=== PATIENT | male | born 1970 | race Hispanic/Latino ===

== ENCOUNTER 2020-09-20 11:37 | Emergency (ER) | payer OTHER, SELFPAY ==
[2020-09-20] MEDS ORDERED: TETANUS & DIPHTHERIA TOX,ADULT 0.5 ML VIAL ONE (12:35)
[2020-09-20] MEDS ORDERED: LIDOCAINE 1% MPF 5 ML VIAL ONE (12:35)
--- NOTE | 2020-09-20 12:51 | EDPHYS ---
Physician Documentation [facility] Name: Mireya Knight Jr Age: 50 yrs Sex: Male : 1970 Arrival Date: 09/20/2020 Time: 11:39 Bed 18 Private MD: ED Physician Jonatan Davenport HPI: 09/20 13:35 This 50 yrs old Male presents to ER via Ambulatory with complaints of kb Laceration - finger. 13:35 The patient has a laceration related to: opening beer bottle and it slipped, cutting kb finger occurred at home, and there are no complicating factors. The injury was accidental. The laceration(s) is(are) located on the palmar aspect of middle phalanx of left index finger. Onset: The symptoms/episode began/occurred this morning, at 02:00. Associated signs and symptoms: The patient has no apparent associated signs or symptoms. The patient has not experienced similar symptoms in the past. The patient has not recently seen a physician. Historical: - Allergies: 11:46 No Known Allergies; ll1 - PMHx: 11:46 Hypertension; Hypothyroidism; ll1 - PSHx: 11:46 ear sx; ll1 - Immunization history:: Last tetanus immunization: unknown, Flu vaccine is not up to date. - Social history:: Smoking status: Patient denies any tobacco usage or history of. ROS: 13:29 Constitutional: Negative for fever, chills, and weight loss, MS/Extremity: Negative for kb injury and deformity, Neuro: Negative for headache, weakness, numbness, tingling, and seizure. 13:29 Skin: Positive for laceration(s), of the palmar aspect of middle phalanx of left index finger. Exam: 13:34 Constitutional: This is a well developed, well nourished patient who is awake, alert, kb and in no acute distress. Head/Face: Normocephalic, atraumatic. ENT: Moist Mucous membranes Respiratory: Respirations even and unlabored. No increased work of breathing, no retractions or nasal flaring. MS/ Extremity: Pulses equal, no cyanosis. Neurovascular intact. Full, normal range of motion. Neuro: Awake and alert, GCS 15, oriented to person, place, time, and situation. Moves all extremities. Normal gait. Psych: Awake, alert, with orientation to person, place and time. Behavior, mood, and affect are within normal limits. 13:34 Skin: injury, laceration(s), the wound is approximately 2 cm(s), of the palmar aspect of middle phalanx of left index finger, that can be described as clean, no foreign body, linear, without bleeding. Vital Signs: 11:46 BP 175 / 114; Pulse 64; Resp 17; Temp 97.9; Pulse Ox 95% ; Weight 95.25 kg; Height 5 ll1 ft. 10 in. (177.80 cm); Pain 4/10; 13:05 BP 155 / 90; Pulse 65; Resp 18; Temp 97.8; Pulse Ox 96% on R/A; ph 11:46 Body Mass Index 30.13 (95.25 kg, 177.80 cm) ll1 Laceration: 12:48 Wound Repair of 2cm ( 0.8in ) subcutaneous laceration to palmar aspect of middle kb phalanx of left index finger. Linear shaped.. Distal neuro/vascular/tendon intact. Anesthesia: Wound infiltrated with 1.5 mls of 1% lidocaine. Wound prep: Moderate cleansing with betadine by me, Wound irrigation with saline by me. Skin closed with 4 5-0 Prolene using simple sutures and sterile technique. Patient tolerated well. MDM: 11:48 Patient medically screened. kb 12:49 Data reviewed: vital signs, nurses notes. Data interpreted: Pulse oximetry: on room air kb is 95 %. Interpretation: normal. Counseling: I had a detailed discussion with the patient and/or guardian regarding: the historical points, exam findings, and any diagnostic results supporting the discharge/admit diagnosis, the need for outpatient follow up, a family practitioner, to return to the emergency department if symptoms worsen or persist or if there are any questions or concerns that arise at home. 13:36 ED course: Pt requested refill on lisinopril 40mg daily. states he ran out a few days kb ago and hasn't been able to schedule appt with PCP because he has been on nights. 09/20 12:01 Order name: Prolene, Sutures; Complete Time: 12:48 kb 09/20 12:01 Order name: Dressing - Wound; Complete Time: 12:49 kb 09/20 12:01 Order name: Gloves, Sterile; Complete Time: 12:49 kb 09/20 12:01 Order name: Setup Suture Tray; Complete Time: 12:49 kb Administered Medications: 12:43 Drug: Lidocaine (2 %) 1 vials Volume: 5 ml; Route: Infiltration; ph 13:00 Follow up: Response: No adverse reaction ph 12:44 Drug: Tetanus-Diphtheria Toxoid Adult 0.5 ml {[employer]: [employer]. Exp: ph 06/12/2022. Lot #: [id number]. } Route: IM; Site: right deltoid; 13:00 Follow up: Response: No adverse reaction ph Disposition: 13:24 Co-signature as Attending Physician, Jonatan Davenport MD. rn Disposition: 09/20/20 12:50 Discharged to Home. Impression: Laceration without foreign body of left index finger without damage to nail. - Condition is Stable. - Discharge Instructions: Laceration Care, Adult, [id number]. - Prescriptions for lisinopril 40 mg Oral tablet - take 1 tablet by ORAL route once daily; 20 tablet. - Medication Reconciliation Form, Thank You Letter, Antibiotic Education, Prescription Opioid Use form. - Follow up: Emergency Department; When: As needed; Reason: Worsening of condition. Follow up: Private Physician; When: 2 - 3 days; Reason: Recheck today's complaints, Continuance of care, Re-evaluation by your physician. Signatures: Denisse Forde, MEDICAL OFFICE WORKER-C MEDICAL OFFICE WORKER-Ckb Jonatan Davenport MD MD rn Hall, Patricia, RN RN ph Lewis, Lynsay, RN RN ll1 Corrections: (The following items were deleted from the chart) 13:13 12:50 09/20/2020 12:50 Discharged to Home. Impression: Laceration without foreign body ph of left index finger without damage to nail. Condition is Stable. Forms are Medication Reconciliation Form, Thank You Letter, Antibiotic Education, Prescription Opioid Use. Follow up: Emergency Department; When: As needed; Reason: Worsening of condition. Follow up: Private Physician; When: 2 - 3 days; Reason: Recheck today's complaints, Continuance of care, Re-evaluation by your physician. kb
--- NOTE | 2020-09-20 12:51 | ER ---
Nurse's Notes [facility] Name: Mireya Knight Jr Age: 50 yrs Sex: Male : 1970 Arrival Date: 09/20/2020 Time: 11:39 Bed 18 Private MD: Diagnosis: Laceration without foreign body of left index finger without damage to nail Presentation: 09/20 11:46 Chief complaint: Patient states: L hand 2nd digit accidentally cut with broken bottle ll1 last night at 0200. Coronavirus screen: Client denies travel out of the [place] in the last 14 days. At this time, the client does not indicate any symptoms associated with coronavirus-19. Ebola Screen: Patient denies travel to an Ebola-affected area in the 21 days before illness onset. Complicating Factors: There are no complicating factors for this patient. Initial Sepsis Screen: Does the patient meet any 2 criteria? No. Patient's initial sepsis screen is negative. Does the patient have a suspected source of infection? Yes: Skin breakdown/wound. Risk Assessment: Do you want to hurt yourself or someone else? Patient reports no desire to harm self or others. Onset of symptoms was September 20, 2020. 11:46 Method Of Arrival: Ambulatory ll1 11:46 Acuity: OTIS 4 ll1 Historical: - Allergies: 11:46 No Known Allergies; ll1 - PMHx: 11:46 Hypertension; Hypothyroidism; ll1 - PSHx: 11:46 ear sx; ll1 - Immunization history:: Last tetanus immunization: unknown, Flu vaccine is not up to date. - Social history:: Smoking status: Patient denies any tobacco usage or history of. Screenin:06 Abuse screen: Denies threats or abuse. Denies injuries from another. Nutritional ph screening: No deficits noted. Tuberculosis screening: No symptoms or risk factors identified. Fall Risk None identified. Assessment: 12:45 General: Appears in no apparent distress. comfortable, Behavior is calm, cooperative, ph appropriate for age. 17:20 Pain: Complains of pain in palmar aspect of middle phalanx of left index finger. Neuro: ph Level of Consciousness is awake, alert, obeys commands, Oriented to person, place, time, situation. Cardiovascular: Capillary refill < 3 seconds in bilateral fingers Patient's skin is warm and dry. Respiratory: No deficits noted. Musculoskeletal: Circulation, motion, and sensation intact. Range of motion: intact in all extremities. Injury Description: Laceration sustained to palmar aspect of middle phalanx of left index finger is jagged, 2.6 to 7.5 cm long, not bleeding. Vital Signs: 11:46 BP 175 / 114; Pulse 64; Resp 17; Temp 97.9; Pulse Ox 95% ; Weight 95.25 kg; Height 5 ll1 ft. 10 in. (177.80 cm); Pain 4/10; 13:05 BP 155 / 90; Pulse 65; Resp 18; Temp 97.8; Pulse Ox 96% on R/A; ph 11:46 Body Mass Index 30.13 (95.25 kg, 177.80 cm) ll1 ED Course: 11:39 Patient arrived in ED. as 11:45 Arm band placed on Patient placed in an exam room, on a stretcher. ll1 11:46 Denisse Forde FNP-C [facility]. kb 11:46 Jonatan Davenport MD is Attending Physician. kb 11:47 Triage completed. ll1 12:13 Genesis Walters, KWASI is Primary Nurse. ph 12:40 Assist provider with laceration repair. ph 13:06 Patient has correct armband on for positive identification. Bed in low position. Call ph light in reach. Side rails up X 1. Pulse ox on. NIBP on. 13:06 Patient did not have IV access during this emergency room visit. ph Administered Medications: 12:43 Drug: Lidocaine (2 %) 1 vials Volume: 5 ml; Route: Infiltration; ph 13:00 Follow up: Response: No adverse reaction ph 12:44 Drug: Tetanus-Diphtheria Toxoid Adult 0.5 ml {[employer] [place]: [employer]. Exp: ph 06/12/2022. Lot #: [id number]. } Route: IM; Site: right deltoid; 13:00 Follow up: Response: No adverse reaction ph Outcome: 12:50 Discharge ordered by . kb 13:13 Patient left the ED. ph 13:13 Discharged to home ambulatory, with significant other. ph 13:13 Condition: good 13:13 Discharge instructions given to patient, Instructed on discharge instructions, follow up and referral plans. medication usage, Demonstrated understanding of instructions, follow-up care, medications, Prescriptions given X 1. Signatures: Denisse Forde, POOLROOM/POOLHALL MANAGER-C POOLROOM/POOLHALL MANAGER-Daphney Melo as Genesis Walters, RN RN ph Madi Chavez RN RN ll1 Corrections: (The following items were deleted from the chart) 17:21 12:45 General: Appears in no apparent distress. comfortable, Behavior is calm, ph cooperative, appropriate for age, ph
[2020-09-20 13:24] VITALS: BP 155/90; TEMP 97.8; O2SAT 96
== END 2020-09-20 13:13 | disposition home or self-care (01) ==
LOC: ER 11:37
PROC: 0JQK0ZZ Repair Left Hand Subcutaneous Tissue and Fascia, Open Approach (ICD-10-PCS; principal; 2020-09-20)
DX: S61.211A Laceration without foreign body of left index finger without damage to nail, initial encounter (principal); W25.XXXA Contact with sharp glass, initial encounter; Y92.009 Unspecified place in unspecified non-institutional (private) residence as the place of occurrence of the external cause; Z23 Encounter for immunization; I10 Essential (primary) hypertension
CPT/HCPCS: 90471; 90714; 99284

== ENCOUNTER 2020-11-12 11:57 | Emergency (ER) | payer OTHER ==
--- NOTE | 2020-11-12 13:19 | RAD REPORT ---
EXAM DESCRIPTION: RAD - Chest Pa And Lat (2 Views) - 11/12/2020 12:47 pm CLINICAL HISTORY: COUGH Chest pain. COMPARISON: CHEST SINGLE VIEW dated 08/21/2011; CHEST SINGLE VIEW dated 12/02/2005 FINDINGS: Mild bilateral interstitial lung opacities are seen in most compatible with mild to modera te COVID infection. The heart is normal in size. No displaced fractures.
[2020-11-12] MEDS ORDERED: ONDANSETRON 4 MG (ODT) TAB ONE (16:28)
[2020-11-12] MEDS ORDERED: BENZONATATE 100 MG CAP PO ONE (16:28)
--- NOTE | 2020-11-12 16:35 | ER ---
Nurse[facility] Name: Mireya Knight Jr Age: 50 yrs Sex: Male : 1970 Arrival Date: 11/12/2020 Time: 12:12 Bed 30 Private MD: Diagnosis: Other viral pneumonia;SARS-associated coronavirus as the cause of diseases classified elsewhere Presentation: 11/12 12:15 Chief complaint: Patient states: Covid+ 11/09/2020. Cough x 1 month, N/V x 4 days, ca1 feeling weak and fatigued. Coronavirus screen: Client denies travel out of the [place] in the last 14 days. Client reports previous positive COVID test result. Date of collection: November 09, 2020 Staff notified of need for isolation. Ebola Screen: Patient negative for fever greater than or equal to 101.5 degrees Fahrenheit, and additional compatible Ebola Virus Disease symptoms Patient denies exposure to infectious person. Patient denies travel to an Ebola-affected area in the 21 days before illness onset. No symptoms or risks identified at this time. Initial Sepsis Screen: Does the patient meet any 2 criteria? No. Patient's initial sepsis screen is negative. Does the patient have a suspected source of infection? No. Patient's initial sepsis screen is negative. Risk Assessment: Do you want to hurt yourself or someone else? Patient reports no desire to harm self or others. Onset of symptoms was November 12, 2020. 12:15 Method Of Arrival: Ambulatory ca1 12:15 Acuity: OTIS 3 ca1 Historical: - Allergies: 12:16 No Known Allergies; ca1 - PMHx: 12:16 Hypertension; Hypothyroidism; ca1 - Immunization history:: Client reports having NOT received the Covid vaccine. - Social history:: Smoking status: Patient denies any tobacco usage or history of. Screenin:48 Abuse screen: Denies threats or abuse. Denies injuries from another. Nutritional tr6 screening: No deficits noted. Tuberculosis screening: No symptoms or risk factors identified. Fall Risk None identified. Assessment: 16:20 General: Appears in no apparent distress. uncomfortable, Behavior is calm, cooperative, tr6 appropriate for age. Pain: Complains of pain in chest and right posterior lower lobe and right posterior middle lobe and left posterior lower lobe. Neuro: No deficits noted. Level of Consciousness is awake, alert, obeys commands. Cardiovascular: Reports chest pain, CP r/t cough. Respiratory: Reports shortness of breath cough that is pain with cough. GI: Abdomen is flat, non-distended, Reports nausea. : No deficits noted. EENT: No deficits noted. Derm: No deficits noted. Musculoskeletal: No deficits noted. Vital Signs: 12:15 BP 139 / 91; Pulse 86; Resp 18 S; Temp 97.1(TE); Pulse Ox 98% on R/A; Weight 95.25 kg ca1 (R); Height 5 ft. 10 in. (177.80 cm) (R); Pain 0/10; 12:15 Body Mass Index 30.13 (95.25 kg, 177.80 cm) ca1 ED Course: 12:12 Patient arrived in ED. ca1 12:16 Triage completed. ca1 12:16 Arm band placed on right wrist. ca1 12:28 Radiology exam delayed due to pt's name was called in ed lobby for cxr, no response at ml 12:28. 12:45 Chest Pa And Lat (2 Views) XRAY In Process Unspecified. EDMS 15:23 Marjorie Vyas, KWASI is Primary Nurse. tr6 15:25 Chadd Payne PA is PHCP. cp 15:25 Tavo Bartholomew MD is Attending Physician. cp 16:19 EKG done, by ED staff, reviewed by Chadd ROY. 5 17:48 Patient has correct armband on for positive identification. Call light in reach. tr6 nurse monitoring on. Pulse ox on. NIBP on. 17:48 No provider procedures requiring assistance completed. Patient did not have IV access tr6 during this emergency room visit. Administered Medications: 16:21 Drug: Tessalon Perle (benzonatate) 200 mg Route: PO; tr6 16:21 Drug: Zofran (Ondansetron) 4 mg Route: PO; tr6 16:22 Drug: predniSONE 60 mg Route: PO; tr6 Outcome: 16:34 Discharge ordered by . cp 17:48 Patient left the ED. ca1 17:48 Discharged to home ambulatory, pt refused wheelchair at this time tr6 17:48 Condition: stable 17:48 Discharge instructions given to patient, Instructed on discharge instructions, follow up and referral plans. no drinking with medication, medication usage, safety practices, Demonstrated understanding of instructions, follow-up care, medications, Prescriptions given X 4. Signatures: Dispatcher [employer] Elsa Colon Corey, PA PA cp Martinez, Maria [facility] Alessia Nichole RN RN ca1 Marjorie Vyas RN RN tr6 Corrections: (The following items were deleted from the chart) 12:19 12:15 Coronavirus screen: Client denies travel out of the [place] in the last 14 days. At ca1 this time, the client does not indicate any symptoms associated with coronavirus-19. ca1
--- NOTE | 2020-11-12 16:35 | EDPHYS ---
Physician Documentation [facility] Name: Mireya Knight Jr Age: 50 yrs Sex: Male : 1970 Arrival Date: 11/12/2020 Time: 12:12 Bed 30 Private MD: ED Physician Tavo Bartholomew HPI: 11/12 15:35 This 50 yrs old Male presents to ER via Ambulatory with complaints of covid+, cp Nausea/Vomiting, Cough. 15:35 The patient or guardian reports cough, that is constant, with no sputum. Onset: The cp symptoms/episode began/occurred 1 week(s) ago, and became worse 3 day(s) ago. Associated signs and symptoms: Pertinent positives: chest pain, with cough, nausea, vomiting, Pertinent negatives: diarrhea, fever. Severity of symptoms: in the emergency department the symptoms are unchanged despite home interventions. Historical: - Allergies: 12:16 No Known Allergies; ca1 - PMHx: 12:16 Hypertension; Hypothyroidism; ca1 - Immunization history:: Client reports having NOT received the Covid vaccine. - Social history:: Smoking status: Patient denies any tobacco usage or history of. ROS: 15:36 Eyes: Negative for injury, pain, redness, and discharge. cp 15:36 Constitutional: Negative for fever, poor PO intake. 15:36 ENT: Negative for ear pain, sore throat, difficulty swallowing, difficulty handling secretions. 15:36 Cardiovascular: Positive for chest pain, with cough, Negative for edema, palpitations. 15:36 Respiratory: Positive for cough, with no reported sputum, shortness of breath, on exertion. Negative for wheezing. 15:36 Abdomen/GI: Positive for nausea and vomiting, Negative for abdominal pain, diarrhea, constipation. 15:36 Back: Positive for radiated pain. 15:36 Skin: Negative for rash. 15:36 Neuro: Negative for altered mental status, headache, loss of consciousness, syncope, weakness. 15:36 All other systems are negative. Exam: 15:37 Head/Face: Normocephalic, atraumatic. cp 15:37 Constitutional: The patient appears in no acute distress, alert, awake, non-diaphoretic, non-toxic, well developed, well nourished. 15:37 Eyes: Periorbital structures: appear normal, Conjunctiva: normal, no exudate, no injection, Sclera: no appreciated abnormality, Lids and lashes: appear normal, bilaterally. 15:37 ENT: External ear(s): are unremarkable, Nose: is normal, Mouth: Lips: moist, Oral mucosa: moist, Posterior pharynx: Airway: no evidence of obstruction, patent. 15:37 Neck: ROM/movement: is normal, is supple, no meningismus, no nuchal rigidity. 15:37 Chest/axilla: Inspection: normal, Palpation: is normal, no crepitus, no tenderness. 15:37 Cardiovascular: Rate: normal, Rhythm: regular, Edema: is not appreciated, JVD: is not appreciated. 15:37 Respiratory: the patient does not display signs of respiratory distress, Respirations: normal, no use of accessory muscles, no retractions, labored breathing, is not present, Breath sounds: bronchial sounds, that are mild, are heard in the left posterior lower lobe, right posterior middle lobe and right posterior lower lobe, decreased breath sounds, are not appreciated, stridor, is not appreciated, wheezing: is not appreciated. 15:37 Abdomen/GI: Inspection: abdomen appears normal, Palpation: abdomen is soft and non-tender, in all quadrants. 15:37 Back: pain, that is mild, of the lower mid back, ROM is normal. 16:33 ECG was reviewed by the Attending Physician. Vital Signs: 12:15 BP 139 / 91; Pulse 86; Resp 18 S; Temp 97.1(TE); Pulse Ox 98% on R/A; Weight 95.25 kg ca1 (R); Height 5 ft. 10 in. (177.80 cm) (R); Pain 0/10; 12:15 Body Mass Index 30.13 (95.25 kg, 177.80 cm) ca1 MDM: 15:34 Patient medically screened. cp 16:00 Differential diagnosis: bronchitis, flu, URI, pneumonia, respiratory failure. 16:33 Data reviewed: vital signs, nurses notes, EKG, radiologic studies, plain films. 16:33 Test interpretation: by ED physician or midlevel provider: ECG, plain radiologic cp studies. Counseling: I had a detailed discussion with the patient and/or guardian regarding: the historical points, exam findings, and any diagnostic results supporting the discharge/admit diagnosis, radiology results, the need for outpatient follow up, a family practitioner, to return to the emergency department if symptoms worsen or persist or if there are any questions or concerns that arise at home. ED course: VSS. Patient appears non-toxic and no signs of respiratory distress. Will discharge to home for continued monitoring. 11/12 12:17 Order name: Chest Pa And Lat (2 Views) XRAY; Complete Time: 15:11 ca1 11/12 15:40 Order name: EKG; Complete Time: 15:40 cp 11/12 15:40 Order name: EKG - Nurse/Tech; Complete Time: 16:19 cp EC:33 Rate is 73 beats/min. Rhythm is regular. MT interval is normal. QRS interval is normal. cp QT interval is normal. T waves are Inverted in lead aVR. Interpreted by me. Reviewed by me. Administered Medications: 16:21 Drug: Tessalon Perle (benzonatate) 200 mg Route: PO; tr6 16:21 Drug: Zofran (Ondansetron) 4 mg Route: PO; tr6 16:22 Drug: predniSONE 60 mg Route: PO; tr6 Disposition: 19:01 Co-signature as Attending Physician, Tavo Bartholomew MD I agree with the assessment and kdr plan of care. Disposition Summary: 11/12/20 16:34 Discharge Ordered Location: Home cp Problem: new cp Symptoms: have improved cp Condition: Stable cp Diagnosis - Other viral pneumonia cp - SARS-associated coronavirus as the cause of diseases classified elsewhere cp Followup: cp - With: Private Physician - When: 2 - 3 days - Reason: Worsening of condition Discharge Instructions: - Discharge Summary Sheet cp - COVID-19 cp - Things to Know about the COVID-19 Pandemic - [facility] cp - 10 Things You Can Do to Manage Your COVID-19 Symptoms at Home - [facility] cp - COVID-19: Quarantine vs. Isolation - [facility] cp - Prevent the Spread of COVID-19 if You Are Sick - [facility] cp Forms: - Medication Reconciliation Form cp - Thank You Letter cp - Antibiotic Education cp - Prescription Opioid Use cp Prescriptions: - albuterol sulfate 90 mcg/actuation Inhalation HFA aerosol inhaler - inhale 2 puff by INHALATION route every 4-6 hours; 1 Inhaler; Refills: 0, cp Product Selection Permitted - Zofran 4 mg Oral Tablet - take 1 tablet by ORAL route every 12 hours As needed; 20 tablet; Refills: 0, cp Product Selection Permitted - Tessalon Perles 100 mg Oral Capsule - take 2 capsule by ORAL route every 8 hours As needed; 30 capsule; Refills: 0, cp Product Selection Permitted - Zithromax Z-Mendez 250 mg Oral Tablet - take 1 tablet by ORAL route as directed for 5 days Day 1 - take two (2) tablets cp one time. Day 2, 3, 4 , 5 take one (1) tablet once daily.; 6 tablet; Refills: 0, Product Selection Permitted - Prednisone 20 mg Oral Tablet - take 2 tablets by ORAL route once daily for 5 days then take 1 tablet daily for cp 5 days; 15 tablet; Refills: 0, Product Selection Permitted Signatures: Dispatcher [employer] Tavo Snow MD MD kdr Page, Corey, PA PA cp Acob, Cheryl RN RN ca1 Marjorie Vyas RN RN tr6
[2020-11-12] MEDS ORDERED: predniSONE 20 MG TAB ONE (16:39)
[2020-11-12 17:55] VITALS: BP 139/91; TEMP 97.1; O2SAT 98
--- NOTE | 2020-11-13 10:51 | EKG ---
Test Date: 2020-11-12 Test Time: 16:27:25 Oncology Pharmacist: SAMANTA MEASUREMENT RESULTS: Intervals: Rate: 73 RI: 134 QRSD: 72 QT: 384 QTc: 423 Rebecca: P: 55 RI: 134 QRS: 13 T: 51 INTERPRETIVE STATEMENTS: Normal sinus rhythm Normal ECG Compared to ECG 08/21/2011 06:18:25 Myocardial infarct finding no longer present Electronically Signed On 11-13-20 10:48:23 CDT by oJseph Gilbert
== END 2020-11-12 17:48 | disposition home or self-care (01) ==
LOC: ER 11:57
DX: U07.1 COVID-19 (principal); J12.89 Other viral pneumonia; I10 Essential (primary) hypertension
CPT/HCPCS: 93005; 71046; 99284; J7512

== ENCOUNTER 2020-11-17 15:29 | Inpatient (IN) | payer OTHER ==
[2020-11-17] MEDS ORDERED: METHYLPREDNISOLONE 125 MG INJ ONE (16:09)
--- NOTE | 2020-11-17 16:12 | ER ---
Nurse's Notes [facility] Name: Mireya Knight Jr Age: 50 yrs Sex: Male : 1970 Arrival Date: 11/17/2020 Time: 15:37 Bed 8 Private MD: Diagnosis: Pneumonia due to SARS-associated coronavirus;Hypoxemia Presentation: 11/17 15:39 Chief complaint: Patient states: tested + for COVID on 11-08-20, is having increased diff iw breathing , pt 88% on RA , reports chest pain with cough. Coronavirus screen: Client presents with at least one sign or symptom that may indicate coronavirus-19. Client reports previous positive COVID test result. Ebola Screen: Patient negative for fever greater than or equal to 101.5 degrees Fahrenheit, and additional compatible Ebola Virus Disease symptoms Patient denies exposure to infectious person. Patient denies travel to an Ebola-affected area in the 21 days before illness onset. No symptoms or risks identified at this time. Onset of symptoms was November 08, 2020. 15:39 Method Of Arrival: EMS: [facility] iw 15:39 Acuity: OTIS 3 iw 15:41 Initial Sepsis Screen: Does the patient meet any 2 criteria? No. Patient's initial iw sepsis screen is negative. Does the patient have a suspected source of infection? No. Patient's initial sepsis screen is negative. Risk Assessment: Do you want to hurt yourself or someone else? Patient reports no desire to harm self or others. Historical: - Allergies: 15:49 No Known Allergies; iw - Home Meds: 15:49 lisinopril 40 mg Oral tab 1 tab once daily [Active]; levothyroxine oral 10 mcg once iw daily [Active]; - PMHx: 15:49 Hypertension; Hypothyroidism; iw - PSHx: 15:49 None; iw - Immunization history:: Client reports having NOT received the Covid vaccine. - Social history:: Smoking status: Patient denies any tobacco usage or history of. - Family history:: not pertinent. - Hospitalizations: : No recent hospitalization is reported. Screenin:53 Abuse screen: Denies threats or abuse. Denies injuries from another. Nutritional hb screening: No deficits noted. Tuberculosis screening: No symptoms or risk factors identified. Fall Risk None identified. Assessment: 15:51 General: Appears in no apparent distress. Behavior is calm, cooperative. Pain: Pain hb currently is 4 out of 10 on a pain scale. Neuro: Level of Consciousness is awake, alert, obeys commands, Oriented to person, place, time, situation. Cardiovascular: Patient's skin is warm and dry. Rhythm is regular. Respiratory: Respiratory effort is even, mildly labored Respiratory pattern is tachypnea. GI: Reports diarrhea, nausea. : No signs and/or symptoms were reported regarding the genitourinary system. EENT: No signs and/or symptoms were reported regarding the EENT system. Derm: Skin is pink, warm \T\ dry. Musculoskeletal: Reports body aches. 16:23 Reassessment: Patient appears in no apparent distress at this time. Patient and/or jd3 family updated on plan of care and expected duration. Pain level reassessed. Patient is alert, oriented x 3, equal unlabored respirations, skin warm/dry/pink. 17:20 Reassessment: No changes from previously documented assessment. Patient and/or family hb updated on plan of care and expected duration. Pain level reassessed. Admission ordered, awaiting hospitalist at this time. Vital Signs: 15:41 BP 118 / 85; Pulse 76; Resp 24 S; Pulse Ox 88% on R/A; Weight 95.25 kg; Height 5 ft. 10 iw in. (177.80 cm); 16:24 BP 132 / 87; Pulse 73; Resp 21 S; Temp 99.2(O); Pulse Ox 95% on 2 lpm NC; jd3 15:41 Body Mass Index 30.13 (95.25 kg, 177.80 cm) iw ED Course: 15:37 Patient arrived in ED. iw 15:38 Jonatan Davenport MD is Attending Physician. rn 15:41 Triage completed. iw 15:41 Arm band placed on. iw 15:44 Hugo Menezes RN is Primary Nurse. jd3 15:53 Patient has correct armband on for positive identification. Placed in gown. Bed in low hb position. Call light in reach. Side rails up X 1. youth nutritional monitor on. Pulse ox on. NIBP on. 16:10 Abby Bond MD is Hospitalizing Provider. rn 16:23 Inserted saline lock: 20 gauge in right forearm, using aseptic technique. Blood jd3 collected. 16:30 XRAY Chest (1 view) In Process Unspecified. EDMS 17:53 No provider procedures requiring assistance completed. Patient admitted, IV remains in hb place. Administered Medications: 16:22 Drug: SOLU-Medrol (methylPrednisoLONE) 125 mg Route: IVP; Site: right forearm; jd3 17:20 Follow up: Response: No adverse reaction jd3 Outcome: 16:11 Decision to Hospitalize by Provider. rn 17:53 Admitted to ER Hold. Please see [facility] for further documentation. hb 17:53 Condition: stable 17:53 Instructed on the need for admit, Demonstrated understanding of instructions. 11/18 13:03 Patient left the ED. ld1 Signatures: Dispatcher [employer] EDKallie Brumfield RN RN Jonatan Davenport MD MD rn Baxter, Heather, RN RN hb Davies, Jonathon, RN RN jd3 Dibbern, Lauren, RN RN ld1 Corrections: (The following items were deleted from the chart) 11/17 15:50 15:49 Allergies: No Known Allergies; iw iw 15:50 15:49 Allergies: Levothyroxine Sodium; iw iw 17:21 17:20 Reassessment: No changes from previously documented assessment. Patient and/or hb family updated on plan of care and expected duration. Pain level reassessed. hb
--- NOTE | 2020-11-17 16:12 | EDPHYS ---
Physician Documentation [facility] Name: Mireya Knight Jr Age: 50 yrs Sex: Male : 1970 Arrival Date: 11/17/2020 Time: 15:37 Bed 8 Private MD: ED Physician Jonatan Davenport HPI: 11/17 16:04 This 50 yrs old Male presents to ER via EMS with complaints of Breathing rn Difficulty - COVID+. 16:04 The patient has shortness of breath at rest, with light activity. Onset: The rn symptoms/episode began/occurred 1 week(s) ago. Duration: The symptoms are continuous. The patient's shortness of breath is aggravated by coughing, exertion, light activity, is alleviated by nothing. Associated signs and symptoms: Pertinent positives: productive cough, fever, Pertinent negatives: hemoptysis. Severity of symptoms: At their worst the symptoms were moderate in the emergency department the symptoms are unchanged. The patient has not experienced similar symptoms in the past. The patient has not recently seen a physician. Patient reports 1 week of cough and shortness of breath, tested positive for Covid recently. Multiple family members admitted to the hospital with Covid pneumonia. No chronic lung problems. EMS states oxygen 87% on room air.. Historical: - Allergies: 15:49 No Known Allergies; iw - Home Meds: 15:49 lisinopril 40 mg Oral tab 1 tab once daily [Active]; levothyroxine oral 10 mcg once iw daily [Active]; - PMHx: 15:49 Hypertension; Hypothyroidism; iw - PSHx: 15:49 None; iw - Immunization history:: Client reports having NOT received the Covid vaccine. - Social history:: Smoking status: Patient denies any tobacco usage or history of. - Family history:: not pertinent. - Hospitalizations: : No recent hospitalization is reported. ROS: 16:05 Constitutional: Negative for fever, chills, and weight loss, Eyes: Negative for injury, rn pain, redness, and discharge, ENT: Negative for injury, pain, and discharge, Neck: Negative for injury, pain, and swelling, Cardiovascular: Negative for chest pain, palpitations, and edema, Respiratory: Negative for wheezing Abdomen/GI: Negative for abdominal pain, nausea, vomiting, and constipation, Back: Negative for injury and pain, : Negative for injury, bleeding, discharge, and swelling, MS/Extremity: Negative for injury and deformity, Skin: Negative for injury, rash, and discoloration, Neuro: Negative for headache, numbness, tingling, and seizure. 16:05 All other systems are negative. rn Exam: 16:05 Constitutional: This is a well developed, well nourished patient who is awake, alert, rn appears ill and mild tachypnea Head/Face: Normocephalic, atraumatic. Eyes: Periorbital areas with no swelling, redness, or edema. ENT: No stridor, dry mucous membranes Cardiovascular: Regular rate and rhythm. No pulse deficits. Respiratory: Moderate tachypnea on exam Abdomen/GI: Soft, non-tender Skin: Warm, dry MS/ Extremity: Pulses equal, no cyanosis. Neurovascular intact. Full, normal range of motion. Equal circumference. Neuro: Awake and alert, GCS 15 18:58 ECG was reviewed by the Attending Physician. rn Vital Signs: 15:41 BP 118 / 85; Pulse 76; Resp 24 S; Pulse Ox 88% on R/A; Weight 95.25 kg; Height 5 ft. 10 iw in. (177.80 cm); 16:24 BP 132 / 87; Pulse 73; Resp 21 S; Temp 99.2(O); Pulse Ox 95% on 2 lpm NC; jd3 15:41 Body Mass Index 30.13 (95.25 kg, 177.80 cm) iw MDM: 15:38 Patient medically screened. rn 16:09 Differential diagnosis: Bronchitis pneumonia, pulmonary edema, Sepsis Covid. Data rn reviewed: vital signs, nurses notes, lab test result(s), EKG, radiologic studies, plain films, and as a result, I will admit patient. Data interpreted: library monitor: rate is 76 beats/min, rhythm is normal sinus rhythm, regular, with no ectopy, Interpretation: normal rate, normal rhythm, Pulse oximetry: on room air is 88 %. Interpretation: hypoxia. Plan: O2 by NC applied. Test interpretation: by ED physician or midlevel provider: ECG, plain radiologic studies, Chest x-ray shows bilateral pneumonia. Counseling: I had a detailed discussion with the patient and/or guardian regarding: the historical points, exam findings, and any diagnostic results supporting the discharge/admit diagnosis, lab results, radiology results, the need for further work-up and treatment in the hospital. Response to treatment: the patient's symptoms have mildly improved after treatment, and as a result, I will admit patient. Admission orders: after a detailed discussion of the patient's condition and case, the admit orders are written by me. ED course: Patient with Covid pneumonia, hypoxia, tachypnea, will admit to Dr. Bradford for further care.. 16:11 Antibiotic administration: Not indicated. Immunization status:. 11/17 15:39 Order name: BMP rn 11/17 15:39 Order name: Blood Culture Adult (2) rn 11/17 15:39 Order name: C-Reactive Protein; Complete Time: 17:57 11/17 15:39 Order name: CBC with Diff; Complete Time: 17:57 11/17 15:39 Order name: D-Dimer; Complete Time: 16:52 11/17 15:39 Order name: Ferritin; Complete Time: 17:57 11/17 15:39 Order name: LFT's; Complete Time: 17:57 11/17 15:39 Order name: Lactate; Complete Time: 17:57 11/17 15:39 Order name: PT-INR; Complete Time: 16:52 11/17 15:39 Order name: Procalcitonin; Complete Time: 17:57 11/17 15:39 Order name: Ptt, Activated; Complete Time: 16:52 11/17 15:39 Order name: Troponin (emerg Dept Use Only); Complete Time: 17:57 11/17 15:40 Order name: Basic Metabolic Panel; Complete Time: 17:57 [facility] 11/17 17:28 Order name: CBC Smear Scan; Complete Time: 17:57 [facility] 11/17 15:39 Order name: XRAY Chest (1 view); Complete Time: 16:52 11/17 15:39 Order name: EKG; Complete Time: 15:40 11/17 15:39 Order name: Cardiac monitoring; Complete Time: 16:23 11/17 15:39 Order name: Droplet/Contact Precautions; Complete Time: 15:45 11/17 15:39 Order name: EKG - Nurse/Tech; Complete Time: 16:23 11/17 17:43 Order name: Lipid Profile [facility] 11/17 17:43 Order name: Hemoglobin A1c [facility] 11/17 17:44 Order name: CBC with Automated Diff [facility] 11/17 17:44 Order name: CBC with Automated Diff [facility] 11/17 17:44 Order name: Comprehensive Metabolic Panel [facility] 11/17 17:44 Order name: Comprehensive Metabolic Panel [facility] 11/17 17:53 Order name: Protime (+INR) [facility] 11/17 17:53 Order name: Regular [facility] 11/17 17:53 Order name: Urinalysis [facility] 11/17 20:53 Order name: Lactate Sepsis 2 HR Follow-up [facility] 11/17 15:39 Order name: IV Start; Complete Time: 16:23 rn 11/17 15:39 Order name: Labs collected and sent; Complete Time: 16:23 rn 11/17 15:39 Order name: O2 Per Protocol; Complete Time: 15:45 rn 11/17 15:39 Order name: O2 Sat Monitoring; Complete Time: 15:45 rn EC:58 Rate is 69 beats/min. Rhythm is regular. QRS [place] is Normal. [place] interval is normal. QRS rn interval is normal. QT interval is normal. No Q waves. T waves are Normal. No ST changes noted. Clinical impression: Normal ECG. Interpreted by me. Reviewed by me. Administered Medications: 16:22 Drug: SOLU-Medrol (methylPrednisoLONE) 125 mg Route: IVP; Site: right forearm; jd3 17:20 Follow up: Response: No adverse reaction jd3 Disposition Summary: 11/17/20 16:11 Hospitalization Ordered Hospitalization Status: Inpatient Admission rn Provider: Abby Bond rn Condition: Stable rn Problem: new rn Symptoms: are unchanged rn Bed/Room Type: Standard rn Location: Intensive Care Unit(11/18/20 12:10) bd Room Assignment: 8-(11/18/20 12:10) bd Diagnosis - Pneumonia due to SARS-associated coronavirus rn - Hypoxemia rn Forms: - Medication Reconciliation Form rn - SBAR form rn Signatures: Dispatcher [employer] Linda Ryder Irene, RN RN iw Nieto, Roman, MD MD rn Baxter, Heather, RN RN hb Davies, Jonathon RN RN jd3 Corrections: (The following items were deleted from the chart) 15:50 15:49 Allergies: No Known Allergies; iw 15:50 15:49 Allergies: Levothyroxine Sodium; iw 16: 15:46 Labs - recollect needed ordered. bd jd3 1753 16:11 Telemetry/MedSurg (Inpatient) [facility] 53 16:11 rn 11/18 12:10 11/17 17:53 [facility] ER HOLD bd 11/18 12:10 11/17 17:53 ERHOLD- [facility]
[2020-11-17 16:32] LABS: Absolute Lymphocytes (CBC) 0.7 K/uL (0.7-4.9); Basophils % 0.3 % (0-1.3); Hematocrit 45.1 % (39.6-49.0); Lymphocytes % 5.5 % (15.3-44.8); MPV 7.7 fL (7.6-11.3); RBC Red Blood Cell Count 5.25 M/uL (4.33-5.43)
[2020-11-17 16:42] LABS: Protime INR 0.97
--- NOTE | 2020-11-17 16:46 | RAD REPORT ---
EXAM DESCRIPTION: RAD - Chest Single View - 11/17/2020 4:30 pm CLINICAL HISTORY: COVID;Cough Chest pain. COMPARISON: Chest Pa And Lat (2 Views) dated 11/12/2020; CHEST SINGLE VIEW dated 08/21/2011; CHEST SING LE VIEW dated 12/02/2005 FINDINGS: Portable technique limits examination quality. Moderately severe bilateral pulmonary opacities are noted most compatible with Covid-19 infection. Th e heart is normal in size. No displaced fractures.
[2020-11-17 16:53] LABS: Albumin 3.1 g/dL (3.4-5.0); Alkaline Phosphatase 80 U/L (45-117); BUN Blood Urea Nitrogen 23 mg/dL (7-18); Bicarbonate 26 mmol/L (21-32); Bilirubin Direct 0.4 mg/dL (0-0.2); Bilirubin Total 0.8 mg/dL (0.2-1.0); Glucose Level 182 mg/dL (74-106); Sodium Level 135 mmol/L (136-145); Troponin (Emerg Dept Use Only) < 0.02 ng/mL (0.0-0.045)
[2020-11-17 16:54] LABS: ALT/SGPT 324 U/L (12-78); AST/SGOT 344 U/L (15-37)
[2020-11-17 17:19] LABS: Ferritin 3504.8 ng/mL (26-388)
[2020-11-17 17:28] LABS: Blood Morphology Comment NOT SEEN (NOT SEEN); Platelet Estimate ADEQ; White Blood Cell Scan OK (OK)
[2020-11-17] MEDS ORDERED: LABETALOL 20 MG/4ML SYRINGE IV PRN (17:41)
[2020-11-17] MEDS ORDERED: HYDROCODONE/APAP 5/325 MG TAB PO PRN (17:54)
--- NOTE | 2020-11-17 17:57 | P.HP ---
Certification for Inpatient Patient admitted to: Inpatient With expected LOS: >2 Midnights Patient will require the following post-hospital care: None Practitioner: I am a practitioner with admitting privileges, knowledge of patient current condition, hospital course, and medical plan of care. Services: Services provided to patient in accordance with Admission requirements found in Title 42 Section 412.3 of the Code of Federal Regulations <Blake López - Last Filed: 11/17/20 23:30> Patient History Date of Service: 11/17/20 Reason for admission: SOB History of Present Illness: Patient is a 50-year-old male with a past medical history significant for hypertension and hypothyroidism who presents with complaint of shortness of breath that has been ongoing for the past 1 week. Patient reported that he tested positive for COVID-19 infection on November 08, 2020. Patient reports associated signs and symptoms of dizziness, weakness, cough, fatigue, loss of taste\appetite\smell, nausea, vomiting and generalized body pains. Denies any other signs or symptoms. Symptoms are aggravated by exertion and relived by nothing. Patient's O2 sat was 87% on room air when patient was picked up by EMS. Home medications list reviewed: No - Past Medical/Surgical History -: HTN -: Hypothyriodism Past Surgical History: Reviewed- Non-Contributory - Family History Mother -: Hypertension, Diabetes, Other (see notes) (Hypothyriodism ) Father -: Hypertension, Diabetes, Other (see notes) (Hypothyriodism ) - Social History Smoking Status: Never smoker Alcohol use: No CD- Drugs: No Caffeine use: No Place of Residence: Home <Aidanvictor hugoDerrick keitaroderick Keita - Last Filed: 11/17/20 23:30> Date of Service: 11/17/20 <Abby Bond - Last Filed: 11/19/20 01:54> Allergies No Known Allergies Allergy (Unverified 08/21/11 05:40) Home Medications: Levothyroxine [Synthroid*] 10 mcg PO DAILY 11/17/20 Lisinopril [Zestril] 40 mg PO DAILY 11/17/20 Review of Systems General: Fever, Chills, Weakness, Malaise, Other (loss of taste\appetite\smell ), Unremarkable Eyes: Unremarkable ENT: Unremarkable Respiratory: Cough, Shortness of Breath, SOB with Excertion Cardiovascular: Unremarkable Gastrointestinal: Nausea, Vomiting, Diarrhea Genitourinary: Unremarkable Musculoskeletal: Unremarkable Integumentary: Unremarkable Neurological: Weakness, Unremarkable <MaribelDerrickroderick Keita - Last Filed: 11/17/20 23:30> Physical Examination - Physical Exam General: Alert, In no apparent distress, Oriented x3, Mild distress HEENT: Atraumatic, PERRLA, Mucous membr. moist/pink, EOMI, Sclerae nonicteric Neck: Supple, 2+ carotid pulse no bruit, No LAD, Without JVD or thyroid abnormality Respiratory: Diminished Cardiovascular: No edema, Regular rate/rhythm, Normal S1 S2 Capillary refill: <2 Seconds Gastrointestinal: Normal bowel sounds, No tenderness Musculoskeletal: No clubbing, No tenderness Integumentary: No rashes Neurological: Normal gait, Normal speech, Normal tone, Normal affect Lymphatics: No axilla or inguinal lymphadenopathy External genitalia: Deferred Rectal: Deferred - Studies Laboratory Data (last 24 hrs) 11/17/20 16:15: Sodium 135 L, Potassium 4.0, BUN 23 H, Creatinine 1.02, Glucose 182 H, Total Bilirubin 0.8, AST 344 H*, ALT 324 H*, Alkaline Phosphatase 80 11/17/20 16:14: PT 11.1, INR 0.97, APTT 23.3 L 11/17/20 16:14: WBC 12.60 H, Hgb 15.6, Hct 45.1, Plt Count 304 <MaribelDerrickroderick Keita - Last Filed: 11/17/20 23:30> Assessment and Plan - Plan --COVID-19 pneumonia. Pulmonology consulted. Patient started on antibiotics, andsteroids.Continue supportive care with pepcid\vitamin C\thiamine\zinc\vitamin D3. Will await further recommendation from personnel monitor. --COVID-19 infection. Continue current treatment regimen. Inflammatory markers pending. Further management per personnel monitor. --Acute respiratory failure with hypoxia. Continue current treatment regimen. Further management per personnel monitor. --Hypertension. Continue home medication. --Hypothyroidism. Continue Synthroid. --DM 2. BS monitoring with s\s insulin --Headache. Tylenol as needed. --Leukocytosis. Blood cultures pending. Continue antibiotics --DVT prophylaxis with Lovenox subQ I have had discussion about advanced directives with the patient during this hospital admission. Addressed code status and /or goals of care. Spent more than 15 minutes. Case discussed withpatient and nurse. Discharge Plan: Home Plan to discharge in: 48 Hours - Advance Directives Does patient have a Living Will: No Does patient have a Durable POA for Healthcare: No - Code Status/Comfort Care Code Status Assessed: Yes Code Status: Full Code Physician Review: Patient Assessed, Agree with Above Assessment and Plan Critical Care: No <LeiaDerrick keitarubinlayne Neela - Last Filed: 11/17/20 23:30> - Problems (Diagnosis) (1) Pneumonia due to COVID-19 virus Current Visit: Yes Status: Acute (2) Hypoxemia Current Visit: Yes Status: Acute (3) Elevated liver function tests Current Visit: Yes Status: Acute <Abby Bond - Last Filed: 11/19/20 01:54> Date of Service: 11/17/20 Subjective Chart reviewed. Agree with findings as mentioned above Review of Systems 10-point ROS is otherwise unremarkable Physical Examination - Vital Signs Reviewed - Physical Exam General: Alert, In no apparent distress, Oriented x3 Respiratory: Diminished breath sound bilaterally with some rhonchi Cardiovascular: Regular rate/rhythm, Normal S1 S2, No murmurs Gastrointestinal: Normal bowel sounds, Soft and benign, Non-distended, No tenderness Musculoskeletal: No clubbing, No swelling, No tenderness Neurological: Sensation intact, Cranial nerves 3-12 intact Assessment & Plan - Problems (Diagnosis) (1) Pneumonia due to COVID-19 virus Current Visit: Yes Status: Acute (2) Hypoxemia Current Visit: Yes Status: Acute (3) Elevated liver function tests Current Visit: Yes Status: Acute - Plan 1. Continue with IV steroids 2. Monitor inflammatory markers 3. Repeat chest x-ray as needed 4. O2 per protocol 5. Pulmonary consultation if symptoms worsen 6. Continue with albuterol inhaler therapy; also supportive care 7. Monitor LFTs 8. GI and DVT prophylaxis <Abby Bond - Last Filed: 11/19/20 01:54>
[2020-11-17] MEDS ORDERED: AZITHROMYCIN IV 500 MG in NA CHLORIDE 0.9% 250 ML IVPB SCH (18:00)
[2020-11-17] MEDS ORDERED: CEFTRIAXONE/SWI 1gm 1 GM/10 ML SYR IV SCH (18:00)
[2020-11-17] MEDS: METHYLPREDNISOLONE 40 MG INJ IV SCH (18:00)
[2020-11-17 18:03] VITALS: BMI 30.1
[2020-11-17] MEDS ORDERED: CEFTRIAXONE/SWI 1gm 1 GM/10 ML SYR ONE (18:47)
[2020-11-17] MEDS ORDERED: METHYLPREDNISOLONE 40 MG INJ ONE ×2 (18:47→20:35)
[2020-11-17] MEDS: ASPIRIN EC 81 MG TAB PO SCH (20:34)
[2020-11-17] MEDS ORDERED: ZINC SULFATE 220 MG CAP ONE ×2 (20:35→22:31)
[2020-11-17] MEDS ORDERED: FAMOTIDINE 20 MG/2 ML VIAL IV ONE (20:35)
[2020-11-17] MEDS ORDERED: VITAMIN D 1000 UNIT TAB ONE ×2 (20:35→22:31)
[2020-11-17] MEDS ORDERED: ASCORBIC ACID 500 MG TABLET ONE ×2 (20:35→22:31)
[2020-11-17 20:50] LABS: Protime INR 1.04
[2020-11-17] MEDS: ASCORBIC ACID 500 MG TABLET PO SCH (21:00)
[2020-11-17] MEDS: FAMOTIDINE 20 MG TAB PO SCH (21:00)
[2020-11-17] MEDS: ZINC SULFATE 220 MG CAP PO SCH (21:00)
[2020-11-17] MEDS ORDERED: ALBUTEROL INHALER 60 PUFF/8 GM IH SCH (21:00)
[2020-11-17] MEDS: VITAMIN D 1000 UNIT TAB PO SCH (21:00)
[2020-11-17] MEDS ORDERED: ASPIRIN EC 81 MG TAB PO ONE (22:31)
[2020-11-17] MEDS ORDERED: FAMOTIDINE 20 MG TAB ONE (22:32)
[2020-11-17] MEDS ORDERED: KETOROLAC 30 MG/ML INJ IV ONE (22:41)
[2020-11-17] MEDS ORDERED: KETOROLAC 30 MG/ML INJ ONE (22:55)
[2020-11-18 04:31] LABS: Absolute Lymphocytes (CBC) 0.8 K/uL (0.7-4.9)
[2020-11-18 04:45] LABS: Albumin 2.8 g/dL (3.4-5.0); Bilirubin Total 0.5 mg/dL (0.2-1.0); Potassium 4.4 mmol/L (3.5-5.1); Protein, Total 7.3 g/dL (6.4-8.2)
[2020-11-18 04:47] LABS: Basophils % 0.1 % (0-1.3); Lymphocytes % 11.7 % (15.3-44.8); RBC Red Blood Cell Count 4.77 M/uL (4.33-5.43)
[2020-11-18] MEDS: METHYLPREDNISOLONE 40 MG INJ IV SCH ×4 (05:43→16:37)
[2020-11-18] MEDS ORDERED: METHYLPREDNISOLONE 40 MG INJ ONE ×2 (05:52→09:28)
--- NOTE | 2020-11-18 07:32 | EKG ---
Test Date: 2020-11-17 Test Time: 16:08:33 Process Analyst: HB MEASUREMENT RESULTS: Intervals: Rate: 69 VT: 116 QRSD: 74 QT: 400 QTc: 428 Leon: P: 12 VT: 116 QRS: -5 T: 36 INTERPRETIVE STATEMENTS: Normal sinus rhythm Minimal voltage criteria for LVH, may be normal variant Borderline ECG Compared to ECG 11/12/2020 16:27:25 Left ventricular hypertrophy now present Electronically Signed On 11-18-20 07:31:07 CDT by Joseph Gilbert
[2020-11-18] MEDS: ZINC SULFATE 220 MG CAP PO SCH (09:00)
[2020-11-18] MEDS: ASPIRIN EC 81 MG TAB PO SCH (09:00)
[2020-11-18] MEDS: VITAMIN D 1000 UNIT TAB PO SCH ×2 (09:00→20:16)
[2020-11-18] MEDS: ASCORBIC ACID 500 MG TABLET PO SCH ×2 (09:00→20:16)
[2020-11-18] MEDS: THIAMINE HCL 100 MG TABLET PO SCH (09:00)
[2020-11-18] MEDS: ENOXAPARIN 40 MG/0.4 ML SQ SCH (09:00)
[2020-11-18] MEDS: FAMOTIDINE 20 MG TAB PO SCH ×2 (09:00→20:16)
[2020-11-18] MEDS ORDERED: ASCORBIC ACID 500 MG TABLET ONE (09:27)
[2020-11-18] MEDS ORDERED: ASPIRIN EC 81 MG TAB PO ONE (09:27)
[2020-11-18] MEDS ORDERED: ZINC SULFATE 220 MG CAP ONE (09:27)
[2020-11-18] MEDS ORDERED: THIAMINE HCL 100 MG TABLET ONE (09:27)
[2020-11-18] MEDS ORDERED: VITAMIN D 1000 UNIT TAB ONE (09:28)
[2020-11-18] MEDS ORDERED: FAMOTIDINE 20 MG TAB ONE (09:28)
[2020-11-18] MEDS ORDERED: ENOXAPARIN 40 MG/0.4 ML SQ ONE (09:29)
[2020-11-18] MEDS ORDERED: ONDANSETRON 4 MG/2 ML VIAL ONE (09:35)
[2020-11-18] MEDS: IVERMECTIN 3 MG TABLET PO SCH (09:36)
[2020-11-18] MEDS: ONDANSETRON 4 MG/2 ML VIAL IV PRN (09:37)
--- NOTE | 2020-11-19 01:53 | P.PN ---
Subjective Date of Service: 11/18/20 Patient is doing well with no new complaints. He does have persistent coughing but otherwise oxygenating well. Some pain on deep inspiration as well. Review of Systems 10-point ROS is otherwise unremarkable Physical Examination - Vital Signs Temperature: 98.5 F Blood Pressure: 122/79 Pulse: 47 Respirations: 20 Pulse Ox (%): 96 - Physical Exam General: Alert, In no apparent distress, Oriented x3 Respiratory: Clear to auscultation bilaterally, Normal air movement Cardiovascular: Regular rate/rhythm, Normal S1 S2, No murmurs Gastrointestinal: Normal bowel sounds, Soft and benign, Non-distended, No tenderness Musculoskeletal: No clubbing, No swelling, No tenderness Neurological: Sensation intact, Cranial nerves 3-12 intact - Studies Medications List Reviewed: Yes Assessment & Plan - Problems (Diagnosis) (1) Pneumonia due to COVID-19 virus Current Visit: Yes Status: Acute (2) Hypoxemia Current Visit: Yes Status: Acute (3) Elevated liver function tests Current Visit: Yes Status: Acute - Plan 1. Continue with IV steroids 2. Monitor inflammatory markers 3. Repeat chest x-ray as needed 4. O2 per protocol 5. Pulmonary consultation if symptoms worsen 6. Continue with albuterol inhaler therapy; also supportive care 7. Monitor LFTs 8. GI and DVT prophylaxis Discharge Plan: Home Plan to discharge in: Greater than 2 days - Advance Directives Does patient have a Living Will: No Does patient have a Durable POA for Healthcare: No - Code Status/Comfort Care Code Status: Full Code Physician Review: Patient Assessed, Agree with Above Assessment and Plan Critical Care: No Time Spent Managing PTS Care (In Minutes): 40
[2020-11-19 04:31] LABS: Absolute Lymphocytes (CBC) 0.9 K/uL (0.7-4.9); Basophils % 0.5 % (0-1.3); Hematocrit 40.2 % (39.6-49.0); MPV 8.1 fL (7.6-11.3); RBC Red Blood Cell Count 4.69 M/uL (4.33-5.43)
[2020-11-19 04:37] LABS: Albumin 2.7 g/dL (3.4-5.0); Bilirubin Total 0.5 mg/dL (0.2-1.0); Magnesium 2.4 mg/dL (1.8-2.4); Potassium 4.9 mmol/L (3.5-5.1); Protein, Total 6.9 g/dL (6.4-8.2)
[2020-11-19] MEDS: METHYLPREDNISOLONE 40 MG INJ IV SCH ×5 (05:28→23:37)
[2020-11-19] MEDS: ENOXAPARIN 40 MG/0.4 ML SQ SCH (07:30)
[2020-11-19] MEDS: THIAMINE HCL 100 MG TABLET PO SCH (07:30)
[2020-11-19] MEDS: ASPIRIN EC 81 MG TAB PO SCH (07:31)
[2020-11-19] MEDS: ASCORBIC ACID 500 MG TABLET PO SCH ×2 (07:31→20:11)
[2020-11-19] MEDS: ZINC SULFATE 220 MG CAP PO SCH (07:31)
[2020-11-19] MEDS: VITAMIN D 1000 UNIT TAB PO SCH ×2 (07:31→20:11)
[2020-11-19] MEDS: FAMOTIDINE 20 MG TAB PO SCH ×2 (07:31→20:12)
[2020-11-19] MEDS: GUAIFENESIN/CODEINE 5ML UCUP PO PRN (11:33)
[2020-11-19] MEDS: ACETAMINOPHEN 500 MG TAB PO PRN ×2 (13:01→20:29)
[2020-11-19] MEDS: DULERA 200/5 (MOMETASONE/FORMOTEROL) INHALER IH SCH (20:10)
[2020-11-20 05:00] LABS: Absolute Lymphocytes (CBC) 1.2 K/uL (0.7-4.9); Basophils % 0.6 % (0-1.3); Hematocrit 42.4 % (39.6-49.0); Lymphocytes % 7.1 % (15.3-44.8); MPV 8.1 fL (7.6-11.3); RBC Red Blood Cell Count 4.98 M/uL (4.33-5.43)
[2020-11-20 05:21] LABS: Albumin 2.9 g/dL (3.4-5.0); Bilirubin Direct 0.2 mg/dL (0-0.2); Bilirubin Total 0.6 mg/dL (0.2-1.0); Ferritin 1066.2 ng/mL (26-388)
[2020-11-20] MEDS: METHYLPREDNISOLONE 40 MG INJ IV SCH ×4 (06:07→20:04)
--- NOTE | 2020-11-20 07:51 | P.PN ---
Date of Service: 11/19/20 Subjective Patient is improving. Still weak and he gets hypoxic whenever he moves around but he is recovering well. Still coughing and has some pleuritic chest pain. Overall, anticipate discharge planning and anticipate discharge home soon Review of Systems 10-point ROS is otherwise unremarkable Physical Examination - Vital Signs Reviewed - Physical Exam General: Alert, In no apparent distress, Oriented x3 Respiratory: Clear to auscultation bilaterally, Normal air movement Cardiovascular: Regular rate/rhythm, Normal S1 S2, No murmurs Gastrointestinal: Normal bowel sounds, Soft and benign, Non-distended, No tenderness Musculoskeletal: No clubbing, No swelling, No tenderness Neurological: Sensation intact, Cranial nerves 3-12 intact Assessment & Plan - Problems (Diagnosis) (1) Pneumonia due to COVID-19 virus Current Visit: Yes Status: Acute (2) Hypoxemia Current Visit: Yes Status: Acute (3) Elevated liver function tests Current Visit: Yes Status: Acute - Plan Continue plan of care as mentioned below: 1. Continue with IV steroids 2. Monitor inflammatory markers 3. Repeat chest x-ray as needed 4. O2 per protocol 5. Pulmonary consultation if symptoms worsen 6. Continue with albuterol inhaler therapy; also supportive care 7. Monitor LFTs 8. GI and DVT prophylaxis Discharge Plan: Home Plan to discharge in: Greater than 2 days - Advance Directives Does patient have a Living Will: No Does patient have a Durable POA for Healthcare: No - Code Status/Comfort Care Code Status: Full Code Physician Review: Patient Assessed, Agree with Above Assessment and Plan Critical Care: No Time Spent Managing PTS Care (In Minutes): 40
[2020-11-20] MEDS: ZINC SULFATE 220 MG CAP PO SCH (08:24)
[2020-11-20] MEDS: THIAMINE HCL 100 MG TABLET PO SCH (08:24)
[2020-11-20] MEDS: ONDANSETRON 4 MG/2 ML VIAL IV PRN (08:24)
[2020-11-20] MEDS: ASPIRIN EC 81 MG TAB PO SCH (08:24)
[2020-11-20] MEDS: ENOXAPARIN 40 MG/0.4 ML SQ SCH (08:24)
[2020-11-20] MEDS: VITAMIN D 1000 UNIT TAB PO SCH ×2 (08:24→20:04)
[2020-11-20] MEDS: ASCORBIC ACID 500 MG TABLET PO SCH ×2 (08:24→20:04)
[2020-11-20] MEDS: FAMOTIDINE 20 MG TAB PO SCH ×2 (08:24→20:04)
[2020-11-20] MEDS: DULERA 200/5 (MOMETASONE/FORMOTEROL) INHALER IH SCH ×2 (08:24→20:04)
[2020-11-20] MEDS: IVERMECTIN 3 MG TABLET PO SCH (08:25)
[2020-11-20] MEDS: GUAIFENESIN/CODEINE 5ML UCUP PO PRN ×2 (08:35→18:32)
--- NOTE | 2020-11-20 09:20 | RAD REPORT ---
EXAM DESCRIPTION: RAD - Chest Single View - 11/20/2020 5:41 am CLINICAL HISTORY: pna Chest pain. COMPARISON: Chest Single View dated 11/17/2020; Chest Pa And Lat (2 Views) dated 11/12/2020; CHEST SING LE VIEW dated 08/21/2011; CHEST SINGLE VIEW dated 12/02/2005 FINDINGS: Portable technique limits examination quality. Extensive bilateral pulmonary opacities showing no real change since the prior study. The heart is no rmal in size. No displaced fractures. IMPRESSION: Stable chest since 11/17/2020.
[2020-11-20] MEDS: BENZONATATE 100 MG CAP PO PRN (13:09)
[2020-11-20] MEDS: ALBUTEROL 2.5 MG/3 ML NEB SOL NEB SCH ×2 (14:30→20:00)
[2020-11-20] MEDS: ACETAMINOPHEN 500 MG TAB PO PRN (18:32)
--- NOTE | 2020-11-20 18:47 | P.PN ---
Subjective Date of Service: 11/20/20 Chief Complaint: COVID penumonia WEak SOB and coughing Review of Systems General: Weakness Respiratory: Cough, Shortness of Breath Physical Examination - Vital Signs Temperature: 98.2 F Blood Pressure: 104/54 Pulse: 77 Respirations: 19 Pulse Ox (%): 90 - Physical Exam General: Alert, Cooperative, Mild distress - Studies Medications List Reviewed: Yes Assessment & Plan - Problems (Diagnosis) (1) Pneumonia due to COVID-19 virus Current Visit: Yes Status: Acute Plan: COVID penumonia/ Weak/ Cough/ Decrease solumedrol/ on NC O2/ Did not qualify for Barcitinib/ poss DC am/ Change ot Xarelto Physician Review: Patient Assessed, Agree with Above Assessment and Plan
[2020-11-21] MEDS: ALBUTEROL 2.5 MG/3 ML NEB SOL NEB SCH ×4 (02:00→20:15)
--- NOTE | 2020-11-21 06:12 | P.PN ---
Date of Service: 11/20/20 Subjective Patient is to is really hypoxic on ambulation. Is really weak and does not really feel like he has any strength. Have encouraged him to get out of bed and ambulate more. Have told the nurses he needs to get out of bed and we are arranging for discharge once home oxygen is arranged. Continue with current plan of care at this time. Review of Systems 10-point ROS is otherwise unremarkable Physical Examination - Vital Signs Reviewed - Physical Exam General: Alert, In no apparent distress, Oriented x3 Respiratory: Clear to auscultation bilaterally, Normal air movement Cardiovascular: Regular rate/rhythm, Normal S1 S2, No murmurs Gastrointestinal: Normal bowel sounds, Soft and benign, Non-distended, No tenderness Musculoskeletal: No clubbing, No swelling, No tenderness Neurological: Sensation intact, Cranial nerves 3-12 intact Assessment & Plan - Problems (Diagnosis) (1) Pneumonia due to COVID-19 virus Current Visit: Yes Status: Acute (2) Hypoxemia Current Visit: Yes Status: Acute (3) Elevated liver function tests Current Visit: Yes Status: Acute - Plan At this time, there are no changes in the plan of care except for increased exercise. Continue as below. We just need to get him up and start moving more so he can get ready to go home with home oxygen. He has to build his strength up and he has to increase his oxygen level while he is ambulating. 1. Continue with IV steroids 2. Monitor inflammatory markers 3. Repeat chest x-ray as needed 4. O2 per protocol 5. Pulmonary consultation if symptoms worsen 6. Continue with albuterol inhaler therapy; also supportive care 7. Monitor LFTs 8. GI and DVT prophylaxis Discharge Plan: Home Plan to discharge in: Greater than 2 days - Advance Directives Does patient have a Living Will: No Does patient have a Durable POA for Healthcare: No - Code Status/Comfort Care Code Status: Full Code Physician Review: Patient Assessed, Agree with Above Assessment and Plan Critical Care: No Time Spent Managing PTS Care (In Minutes): 40
[2020-11-21 07:21] LABS: Hematocrit 39.9 % (39.6-49.0); MPV 7.8 fL (7.6-11.3); RBC Red Blood Cell Count 4.68 M/uL (4.33-5.43)
[2020-11-21 07:35] LABS: BUN Blood Urea Nitrogen 20 mg/dL (7-18); Bicarbonate 29 mmol/L (21-32); Glucose Level 266 mg/dL (74-106); Potassium 4.2 mmol/L (3.5-5.1); Sodium Level 134 mmol/L (136-145)
[2020-11-21] MEDS: VITAMIN D 1000 UNIT TAB PO SCH ×2 (08:45→19:35)
[2020-11-21] MEDS: THIAMINE HCL 100 MG TABLET PO SCH (08:46)
[2020-11-21] MEDS: ASPIRIN EC 81 MG TAB PO SCH (08:46)
[2020-11-21] MEDS: FAMOTIDINE 20 MG TAB PO SCH ×2 (08:46→19:35)
[2020-11-21] MEDS: ASCORBIC ACID 500 MG TABLET PO SCH ×2 (08:46→19:35)
[2020-11-21] MEDS: METHYLPREDNISOLONE 40 MG INJ IV SCH ×2 (08:47→20:52)
[2020-11-21] MEDS: ZINC SULFATE 220 MG CAP PO SCH (08:47)
[2020-11-21] MEDS: GUAIFENESIN/CODEINE 5ML UCUP PO PRN ×3 (08:58→21:52)
[2020-11-21] MEDS: DULERA 200/5 (MOMETASONE/FORMOTEROL) INHALER IH SCH ×2 (09:02→20:52)
--- NOTE | 2020-11-21 09:17 | P.PN ---
Subjective Date of Service: 11/21/20 Chief Complaint: COVID penumonia Subjective: No new changes (feels better, states cough improving , SOB much improved) Review of Systems 10-point ROS is otherwise unremarkable Physical Examination - Vital Signs Temperature: 98.7 F Blood Pressure: 115/79 Pulse: 82 Respirations: 18 Pulse Ox (%): 88 - Physical Exam General: Alert, In no apparent distress, Oriented x3 HEENT: Atraumatic, Normocephalic, PERRLA Neck: Supple, 2+ carotid pulse no bruit, JVD not distended Respiratory: Clear to auscultation bilaterally, Normal air movement Cardiovascular: No edema, Normal pulses, Regular rate/rhythm, Normal S1 S2 Gastrointestinal: Normal bowel sounds Musculoskeletal: No clubbing, No swelling, No contractures, No erythema Integumentary: No rashes, No breakdown, No significant lesion Neurological: Normal gait, Normal speech, Normal strength at 5/5 x4 extr, Normal tone - Studies Laboratory Last Values WBC 12.60 K/uL (4.3-10.9) H 11/17/20 16:14 RBC 5.25 M/uL (4.33-5.43) 11/17/20 16:14 Hgb 15.6 g/dL (13.6-17.9) 11/17/20 16:14 Hct 45.1 % (39.6-49.0) 11/17/20 16:14 MCV 85.9 fL (80-100) 11/17/20 16:14 MCH 29.6 pg (27.0-35.0) 11/17/20 16:14 MCHC 34.5 g/dL (32.0-36.0) 11/17/20 16:14 RDW 13.1 % (12.1-15.2) 11/17/20 16:14 Plt Count 304 K/uL (152-406) 11/17/20 16:14 MPV 7.7 fL (7.6-11.3) 11/17/20 16:14 Neutrophils % 90.6 % (41.7-73.7) H 11/17/20 16:14 Lymphocytes % 5.5 % (15.3-44.8) L 11/17/20 16:14 Monocytes % 3.6 % (3.3-12.3) 11/17/20 16:14 Eosinophils % 0.0 % (0-4.4) 11/17/20 16:14 Basophils % 0.3 % (0-1.3) 11/17/20 16:14 Absolute Neutrophils 11.5 K/uL (1.8-8.0) H 11/17/20 16:14 Absolute Lymphocytes 0.7 K/uL (0.7-4.9) 11/17/20 16:14 Absolute Monocytes 0.5 K/uL (0.1-1.3) 11/17/20 16:14 Absolute Eosinophils 0.0 K/uL (0-0.5) 11/17/20 16:14 Absolute Basophils 0.0 K/uL (0-0.5) 11/17/20 16:14 Platelet Estimate Adeq 11/17/20 16:14 Morphology Comment Not seen (NOT SEEN) 11/17/20 16:14 PT 11.1 SECONDS (9.5-12.5) 11/17/20 16:14 INR 0.97 11/17/20 16:14 APTT 23.3 SECONDS (24.3-36.9) L 11/17/20 16:14 D-Dimer 2333 FEUng/mL (<500) H* 11/17/20 16:14 Sodium 135 mmol/L (136-145) L 11/17/20 16:15 Potassium 4.0 mmol/L (3.5-5.1) 11/17/20 16:15 Chloride 103 mmol/L (98-107) 11/17/20 16:15 Carbon Dioxide 26 mmol/L (21-32) 11/17/20 16:15 BUN 23 mg/dL (7-18) H 11/17/20 16:15 Creatinine 1.02 mg/dL (0.55-1.3) 11/17/20 16:15 Estimated GFR 78 mL/min (=/>90) L 11/17/20 16:15 Glucose 182 mg/dL (74-106) H 11/17/20 16:15 Hemoglobin A1c 7.2 % (4.2-6.3) H 11/17/20 16:19 Lactic Acid 2.3 mmol/L (0.4-2.0) H 11/17/20 16:14 Calcium 8.3 mg/dL (8.5-10.1) L 11/17/20 16:15 Ferritin 3504.8 ng/mL (26-388) H 11/17/20 16:15 Total Bilirubin 0.8 mg/dL (0.2-1.0) 11/17/20 16:15 Direct Bilirubin 0.4 mg/dL (0-0.2) H 11/17/20 16:15 AST 344 U/L (15-37) H* 11/17/20 16:15 ALT 324 U/L (12-78) H* 11/17/20 16:15 Alkaline Phosphatase 80 U/L (45-117) 11/17/20 16:15 Rapid Troponin I < 0.02 ng/mL (0.0-0.045) 11/17/20 16:15 C-Reactive Protein 37.20 mg/L (<3.00) H 11/17/20 16:15 Serum Total Protein 8.0 g/dL (6.4-8.2) 11/17/20 16:15 Albumin 3.1 g/dL (3.4-5.0) L 11/17/20 16:15 Globulin 4.9 g/dL (2.3-3.5) H 11/17/20 16:15 Albumin/Globulin Ratio 0.6 (1.1-1.8) L 11/17/20 16:15 Triglycerides 222 mg/dL (<150) H 11/17/20 16:19 Cholesterol 163 mg/dL (<200) 11/17/20 16:19 LDL Cholesterol, Calc 91 (<130) 11/17/20 16:19 HDL Cholesterol 28 mg/dL (40-60) L 11/17/20 16:19 Cholesterol/HDL Ratio 5.82 11/17/20 16:19 Procalcitonin 0.14 ng/mL (<0.050) H 11/17/20 16:14 Smear Scan Ok (OK) 11/17/20 16:14 Medications List Reviewed: Yes Assessment And Plan - Current Problems (Diagnosis) (1) Elevated liver function tests Current Visit: Yes Status: Acute (2) Hypoxemia Current Visit: Yes Status: Acute (3) Pneumonia due to COVID-19 virus Current Visit: Yes Status: Acute Physician Review: Patient Assessed, Agree with Above Assessment and Plan Physician Review Additional Text: Problems (Diagnosis) (1) Pneumonia due to COVID-19 virus Current Visit: Yes Status: Acute (2) Hypoxemia Current Visit: Yes Status: Acute (3) Elevated liver function tests Current Visit: Yes Status: Acute - Plan weaning down to 3L -will plan for transfer to regular floor today -c/w increased ambulation advised -c/w with IV steroids - Monitor inflammatory markers - Continue with albuterol inhaler therapy; also supportive care - Monitor LFTs - GI and DVT prophylaxis
[2020-11-21] MEDS: BENZONATATE 100 MG CAP PO PRN ×2 (14:12→19:35)
[2020-11-21] MEDS: RIVAROXABAN 20 MG TABLET PO SCH (16:48)
[2020-11-21 19:29] LABS: Urine Appearance CLEAR (Clear); Urine Bilirubin NEGATIVE (Negative); Urine Blood NEGATIVE (Negative); Urine Color YELLOW (Yellow); Urine Glucose 3+ (Negative); Urine Protein NEGATIVE (Negative)
[2020-11-21 19:35] LABS: Urine Microscopic Reflex NO UMIC
[2020-11-21] MEDS: ACETAMINOPHEN 500 MG TAB PO PRN (19:41)
[2020-11-22] MEDS: ALBUTEROL 2.5 MG/3 ML NEB SOL NEB SCH ×4 (02:10→20:00)
[2020-11-22 05:12] LABS: Absolute Lymphocytes (CBC) 0.6 K/uL (0.7-4.9); Basophils % 0.5 % (0-1.3); Hematocrit 41.5 % (39.6-49.0); Lymphocytes % 4.2 % (15.3-44.8); MPV 8.2 fL (7.6-11.3); RBC Red Blood Cell Count 4.83 M/uL (4.33-5.43)
[2020-11-22 05:39] LABS: Albumin 2.9 g/dL (3.4-5.0); Bilirubin Total 0.6 mg/dL (0.2-1.0); Potassium 4.5 mmol/L (3.5-5.1)
[2020-11-22 05:43] LABS: Blood Morphology Comment NOT SEEN (NOT SEEN); Platelet Estimate ADEQ
--- NOTE | 2020-11-22 05:55 | P.PN ---
Subjective Date of Service: 11/22/20 Primary Care Provider: [facility] Chief Complaint: COVID penumonia Subjective: Improving, Other (Patient doing better. Currently on 3 L per nasal cannula.) Physical Examination - Vital Signs Temperature: 98.5 F Blood Pressure: 131/73 Pulse: 89 Respirations: 22 Pulse Ox (%): 89 - Studies Medications List Reviewed: Yes Assessment & Plan Discharge Plan: Home Physician Review Additional Text: COVID: Positive, unvaccinated Initial chest x-ray: COMPARISON: Chest Pa And Lat (2 Views) dated 11/12/2020; CHEST SINGLE VIEW dated 08/21/2011; CHEST SINGLE VIEW dated 12/02/2005 FINDINGS: Portable technique limits examination quality. Moderately severe bilateral pulmonary opacities are noted most compatible with Covid-19 infection. The heart is normal in size. No displaced fractures. Follow up CXR: COMPARISON: Chest Single View dated 11/17/2020; Chest Pa And Lat (2 Views) dated 11/12/2020; CHEST SINGLE VIEW dated 08/21/2011; CHEST SINGLE VIEW dated 12/02/2005 FINDINGS: Portable technique limits examination quality. Extensive bilateral pulmonary opacities showing no real change since the prior study. The heart is normal in size. No displaced fractures. IMPRESSION: Stable chest since 11/17/2020. Physical exam: General: Alert, In no apparent distress, Oriented x3 HEENT: Atraumatic, Normocephalic, PERRLA Neck: Supple, 2+ carotid pulse no bruit, JVD not distended Respiratory: Clear to auscultation bilaterally, Normal air movement, currently on 3 L per nasal cannula Cardiovascular: No edema, Normal pulses, Regular rate/rhythm, Normal S1 S2 Gastrointestinal: Normal bowel sounds Musculoskeletal: No clubbing, No swelling, No contractures, No erythema Integumentary: No rashes, No breakdown, No significant lesion Neurological: Normal gait, Normal speech, Normal strength at 5/5 x4 extr, Normal tone Impression: Dyspnea secondary to bilateral Covid pneumonia with hypoxia, unvaccinated Hypertension Diabetes mellitus type 2 new diagnosis Hypothyroidism Elevated liver function tests Plan: Dyspnea secondary to bilateral Covid pneumonia with hypoxia, unvaccinated: Patient much improved. Continue IV steroids and supplements. Now down to 3 L per nasal cannula. Will ambulate with nurse today. If stable without significant desats will plan for discharge today with home oxygen. Hypertension: Blood pressure stable off medication. Patient takes lisinopril 40 mg. May need to hold this medication at discharge. Diabetes mellitus type 2 new diagnosis: This is a new diagnosis. Hemoglobin A1c 7.2. Will start Metformin. Hypothyroidism: Continue home medication. Elevated liver function tests: Liver function tests improved. Patient likely with underlying fatty liver. This can be further evaluated as an outpatient. CODE STATUS: Full code DVT prophylaxis: Jayreltena Advanced care [id number] minutes: Home at discharge with oxygen Time Spent Managing Pts Care (In Minutes): 55
[2020-11-22] MEDS: ASPIRIN EC 81 MG TAB PO SCH (07:52)
[2020-11-22] MEDS: VITAMIN D 1000 UNIT TAB PO SCH ×2 (07:52→20:22)
[2020-11-22] MEDS: ASCORBIC ACID 500 MG TABLET PO SCH ×2 (07:52→20:22)
[2020-11-22] MEDS: THIAMINE HCL 100 MG TABLET PO SCH (07:52)
[2020-11-22] MEDS: ZINC SULFATE 220 MG CAP PO SCH (07:53)
[2020-11-22] MEDS: DULERA 200/5 (MOMETASONE/FORMOTEROL) INHALER IH SCH ×2 (07:53→20:22)
[2020-11-22] MEDS: METHYLPREDNISOLONE 40 MG INJ IV SCH ×2 (07:53→20:22)
[2020-11-22] MEDS: FAMOTIDINE 20 MG TAB PO SCH ×2 (07:53→20:22)
--- NOTE | 2020-11-22 09:52 | P.DS ---
Admission Date: 11/17/20 Discharge Date: 11/23/20 Primary Care Provider: Anne Marie Medina Disposition: ROUTINE DISCHARGE Discharge Condition: GOOD Reason for Admission: COVID penumonia Consultations: Pulmonary-Dr. Hawley Procedures: COVID: Positive, unvaccinated Initial chest x-ray: COMPARISON: Chest Pa And Lat (2 Views) dated 11/12/2020; CHEST SINGLE VIEW dated 08/21/2011; CHEST SINGLE VIEW dated 12/02/2005 FINDINGS: Portable technique limits examination quality. Moderately severe bilateral pulmonary opacities are noted most compatible with Covid-19 infection. The heart is normal in size. No displaced fractures. Follow up CXR: COMPARISON: Chest Single View dated 11/17/2020; Chest Pa And Lat (2 Views) dated 11/12/2020; CHEST SINGLE VIEW dated 08/21/2011; CHEST SINGLE VIEW dated 12/02/2005 FINDINGS: Portable technique limits examination quality. Extensive bilateral pulmonary opacities showing no real change since the prior study. The heart is normal in size. No displaced fractures. IMPRESSION: Stable chest since 11/17/2020. Medical problem list: Dyspnea secondary to bilateral Covid pneumonia with hypoxia, unvaccinated Hypertension Diabetes mellitus type 2 new diagnosis Hypothyroidism Elevated liver function tests Brief History of Present Illness: 50-year-old male with history of hypertension, hypothyroidism presented to the emergency room with shortness of breath. Patient tested positive for COV ID-19 on November 08. Patient was admitted for treatment due to hypoxia. Hospital Course: Patient presented with dyspnea secondary to bilateral Covid pneumonia with hypoxia. Patient unvaccinated. Patient was diagnosed with COVID-19 on November 08. Patient required hospitalization. During the course of his stay patient received IV steroids and supplements. His condition improved. At discharge patient able to ambulate without significant desaturation. Shortness of breath improved. At discharge patient will require home oxygen. Home oxygen to be arranged. Patient currently on 3-4 L per nasal cannula. Recommend to monitor oxygen. Maintain oxygen above 93%. At discharge the patient will continue with prednisone 20 mg 1 pill twice daily for 7 days then 1 pill once daily for 7 days. The patient will also continue with aspirin 81 mg daily. The patient will be provided Robitussin with codeine 5 mL 3 times a day as needed for cough. A limited supply will be provided. At discharge the patient will continue with vitamin supplementation including zinc 220 mg 1 pill daily, thiamine 100 mg 1 pill twice daily, vitamin C 500 mg 1 pill 3 times a day, and vitamin D 2000 units daily. The patient will continue with COVID-19 recommendations on isolation for 10 days. The patient is encouraged to increase proning, incentive spirometer use and ambulation. The patient will need to continue with handwashing, facemask use and social distancing. Recommend follow-up with pulmonology in 1 week to follow-up his hospitalization and continue his care. Pulmonology will help wean off oxygen. Patient also recommended to establish care with a PCP in the area to follow-up this hospitalization as well. Patient may need to limit his activities. No work until patient off oxygen. Patient with hypertension. Patient takes lisinopril 40 mg daily. Blood pressures have been normal off medication at this time. Recommend to hold blood pressure medication at discharge. Recommend to monitor blood pressure daily. Recommend to maintain blood pressure less than 130/80. If blood pressures remain above 140/90 and the patient can restart his lisinopril but recommend half the dose then adjust accordingly. This can be done with the help of his PCP. Patient with diabetes mellitus type 2. This is a new diagnosis. Hemoglobin A1c 7.2. Patient will be started on Metformin. At discharge patient will continue with Metformin 500 mg 1 pill twice daily. Recommend to monitor blood sugar at least twice daily. Recommend to maintain blood sugar less than 140 fasting and less than 200 after meals. Education on ADA diet provided. Education on Metformin provided. Recommend to recheck hemoglobin A1c every 3 months to monitor his progress. Recommend follow-up with PCP within 1 week to follow-up hospitalization and continue his care. Patient with hypothyroidism. At discharge patient will continue with his current medication. Further monitoring can be done by his PCP. Patient with elevated liver function. Patient likely with fatty liver. Liver function tests have improved. This can be monitored as an outpatient. Recommend to recheck labCMP in 1 to 2 weeks to monitor his progress. If this remains elevated this can be further evaluated as an outpatient with GI. Vital Signs/Physical Exam: Temp Pulse Resp BP Pulse Ox 98.5 F 89 22 H 131/73 89 L 11/22/20 09:52 11/22/20 09:52 11/22/20 09:52 11/22/20 09:52 11/22/20 09:52 General: Alert, In no apparent distress, Oriented x3, Cooperative HEENT: Atraumatic Neck: Supple Respiratory: Clear to auscultation bilaterally, Normal air movement, Other (Cur rently on 3 L per nasal cannula) Cardiovascular: Normal pulses Gastrointestinal: Normal bowel sounds, No tenderness, No masses, No rebound, No guarding Musculoskeletal: No erythema, No tenderness, No warmth Integumentary: No tenderness/swelling Neurological: Normal speech, Normal strength at 5/5 x4 extr, Normal tone, Normal affect Laboratory Data at Discharge: WBC 13.80 K/uL (4.3-10.9) H 11/22/20 04:37 Hgb 14.5 g/dL (13.6-17.9) 11/22/20 04:37 Hct 41.5 % (39.6-49.0) 11/22/20 04:37 Plt Count 387 K/uL (152-406) 11/22/20 04:37 PT 12.0 SECONDS (9.5-12.5) 11/17/20 20:21 INR 1.04 11/17/20 20:21 APTT 23.3 SECONDS (24.3-36.9) L 11/17/20 16:14 Sodium 133 mmol/L (136-145) L 11/22/20 04:37 Potassium 4.5 mmol/L (3.5-5.1) 11/22/20 04:37 BUN 18 mg/dL (7-18) 11/22/20 04:37 Creatinine 1.06 mg/dL (0.55-1.3) 11/22/20 04:37 Glucose 350 mg/dL (74-106) H 11/22/20 04:37 Phosphorus 3.3 mg/dL (2.5-4.9) 11/19/20 04:07 Magnesium 2.4 mg/dL (1.8-2.4) 11/19/20 04:07 Magnesium Cancelled 11/19/20 04:07 Total Bilirubin 0.6 mg/dL (0.2-1.0) 11/22/20 04:37 AST 17 U/L (15-37) 11/22/20 04:37 ALT 160 U/L (12-78) H 11/22/20 04:37 Alkaline Phosphatase 76 U/L (45-117) 11/22/20 04:37 Triglycerides 222 mg/dL (<150) H 11/17/20 16:19 Cholesterol 163 mg/dL (<200) 11/17/20 16:19 HDL Cholesterol 28 mg/dL (40-60) L 11/17/20 16:19 Cholesterol/HDL Ratio 5.82 11/17/20 16:19 Home Medications: Ascorbate Calcium [Vitamin C] 500 mg PO TID #90 tablet 11/22/20 Aspirin [Aspirin EC 81 MG] 81 mg PO DAILY #30 tablet. 11/22/20 Cholecalciferol (Vitamin D3) [Vitamin D 1000 Iu Tab] 200 unit PO DAILY #60 tab 11/22/20 Guaifen W/Codeine Syrup [ROBITUSSIN A-C Syrup] 5 ml PO TID #1 bottle 11/22/20 Metformin HCl 500 mg PO BID #60 tablet 11/22/20 Thiamine HCl 100 mg PO BID #60 tablet 11/22/20 Zinc Sulfate [Zinc Sulfate*] 220 mg PO DAILY #30 cap 11/22/20 New Medications: Aspirin [Aspirin EC 81 MG] 81 mg PO DAILY #30 tablet. Metformin HCl 500 mg PO BID #60 tablet Guaifen W/Codeine Syrup [ROBITUSSIN A-C Syrup] 5 ml PO TID #1 bottle Thiamine HCl 100 mg PO BID #60 tablet Ascorbate Calcium [Vitamin C] 500 mg PO TID #90 tablet Cholecalciferol (Vitamin D3) [Vitamin D 1000 Iu Tab] 200 unit PO DAILY #60 tab Zinc Sulfate [Zinc Sulfate*] 220 mg PO DAILY #30 cap Physician Discharge Instructions: Patient presented with dyspnea secondary to bilateral Covid pneumonia with hypoxia. Patient unvaccinated. Patient was diagnosed with COVID-19 on November 08. Patient required hospitalization. During the course of his stay patient received IV steroids and supplements. His condition improved. At discharge patient able to ambulate without significant desaturation. Shortness of breath improved. At discharge patient will require home oxygen. Home oxygen to be arranged. Patient currently on 3-4 L per nasal cannula. Recommend to monitor oxygen. Maintain oxygen above 93%. At discharge the patient will continue with prednisone 20 mg 1 pill twice daily for 7 days then 1 pill once daily for 7 days. The patient will also continue with aspirin 81 mg daily. The patient will be provided Robitussin with codeine 5 mL 3 times a day as needed for cough. A limited supply will be provided. At discharge the patient will continue with vitamin supplementation including zinc 220 mg 1 pill daily, thiamine 100 mg 1 pill twice daily, vitamin C 500 mg 1 pill 3 times a day, and vitamin D 2000 units daily. The patient will continue with COVID-19 recommendations on isolation for 10 days. The patient is encouraged to increase proning, incentive spirometer use and ambulation. The patient will need to continue with handwashing, facemask use and social distancing. Recommend follow-up with pulmonology in 1 week to follow-up his hospitalization and continue his care. Pulmonology will help wean off oxygen. Patient also recommended to establish care with a PCP in the area to follow-up this hospitalization as well. Patient may need to limit his activities. No work until patient off oxygen. Patient with hypertension. Patient takes lisinopril 40 mg daily. Blood pressures have been normal off medication at this time. Recommend to hold blood pressure medication at discharge. Recommend to monitor blood pressure daily. Recommend to maintain blood pressure less than 130/80. If blood pressures remain above 140/90 and the patient can restart his lisinopril but recommend half the dose then adjust accordingly. This can be done with the help of his PCP. Patient with diabetes mellitus type 2. This is a new diagnosis. Hemoglobin A1c 7.2. Patient will be started on Metformin. At discharge patient will continue with Metformin 500 mg 1 pill twice daily. Recommend to monitor blood sugar at least twice daily. Recommend to maintain blood sugar less than 140 fasting and less than 200 after meals. Education on ADA diet provided. Education on Metformin provided. Recommend to recheck hemoglobin A1c every 3 months to monitor his progress. Recommend follow-up with PCP within 1 week to follow-up hospitalization and continue his care. Patient with hypothyroidism. At discharge patient will continue with his current medication. Further monitoring can be done by his PCP. Patient with elevated liver function. Patient likely with fatty liver. Liver function tests have improved. This can be monitored as an outpatient. Recommend to recheck labCMP in 1 to 2 weeks to monitor his progress. If this remains elevated this can be further evaluated as an outpatient with GI. Diet: Regular Activity: Fall precautions Followup: Unknown,U [Primary Care Provider] - Time spent managing pt's care (in minutes): 55
[2020-11-22] MEDS: BENZONATATE 100 MG CAP PO PRN ×2 (12:13→20:24)
[2020-11-22] MEDS: METFORMIN HCL 500 MG TAB PO SCH (17:01)
[2020-11-22] MEDS: RIVAROXABAN 20 MG TABLET PO SCH (17:01)
[2020-11-22] MEDS: GUAIFENESIN/CODEINE 5ML UCUP PO PRN (21:01)
[2020-11-23] MEDS: ALBUTEROL 2.5 MG/3 ML NEB SOL NEB SCH ×2 (02:00→08:05)
[2020-11-23 05:18] LABS: Absolute Lymphocytes (CBC) 0.6 K/uL (0.7-4.9); Basophils % 0.1 % (0-1.3); Hematocrit 38.3 % (39.6-49.0); Lymphocytes % 5.2 % (15.3-44.8); MPV 7.9 fL (7.6-11.3); RBC Red Blood Cell Count 4.44 M/uL (4.33-5.43)
[2020-11-23 05:41] LABS: ALT/SGPT 108 U/L (12-78); AST/SGOT 12 U/L (15-37); Albumin 2.7 g/dL (3.4-5.0); Alkaline Phosphatase 71 U/L (45-117); BUN Blood Urea Nitrogen 18 mg/dL (7-18); Bicarbonate 30 mmol/L (21-32); Bilirubin Total 0.5 mg/dL (0.2-1.0); Glucose Level 344 mg/dL (74-106); Potassium 5.1 mmol/L (3.5-5.1); Protein, Total 6.7 g/dL (6.4-8.2); Sodium Level 132 mmol/L (136-145)
--- NOTE | 2020-11-23 06:01 | P.PN ---
Subjective Date of Service: 11/23/20 Primary Care Provider: [facility] Chief Complaint: COVID penumonia Subjective: Improving (Patient doing well. Currently on 4 L per nasal cannula.) Physical Examination - Vital Signs Temperature: 97.1 F Blood Pressure: 119/74 Pulse: 70 Respirations: 26 Pulse Ox (%): 96 - Studies Microbiology Data (last 24 hrs): 11/17/20 16:30 Blood - Blood Aerobic Blood Culture - Final No growth in 5 days. 11/17/20 16:30 Blood - Blood Anaerobic Blood Culture - Final No growth in 5 days. 11/17/20 16:14 Blood - Blood Aerobic Blood Culture - Final No growth in 5 days. 11/17/20 16:14 Blood - Blood Anaerobic Blood Culture - Final No growth in 5 days. Medications List Reviewed: Yes Assessment & Plan Discharge Plan: Home Physician Review Additional Text: COVID: Positive, unvaccinated Initial chest x-ray: COMPARISON: Chest Pa And Lat (2 Views) dated 11/12/2020; CHEST SINGLE VIEW dated 08/21/2011; CHEST SINGLE VIEW dated 12/02/2005 FINDINGS: Portable technique limits examination quality. Moderately severe bilateral pulmonary opacities are noted most compatible with Covid-19 infection. The heart is normal in size. No displaced fractures. Follow up CXR: COMPARISON: Chest Single View dated 11/17/2020; Chest Pa And Lat (2 Views) dated 11/12/2020; CHEST SINGLE VIEW dated 08/21/2011; CHEST SINGLE VIEW dated 12/02/2005 FINDINGS: Portable technique limits examination quality. Extensive bilateral pulmonary opacities showing no real change since the prior study. The heart is normal in size. No displaced fractures. IMPRESSION: Stable chest since 11/17/2020. Physical exam: General: Alert, In no apparent distress, Oriented x3 HEENT: Atraumatic, Normocephalic, PERRLA Neck: Supple, 2+ carotid pulse no bruit, JVD not distended Respiratory: Clear to auscultation bilaterally, Normal air movement, patient remained stable on 34 L Cardiovascular: No edema, Normal pulses, Regular rate/rhythm, Normal S1 S2 Gastrointestinal: Normal bowel sounds Musculoskeletal: No clubbing, No swelling, No contractures, No erythema Integumentary: No rashes, No breakdown, No significant lesion Neurological: Normal gait, Normal speech, Normal strength at 5/5 x4 extr, Normal tone Impression: Dyspnea secondary to bilateral Covid pneumonia with hypoxia, unvaccinated Hypertension Diabetes mellitus type 2 new diagnosis Hypothyroidism Elevated liver function tests Plan: Dyspnea secondary to bilateral Covid pneumonia with hypoxia, unvaccinated: Patient has done well. Patient remained stable on 3 to 4 L. Will discharge today. Hypertension: Blood pressure stable off medication. Patient takes lisinopril 40 mg. May need to hold this medication at discharge. Diabetes mellitus type 2 new diagnosis: This is a new diagnosis. Hemoglobin A1c 7.2. Continue Metformin. Hypothyroidism: Continue home medication. Elevated liver function tests: Liver function tests improved. Patient likely with underlying fatty liver. This can be further evaluated as an outpatient. CODE STATUS: Full code DVT prophylaxis: Xarelto Advanced care [id number] minutes: Home at discharge with oxygen Time Spent Managing Pts Care (In Minutes): 55
[2020-11-23] MEDS: ASPIRIN EC 81 MG TAB PO SCH (08:27)
[2020-11-23] MEDS: VITAMIN D 1000 UNIT TAB PO SCH (08:27)
[2020-11-23] MEDS: ZINC SULFATE 220 MG CAP PO SCH (08:27)
[2020-11-23] MEDS: METHYLPREDNISOLONE 40 MG INJ IV SCH (08:27)
[2020-11-23] MEDS: FAMOTIDINE 20 MG TAB PO SCH (08:28)
[2020-11-23] MEDS: BENZONATATE 100 MG CAP PO PRN ×2 (08:28→12:35)
[2020-11-23] MEDS: THIAMINE HCL 100 MG TABLET PO SCH (08:28)
[2020-11-23] MEDS: ASCORBIC ACID 500 MG TABLET PO SCH (08:28)
[2020-11-23] MEDS: METFORMIN HCL 500 MG TAB PO SCH (08:28)
[2020-11-23] MEDS: DULERA 200/5 (MOMETASONE/FORMOTEROL) INHALER IH SCH (08:29)
[2020-11-23] MEDS: GUAIFENESIN/CODEINE 5ML UCUP PO PRN ×2 (09:16→12:35)
[2020-11-23 13:16] VITALS: BP 121/74; TEMP 97.9; O2SAT 93
== END 2020-11-23 13:05 | disposition home or self-care (01) | DRG 177 ==
LOC: ER 15:29 → ERHOLD 17:53 → 3RD-ICU 11-18 12:56
PROVIDERS: ADMIT Hospitalist; ATTEND Hospitalist
DX: U07.1 COVID-19 (principal); J12.82 Pneumonia due to coronavirus disease 2019; R09.02 Hypoxemia; R79.89 Other specified abnormal findings of blood chemistry; E03.9 Hypothyroidism, unspecified; E11.9 Type 2 diabetes mellitus without complications; I10 Essential (primary) hypertension
CPT/HCPCS: 36415; 71045; 80048; 80053; 80061; 80076; 81003; 82728; 83036; 83605; 83735; 84100; 84145; 84484; 85025; 85027; 85379; 85610; 85730; 86140; 87040; 93005; 94640; 96374; 99285; J0456; J0696; J1650; J2405; J2920; J2930; J7050; J7606

== ENCOUNTER 2021-04-10 21:07 | Observation (INO) | payer OTHER, SELFPAY ==
[2021-04-10 21:30] LABS: Absolute Lymphocytes (CBC) 2.8 K/uL (0.7-4.9); Hematocrit 46.9 % (39.6-49.0); Lymphocytes % 22.8 % (15.3-44.8); MPV 7.9 fL (7.6-11.3); RBC Red Blood Cell Count 5.61 M/uL (4.33-5.43)
[2021-04-10] MEDS ORDERED: NA CHLORIDE 0.9% 1,000 ML ONE ×2 (21:30→23:23)
[2021-04-10 21:34] LABS: Protime INR 1.07
--- NOTE | 2021-04-10 21:36 | RAD REPORT ---
EXAM DESCRIPTION: RAD - Chest Single View - 04/10/2021 9:31 pm CLINICAL HISTORY: syncope COMPARISON: November 2020 TECHNIQUE: AP portable chest image was obtained 04/10/2021 9:31 pm . FINDINGS: Lung volumes are low. No dense mass or consolidation. Baseline interstitial pattern is acc entuated by the low lung volumes. Minimal infiltrates could be masked. Heart and vasculature are normal. No measurable pleural effusion and no pneumothorax. No acute bony abnormality seen. No acute aortic findings suspected. IMPRESSION: Limited portable study without a focal mass or consolidation. Low lung volumes accentuate lung markings which potentially masks very early edema or infiltrate.
--- NOTE | 2021-04-10 22:01 | RAD REPORT ---
EXAM DESCRIPTION: CT - [id number] - 04/10/2021 9:52 pm CLINICAL HISTORY: syncope, fall COMPARISON: [id number] dated 04/18/2007 TECHNIQUE: Axial 5 mm thick images of the head were obtained. Axial 2 mm thick images of the cervic al spine were obtained with sagittal and coronal reconstruction images generated and reviewed. All CT scans are performed using dose optimization technique as appropriate and may include automated exposure control or mA/KV adjustment according to patient size. FINDINGS: No intracranial hemorrhage, mass, edema or acute intracranial finding. No suspicion for ac melania infarction. No extra-axial fluid collections. Mastoid air cells and paranasal sinuses are clear o f acute finding. No globe or orbit abnormality seen. Cervical body height and alignment are normal. No disk space narrowing. No fracture or acute bony abn ormality. Central canal detail is inherently limited. No paraspinal mass or hematoma. IMPRESSION: Negative CT head examination for acute or significant finding. Negative CT cervical spine examination for acute or significant finding.
--- NOTE | 2021-04-10 22:02 | RAD REPORT ---
EXAM DESCRIPTION: RAD - Shoulder Left 2 View - 04/10/2021 9:56 pm CLINICAL HISTORY: Trauma, fall with shoulder pain COMPARISON: No comparisons TECHNIQUE: Internal and external rotation views of the left shoulder were obtained. FINDINGS: There is no fracture or dislocation. AC joint is normal in appearance. No acute or suspici ous findings. IMPRESSION: Negative two-view left shoulder examination for acute findings.
[2021-04-10 22:15] LABS: ALT/SGPT 67 U/L (12-78); AST/SGOT 38 U/L (15-37); Alkaline Phosphatase 69 U/L (45-117); BUN Blood Urea Nitrogen 13 mg/dL (7-18); Bicarbonate 22 mmol/L (21-32); Bilirubin Direct 0.1 mg/dL (0-0.2); Bilirubin Total 0.8 mg/dL (0.2-1.0); Creatine Phosphokinase 74 U/L (39-308); Glucose Level 162 mg/dL (74-106); Magnesium 2.2 mg/dL (1.8-2.4); NT PRO-BNP 22 pg/mL (<125); Phosphorus 2.8 mg/dL (2.5-4.9); Potassium 4.7 mmol/L (3.5-5.1); Protein, Total 7.9 g/dL (6.4-8.2); Sodium Level 137 mmol/L (136-145); Troponin (Emerg Dept Use Only) < 0.02 ng/mL (0.0-0.045)
[2021-04-10 23:00] LABS: SARS-COV-2 RT PCR NEGATIVE (NEGATIVE)
[2021-04-10 23:22] LABS: Urine Blood Trace-intact (Negative); Urine Glucose Negative (Negative); Urine Protein 1+ (Negative); Urine Specific Gravity 1.025 (1.005-1.030); Urine pH 6.5 (5.0-7.0)
[2021-04-11 00:50] LABS: Barbiturates NEGATIVE (NEGATIVE); Benzodiazepines NEGATIVE (NEGATIVE); Cocaine NEGATIVE (NEGATIVE); METHAMPHETAM NEGATIVE (NEGATIVE); Methadone NEGATIVE (NEGATIVE); Opiates NEGATIVE (NEGATIVE); Phencyclidine NEGATIVE (NEGATIVE); THC Cannibis NEGATIVE (NEGATIVE)
--- NOTE | 2021-04-11 02:25 | EDPHYS ---
Physician Documentation [facility] Name: Mireya Knight Jr Age: 51 yrs Sex: Male : 1970 Arrival Date: 04/10/2021 Time: 21:08 Bed 7 Private MD: VANIA Physician Bc Almonte HPI: 04/10 21:38 This 51 yrs old Male presents to ER via Unassigned with complaints of Syncope. mh7 21:38 The patient has experienced syncope, collapsed, lost consciousness. Onset: The mh7 symptoms/episode began/occurred today. Duration: The patient has had multiple episodes, that last an unknown period of time. Context: the episode(s) was witnessed, by co-worker(s), occurred at work, occurred while the patient was working, Just prior to the episode the patient experienced no apparent symptoms. Associated injury: Head/face: Posterior scalp, contusion. Associated signs and symptoms: Pertinent negatives: abdominal pain, agitation, ataxia, blurred vision, chest pain, combativeness, confusion, diaphoresis, diarrhea, dizziness, headache, lightheadedness, nausea, numbness, palpitations, seizure, shortness of breath, tingling, vertigo, vomiting, weakness. 21:38 Current symptoms: Anxious. mh7 Historical: - Allergies: 21:41 No Known Allergies; lp1 - Home Meds: 21:41 levothyroxine oral 10 mcg once daily [Active]; lisinopril 40 mg Oral tab 1 tab once lp1 daily [Active]; - PMHx: 21:41 Hypertension; Hypothyroidism; lp1 - Immunization history:: Adult Immunizations up to date. - Social history:: Smoking status: Patient denies any tobacco usage or history of. ROS: 21:38 Constitutional: Negative for fever, chills, and weight loss, Eyes: Negative for injury, mh7 pain, redness, and discharge, ENT: Negative for injury, pain, and discharge, Neck: Negative for injury, pain, and swelling, Cardiovascular: Negative for chest pain, palpitations, and edema, Respiratory: Negative for shortness of breath, cough, wheezing, and pleuritic chest pain, Abdomen/GI: Negative for abdominal pain, nausea, vomiting, diarrhea, and constipation, Back: Negative for injury and pain, : Negative for injury, bleeding, discharge, and swelling, MS/Extremity: Negative for injury and deformity, Skin: Negative for injury, rash, and discoloration, Neuro: Negative for headache, weakness, numbness, tingling, and seizure. 21:38 Psych: Negative for depression, anxiety, suicide ideation, homicidal ideation, and hallucinations, Allergy/Immunology: Negative for hives, rash, and allergies, Endocrine: Negative for neck swelling, polydipsia, polyuria, polyphagia, and marked weight changes, Hematologic/Lymphatic: Negative for swollen nodes, abnormal bleeding, and unusual bruising. Exam: 21:38 Eyes: Pupils equal round and reactive to light, extra-ocular motions intact. Lids and mh7 lashes normal. Conjunctiva and sclera are non-icteric and not injected. Cornea within normal limits. Periorbital areas with no swelling, redness, or edema. ENT: Nares patent. No nasal discharge, no septal abnormalities noted. Tympanic membranes are normal and external auditory canals are clear. Oropharynx with no redness, swelling, or masses, exudates, or evidence of obstruction, uvula midline. Mucous membranes moist. Neck: Trachea midline, no thyromegaly or masses palpated, and no cervical lymphadenopathy. Supple, full range of motion without nuchal rigidity, or vertebral point tenderness. No Meningismus. Chest/axilla: Normal chest wall appearance and motion. Nontender with no deformity. No lesions are appreciated. Cardiovascular: Regular rate and rhythm with a normal S1 and S2. No gallops, murmurs, or rubs. Normal PMI, no JVD. No pulse deficits. Respiratory: Lungs have equal breath sounds bilaterally, clear to auscultation and percussion. No rales, rhonchi or wheezes noted. No increased work of breathing, no retractions or nasal flaring. Abdomen/GI: Soft, non-tender, with normal bowel sounds. No distension or tympany. No guarding or rebound. No evidence of tenderness throughout. Back: No spinal tenderness. No costovertebral tenderness. Full range of motion. Skin: Warm, dry with normal turgor. Normal color with no rashes, no lesions, and no evidence of cellulitis. MS/ Extremity: Pulses equal, no cyanosis. Neurovascular intact. Full, normal range of motion. Neuro: Awake and alert, GCS 15, oriented to person, place, time, and situation. Cranial nerves II-XII grossly intact. Motor strength 5/5 in all extremities. Sensory grossly intact. Cerebellar exam normal. Normal gait. 21:38 Constitutional: The patient appears in no acute distress, alert, awake, anxious. 21:38 Head/face: Noted is contusion, that is superficial, of the Posterior scalp, tenderness, that is mild, of the Posterior scalp. 21:38 Psych: Behavior/mood is cooperative, anxious, Oriented to person, place, time, Patient has no thoughts/intents to harm self or others. Judgement / Insight is normal. Memory is normal. Delusions/hallucinations are not present. Vital Signs: 21:38 BP 124 / 81; Pulse 85; Resp 22; Pulse Ox 100% on R/A; Weight 91.17 kg (R); Height 5 ft. lp1 10 in. (177.80 cm); 22:30 BP 128 / 88; Pulse 76; Resp 20; Temp 99.2(O); Pulse Ox 98% on R/A; lp1 04/11 01:54 BP 123 / 84; Pulse 63; Resp 20; Pulse Ox 98% on R/A; lp1 02:39 BP 132 / 84; Pulse 78; Resp 20; Pulse Ox 98% on R/A; lp1 03:13 BP 123 / 73; Pulse 64; Resp 18; Pulse Ox 98% on R/A; lp1 04/10 21:38 Body Mass Index 28.84 (91.17 kg, 177.80 cm) lp1 MDM: 02:22 Differential Diagnosis: aortic aneurysm, cardiac arrhythmia, cerebrovascular accident, mh7 drug effect, emotional response, idiopathic syncope, pseudo seizure, seizure, transient ischemic attack, vasovagal episode. Data reviewed: vital signs, nurses notes, EMS record, lab test result(s), cardiac enzymes, CBC, drug level(s), acetaminophen, alcohol, salicylate, electrolytes, urinalysis, urine drug screen, EKG, radiologic studies, CT scan. Data interpreted: Pulse oximetry: on room air is 98 %. Interpretation: normal. Counseling: I had a detailed discussion with the patient and/or guardian regarding: the historical points, exam findings, and any diagnostic results supporting the discharge/admit diagnosis, lab results, radiology results, the need for further work-up and treatment in the hospital. Response to treatment: the patient's symptoms have markedly improved after treatment. 02:24 Patient medically screened. [facility] 04/10 21:14 Order name: Basic Metabolic Panel [facility] 04/10 21:14 Order name: CBC with Diff [facility] 04/10 21:14 Order name: LFT's; Complete Time: 22:59 [facility] 04/10 21:14 Order name: Magnesium; Complete Time: 22:59 [facility] 04/10 21:14 Order name: NT PRO-BNP; Complete Time: 22:59 [facility] 04/10 21:14 Order name: PT-INR; Complete Time: 23:26 [facility] 04/10 21:14 Order name: Troponin (emerg Dept Use Only); Complete Time: 22:59 [facility] 04/10 21:14 Order name: UDS; Complete Time: 01:13 [facility] 04/10 21:14 Order name: Acetaminophen; Complete Time: 22:59 [facility] 04/10 21:14 Order name: Salicylate; Complete Time: 22:16 [facility] 04/10 21:14 Order name: ETOH Level; Complete Time: 22:16 [facility] 04/10 21:15 Order name: Basic Metabolic Panel; Complete Time: 22:59 [facility] 04/10 21:15 Order name: CBC with Automated Diff; Complete Time: 21:40 [facility] 04/10 21:15 Order name: COVID-19/FLU A+B (Document "Date of Onset" if Symptomatic); Complete Time: [facility] 23:00 04/10 21:17 Order name: TSH [facility] 04/10 21:17 Order name: Phosphorus [facility] 04/10 21:17 Order name: Lactate; Complete Time: 22:16 [facility] 04/10 21:33 Order name: Glucose, Ancillary Testing; Complete Time: 21:40 [facility] 04/10 21:49 Order name: Phosphorus; Complete Time: 22:59 [facility] 04/10 21:49 Order name: Creatine Phosphokinase; Complete Time: 22:59 [facility] 04/10 21:49 Order name: Thyroid Stimulating Hormone; Complete Time: 22:59 [facility] 04/10 22:16 Order name: T4 Free; Complete Time: 22:59 [facility] 04/10 23:13 Order name: D-Dimer; Complete Time: 23:26 [facility] 04/10 23:21 Order name: Urine Dipstick-Ancillary; Complete Time: 23:24 [facility] 04/11 00:41 Order name: Troponin (emerg Dept Use Only); Complete Time: 02:07 [facility] 04/11 03:47 Order name: Lactate Sepsis 2 HR Follow-up [facility] 04/10 21:14 Order name: XRAY Chest (1 view); Complete Time: 21:40 7 04/10 21:14 Order name: EKG; Complete Time: 21:15 [facility] 04/10 21:14 Order name: Cardiac monitoring; Complete Time: 21:31 [facility] 04/10 21:14 Order name: EKG - Nurse/Tech; Complete Time: 21:31 [facility] 04/10 21:14 Order name: IV Saline Lock; Complete Time: 21:31 [facility] 04/10 21:14 Order name: Labs collected and sent; Complete Time: 21:42 [facility] 04/10 21:14 Order name: O2 Per Protocol; Complete Time: 21:32 [facility] 04/10 21:14 Order name: O2 Sat Monitoring; Complete Time: 21:32 [facility] 04/10 21:14 Order name: Urine Dipstick-Ancillary (obtain specimen); Complete Time: 23:24 [facility] 04/10 21:15 Order name: Accucheck Blood Glucose; Complete Time: 21:27 [facility] 04/10 21:18 Order name: CT Head C Spine; Complete Time: 22:16 [facility] 04/10 21:40 Order name: Shoulder Left (2 View) XRAY; Complete Time: 22:16 [facility] 04/10 23:26 Order name: CT Chest For PE Angio [facility] 04/10 23:26 Order name: CT Abd/Pelvis - IV Contrast Only [facility] 04/11 06:16 Order name: CBC with Automated Diff [facility] 04/11 06:54 Order name: Comprehensive Metabolic Panel [facility] 04/11 06:54 Order name: Troponin I [facility] 04/11 06:54 Order name: NT PRO-BNP [facility] 04/11 06:54 Order name: Lipid Profile [facility] 04/11 06:54 Order name: Magnesium [facility] 04/11 08:09 Order name: Glucose, Ancillary Testing EDMS Administered Medications: 04/10 22:15 Drug: NS 0.9% 1000 ml Route: IV; Rate: 1000 ml; Site: left antecubital; lp1 23:23 Follow up: IV Status: Completed infusion; IV Intake: 1000ml lp1 23:23 Drug: NS 0.9% 1000 ml Route: IV; Rate: 1000 ml; Site: left antecubital; lp1 04/11 00:30 Follow up: IV Status: Completed infusion; IV Intake: 1000ml lp1 Disposition Summary: 04/11/21 02:24 Hospitalization Ordered Hospitalization Status: Observation [facility] Provider: Raul Hines Condition: Stable [facility] Problem: new [facility] Symptoms: have improved [facility] Bed/Room Type: Standard [facility] Location: Telemetry/MedSurg (observation)(04/11/21 08:07) dw Room Assignment: 209(04/11/21 08:07) Diagnosis - Syncope [facility] Forms: - Medication Reconciliation Form [facility] - SBAR form [facility] Signatures: Dispatcher [employer] EDMS Eiv Flynn RN RN Sara Cortés RN RN dw Andree Dean RN RN lp1 Bc Almonte MD MD [facility] Corrections: (The following items were deleted from the chart) 04/10 21:49 21:17 Thyroid Stimulating Hormone ordered. EDMS EDMS 21:49 21:17 Phosphorus ordered. EDMS EDMS 21:49 21:18 CREATINE PHOSPHOKINASE+C.LAB.BRZ ordered. EDMS EDMS 23:12 23:08 D-DIMER+COAG.LAB.BRZ ordered. [facility] EDMS 04/11 03:29 02:24 Telemetry/MedSurg (observation) [facility] mw 03:29 02:24 [facility] mw 08:07 03:29 BR ER HOLD mw dw 08:07 03:29 ERHOLD- mw dw
--- NOTE | 2021-04-11 02:25 | ER ---
Nurse's Notes [facility] Name: Mireya Knight Jr Age: 51 yrs Sex: Male : 1970 Arrival Date: 04/10/2021 Time: 21:08 Bed 7 Private MD: Diagnosis: Syncope Presentation: 04/10 21:38 Chief complaint: EMS states: Called for patient with syncopal episode while at work, lp1 fall from standing position; Pain to left shoulder. Coronavirus screen: At this time, the client does not indicate any symptoms associated with coronavirus-19. Ebola Screen: No symptoms or risks identified at this time. Initial Sepsis Screen: Does the patient meet any 2 criteria? No. Patient's initial sepsis screen is negative. Does the patient have a suspected source of infection? No. Patient's initial sepsis screen is negative. Risk Assessment: Do you want to hurt yourself or someone else? Patient reports no desire to harm self or others. Onset of symptoms was April 10, 2021. 21:38 Method Of Arrival: EMS: BASF lp1 21:38 Acuity: OTIS 2 lp1 21:40 Care prior to arrival: IV initiated. 20 GA, in the left antecubital area. lp1 Historical: - Allergies: 21:41 No Known Allergies; lp1 - Home Meds: 21:41 levothyroxine oral 10 mcg once daily [Active]; lisinopril 40 mg Oral tab 1 tab once lp1 daily [Active]; - PMHx: 21:41 Hypertension; Hypothyroidism; lp1 - Immunization history:: Adult Immunizations up to date. - Social history:: Smoking status: Patient denies any tobacco usage or history of. Screenin:41 Abuse screen: Denies threats or abuse. Denies injuries from another. Nutritional lp1 screening: No deficits noted. Tuberculosis screening: No symptoms or risk factors identified. Fall Risk Total Lebron Fall Scale indicates High Risk Score (45 or more points). Fall prevention measures have been instituted. Side Rails Up X 2. Assessment: 21:41 General: Appears in no apparent distress. Behavior is anxious. Pain: Denies pain. lp1 Neuro: Level of Consciousness is awake, obeys commands, lethargic, Oriented to person, place, situation. Cardiovascular: Patient's skin is warm and dry. Respiratory: Respiratory effort is even, unlabored, Breath sounds are clear bilaterally. GI: Abdomen is non-distended. : No signs and/or symptoms were reported regarding the genitourinary system. EENT: No signs and/or symptoms were reported regarding the EENT system. Derm: Skin is intact, Skin is diaphoretic, Skin is normal. Musculoskeletal: No deficits noted. 22:30 Reassessment: at bedside Patient states feeling better. lp1 04/11 01:55 Reassessment: Patient appears in no apparent distress at this time. Patient is alert, lp1 oriented x 3, equal unlabored respirations, skin warm/dry/pink. Patient reports feeling strength to move arms and legs, no longer feeling heaviness sensation Patient states feeling better. Patient states symptoms have improved. 02:39 Reassessment: Patient is alert, oriented x 3, equal unlabored respirations, skin lp1 warm/dry/pink. Cardiovascular: Rhythm is regular. 02:39 Reassessment: Given sandwich and water. lp1 Vital Signs: 04/10 21:38 BP 124 / 81; Pulse 85; Resp 22; Pulse Ox 100% on R/A; Weight 91.17 kg (R); Height 5 ft. lp1 10 in. (177.80 cm); 22:30 BP 128 / 88; Pulse 76; Resp 20; Temp 99.2(O); Pulse Ox 98% on R/A; lp1 04/11 01:54 BP 123 / 84; Pulse 63; Resp 20; Pulse Ox 98% on R/A; lp1 02:39 BP 132 / 84; Pulse 78; Resp 20; Pulse Ox 98% on R/A; lp1 03:13 BP 123 / 73; Pulse 64; Resp 18; Pulse Ox 98% on R/A; lp1 04/10 21:38 Body Mass Index 28.84 (91.17 kg, 177.80 cm) lp1 ED Course: 04/10 21:08 Patient arrived in ED. wm 21:14 Bc Almonte MD is Attending Physician. mh7 21:30 XRAY Chest (1 view) In Process Unspecified. EDMS 21:36 Andree Dean, RN is Primary Nurse. lp1 21:40 Triage completed. lp1 21:40 Arm band placed on right wrist. lp1 21:42 Patient has correct armband on for positive identification. Placed in gown. Cardiac lp1 monitor on. Pulse ox on. NIBP on. 21:53 CT Head C Spine In Process Unspecified. EDMS 21:56 Shoulder Left (2 View) XRAY In Process Unspecified. EDMS 22:00 Maintain EMS IV. Dressing intact. Good blood return noted. Site clean \T\ dry. Gauge \T\ lp 1 site: 20g to L AC. 23:55 CT Chest For PE Angio In Process Unspecified. EDMS 23:55 CT Abd/Pelvis - IV Contrast Only In Process Unspecified. EDMS 04/11 01:54 No provider procedures requiring assistance completed. lp1 02:24 Raul Hines is Hospitalizing Provider. [facility] 02:39 Patient admitted, IV remains in place. lp1 Administered Medications: 04/10 22:15 Drug: NS 0.9% 1000 ml Route: IV; Rate: 1000 ml; Site: left antecubital; lp1 23:23 Follow up: IV Status: Completed infusion; IV Intake: 1000ml lp1 23:23 Drug: NS 0.9% 1000 ml Route: IV; Rate: 1000 ml; Site: left antecubital; lp1 04/11 00:30 Follow up: IV Status: Completed infusion; IV Intake: 1000ml lp1 Intake: 04/10 23:23 IV: 1000ml; Total: 1000ml. lp1 04/11 00:30 IV: 1000ml; Total: 2000ml. lp1 Outcome: 02:24 Decision to Hospitalize by Provider. mh7 02:39 Condition: stable lp1 02:39 Instructed on the need for admit. 03:30 Admitted to ER Hold. Please see [facility] for further documentation. lp1 08:58 Patient left the ED. eb Signatures: Dispatcher [employer] EDMS Andree Dean RN RN lp1 Maira Culp Maurice, MD MD 7 Jocelyn Chiu Corrections: (The following items were deleted from the chart) 04/10 21:42 21:38 Chief complaint: EMS states: Called for patient with syncopal episode while at lp1 work, fall from standing position; Pain to right shoulder lp1
[2021-04-11] MEDS: NA CHLORIDE 0.9% 1,000 ML IV SCH ×3 (03:50→20:43)
[2021-04-11] MEDS ORDERED: ONDANSETRON 4 MG/2 ML VIAL IV PRN (03:50)
[2021-04-11] MEDS ORDERED: ACETAMINOPHEN 500 MG TAB ONE (03:53)
[2021-04-11] MEDS ORDERED: NA CHLORIDE 0.9% 1,000 ML ONE (03:54)
--- NOTE | 2021-04-11 04:02 | P.HP ---
Certification for Inpatient Patient admitted to: Observation With expected LOS: <2 Midnights Patient will require the following post-hospital care: None Practitioner: I am a practitioner with admitting privileges, knowledge of patient current condition, hospital course, and medical plan of care. Services: Services provided to patient in accordance with Admission requirements found in Title 42 Section 412.3 of the Code of Federal Regulations <Emile Sparrow S - Last Filed: 04/11/21 03:57> Patient History Date of Service: 04/11/21 Primary Care Provider: [facility] Reason for admission: syncope History of Present Illness: Mr. Knight is a 51 yo M with HTN, DM, hypothyroidism who presents after a sy ncopal episode. 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 He says his eyes rolled backward, then he fell and hit his head. He has a contusion at the back of his head from the fall. After EMS arrived, he continued to lose consciousness for a few seconds at a time until arrival. He says he did not eat before work today. He says his last syncopal episode was 8 years ago after his daughter's quinceanera, but at that time he had drank alcohol and had not eaten all day. At that time, he was bradycardic and hypotensive, and he was told it was due to dehydration. He says he has not taken his thyroid medication for 3 weeks. He also reports stress due to his 's health issues. WBC 12.2 DD 1853 GFR 63 Glu 164 AST 38 - Past Medical/Surgical History -: HTN -: Hypothyriodism -: DM -: ear surgery Psychosocial/ Personal History: for 32 years, 5 children, 9 grandchildren - Family History Mother -: Hypertension, Diabetes, Other (see notes) (Hypothyriodism ) Notes: ESRD on HD, DM Father -: Hypertension, Diabetes, Other (see notes) (Hypothyriodism ) Notes: [place] at 45 yo Sister -: Diabetes, Stroke Notes: ESRD on HD, in [facility] - Social History Smoking Status: Never smoker Alcohol use: Yes CD- Drugs: No Caffeine use: No Place of Residence: Home <Emile Sparrow - Last Filed: 04/11/21 03:57> Date of Service: 04/11/21 <Abby Bond - Last Filed: 04/11/21 23:08> Allergies No Known Allergies Allergy (Verified 04/11/21 05:05) Home Medications: Lisinopril [Zestril] 40 mg PO DAILY 04/11/21 Review of Systems 10-point ROS is otherwise unremarkable General: Sweats, As per HPI Eyes: Unremarkable ENT: Unremarkable Respiratory: Unremarkable Cardiovascular: Unremarkable Gastrointestinal: Unremarkable Genitourinary: Unremarkable Musculoskeletal: Unremarkable Integumentary: Bruising, As per HPI Neurological: Weakness, As per HPI Lymphatics: Unremarkable <Emile Sparrow - Last Filed: 04/11/21 03:57> Physical Examination - Physical Exam General: Alert, In no apparent distress HEENT: Atraumatic, PERRLA, Mucous membr. moist/pink, EOMI, Sclerae nonicteric Neck: Supple, 2+ carotid pulse no bruit, No LAD, Without JVD or thyroid abnormality Respiratory: Clear to auscultation bilaterally, Normal air movement Cardiovascular: Regular rate/rhythm, Normal S1 S2 Gastrointestinal: Normal bowel sounds, No tenderness Musculoskeletal: No tenderness Integumentary: No rashes Neurological: Normal gait, Normal speech, Normal strength at 5/5 x4 extr, Normal tone, Normal affect Lymphatics: No axilla or inguinal lymphadenopathy - Studies Laboratory Data (last 24 hrs) 04/10/21 21:20: PT 12.3, INR 1.07 04/10/21 21:20: WBC 12.20 H, Hgb 16.0, Hct 46.9, Plt Count 274 04/10/21 21:20: Sodium 137, Potassium 4.7, BUN 13, Creatinine 1.21, Glucose 162 H, Phosphorus 2.8, Magnesium 2.2, Total Bilirubin 0.8, AST 38 H, ALT 67, Alkaline Phosphatase 69 04/10/21 21:17: Phosphorus Cancelled <Emile Sparrow - Last Filed: 04/11/21 03:57> - Studies Laboratory Data (last 24 hrs) 04/10/21 21:20: PT 12.3, INR 1.07 <Abby Bond - Last Filed: 04/11/21 23:08> Assessment and Plan - Problems (Diagnosis) (1) Syncope Current Visit: Yes Status: Acute Qualifiers: Syncope type: unspecified Qualified Code(s): R55 - Syncope and collapse (2) HTN (hypertension) Current Visit: Yes Status: Chronic Qualifiers: Hypertension type: primary hypertension Qualified Code(s): I10 - Essential (primary) hypertension (3) T2DM (type 2 diabetes mellitus) Current Visit: Yes Status: Chronic Qualifiers: Diabetes mellitus director long term care insulin use: without director long term care use Diabetes mellitus complication status: without complication Qualified Code(s): E11.9 - Type 2 diabetes mellitus without complications (4) Hypothyroid Current Visit: Yes Status: Chronic Qualifiers: Hypothyroidism type: unspecified Qualified Code(s): E03.9 - Hypothyroidism, unspecified - Plan on tele, cardiology consulted repeat orthostatic VS, continue IV fluid hydration repeat troponin, lipid panel pending A1c pending, sliding scale insulin and accuchecks reconcile and continue home medications DVT ppx Discharge Plan: Home Plan to discharge in: 24 Hours - Advance Directives Does patient have a Living Will: No Does patient have a Durable POA for Healthcare: No - Code Status/Comfort Care Code Status Assessed: Yes (full code ) Critical Care: No Time Spent Managing Pts Care (In Minutes): 70 <Emile Sparrow - Last Filed: 04/11/21 03:57> Date of Service: 04/11/21 Subjective: Agree with H&P as mentioned above Physical Examination: Vitals: Afebrile vital signs are stable Physical exam: Cardiovascular: Within normal limits. Lungs: Within normal limits Abdomen: Within normal limits Neuro: Awake, alert, oriented to person place and time Assessment: 1. Syncope status post fall 2. Diaphoresis 3. Post concussive syndrome Plan: 1. Continue with current plan of care 2. MRI is pending 3. Carotid Doppler and echocardiogram pending 4. Stress test in a.m. <Abby Bond - Last Filed: 04/11/21 23:08>
[2021-04-11] MEDS: ACETAMINOPHEN 500 MG TAB PO PRN ×3 (04:04→20:40)
[2021-04-11 05:09] VITALS: BMI 28.8
[2021-04-11 06:13] LABS: Absolute Lymphocytes (CBC) 2.2 K/uL (0.7-4.9); Hematocrit 41.4 % (39.6-49.0); Lymphocytes % 26.6 % (15.3-44.8); MPV 8.3 fL (7.6-11.3); RBC Red Blood Cell Count 4.93 M/uL (4.33-5.43)
[2021-04-11 06:50] LABS: ALT/SGPT 53 U/L (12-78); AST/SGOT 22 U/L (15-37); Albumin 3.1 g/dL (3.4-5.0); Alkaline Phosphatase 56 U/L (45-117); BUN Blood Urea Nitrogen 12 mg/dL (7-18); Bicarbonate 24 mmol/L (21-32); Bilirubin Total 0.6 mg/dL (0.2-1.0); Glucose Level 209 mg/dL (74-106); HDL Cholesterol 48 mg/dL (40-60); LDL Cholesterol, Calculated 90 (<130); Magnesium 2.2 mg/dL (1.8-2.4); NT PRO-BNP 23 pg/mL (<125); Potassium 3.3 mmol/L (3.5-5.1); Protein, Total 6.5 g/dL (6.4-8.2); Sodium Level 138 mmol/L (136-145); Troponin I < 0.02 ng/mL (0.0-0.045)
[2021-04-11] MEDS: INSULIN -REGULAR HUMAN 50 UNIT/0.5 ML ML SQ SCH ×4 (07:30→21:00)
[2021-04-11] MEDS ORDERED: POTASSIUM CL SA 10 MEQ TAB PO ONE (07:31)
[2021-04-11] MEDS ORDERED: INFLUENZA VACCINE (for 6+ mo) 0.5 ML DOSE IMVAC ONE (08:00)
[2021-04-11 09:11] VITALS: O2SAT 98
[2021-04-11] MEDS: ENOXAPARIN 40 MG/0.4 ML SQ SCH (09:19)
[2021-04-11] MEDS: LEVOTHYROXINE SOD 0.075 MG TAB PO SCH (09:20)
--- NOTE | 2021-04-11 18:18 | CON ---
Date of Consultation: 04/11/2021 Reason For Consultation: Syncope. History Of Present Illness: A 51-year-old male with history of diabetes, hypertension, hypothyroidis m, presented after sudden syncopal episode. He was standing in line at work and suddenly felt flushe d with diaphoresis and dizzy and collapsed on the floor. Apparently when team arrived, patient was b radycardic and hypotensive. He was sent to the hospital for observation. Since then he has been in the hospital, has no further symptoms. Past Medical History: As outlined above in the HPI. Medications: Refer consultation sheet for detailed list. He is not on any diuretics. Allergies: NO KNOWN DRUG ALLERGIES. Family History: No mature coronary disease or cancer. Social History: Does not smoke or drink. Does not use any drugs. Review of Systems: All systems reviewed and they were negative except mentioned in HPI. Physical Examination: Vital Signs: Temperature is 96.9, pulse 51, breathing at 16, blood pressure 110/65. General: Pleasant middle-aged male, no distress. Head and Neck: Pupils are equal, reactive to light. Intact eye movements. No JVD. No cervical lym phadenopathy. Neck is supple. Thyroid is not enlarged. Lungs: Clear to auscultation bilaterally. No rhonchi, rales, or crackles. No accessory muscle use. Heart: Regular rate and rhythm. No extra sounds. Abdomen: Soft, nontender. Bowel sounds positive. No organomegaly. No masses or hernia. No rigidi ty or rebound. Extremities: No edema, clubbing, or cyanosis. Intact pulses. Skin: No rash noted. Neurologic: Alert, awake, oriented x3. No acute focal associated. Investigations: White blood loss count is 8.3, hemoglobin 14.1. Sodium 138, potassium 3.3, BUN 12, creatinine 0.9. Troponin is negative. Assessment And Recommendation: Syncope, likely due to hypotension and possible dehydration. Recomme nd IV fluids and monitor on telemetry and obtain echocardiogram tomorrow morning and further Recommen dations to follow according to the above workup. SR/MODL Voice ID: [id number] Report ID: [id number]
--- NOTE | 2021-04-11 20:01 | RAD REPORT ---
EXAM DESCRIPTION: CT - Abdomen Pelvis W Contrast - 04/11/2021 7:00 am CLINICAL HISTORY: Syncope;Trauma. COMPARISON: None. TECHNIQUE: CTA of the chest and CT of the abdomen and pelvis was performed following intravenous adm inistration of iodinated contrast. Axial soft tissue and lung window, and coronal and sagittal soft t issue window reconstructions were created and sent to PACS. 3D postprocessing was performed on an independent workstation, with images sent to PACS for subsequen t review. This exam was performed according to our departmental dose-optimization program, which includes autom ated exposure control, adjustment of the mA and/or kV according to patient size and/or use of iterati ve reconstruction technique. FINDINGS: Vascular: The pulmonary arteries are well-opacified to the segmental level. No CT evidence of acute pulmonary thromboembolism. No evidence of aortic aneurysm or dissection. Lungs and pleura: No pulmonary consolidation. No pleural effusion. No pneumothorax. Mild central bron chial wall thickening. Mild multifocal regions of predominantly peripheral interstitial thickening th roughout the lungs. Mediastinum and neck: No mediastinal lymphadenopathy by CT size criteria. Unremarkable appearance of the thyroid gland. Cardiac: No cardiomegaly or pericardial effusion. Hepatobiliary: Diffuse hepatic steatosis. Mild hepatomegaly, measuring 17 cm in length. No concerning hepatic lesion identified. The portal veins are patent. The gallbladder is unremarkable. No biliary ductal dilatation. Pancreas: Unremarkable. Spleen: Mild splenomegaly, measuring 13.4 cm in length.. Gastrointestinal: No evidence of bowel obstruction or perienteric inflammation. The appendix is angela l. Adrenals: No abnormality identified in either adrenal gland. Renal: Trace bilateral perinephric fat stranding. Two tiny rounded left renal hypodensities, likely c ysts. No concerning parenchymal abnormality in either kidney. No hydronephrosis or urolithiasis. Bladder/Reproductive: Mild diffuse wall thickening of the urinary bladder in the setting of underdist ention. Mild prostatomegaly. Vascular/Lymphatics: No lymphadenopathy identified by CT size criteria. Abdominal aorta is normal in caliber. Incidentally noted duplicated bilateral renal arteries. Musculoskeletal: No acute osseous abnormality identified. Fluid / peritoneum: No significant free fluid. No free intraperitoneal air identified. IMPRESSION: 1. No CTA evidence of acute pulmonary thromboembolism. 2. No acute abnormality identified in the abdomen or pelvis by CT. 3. Mild central bronchial wall thickening and multifocal mild pulmonary interstitial thickening. Co rrelate for chronic changes versus infectious/inflammatory etiology. 4. Mild diffuse wall thickening of the urinary bladder in the setting of underdistention and mild p rostatomegaly. Consider correlation for cystitis versus bladder outlet obstruction. 5. Diffuse hepatic steatosis and mild hepatomegaly. 6. Mild splenomegaly. Electronically signed by: Simran Treadwell MD 04/11/2021 12:26 AM DIRECT MARKETING REPRESENTATIVE Due to temporary technical issues with the PACS/Fluency reporting system, reports are being signed by the in house radiologists without review as a courtesy to insure prompt reporting. The interpreting radiologist is fully responsible for the content of the report.
[2021-04-12] MEDS: NA CHLORIDE 0.9% 1,000 ML IV SCH (06:32)
[2021-04-12] MEDS: LEVOTHYROXINE SOD 0.075 MG TAB PO SCH (06:32)
[2021-04-12] MEDS: ACETAMINOPHEN 500 MG TAB PO PRN (06:34)
[2021-04-12] MEDS: INSULIN -REGULAR HUMAN 50 UNIT/0.5 ML ML SQ SCH ×2 (07:30→11:30)
--- NOTE | 2021-04-12 08:11 | RAD REPORT ---
EXAM DESCRIPTION: US - CP - 04/12/2021 7:59 am CLINICAL HISTORY: syncope COMPARISON: Head C Spine Mpr Wo Con dated 04/10/2021 TECHNIQUE: Real-time sonographic evaluation of both carotid systems was performed. Doppler interroga tion was performed with waveform tracing bilaterally. FINDINGS: Normal high resistance waveforms are noted in both external carotid arteries. The common c arotid arteries and internal carotid arteries show normal low resistance waveforms. Mild hard and soft plaque in the right carotid bulb. Peak systolic and end diastolic velocity values and the ICA/CCA ratios are in the non-hemodynamically significant range. Antegrade flow seen in both vertebral arteries. IMPRESSION: Mild atherosclerosis changes but no flow limiting stenosis.
--- NOTE | 2021-04-12 08:34 | RAD REPORT ---
EXAM DESCRIPTION: MRI - Brain Wo Cont - 04/12/2021 8:22 am CLINICAL HISTORY: weakness/paresthesias/syncope COMPARISON: Head C Spine Mpr Wo Con dated 04/10/2021 TECHNIQUE: Sagittal T1-weighted images were obtained along with PD/heavily T2-weighted and T2-FLAIR images. Axial DWI and ADC mapping sequences were also obtained along with coronal heavily T2-weighted images were obtained. FINDINGS: No intracranial hemorrhage, mass or acute infarction. There is no edema or shift of midlin e structures. No extra-axial fluid collections. Signal voids are seen as a normal finding in the vandana r intracranial vessels. There are a few scattered T2/FLAIR hyperintense signal foci within the centru m semiovale and uribe radiata Left mastoid effusion. IMPRESSION: No acute intracranial abnormality. No evidence of acute infarct. Mild chronic small vess el ischemic changes.
[2021-04-12] MEDS ORDERED: REGADENOSON 0.4 MG/5 ML SYR IV ONE (09:00)
--- NOTE | 2021-04-12 09:17 | P.DS ---
Admission Date: 04/11/21 Discharge Date: 04/12/21 Primary Care Provider: [facility] Disposition: ROUTINE DISCHARGE Discharge Condition: GOOD Reason for Admission: syncope Consultations: Cardiology-Dr. Briones Procedures: COVID: Negative Influenza: Negative CT head: COMPARISON: [id number] dated 04/18/2007 TECHNIQUE: Axial 5 mm thick images of the head were obtained. Axial 2 mm thick images of the cervical spine were obtained with sagittal and coronal reconstruction images generated and reviewed. All CT scans are performed using dose optimization technique as appropriate and may include automated exposure control or mA/KV adjustment according to patient size. FINDINGS: No intracranial hemorrhage, mass, edema or acute intracranial finding. No suspicion for acute infarction. No extra-axial fluid collections. Mastoid air cells and paranasal sinuses are clear of acute finding. No globe or orbit abnormality seen. Cervical body height and alignment are normal. No disk space narrowing. No fracture or acute bony abnormality. Central canal detail is inherently limited. No paraspinal mass or hematoma. IMPRESSION: Negative CT head examination for acute or significant finding. Negative CT cervical spine examination for acute or significant finding. CT Chest/Abdomen: FINDINGS: Vascular: The pulmonary arteries are well-opacified to the segmental level. No CT evidence of acute pulmonary thromboembolism. No evidence of aortic aneurysm or dissection. Lungs and pleura: No pulmonary consolidation. No pleural effusion. No pneumothorax. Mild central bronchial wall thickening. Mild multifocal regions of predominantly peripheral interstitial thickening throughout the lungs. Mediastinum and neck: No mediastinal lymphadenopathy by CT size criteria. Unremarkable appearance of the thyroid gland. Cardiac: No cardiomegaly or pericardial effusion. Hepatobiliary: Diffuse hepatic steatosis. Mild hepatomegaly, measuring 17 cm in length. No concerning hepatic lesion identified. The portal veins are patent. The gallbladder is unremarkable. No biliary ductal dilatation. Pancreas: Unremarkable. Spleen: Mild splenomegaly, measuring 13.4 cm in length.. Gastrointestinal: No evidence of bowel obstruction or perienteric inflammation. The appendix is normal. Adrenals: No abnormality identified in either adrenal gland. Renal: Trace bilateral perinephric fat stranding. Two tiny rounded left renal hypodensities, likely cysts. No concerning parenchymal abnormality in either kidney. No hydronephrosis or urolithiasis. Bladder/Reproductive: Mild diffuse wall thickening of the urinary bladder in the setting of underdistention. Mild prostatomegaly. Vascular/Lymphatics: No lymphadenopathy identified by CT size criteria. Abdominal aorta is normal in caliber. Incidentally noted duplicated bilateral renal arteries. Musculoskeletal: No acute osseous abnormality identified. Fluid / peritoneum: No significant free fluid. No free intraperitoneal air identified. IMPRESSION: 1. No CTA evidence of acute pulmonary thromboembolism. 2. No acute abnormality identified in the abdomen or pelvis by CT. 3. Mild central bronchial wall thickening and multifocal mild pulmonary interstitial thickening. Correlate for chronic changes versus infectious /inflammatory etiology. 4. Mild diffuse wall thickening of the urinary bladder in the setting of underdistention and mild prostatomegaly. Consider correlation for cystitis versus bladder outlet obstruction. 5. Diffuse hepatic steatosis and mild hepatomegaly. 6. Mild splenomegaly. MRI Brain: COMPARISON: Head C Spine Mpr Wo Con dated 04/10/2021 TECHNIQUE: Sagittal T1-weighted images were obtained along with PD/heavily T2- weighted and T2-FLAIR images. Axial DWI and ADC mapping sequences were also obtained along with coronal heavily T2-weighted images were obtained. FINDINGS: No intracranial hemorrhage, mass or acute infarction. There is no edema or shift of midline structures. No extra-axial fluid collections. Signal voids are seen as a normal finding in the major intracranial vessels. There are a few scattered T2/FLAIR hyperintense signal foci within the centrum semiovale and uribe radiata Left mastoid effusion. IMPRESSION: No acute intracranial abnormality. No evidence of acute infarct. Mild chronic small vessel ischemic changes. Carotid doppler: COMPARISON: Head C Spine Mpr Wo Con dated 04/10/2021 TECHNIQUE: Real-time sonographic evaluation of both carotid systems was performed. Doppler interrogation was performed with waveform tracing bilaterally. FINDINGS: Normal high resistance waveforms are noted in both external carotid arteries. The common carotid arteries and internal carotid arteries show normal low resistance waveforms. Mild hard and soft plaque in the right carotid bulb. Peak systolic and end diastolic velocity values and the ICA/CCA ratios are in the non-hemodynamically significant range. Antegrade flow seen in both vertebral arteries. IMPRESSION: Mild atherosclerosis changes but no flow limiting stenosis. Cardiac Stress Test: COMPARISON: No comparisons TECHNIQUE: The patient was administered approximately 10mCi of Tc 99m Sestamibi prior to resting SPECT imaging of the heart. The patient was then administered approximately 30 mCi of Tc 99m Sestamibi following exercise or pharmacologic stress. Multiplanar SPECT images were reviewed. FINDINGS: No stress induced ischemic defect is seen to suggest stress induced ischemia. No fixed defect is seen to suggest hibernating myocardium or scarred myocardium. The end diastolic volume is 103 ml, the end systolic volume is 41 ml, and the ejection fraction is 60 %. IMPRESSION: No stress induced ischemia. Medical Problem List: Syncope likely from dehydration Acute renal insufficiency DM Type 2, diet controlled History of hypertension Hypothyroidism Fatty liver Brief History of Present Illness: 51-year-old male with history of hypertension, diabetes, hypothyroidism. Patient presented with a syncopal episode. He was working at the time when he felt diaphoretic. He also reported some cramping to his hands. His eyes rolled back. He hit his head. Patient was evaluated in the emergency room. Patient appeared to be dehydrated. Patient also reports not taking his thyroid medication over 3 weeks. He reports some stress at home. Patient was admitted for treatment. Hospital Course: Patient presented with syncope. This was likely related to dehydration and medicationlisinopril. Initial CT head and neck unremarkable. CT chest showed no evidence of pulmonary embolism. Cardiac enzymes unremarkable. Patient takes lisinopril 40 mg at home. This was discontinued due to his syncopal episode and dehydration. Blood pressure stable at this time without medication. Patient has improved. Patient seen and evaluated by cardiology. Cardiac stress test s howed no stress-induced ischemia. No further intervention required at this time. At discharge recommend to discontinue lisinopril. Continue to encourage oral intake. Recommend to monitor blood pressures daily. Recommend to recheck labBMP in 1 week to monitor his progress. Recommend follow-up with PCP to further monitor and follow-up this hospitalization. Patient with history of hypertension. Lisinopril 40 mg discontinued due to syncope and dehydration. At discharge recommend to discontinue lisinopril and blood pressure medication as blood pressures have remained stable off medication . Recommend to monitor blood pressure daily. Recommend to maintain blood pressure less than 130/80. If blood pressures remain above 140/90 then lisinopril at a lower dose can be restarted. This could be done with the help of his PCP. Patient with diabetes mellitus type 2. Hemoglobin A1c 7.4. Overall stable at this time. Recommend to maintain blood sugar less than 140 fasting and less than 200 after meals. Patient does not take any medication at this time. If blood sugar remains above 200 medication may need to be started. This could be done with the help of his PCP. Recommend follow-up with PCP in 1 week to further monitor and address. Recommend to recheck hemoglobin A1c every 3 months. Patient with hypothyroidism. Patient had been without medication for 3 months. TSH abnormal. Recommend to restart his levothyroxine 75 mcg daily. Recommend to recheck TSH and free T4 in 6 to 8 weeks to monitor his progress. Further adjustment can be done by his PCP. Patient with fatty liver. This was noted on CT scan. Education on fatty liver provided. Recommend follow-up with GI as an outpatient to further evaluate and address. Vital Signs/Physical Exam: Temp Pulse Resp BP Pulse Ox 97.5 F 48 L 17 119/69 97 04/12/21 04:00 04/12/21 04:00 04/12/21 04:00 04/12/21 04:00 04/12/21 04:00 General: Alert, In no apparent distress, Oriented x3, Cooperative HEENT: Atraumatic, Normocephalic, Mucous membr. moist/pink Neck: Supple Respiratory: Clear to auscultation bilaterally, Normal air movement Cardiovascular: Normal pulses, Regular rate/rhythm Gastrointestinal: Normal bowel sounds, No tenderness, No masses, No rebound, No guarding Musculoskeletal: No erythema, No tenderness, No warmth Integumentary: No tenderness/swelling Neurological: Normal speech, Normal strength at 5/5 x4 extr, Normal tone, Normal affect Laboratory Data at Discharge: WBC 8.30 K/uL (4.3-10.9) D 04/11/21 05:30 Hgb 14.1 g/dL (13.6-17.9) 04/11/21 05:30 Hct 41.4 % (39.6-49.0) 04/11/21 05:30 Plt Count 224 K/uL (152-406) 04/11/21 05:30 PT 12.3 SECONDS (9.5-12.5) 04/10/21 21:20 INR 1.07 04/10/21 21:20 Sodium 138 mmol/L (136-145) 04/11/21 05:30 Potassium 4.1 mmol/L (3.5-5.1) 04/11/21 13:39 BUN 12 mg/dL (7-18) 04/11/21 05:30 Creatinine 0.91 mg/dL (0.55-1.3) 04/11/21 05:30 Glucose 209 mg/dL (74-106) H 04/11/21 05:30 Phosphorus 2.8 mg/dL (2.5-4.9) 04/10/21 21:20 Magnesium 2.2 mg/dL (1.8-2.4) 04/11/21 05:30 Total Bilirubin 0.6 mg/dL (0.2-1.0) 04/11/21 05:30 AST 22 U/L (15-37) 04/11/21 05:30 ALT 53 U/L (12-78) 04/11/21 05:30 Alkaline Phosphatase 56 U/L (45-117) 04/11/21 05:30 Troponin I < 0.02 ng/mL (0.0-0.045) 04/11/21 05:30 Triglycerides 93 mg/dL (<150) 04/11/21 05:30 Cholesterol 157 mg/dL (<200) 04/11/21 05:30 HDL Cholesterol 48 mg/dL (40-60) 04/11/21 05:30 Cholesterol/HDL Ratio 3.27 04/11/21 05:30 Home Medications: Levothyroxine [Synthroid*] 0.075 mg PO DAILYAC #30 tab 04/11/21 New Medications: Levothyroxine [Synthroid*] 0.075 mg PO DAILYAC #30 tab Physician Discharge Instructions: Patient presented with syncope. This was likely related to dehydration and medicationlisinopril. Initial CT head and neck unremarkable. CT chest showed no evidence of pulmonary embolism. Cardiac enzymes unremarkable. Patient takes lisinopril 40 mg at home. This was discontinued due to his syncopal episode and dehydration. Blood pressure stable at this time without medication. Patient has improved. Patient seen and evaluated by cardiology. Neck stress test showed no stress-induced ischemia.. No further intervention required at this time. At discharge recommend to discontinue lisinopril. Continue to encourage oral intake. Recommend to monitor blood pressures daily. Recommend to recheck labBMP in 1 week to monitor his progress. Recommend follow-up with PCP to further monitor and follow-up this hospitalization. Patient with history of hypertension. Lisinopril 40 mg discontinued due to syncope and dehydration. At discharge recommend to discontinue lisinopril and blood pressure medication as blood pressures have remained stable off medication. Recommend to monitor blood pressure daily. Recommend to maintain blood pressure less than 130/80. If blood pressures remain above 140/90 then lisinopril at a lower dose can be restarted. This could be done with the help of his PCP. Patient with diabetes mellitus type 2. Hemoglobin A1c 7.4. Overall stable at this time. Recommend to maintain blood sugar less than 140 fasting and less than 200 after meals. Patient does not take any medication at this time. If blood sugar remains above 200 medication may need to be started. This could be done with the help of his PCP. Recommend follow-up with PCP in 1 week to further monitor and address. Recommend to recheck hemoglobin A1c every 3 months. Patient with hypothyroidism. Patient had been without medication for 3 months. TSH abnormal. Recommend to restart his levothyroxine 75 mcg daily. Recommend to recheck TSH and free T4 in 6 to 8 weeks to monitor his progress. Further adjustment can be done by his PCP. Patient with fatty liver. This was noted on CT scan. Education on fatty liver provided. Recommend follow-up with GI as an outpatient to further evaluate and address. OK TO DC IV AND DC HOME FOLLOW-UP WITH PRIMARY CARE PROVIDER IN 1-2 WEEKS FOLLOW-UP WITH CARDIOLOGY IN 1-2 WEEKS RETURN TO THE ER IF symptoms worsen CALL or TEXT DR. ELLER AT [phone] IF ANY QUESTIONS REGARDING HOSPITAL STAY. PLEASE CALL THE FLOOR AT [phone] IF ANY MEDICATION OR NURSING QUESTIONS. Diet: AHA Activity: Fall precautions Followup: NONE,NONE [Primary Care Provider] - Time spent managing pt's care (in minutes): 55
[2021-04-12] MEDS: ENOXAPARIN 40 MG/0.4 ML SQ SCH (09:41)
[2021-04-12 12:39] VITALS: BP 127/70; TEMP 97.3
--- NOTE | 2021-04-12 12:47 | RAD REPORT ---
EXAM DESCRIPTION: NM - Rest Stress Cardiac Imaging - 04/12/2021 12:38 pm CLINICAL HISTORY: CP Chest pain. COMPARISON: No comparisons TECHNIQUE: The patient was administered approximately 10mCi of Tc 99m Sestamibi prior to resting SPE CT imaging of the heart. The patient was then administered approximately 30 mCi of Tc 99m Sestamibi f ollowing exercise or pharmacologic stress. Multiplanar SPECT images were reviewed. FINDINGS: No stress induced ischemic defect is seen to suggest stress induced ischemia. No fixed def ect is seen to suggest hibernating myocardium or scarred myocardium. The end diastolic volume is 103 ml, the end systolic volume is 41 ml, and the ejection fraction is 60 %. IMPRESSION: No stress induced ischemia.
--- NOTE | 2021-04-12 14:00 | TREADPHA ---
DX: CHEST PAIN Date of Study: 04/12/2021 Ht: 5' 10 " Wt: 201 lb 0 oz Consulting Physician: MEIR MEDICATIONS: TYLENOL, LOVENOX, NOVOLIN, SYNTHROID, ZOFRAN HISTORY: 51 YEAR OLD MALE, CHEST PAIN SYNCOPE. HISTORY OF THYROID, DIABETIC, HYPERTENSION, COVID HISTORY PHYSICIAL EXAMINATION: RESTING B.P.: 128/88 RESTING H.R.: 67 RESTING EKG: WITHIN NORMAL LIMITS PROTOCOL: LEXISCAN EXERCISE TIME: 3:30 B.P. AT PEAK STRESS: 149/92 IMPRESSION: LEXISCAN INJECTED. CARDIOLITE INJECTED - SEE NUCLEAR MEDICINE REPORT. NO CHEST PAIN, NO VENTRICULAR TACHYCARDIA, NO PREMATURE ATRIAL COMPLEXES, NO PREMATURE VENTRICULAR COMPLEXES, OR SUPRA VENTRICULAR TAHCYARDIA. T WAVE DEPRESSED IN INFERIOR LEAD WITH LEXISCAN. SUGGESTIVE OF ISCHEMIA.
--- NOTE | 2021-04-12 14:01 | ECHO ---
HEIGHT: 5 ft 10 in WEIGHT: 201 lb 0 oz DATE OF STUDY: 04/12/[address]: Abby Bond MD 2-DIMENSIONAL: YES M.MODE: YES DOPPLER: YES COLOR FLOW: YES TDS: PORTABLE: DEFINITY: BUBBLE STUDY: DIAGNOSIS: SYNCOPE CARDIAC HISTORY: CATHERIZATION: NO SURGERY: NO PROSTHETIC VALVE: NO PACEMAKER: NO MEASUREMENTS (cm) DIASTOLIC (NORMALS) SYSTOLIC (NORMALS) IVSd 1.3 (0.6-1.2) LA Diam 2.7 (1.9-4.0) LVEF 56% LVIDd 3.9 (3.5-5.7) LVIDs 2.8 (2.0-3.5) %FS 29% LVPWd 1.2 (0.6-1.2) Ao Diam 2.4 (2.0-3.7) 2 DIMENSIONAL ASSESSMENT: RIGHT ATRIUM: NORMAL LEFT ATRIUM: NORMAL RIGHT VENTRICLE: NORMAL LEFT VENTRICLE: NORMAL TRICUSPID VALVE: MILD TRICUSPID REGURGITATION MITRAL VALVE: NORMAL PULMONIC VALVE: NORMAL AORTIC VALVE: NORMAL PERICARDIAL EFFUSION: NONE AORTIC ROOT: NORMAL LEFT VENTRICULAR WALL MOTION: NORMAL DOPPLER/COLOR FLOW: SEE BELOW COMMENTS: NORMAL LEFT VENTRICULAR EJECTION FRACTION 55-60 %. MILD TRICUSPID REGURGITATION. NORMAL WALL MOTION. TECHNOLOGIST: MCKAYLA TIWARI
== END 2021-04-12 13:43 | disposition home or self-care (01) ==
LOC: ER 21:07 → ERHOLD 04-11 02:41 → 2ND 04-11 08:35
PROVIDERS: ADMIT Hospitalist; ATTEND Family Medicine
DX: R55 Syncope and collapse (principal); E86.0 Dehydration; I95.9 Hypotension, unspecified; S00.93XA Contusion of unspecified part of head, initial encounter; W19.XXXA Unspecified fall, initial encounter; Y93.9 Activity, unspecified; Y92.59 Other trade areas as the place of occurrence of the external cause; Y99.0 Civilian activity done for income or pay; F07.81 Postconcussional syndrome; N28.9 Disorder of kidney and ureter, unspecified; I10 Essential (primary) hypertension; E11.9 Type 2 diabetes mellitus without complications; E03.9 Hypothyroidism, unspecified; K76.0 Fatty (change of) liver, not elsewhere classified; Z20.822 Contact with and (suspected) exposure to COVID-19; Z86.73 Personal history of transient ischemic attack (TIA), and cerebral infarction without residual deficits; Z82.49 Family history of ischemic heart disease and other diseases of the circulatory system; Z83.3 Family history of diabetes mellitus
CPT/HCPCS: 96361; 93005; 93017; 93306; 85025 ×2; 80048; 36415; 80320; 83735 ×2; 82550; 80329 ×2; 84100; 84132; 85610; 80061; 82947 ×7; 85379; 80076; 83605 ×2; 84443; 81003; 83036; 84484 ×3; 84439; 80053; 83880 ×2; 0240U; 80307; 70450; 72125; 71275; 74177; 71045; 73030; 93880; 70551; 78452; 96360; 99285; Q9967; J1650 ×2; J2785; J7030 ×6; A9500; G0378 ×3

== ENCOUNTER 2022-08-15 13:08 | Emergency (ER) | payer OTHER ==
--- OUTSIDE RECORDS SUMMARY | 2022-08-15 13:12 | XMS REPORT | Continuity of Care Document ---
:1970 Author Organization [facility] t Address [address] [place] [address] Care Team Providers Name Role Phone Unavailable Unavailable Unavailable Problems This patient has no known problems. Allergies, Adverse Reactions, Alerts This patient has no known allergies or adverse reactions. Medications This patient has no known medications. Procedures This patient has no known procedures. Encounters Start End Encounter Admission Attending Care Care Encounter Source Date/Time Date/Time Type Type Clinicians Facility Department ID 2022-04-07 2022-04-07 Outpatient [facility] [id number] Brandon 15:20:52 15:20:52 1229 F Neal Results Test Description Test Time Test Comments Results Result Comments Source VITAMIN D, 25 OH 2021-08-18 06:37:05 Test Item Value Reference Range Interpretation Comme nts VITAMIN D, 25 OH (test code 20 NG/ML SEE BELOW L NOTE: 25-HYDROXYVITAMIN D ASSAY = 4958) INCLUDES 25-HYD ROXYVITAMIN D2 AND D3. METHODOLOGY IS CHEMILUMINESCENT IMMUNOASSAY. INTERPRETIVE RANGES PED IATRIC (<17 YEARS) . . . . . . . . . . . NG/ML 20-100ADULT: INSUFFICIENT . . . . . . . . . . . . . . NG/ML <20 S UBOPTIMAL . . . . . . . . . . . . . . . NG/ML 20-29 OPTIMAL . . . . . . . . . . . . . . . . . NG/ML 30-100 UN LESS OTHERWISE INDICATED, ALL TESTING PERFORMED ATCLINICAL PATH [employer] [address] [place] [address] LABORATORY DIRE CTOR: RENETTA VILLALTA M.D. CLIA NUMBER [id number] [place]. [id number] TSH, THIRD [id number] 06:20:20 Test Item Value Reference Range Interpretation Comments TSH, THIRD GENERATION (test code 7.910 UIU/ML 0.400-4.100 H = 2820) COMPREHENSIVE METABOLIC [id number] 05:16:23 Test Item Value Reference Range Interpretation Comments GLUCOSE (test code = 153 MG/DL 70-99 H 2216) BUN (test code = 14 MG/DL 6-20 2207) CREATININE (test 0.95 MG/DL 0.80-1.40 code = 2214) eGFR (2020 CKD-EPI) 98 ML/MIN/1.73 >60 (test code = 27022) CALC BUN/CREAT (test 15 RATIO 6-28 code = 2235) SODIUM (test code = 141 MEQ/L 002-039 6333) POTASSIUM (test code 3.8 MEQ/L 3.5-5.4 = 2227) CHLORIDE (test code 102 MEQ/L 95-107 = 2214) CARBON DIOXIDE (test 27 MEQ/L 19-31 code = 220) CALCIUM (test code = 9.1 MG/DL 8.5-10.5 2208) PROTEIN, TOTAL (test 7.2 G/DL 6.1-8.3 code = 222) ALBUMIN (test code = 4.5 G/DL 3.5-5.2 2200) CALC GLOBULIN (test 2.7 G/DL 1.9-3.7 code = 2240) CALC A/G RATIO (test 1.7 RATIO 1.0-2.6 code = 2234) BILIRUBIN, TOTAL 0.3 MG/DL See_Comment [Automated message] (test code = 2207) The syste m which generated this result transmit guy reference range : <=1.2. The refe rence range was not u sed to interpret th is result as normal/abnormal . ALKALINE PHOSPHATASE 89 U/L 40-118 (test code = 2204) AST (test code = 28 U/L 9-50 2217) ALT (test code = 45 U/L 5-50 2218) LIPID [id number] 05:16:23 Test Item Value Reference Range Interpretation Comments CHOLESTEROL (test 177 MG/DL <200 code = 2210) TRIGLYCERIDES (test 162 MG/DL <150 H code = 2232) HDL CHOLESTEROL (test 44 MG/DL >39 code = 2220) CALC LDL CHOL (test 105 MG/DL <100 H NOTE: C ALCULATED LDL code = 2237) IS BASED ON TOD-BULL METHOD WHICHINCLUDES ADJUSTABLE TRIGLYCERIDE:VL DL CHOLESTEROL RAT IO.THIS FACTOR VARIES B Y MEASURED TRIGLY CERIDE AND NON-HDLCHOL ESTEROL CONCENTRATIONS WITH INCREASED CALCU LATED LDL SEENIN HIGH ER TRIGLYCERIDE OR LOWER NON-HDL SPECIME NS. FOR MOREINFORMATION , SEE CLIENT ANNOUNCE MENT AT [email or web address] RATIO LDL/HDL 2.39 RATIO <3.55 (test code = 2238) ALBUMIN/CREATININE RATIO, URINE, [id number] 04:08:03 Test Item Value Reference Range Interpretation Comments CREATININE, URINE, 172.9 MG/DL NOT ESTAB RANDOM (test code = 2072) ALBUMIN, URINE, 1.0 MG/DL NOT ESTAB RANDOM (test code = 62182) CALC ALBUMIN/CREAT, 6 MG/G <30 Note: RND (test code = Albumin/Cre atinine 99148) ratio reference interval reflec ts ADA and NKF guideli nasrin. HEMOGLOBIN [id number] 03:38:25 Test Item Value Reference Range Interpretation Comments HEMOGLOBIN A1c (test 6.8 % 4.2-5.6 H [employer]IC AN DIABETES code = 03229) ASSOCIATION IDELINES FOR HGB A1C: PREDIABETES/INC REASED RISK . . . . . . . 5.7 -6.4% DIAGNOSIS OF DI ABETES . . . . . . . . . >=6 .5% WITH CONFIRMATION OR APPROPRIATE SYMPTOMS NOTE: ASSAY MAY BE AFFECTED BY HEMOGLOBINOPATH IES (SICKLE CELL ANEMIA, S- C DISEASE, OTHERS) OR MOHINDER FICIALLY LOWERED BY DECR EASED RED CELL SURVIVAL ( HEMOLYTIC ANEMIAS, BLOOD LOSS, ETC.). CONSIDER ALTERN ATE TESTING OR LABORATORY C ONSULTATION.
--- NOTE | 2022-08-15 15:25 | ER ---
Nurse's Notes [facility] Name: Mireya Knight Jr Age: 52 yrs Sex: Male : 1970 Arrival Date: 08/15/2022 Time: 13:08 Bed 23 Private MD: Diagnosis: Strain of muscle and tendon of back wall of thorax;Strain of muscle, fascia and tendon of lower back Presentation: 08/15 14:12 Chief complaint: Patient states: he was weed eating the other day, in a twisting motion ap3 when he developed a back spasm and back pain. patient attempted to go to work today, when they informed him he needed a work note to return. Coronavirus screen: At this time, the client does not indicate any symptoms associated with coronavirus-19. Ebola Screen: No symptoms or risks identified at this time. Initial Sepsis Screen: Does the patient meet any 2 criteria? No. Patient's initial sepsis screen is negative. Does the patient have a suspected source of infection? No. Patient's initial sepsis screen is negative. Risk Assessment: Do you want to hurt yourself or someone else? Patient reports no desire to harm self or others. Onset of symptoms was August 13, 2022. 14:12 Method Of Arrival: Ambulatory ap3 14:15 Acuity: OTIS 4 ap3 Triage Assessment: 14:16 General: Appears in no apparent distress. Behavior is calm, cooperative, appropriate ap3 for age. Pain: Complains of pain in low back area Pain currently is 7 out of 10 on a pain scale. Neuro: Level of Consciousness is awake, alert, obeys commands, Oriented to person, place, time, situation. Cardiovascular: Patient's skin is warm and dry. Respiratory: Airway is patent Respiratory effort is even, unlabored, Respiratory pattern is regular, symmetrical. Musculoskeletal: Range of motion: intact in all extremities. Historical: - Allergies: 14:14 No Known Allergies; ap3 - Home Meds: 14:14 levothyroxine oral 10 mcg once daily [Active]; ap3 - PMHx: 14:14 Hypertension; Hypothyroidism; ap3 - Immunization history:: Client reports receiving the 2nd dose of the Covid vaccine. - Social history:: Smoking status: Patient denies any tobacco usage or history of. Screenin:16 [facility] ED Fall Risk Assessment (Adult) History of falling in the last 3 months, ap3 including since admission No falls in past 3 months (0 pts). Abuse screen: Denies threats or abuse. Nutritional screening: No deficits noted. Tuberculosis screening: No symptoms or risk factors identified. Assessment: 16:02 Reassessment: Patient is alert, oriented x 3, equal unlabored respirations, skin aa5 warm/dry/pink. 16:20 Reassessment: Patient is alert, oriented x 3, equal unlabored respirations, skin aa5 warm/dry/pink. Vital Signs: 14:15 BP 169 / 104; Pulse 72; Resp 19; Temp 98.1; Pulse Ox 98% ; Weight 93.89 kg; Pain 7/10; ap3 14:15 Pain Scale: Adult ap3 ED Course: 13:44 Patient arrived in ED. mr 13:50 Kennedy Virk PA is PHCP. [facility] 13:50 Tavo Bartholomew MD is Attending Physician. [facility] 14:15 Triage completed. ap3 14:16 Arm band placed on right wrist. ap3 16:21 No provider procedures requiring assistance completed. Patient did not have IV access aa5 during this emergency room visit. Administered Medications: 16:02 Drug: Dexamethasone IM 10 mg Route: IM; Site: right gluteus; aa5 16:20 Follow up: Response: No adverse reaction aa5 16:02 Drug: Ketorolac IM 30 mg Route: IM; Site: left gluteus; aa5 16:20 Follow up: Response: No adverse reaction aa5 Medication: 16:21 VIS not applicable for this client. aa5 Outcome: 15:25 Discharge ordered by . [facility] 16:21 Discharged to home ambulatory. aa5 16:21 Condition: stable 16:21 Discharge instructions given to patient, Instructed on discharge instructions, follow up and referral plans. medication usage, Demonstrated understanding of instructions, follow-up care, medications, Prescriptions given X 2. 16:21 Patient left the ED. aa5 Signatures: Kennedy Virk PA PA jmm RiveraMisa mr Houston, Jennifer, RN RN aa5 Loren Adams RN RN ap3
--- NOTE | 2022-08-15 15:25 | EDPHYS ---
Physician Documentation [facility] Name: Mireya Knight Jr Age: 52 yrs Sex: Male : 1970 Arrival Date: 08/15/2022 Time: 13:08 Bed 23 Private MD: ED Physician Tavo Bartholomew HPI: 08/15 14:19 This 52 yrs old Male presents to ER via Ambulatory with complaints of Back jmm Pain. 14:19 The patient presents with pain that is acute. The symptoms are located in the left jmm subscapular area. Onset: The symptoms/episode began/occurred acutely. This is a 52 year old male with a history of htn, hypothyroidism that presents to the ED with complaints of left sided back pain beginning after twisting while using a weed eater. States his daughter was able to massage a knot out but still has pain, the area feels tense. Denies any chest pain, radiation of pain, leg weakness, urinary or bowel issues. . Historical: - Allergies: 14:14 No Known Allergies; ap3 - Home Meds: 14:14 levothyroxine oral 10 mcg once daily [Active]; ap3 - PMHx: 14:14 Hypertension; Hypothyroidism; ap3 - Immunization history:: Client reports receiving the 2nd dose of the Covid vaccine. - Social history:: Smoking status: Patient denies any tobacco usage or history of. ROS: 14:19 Constitutional: Negative for fever, chills, and weight loss, Cardiovascular: Negative jmm for chest pain, palpitations, and edema, Respiratory: Negative for shortness of breath, cough, wheezing, and pleuritic chest pain. 14:19 Back: Positive for pain with movement. 14:19 All other systems are negative. Exam: 14:19 Constitutional: This is a well developed, well nourished patient who is awake, alert, jmm and in no acute distress. Head/Face: atraumatic. Eyes: EOMI, no conjunctival erythema appreciated ENT: Moist Mucus Membranes Neck: Trachea midline, Supple Chest/axilla: Normal chest wall appearance and motion. Cardiovascular: Regular rate and rhythm. No edema appreciated Respiratory: Normal respirations, no respiratory distress appreciated Abdomen/GI: Non distended 14:19 Skin: General appearance color normal MS/ Extremity: Moves all extremities, no obvious deformities appreciated, no edema noted to the lower extremities Neuro: Awake and alert Psych: Behavior is normal, Mood is normal, Patient is cooperative and pleasant 14:19 Back: pain, that is mild, of the left subscapular area. Vital Signs: 14:15 BP 169 / 104; Pulse 72; Resp 19; Temp 98.1; Pulse Ox 98% ; Weight 93.89 kg; Pain 7/10; ap3 14:15 Pain Scale: Adult ap3 MDM: 14:19 Patient medically screened. [facility] 15:23 Differential diagnosis: back strain, dissection, cord compression, abscess, jmm ureterolithiasis. Data reviewed: vital signs, nurses notes. I considered the following discharge prescriptions or medication management in the emergency department Medications were administered in the Emergency Department. See MAR. Test considered but Not performed: X-ray: no midline tenderness. MRI: no neurologic symptoms. Counseling: I had a detailed discussion with the patient and/or guardian regarding: the historical points, exam findings, and any diagnostic results supporting the discharge/admit diagnosis, the need for outpatient follow up, to return to the emergency department if symptoms worsen or persist or if there are any questions or concerns that arise at home. Administered Medications: 16:02 Drug: Dexamethasone IM 10 mg Route: IM; Site: right gluteus; aa5 16:20 Follow up: Response: No adverse reaction aa5 16:02 Drug: Ketorolac IM 30 mg Route: IM; Site: left gluteus; aa5 16:20 Follow up: Response: No adverse reaction aa5 Disposition Summary: 08/15/22 15:25 Discharge Ordered Location: Home [facility] Condition: Stable [facility] Diagnosis - Strain of muscle and tendon of back wall of thorax jmm - Strain of muscle, fascia and tendon of lower back jm Followup: jmm - With: Private Physician - When: 2 - 3 days - Reason: Recheck today's complaints, Continuance of care, Re-evaluation by your physician Discharge Instructions: - Discharge Summary Sheet jm - Thoracic Strain jmm - Low Back Sprain or Strain Rehab jm Forms: - Work release form jmm - Medication Reconciliation Form jmm - Thank You Letter jmm - Antibiotic Education jmm - Prescription Opioid Use [facility] Prescriptions: - Zanaflex 4 mg Oral Tablet - take 1 tablet by ORAL route every 8 hours As needed; 20 tablet; Refills: 0, jmm Product Selection Permitted - Diclofenac Sodium 75 mg Oral Tablet Sustained Release - take 1 tablet by ORAL route 2 times per day; 30 tablet; Refills: 0, Product [facility] Selection Permitted Signatures: Kennedy Virk PA PA jmm Calderon, Audri, RN RN aa5 Loren Adams RN RN ap3
[2022-08-15] MEDS ORDERED: dexAMETHasone 10 MG/ML VIAL ONE (16:06)
[2022-08-15] MEDS ORDERED: KETOROLAC 30 MG/ML INJ ONE (16:06)
[2022-08-15 16:26] VITALS: BP 169/104; TEMP 98.1; O2SAT 98
== END 2022-08-15 16:21 | disposition home or self-care (01) ==
LOC: ER 13:08
DX: S39.012A Strain of muscle, fascia and tendon of lower back, initial encounter (principal); S29.012A Strain of muscle and tendon of back wall of thorax, initial encounter; E03.9 Hypothyroidism, unspecified
CPT/HCPCS: 96372; 99284; J1100

== ENCOUNTER → 2023-03-28 | Emergency (ER) | payer OTHER, SELFPAY ==
--- OUTSIDE RECORDS SUMMARY | 2023-03-28 09:37 | XMS REPORT | Continuity of Care Document ---
Author Name Unknown Address [address] [place] [address] [facility] thconnect Address [address] [place] [address] Care Team Providers Care Workday Consultant Name Role Phone Unavailable Unavailable Unavailable Encounters Start Date/Time End Date/Time Encounter Type Admission Type Attending Clinicians Care Facility Care Department Encounter ID Source 2022-10-24 15:07:16 2022-10-24 15:07:16 Outpatient [facility] [id number] Brandon Aguero 2022-04-07 15:20:52 2022-04-07 15:20:52 Outpatient [facility] [id number] Brandon Aguero Results Test Description Test Time Test Comments Results Result Co mments Source LIPID [id number] 06:06:17* Test Item Value Reference Range Interpretation Comme nts CHOLESTEROL (test code = 2210) 179 MG/DL <200 TRIGLYCERIDES (test code = 2232) 165 MG/DL <150 H HDL CHOLESTEROL (test code = 2220) 43 MG/DL >39 CALC LDL CHOL (test code = 2237) 108 MG/DL <100 H NOTE: CALCULATED LDL IS BASED ON TOD-BULL METHOD WHICHINCLUDES ADJUSTABLE TRIGLYCERIDE:VLDL CHOLESTEROL RATIO.THIS FACTOR VARIES BY MEASURED TRIGLYCERIDE AND NON-HDLCHOLESTEROL CONCENTRATIONS WITH INCREASED CALCULATED LDL SEENIN HIGHER TRIGLYCERIDE OR LOWER NON-HDL SPECIMENS. FOR MOREINFORMATION, SEE CLIENT ANNOUNCEMENT AT [email or web address] RISK RATIO LDL/HDL (test code = 2238) 2.51 RATIO <3.55 ALBUMIN/CREATININE RATIO, URINE, [id number] 04:48:02* Test Item Value Reference Range Interpretation Comme nts CREATININE, URINE, CONC. (test code = 2072) 129.4 MG/DL NOT ESTAB ALBUMIN, URINE, RANDOM (test code = 01516) 0.5 MG/DL NOT ESTAB CALC ALBUMIN/CREAT, RND (test code = 72035) 4 MG/G <30 Note: Albumin/Cr eatinine ratio reference interval reflects ADA and NKF guidelines. UNLESS OTHERWISE INDICATED, ALL TESTING PERFORMED AT [facility] [address] [place] [address] MULTI NEEDLE MACHINE OPERATOR: BEAR CORRIGAN M.D. [place] NUMBER [id number] [facility] [place]. [id number] HEMOGLOBIN [id number] 04:24:16* Test Item Value Reference Range Interpretation [facility] HEMOGLOBIN A1c (test code = 56752) 7.6 % 4.2-5.6 H [employer] GUIDELINES FOR HGB A1C: PREDIABETES/INCREASED RISK . . . . . . . 5.7-6.4% DIAGNOSIS OF DIABETES . . . . . . . . . >=6.5% WITH CONFIRMATION OR APPROPRIATE SYMPTOMS NOTE: ASSAY MAY BE AFFECTED BY HEMOGLOBINOPATHIES (SICKLE CELL ANEMIA, S-C DISEASE, OTHERS) OR ARTIFICIALLY LOWERED BY DECREASED RED CELL SURVIVAL (HEMOLYTIC ANEMIAS, BLOOD LOSS, ETC.). CONSIDER ALTERNATE TESTING OR LABORATORY CONSULTATION. RPR REFLEX TO T. PALLIDUM - [id number] 03:31:10* Test Item Value Reference Range Interpretation Comme [facility] RPR (test code = 20960) NON-REACTIVE NON-REACTIVE RPR TITER (test code = 3500) NOT INDIC. TITER NOT INDIC. FOLIC [id number] 03:27:47* Test Item Value Reference Range Interpretation Comme [facility] FOLIC ACID (test code = 2695) 7.6 UG/L SEE BELOW INTERPRETI VE RANGES DEFICIENCY . . . . . . . . . . . . . . . UG/L <4.0 POSSIBLE DEFICIENCY. . . . . . . . . . . UG/L 4.0-5.9 SUFFICIENT . . . . . . . . . . . . . . . UG/L >=6.0 VITAMIN [id number] 03:27:47* Test Item Value Reference Range Interpretation Comme [facility] VITAMIN B-12 (test code = 2840) 289 PG/ML 200-950 CBC W/AUTO DIFF WITH [id number] 02:32:06* Test Item Value Reference Range Interpretation Comme nts WBC (test code = 1001) 9.0 K/UL 3.5-11.0 RBC (test code = 1002) 5.00 M/UL 4.50-6.10 HEMOGLOBIN (test code = 1003) 15.1 G/DL 13.5-17.0 HEMATOCRIT (test code = 1004) 42.3 % 40.0-51.0 MCV (test code = 1005) 84.6 fL 80.0-99.0 MCH (test code = 1006) 30.2 PG 25.0-33.0 MCHC (test code = 1007) 35.7 G/DL 31.0-36.0 RDW (test code = 1038) 13.0 % 11.5-15.0 NEUTROPHILS (test code = 1008) 58.2 % LYMPHOCYTES (test code = 1010) 31.5 % MONOCYTES (test code = 1011) 6.7 % EOSINOPHILS (test code = 1012) 2.4 % BASOPHILS (test code = 1013) 0.8 % IMMATURE GRANULOCYTES (test code = 1036) 0.4 % NUCLEATED RBCS (test code = 1065) 0.0 /100 WBC'S See_Comment [Automated messa ge] The system which generated this result transmitted reference range: 0.0. The reference range was not used to interpret this result as normal/abnormal. PLATELET COUNT (test code = 1015) 245 K/UL 130-400 ABSOLUTE NEUTROPHILS (test code = 1066) 5.25 K/UL 1.50-7.50 ABSOLUTE LYMPHOCYTES (test code = 1067) 2.85 K/UL 1.00-4.00 ABSOLUTE MONOCYTES (test code = 1068) 0.61 K/UL 0.20-1.00 ABSOLUTE EOSINOPHILS (test code = 1040) 0.22 K/UL 0.00-0.50 ABSOLUTE BASOPHILS (test code = 1069) 0.07 K/UL 0.00-0.20 ABS IMMATURE GRANULOCYTES (test code = 1020) 0.04 K/UL 0.00-0.10 ABS NUCLEATED RBCS (test code = 44157) 0.00 K/UL 0.00-0.11 VITAMIN D, 25 [id number] 06:37:05* Test Item Value Reference Range Interpretation Comme [facility] VITAMIN D, 25 OH (test code = 4958) 20 NG/ML SEE BELOW L NOTE: 25-HYDR OXYVITAMIN D ASSAY INCLUDES 25-HYDROXYVITAMIN D2 AND D3. METHODOLOGY IS CHEMILUMINESCENT IMMUNOASSAY. INTERPRETIVE RANGES PEDIATRIC (<17 YEARS) . . . . . . . . . . . NG/ML 20-100ADULT: INSUFFICIENT . . . . . . . . . . . . . . NG/ML <20 SUBOPTIMAL . . . . . . . . . . . . . . . NG/ML 20-29 OPTIMAL . . . . . . . . . . . . . . . . . NG/ML 30-100 UNLESS OTHERWISE INDICATED, ALL [facility] [address] [place] [address] MULTI NEEDLE MACHINE OPERATOR: RENETTA VILLALTA M.D. CLIA NUMBER [id number] [facility] [place]. [id number] TSH, THIRD [id number] 06:20:20* Test Item Value Reference Range Interpretation Comme [facility] TSH, THIRD GENERATION (test code = 2821) 7.910 UIU/ML 0.400-4.100 H COMPREHENSIVE METABOLIC [id number] 05:16:23* Test Item Value Reference Range Interpretation Com[facility] GLUCOSE (test code = 2217) 153 MG/DL 70-99 H BUN (test code = 2208) 14 MG/DL 6-20 CREATININE (test code = 2214) 0.95 MG/DL 0.80-1.40 eGFR (2020 CKD-EPI) (test code = 57766) 98 ML/MIN/1.73 >60 CALC BUN/CREAT (test code = 2235) 15 RATIO 6-28 SODIUM (test code = 2231) 141 MEQ/L 133-146 POTASSIUM (test code = 2228) 3.8 MEQ/L 3.5-5.4 CHLORIDE (test code = 2215) 102 MEQ/L 95-107 CARBON DIOXIDE (test code = 2206) 27 MEQ/L 19-31 CALCIUM (test code = 2209) 9.1 MG/DL 8.5-10.5 PROTEIN, TOTAL (test code = 222) 7.2 G/DL 6.1-8.3 ALBUMIN (test code = 2201) 4.5 G/DL 3.5-5.2 CALC GLOBULIN (test code = 0) 2.7 G/DL 1.9-3.7 CALC A/G RATIO (test code = 2233) 1.7 RATIO 1.0-2.6 BILIRUBIN, TOTAL (test code = 7) 0.3 MG/DL See_Comment [Automated me ssage] The system which generated this result transmitted reference range: <=1.2. The reference range was not used to interpret this result as normal/abnormal. ALKALINE PHOSPHATASE (test code = 2203) 89 U/L 40-118 AST (test code = 8) 28 U/L 9-50 ALT (test code = 2218) 45 U/L 5-50 LIPID [id number] 05:16:23* Test Item Value Reference Range Interpretation Comme nts CHOLESTEROL (test code = 0) 177 MG/DL <200 TRIGLYCERIDES (test code = 2231) 162 MG/DL <150 H HDL CHOLESTEROL (test code = 2219) 44 MG/DL >39 CALC LDL CHOL (test code = 2236) 105 MG/DL <100 H NOTE: CALCULATED LDL IS BASED ON TOD-BULL METHOD WHICHINCLUDES ADJUSTABLE TRIGLYCERIDE:VLDL CHOLESTEROL RATIO.THIS FACTOR VARIES BY MEASURED TRIGLYCERIDE AND NON-HDLCHOLESTEROL CONCENTRATIONS WITH INCREASED CALCULATED LDL SEENIN HIGHER TRIGLYCERIDE OR LOWER NON-HDL SPECIMENS. FOR MOREINFORMATION, SEE CLIENT ANNOUNCEMENT AT [email or web address] RISK RATIO LDL/HDL (test code = 2237) 2.39 RATIO <3.55 ALBUMIN/CREATININE RATIO, URINE, [id number] 04:08:03* Test Item Value Reference Range Interpretation Comme nts CREATININE, URINE, RANDOM (test code = 2072) 172.9 MG/DL NOT ESTAB ALBUMIN, URINE, RANDOM (test code = 64906) 1.0 MG/DL NOT ESTAB CALC ALBUMIN/CREAT, RND (test code = 18158) 6 MG/G <30 Note: Albumin/Creatinine ratio reference interval reflects ADA and NKF guidelines. HEMOGLOBIN [id number] 03:38:25* Test Item Value Reference Range Interpretation Comme nts HEMOGLOBIN A1c (test code = 14059) 6.8 % 4.2-5.6 H [employer]ATION GUIDELINES FOR HGB A1C: PREDIABETES/INCREASED RISK . . . . . . . 5.7-6.4% DIAGNOSIS OF DIABETES . . . . . . . . . >=6.5% WITH CONFIRMATION OR APPROPRIATE SYMPTOMS NOTE: ASSAY MAY BE AFFECTED BY HEMOGLOBINOPATHIES (SICKLE CELL ANEMIA, S-C DISEASE, OTHERS) OR ARTIFICIALLY LOWERED BY DECREASED RED CELL SURVIVAL (HEMOLYTIC ANEMIAS, BLOOD LOSS, ETC.). CONSIDER ALTERNATE TESTING OR LABORATORY CONSULTATION.
[2023-03-28 10:29] LABS: SARS-CoV-2 Antigen Rapid Res Negative (Negative)
--- NOTE | 2023-03-28 10:46 | ER ---
Nurse's Notes [facility] Name: Mireya Knight Jr Age: 53 yrs Sex: Male : 1970 Arrival Date: 03/28/2023 Time: 09:34 Bed 19 Private MD: Diagnosis: Acute upper respiratory infection, unspecified;Acute suppurative otitis media Presentation: 03/28 09:59 Chief complaint: Patient states: he has been feeling ill for approx 3 weeks. patient ap3 also complains of bilateral ear pain that he rates as a 5/10 on the pain scale at this time. Coronavirus screen: Client presents with at least one sign or symptom that may indicate coronavirus-19. Ebola Screen: No symptoms or risks identified at this time. Initial Sepsis Screen: Does the patient meet any 2 criteria? No. Patient's initial sepsis screen is negative. Does the patient have a suspected source of infection? No. Patient's initial sepsis screen is negative. Risk Assessment: Do you want to hurt yourself or someone else? Patient reports no desire to harm self or others. Onset of symptoms is unknown. 09:59 Method Of Arrival: Ambulatory ap3 09:59 Acuity: OTIS 4 ap3 Triage Assessment: 10:01 General: Appears in no apparent distress. Behavior is calm, cooperative, appropriate ap3 for age. Pain: Complains of pain in right ear and left ear Pain currently is 5 out of 10 on a pain scale. Neuro: Level of Consciousness is awake, alert, obeys commands, Oriented to person, place, time, situation, Appropriate for age. Cardiovascular: Patient's skin is warm and dry. Respiratory: Airway is patent Respiratory effort is even, unlabored, Respiratory pattern is regular, symmetrical. Historical: - Allergies: 10:01 No Known Allergies; ap3 - PMHx: 10:01 Hypertension; Hypothyroidism; ap3 - Immunization history:: Client reports receiving the 2nd dose of the Covid vaccine. - Social history:: Smoking status: Patient denies any tobacco usage or history of. Screenin:03 [facility] ED Fall Risk Assessment (Adult) History of falling in the last 3 months, ap3 including since admission No falls in past 3 months (0 pts). Abuse screen: Denies threats or abuse. Nutritional screening: No deficits noted. Tuberculosis screening: No symptoms or risk factors identified. Assessment: 10:45 Reassessment: see triage assessment. ld1 Vital Signs: 09:59 BP 149 / 107; Resp 17; Temp 98.3; Weight 95.25 kg; Height 5 ft. 3 in. ; Pain 5/10; ap3 09:59 Body Mass Index 37.20 (95.25 kg, 160.02 cm) ap3 09:59 Pain Scale: Adult ap3 ED Course: 09:39 Patient arrived in ED. rs5 09:41 Kilo Suggs MD is Attending Physician. rt 10:01 Triage completed. ap3 10:02 Arm band placed on right wrist. ap3 10:03 Patient has correct armband on for positive identification. ap3 10:13 COVID swab sent to lab. Flu and/or RSV swab sent to lab. 10:42 Malika العلي RN is Primary Nurse. ld1 10:45 Pulse ox on. NIBP on. Door closed. Noise minimized. Warm blanket given. ld1 10:45 No provider procedures requiring assistance completed. ld1 10:57 Patient did not have IV access during this emergency room visit. ld1 Administered Medications: No medications were administered Medication: 10:57 VIS not applicable for this client. ld1 Outcome: 10:46 Discharge ordered by MD. rt 10:57 Discharged to home ambulatory, ld1 10:57 Condition: stable 10:57 Discharge instructions given to patient, Instructed on discharge instructions, follow up and referral plans. medication usage, Demonstrated understanding of instructions, follow-up care, medications, Prescriptions given X 1, 10:58 Patient left the ED. ld1 Signatures: Loren Adams RN RN ap3 Malika العلي RN RN ld1 Felecia Alford Ryan, MD MD rt Luigi Chowdhury RN RN rs5
--- NOTE | 2023-03-28 10:46 | EDPHYS ---
Physician Documentation [facility] Name: Mireya Knight Jr Age: 53 yrs Sex: Male : 1970 Arrival Date: 03/28/2023 Time: 09:34 Bed 19 Private MD: ED Physician Kilo Suggs HPI: 03/28 10:34 This 53 yrs old Male presents to ER via Ambulatory with complaints of cough, rt congestion. 10:34 Patient presents to the ED with cough, congestion, mild wheeze for the past 3 days. rt Denies difficulty breathing, chest pain. Denies other acute complaints, symptoms are mild in severity, no other aggravating elevating factors. Does report a bilateral ear pain, worse on the right compared to the left. Historical: - Allergies: 10:01 No Known Allergies; ap3 - PMHx: 10:01 Hypertension; Hypothyroidism; ap3 - Immunization history:: Client reports receiving the 2nd dose of the Covid vaccine. - Social history:: Smoking status: Patient denies any tobacco usage or history of. ROS: 10:34 Constitutional: Negative for fever, chills, and weight loss, Cardiovascular: Negative rt for chest pain, palpitations, and edema, Abdomen/GI: Negative for abdominal pain, nausea, vomiting, diarrhea, and constipation, MS/Extremity: Negative for injury and deformity, Skin: Negative for injury, rash, and discoloration, Neuro: Negative for headache, weakness, numbness, tingling, and seizure, 10:34 ENT: Positive for ear pain, sinus congestion, 10:34 Respiratory: Positive for cough, Negative for shortness of breath, Exam: 10:34 Constitutional: This is a well developed, well nourished patient who is awake, alert, rt and in no acute distress. Head/Face: Normocephalic, atraumatic. Chest/axilla: Normal chest wall appearance and motion. Nontender with no deformity. No lesions are appreciated. Cardiovascular: Regular rate and rhythm with a normal S1 and S2. No gallops, murmurs, or rubs. Normal PMI, no JVD. No pulse deficits. Respiratory: Lungs have equal breath sounds bilaterally, clear to auscultation and percussion. No rales, rhonchi or wheezes noted. No increased work of breathing, no retractions or nasal flaring. Abdomen/GI: Soft, non-tender, with normal bowel sounds. No distension or tympany. No guarding or rebound. No evidence of tenderness throughout. Skin: Warm, dry with normal turgor. Normal color with no rashes, no lesions, and no evidence of cellulitis. MS/ Extremity: Pulses equal, no cyanosis. Neurovascular intact. Full, normal range of motion. Neuro: Awake and alert, GCS 15, oriented to person, place, time, and situation. Cranial nerves II-XII grossly intact. Motor strength 5/5 in all extremities. Sensory grossly intact. Cerebellar exam normal. Normal gait. 10:34 ENT: Bilateral TM effusions, erythema noted.. Vital Signs: 09:59 BP 149 / 107; Resp 17; Temp 98.3; Weight 95.25 kg; Height 5 ft. 3 in. ; Pain 5/10; ap3 09:59 Body Mass Index 37.20 (95.25 kg, 160.02 cm) ap3 09:59 Pain Scale: Adult ap3 MDM: 09:50 Patient medically screened. rt 10:46 Differential Diagnosis Flu, COVID, upper respiratory and strep for infection, otitis rt media. Data reviewed: vital signs, nurses notes. Test considered but Not performed: X-ray: Clear breath sounds, stable vital signs, x-ray not indicated. Care significantly affected by the following chronic conditions: Hypertension. Counseling: I had a detailed discussion with the patient and/or guardian regarding the historical points, exam findings, and any diagnostic results supporting the discharge/admit diagnosis, lab results, the need for outpatient follow up, to return to the emergency department if symptoms worsen or persist or if there are any questions or concerns that arise at home. 03/28 10:00 Order name: Influenza Screen (a \T\ B); Complete Time: 10:41 rt 12 10:00 Order name: SARS RAPID; Complete Time: 10:41 rt Administered Medications: No medications were administered Disposition Summary: 03/28/23 10:46 Discharge Ordered Notes: Location: Home rt Problem: new rt Symptoms: have improved rt Condition: Stable rt Diagnosis - Acute upper respiratory infection, unspecified rt - Acute suppurative otitis media rt Followup: rt - With: Private Physician - When: 2 - 3 days - Reason: Discharge Instructions: - Discharge Summary Sheet rt - Otitis Media, Adult rt - Upper Respiratory Infection, Adult rt Forms: - Work release form ld1 - Medication Reconciliation Form rt - Thank You Letter rt - Antibiotic Education rt - Prescription Opioid Use rt - Patient Portal Instructions rt - Leadership Thank You Letter rt Prescriptions: - Amoxicillin 875 mg Oral Tablet - take 1 tablet ORAL route every 12 hours for 10 days; 20 tablet; Refills: 0, rt Product Selection Permitted Signatures: Dispatcher [employer] Loren Alicia RN RN ap3 Kilo Suggs MD MD rt
[2023-03-28 14:22] VITALS: BP 149/107; TEMP 98.3
== END ==
LOC: ER 09:34
DX: J06.9 Acute upper respiratory infection, unspecified (principal); H66.009 Acute suppurative otitis media without spontaneous rupture of ear drum, unspecified ear
CPT/HCPCS: 36415; 87804; 87811; 99283

== ENCOUNTER 2023-11-26 00:14 | Emergency (ER) | payer OTHER, SELFPAY ==
[2023-11-26] MEDS ORDERED: ACETAMINOPHEN 500 MG TAB ONE (01:35)
[2023-11-26] MEDS ORDERED: methocarbamoL 500 MG TAB ONE (01:36)
[2023-11-26 01:50] LABS: Absolute Basophils 0.1 K/uL (0-0.5); Absolute Eosinophils 0.1 K/uL (0-0.5); Absolute Lymphocytes (CBC) 2.7 K/uL (0.7-4.9); Absolute Monocytes 0.7 K/uL (0.1-1.3); Absolute Neutrophil 5.9 K/uL (1.8-8.0); Eosinophils % 1.5 % (0-4.4); Hematocrit 40.8 % (39.6-49.0); Hemoglobin 13.8 g/dL (13.6-17.9); Lymphocytes % 28.2 % (15.3-44.8); MCH 29.3 pg (27.0-35.0); MCHC 33.8 g/dL (32.0-36.0); MCV 86.6 fL (80-100); MPV 8.3 fL (7.6-11.3); Monocytes % 7.4 % (3.3-12.3); Neutrophils % 61.9 % (41.7-73.7); Platelets 212 thou/uL (152-406); RBC Red Blood Cell Count 4.71 M/uL (4.33-5.43); Red Cell Distribution Width 13.2 % (12.1-15.2)
[2023-11-26 02:07] LABS: Anion Gap 11.2 mEq/L (5.0-15.0); Potassium 3.2 mEq/L (3.5-5.1); Troponin High Sensitivity 5.7 pg/mL (<58.9)
[2023-11-26] MEDS ORDERED: POTASSIUM CL SA 10 MEQ TAB PO ONE (02:17)
--- NOTE | 2023-11-26 03:00 | EDPHYS ---
Physician Documentation [facility] Name: Mireya Knight Jr Age: 53 yrs Sex: Male : 1970 Arrival Date: 11/26/2023 Time: 00:14 Bed 19 Private MD: ED Physician Jose M Moura HPI: 11/25 00:39 This 53 yrs old Male presents to ER via Wheelchair with complaints of Doesn't ec2 Feel Right, Previous TIA on 06/18/23, upper torso tightness, pain, numbness. 00:39 Patient arrives today for evaluation of abdominal tightness as well as right sided ec2 tightness in the right face and arm, states that history of TIA and was concerned this was a symptom of that. Patient reports he has had paresthesias for quite a bit of time. Denies any falls injuries or trauma. Is on Plavix.. Historical: - Allergies: 00:30 No Known Allergies; vc1 - Home Meds: 00:30 levothyroxine oral 75 mcg [Active]; vc1 - PMHx: 00:30 Hypertension; Hypothyroidism; Ischemic Stroke (June 18, 2023); vc1 - PSHx: 00:30 None; vc1 - Immunization history:: Client reports receiving the 2nd dose of the Covid vaccine. - Infectious Disease History:: Denies. - Social history:: Smoking status: Patient denies any tobacco usage or history of. ROS: 00:39 Constitutional: as per hpi ec2 Exam: 00:39 Constitutional: GEN: NAD Head: atraumatic Eyes: EOMI Ears: External ears are ec2 normal. CV: regular rate LUNGS: no respiratory distress ABD: non-distended SKIN: no evidence of rashes MSK: no evidence of trauma. Neuro: Intact neurologic examination, cranial nerves II through XII intact, strength intact upper extremities. Vital Signs: 00:28 Pain 9/10; vc1 00:38 BP 139 / 88; Pulse 66; Resp 18; Temp 97; Pulse Ox 98% ; vc1 02:18 Pain 9/10; tm6 02:19 Pain 9/10; tm6 03:33 Pain 6/10; tm6 03:34 BP 147 / 94; Pulse 63; Resp 14; Temp 97.3; Pulse Ox 97% on R/A; Pain 6/10; tm6 00:28 Pain Scale: Adult vc1 02:18 Pain Scale: Adult tm6 02:19 Pain Scale: Adult tm6 03:33 Pain Scale: Adult tm6 03:34 Pain Scale: Adult tm6 MDM: 00:40 Data reviewed: vital signs. ED course: Patient arrives today for evaluation of ec2 paresthesias. Examination remarkable for well-appearing nontoxic dividual's otherwise in no acute distress with a reassuring examination. Will obtain lab work, CT scan of the head. Differential includes electrolyte disturbance, anemia, arrhythmia, will evaluate for other process such as intracranial mass, intracranial brain bleed. Possible recrudescence.. 00:40 Patient medically screened. ec2 01:34 ED course: EKG independently reviewed and interpreted by me, shows normal sinus rhythm, ec2 rate of 57, no acute ST segment elevations, intervals are nonconcerning. . 02:12 ED course: Metabolic profile shows hypokalemia with a potassium of 3.2. Troponin within ec2 normal ranges. . 02:59 ED course: CT scan of the head shows no acute intracranial process. Will discharge home ec2 have the patient follow-up outpatient expectantly. Ultimately low suspicion for new ischemic stroke, possible recrudescence, ultimately patient more with pain related symptoms in the right upper extremity, right chest wall, right abdomen. Doubt other processes such as dissection.. 0818 00:38 Order name: Basic Metabolic Panel; Complete Time: 02:11 ec2 18 00:38 Order name: CBC with Diff; Complete Time: 02:11 ec2 18 00:38 Order name: Troponin HS; Complete Time: 02:11 ec2 18 00:38 Order name: XRAY Chest (1 view) ec2 18 00:38 Order name: CT Head Brain wo Cont ec2 18 00:38 Order name: Cardiac monitoring; Complete Time: 01:40 ec2 18 00:38 Order name: EKG - Nurse/Tech; Complete Time: :40 ec2 18 00:38 Order name: IV Saline Lock; Complete Time: 01:40 ec2 18 00:38 Order name: Labs collected and sent; Complete Time: :40 ec2 18 00:38 Order name: O2 Per Protocol; Complete Time: 01:40 ec2 08/18 00:38 Order name: O2 Sat Monitoring; Complete Time: 01:40 ec2 Administered Medications: 01:47 Drug: Methocarbamol PO 500 mg PO once Route: PO; tm6 02:19 Follow up: Pain 9/10 Adult; Response: No adverse reaction; Pain is unchanged, physician tm6 notified 01:47 Drug: Acetaminophen PO 1000 mg PO once Route: PO; tm6 02:18 Follow up: Pain 9/10 Adult; Response: No adverse reaction; Pain is unchanged, physician tm6 notified 02:18 Drug: Potassium Chloride PO 40 mEq PO once Route: PO; tm6 03:33 Follow up: Response: No adverse reaction tm6 03:07 Drug: morphine IVP or IV 4 mg IVP once over 4 mins Route: IVP; Infused Over: 4 mins; tm6 Site: right forearm; 03:33 Follow up: Pain 6/10 Adult; Response: No adverse reaction; Pain is decreased tm6 03:13 Drug: Ondansetron IVP 4 mg IVP once; over 2 minutes Route: IVP; Site: right forearm; tm6 03:33 Follow up: Response: No adverse reaction; Marked relief of symptoms tm6 Disposition Summary: 11/26/23 02:59 Discharge Ordered Notes: Location: Home ec2 Condition: Stable ec2 Diagnosis - Numbness ec2 Followup: ec2 - With: Private Physician - When: - Reason: Re-evaluation by your physician Discharge Instructions: - Discharge Summary Sheet ec2 - Transient Ischemic Attack, [id number] ec2 Forms: - Medication Reconciliation Form ec2 - Antibiotic Education ec2 - Prescription Opioid Use ec2 - Patient Portal Instructions ec2 - Leadership Thank You Letter ec2 Signatures: Dispatcher [facility] EDMS Annette Vazquez RN RN vc1 Jose M Moura MD MD ec2 Mohan Latham RN RN tm6 Corrections: (The following items were deleted from the chart) 00:39 00:39 BASIC METABOLIC PANEL+C.LAB.BRZ ordered. EDMS EDMS 00:39 00:39 CBC+H.LAB.BRZ ordered. EDMS EDMS 00:39 00:39 Troponin High Sensitivity+C.LAB.BRZ ordered. EDMS EDMS 00:39 00:39 Chest Single View+RAD.RAD.BRZ ordered. EDMS EDMS 00:39 00:39 Head Brain Wo Cont+CT.RAD.BRZ ordered. EDMS EDMS
--- NOTE | 2023-11-26 03:00 | ER ---
Nurse's Notes [facility] Name: Mireya Knight Jr Age: 53 yrs Sex: Male : 1970 Arrival Date: 11/26/2023 Time: 00:14 Bed 19 Private MD: Diagnosis: Numbness Presentation: 11/25 00:28 Chief complaint: Patient states: tightness in lower right abdomen, shoulder tightness. vc1 Coronavirus screen: Client denies travel out of the [place] in the last 14 days. At this time, the client does not indicate any symptoms associated with coronavirus-19. Ebola Screen: Patient negative for fever greater than or equal to 101.5 degrees Fahrenheit, and additional compatible Ebola Virus Disease symptoms Patient denies exposure to infectious person. Patient denies travel to an Ebola-affected area in the 21 days before illness onset. No symptoms or risks identified at this time. Initial Sepsis Screen: Does the patient meet any 2 criteria? No. Patient's initial sepsis screen is negative. Does the patient have a suspected source of infection? No. Patient's initial sepsis screen is negative. Risk Assessment: Do you want to hurt yourself or someone else? Patient reports no desire to harm self or others. Onset of symptoms was November 25, 2023 at 12:00. 00:28 Method Of Arrival: Wheelchair vc1 00:28 Acuity: OTIS 3 vc1 Historical: - Allergies: 00:30 No Known Allergies; vc1 - Home Meds: 00:30 levothyroxine oral 75 mcg [Active]; vc1 - PMHx: 00:30 Hypertension; Hypothyroidism; Ischemic Stroke (June 18, 2023); vc1 - PSHx: 00:30 None; vc1 - Immunization history:: Client reports receiving the 2nd dose of the Covid vaccine. - Infectious Disease History:: Denies. - Social history:: Smoking status: Patient denies any tobacco usage or history of. Screenin:37 [facility] ED Fall Risk Assessment (Adult) History of falling in the last 3 months, vc1 including since admission No falls in past 3 months (0 pts) Confusion or Disorientation No (0 pts) Intoxicated or Sedated No (0 pts) Impaired Gait Yes (1 pt) Mobility Assist Device Used Yes (1 pt) Altered Elimination Yes (1 pt) Score/Fall Risk Level 3 or more points = High Risk Oriented to surroundings, Maintained a safe environment, Educated pt \T\ family on fall prevention, incl call for assistance when getting out of bed. Abuse screen: Denies threats or abuse. Nutritional screening: No deficits noted. Tuberculosis screening: No symptoms or risk factors identified. Assessment: 01:38 General: Appears in no apparent distress. Behavior is calm, cooperative. Pain: tm6 Complains of pain in right lower quadrant Pain does not radiate. Pain currently is 9 out of 10 on a pain scale. Quality of pain is described as crampy, tight. Neuro: Level of Consciousness is awake, alert, obeys commands, Oriented to person, place, time, situation. Cardiovascular: Patient's skin is warm and dry. Rhythm is regular. Respiratory: Airway is patent Respiratory effort is even, unlabored, Respiratory pattern is regular, symmetrical. GI: Abdomen is round non-distended, Reports lower abdominal pain. : No signs and/or symptoms were reported regarding the genitourinary system. EENT: No signs and/or symptoms were reported regarding the EENT system. Derm: No signs and/or symptoms reported regarding the dermatologic system. Musculoskeletal: No signs and/or symptoms reported regarding the musculoskeletal system. 03:19 Reassessment:. tm6 03:33 Reassessment: Patient appears in no apparent distress at this time. Patient and/or tm6 family updated on plan of care and expected duration. Pain level reassessed. Patient is alert, oriented x 3, equal unlabored respirations, skin warm/dry/pink. Vital Signs: 00:28 Pain 9/10; vc1 00:38 BP 139 / 88; Pulse 66; Resp 18; Temp 97; Pulse Ox 98% ; vc1 02:18 Pain 9/10; tm6 02:19 Pain 9/10; tm6 03:33 Pain 6/10; tm6 03:34 BP 147 / 94; Pulse 63; Resp 14; Temp 97.3; Pulse Ox 97% on R/A; Pain 6/10; tm6 00:28 Pain Scale: Adult vc1 02:18 Pain Scale: Adult tm6 02:19 Pain Scale: Adult tm6 03:33 Pain Scale: Adult tm6 03:34 Pain Scale: Adult tm6 ED Course: 00:16 Patient arrived in ED. ec2 00:19 Moura, Jose M, MD is Attending Physician. ec2 00:29 Triage completed. vc1 00:37 Arm band placed on right wrist. vc1 01:00 Mohan Latham, KWASI is Primary Nurse. tm6 01:25 XRAY Chest (1 view) In Process Unspecified. EDMS 01:37 EKG done, by ED staff, reviewed by Jose M Moura MD. Inserted saline lock: 20 gauge in tm6 right wrist, using aseptic technique. Blood collected. Flushed with 10 mL NS. 01:38 Patient has correct armband on for positive identification. Bed in low position. Call tm6 light in reach. Side rails up X 1. Provided Education on: use of call nava. Client placed on continuous cardiac and pulse oximetry monitoring. NIBP monitoring applied. knock out hand on. Pulse ox on. NIBP on. Door closed. Noise minimized. Pillow given. 01:40 Basic Metabolic Panel Sent. tm6 01:40 CBC with Diff Sent. tm6 01:40 Troponin HS Sent. tm6 01:41 CT Head Brain wo Cont In Process Unspecified. EDMS 03:34 No provider procedures requiring assistance completed. IV discontinued, intact, tm6 bleeding controlled, No redness/swelling at site. Pressure dressing applied. Administered Medications: 01:47 Drug: Methocarbamol PO 500 mg PO once Route: PO; tm6 02:19 Follow up: Pain 9/10 Adult; Response: No adverse reaction; Pain is unchanged, physician tm6 notified 01:47 Drug: Acetaminophen PO 1000 mg PO once Route: PO; tm6 02:18 Follow up: Pain 9/10 Adult; Response: No adverse reaction; Pain is unchanged, physician tm6 notified 02:18 Drug: Potassium Chloride PO 40 mEq PO once Route: PO; tm6 03:33 Follow up: Response: No adverse reaction tm6 03:07 Drug: morphine IVP or IV 4 mg IVP once over 4 mins Route: IVP; Infused Over: 4 mins; tm6 Site: right forearm; 03:33 Follow up: Pain 6/10 Adult; Response: No adverse reaction; Pain is decreased tm6 03:13 Drug: Ondansetron IVP 4 mg IVP once; over 2 minutes Route: IVP; Site: right forearm; tm6 03:33 Follow up: Response: No adverse reaction; Marked relief of symptoms tm6 Medication: 01:38 VIS not applicable for this client. tm6 Outcome: 02:59 Discharge ordered by . ec2 03:34 Discharged to home via wheelchair, with family, tm6 03:34 Condition: stable 03:34 Discharge instructions given to patient, family, Instructed on discharge instructions, follow up and referral plans. Demonstrated understanding of instructions, follow-up care, 03:35 Patient left the ED. tm6 Signatures: Dispatcher [employer] Annette Bah RN RN vc1 Jose M Moura MD MD ec2 Mohan Latham RN RN tm6
[2023-11-26] MEDS ORDERED: MORPHINE 4 MG/ML SYR ONE (03:04)
[2023-11-26] MEDS ORDERED: ONDANSETRON 4 MG/2 ML VIAL ONE (03:06)
[2023-11-26 04:44] VITALS: BP 147/94; TEMP 97.3; O2SAT 97
--- NOTE | 2023-11-28 11:43 | RAD REPORT ---
EXAM DESCRIPTION: RAD - Chest Single View - 11/26/2023 1:23 am CLINICAL HISTORY: COUGH COMPARISON: None TECHNIQUE: Single AP view of the chest. FINDINGS: Lung volumes adequate. Cardiac silhouette is normal in size. No pneumothorax. No large pleural effusion. No focal consolidation. No acute bony finding. IMPRESSION: No evidence of acute cardiopulmonary disease. Electronically signed by: Adolfo Thornton MD 11/26/2023 02:31 AM CDT RP Z9 Due to temporary technical issues with the PACS/Fluency reporting system, reports are being signed by the in house radiologist without review as a courtesy to ensure prompt reporting. The interpreting r adiologist is fully responsible for the content of the report.
--- OUTSIDE RECORDS SUMMARY | 2023-11-28 11:56 | XMS REPORT | Continuity of Care Document ---
Author Name Unknown Address [address] [facility] [address] [place] [address] [facility] thconnect Address [address] [facility] 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 ON 9 [id number] 2023 00:00:00 Allergies, Adverse Reactions, Alerts Allergy Name Allergy Type Status Severity Reaction(s) Onset Date Inactive Date Treating Clinician Comments Source No Known Allergie s DA Active U 06-17 00:00: 00 [facility] Social History Social Habit Start Date Stop Date Quantity Comments Source Sexual orientation Anne peralta Philleroy - External Sex assigned at 1970 00:00:00 1970 00:00:00 Deysi Woodall - External Smoking Status Start Date Stop Date Source Tobacco smoking consumption unknown Deysi Woodall - External Medications Ordered Medication Name Filled Medication Name Start Date Stop Date Current Medication? Ordering Clinician Indication Dosage Frequency Signature (SIG) Comments Components Source Tizanidine HCl 4 MG oral Capsule 10-04 14:48: 04 10-04 00:00 :00 No 4mg Q.[id number] 3D Take 1 capsule (4 mg total) by mouth 3 times daily. Deysi dougherty Atorvastati n Calcium 80 MG oral Tablet 10-04 14:48: 04 10-04 00:00 :00 No 80mg QD Take 1 tablet (80 mg total) by mouth daily. Deysi dougherty Dapaglifloz in Propanediol (Farxiga) 5 MG oral Tablet 10-04 14:48: 04 10-04 00:00 :00 No 5mg QD Take 5 mg by mouth daily. Deysi dougherty ASPIRIN 81 OR 10-04 13:50: 49 Yes Take by mouth. Deysi dougherty Levothyroxi ne Sodium 75 MCG oral Tablet 10-04 00:00: 00 Yes [id number] 75ug QD Take 1 tablet (75 mcg total) by mouth daily. Deysi dougherty Atorvastati n Calcium 80 MG oral Tablet 10-04 00:00: 00 Yes [id number] 80mg QD Take 1 tablet (80 mg total) by mouth daily. Deysi dougherty Tizanidine HCl 4 MG oral Capsule 10-04 00:00: 00 Yes [id number] 4mg Q.[id number] 3D Take 1 capsule (4 mg total) by mouth 3 times daily as needed for muscle spasms. Deysi dougherty Dapaglifloz in Propanediol (Farxiga) 5 MG oral Tablet 10-04 00:00: 00 Yes [id number] 5mg QD Take 5 mg by mouth daily. Deysi dougherty Clopidogrel Bisulfate (PLAVIX) 75 MG oral Tablet 10-04 00:00: 00 Yes [id number] 75mg QD Take 1 tablet (75 mg total) by mouth daily. Deysi dougherty Losartan Potassium (COZAAR) 100 MG oral Tablet 10-04 00:00: 00 Yes [id number] 100mg QD Take 1 tablet (100 mg total) by mouth daily. Deysi dougherty Escitalopra m Oxalate 10 MG oral Tablet 10-04 00:00: 00 Yes [id number] 10mg QD Take 1 tablet (10 mg total) by mouth daily. Deysi dougherty Clopidogrel Bisulfate (PLAVIX) 75 MG oral Tablet 09-19 00:00: 00 10-04 00:00 :00 No 75mg QD Take 1 tablet (75 mg total) by mouth daily. Deysi dougherty Losartan Potassium 25 MG oral Tablet 09-10 00:00: 00 10-04 00:00 :00 No 25mg QD Take 1 tablet (25 mg total) by mouth daily Patient states that he is taking 2. Deysi dougherty Gabapentin 300 MG oral Capsule 07-31 00:00: 00 Yes 300mg Q.[id number] 3D Take 1 capsule (300 mg total) by mouth 3 times daily. Deysi dougherty Levothyroxi ne Sodium 75 MCG oral Tablet 07-21 00:00: 00 10-04 00:00 :00 No 75ug QD Take 1 tablet (75 mcg total) by mouth daily. Deysi dougherty Vital Signs Vital Name Observation Time Observation Value Comments S ource Systolic blood pressure 2023-10-05 18:42:00 158 mm[Hg] Deysi acevedo - External Diastolic blood pressure 2023-10-05 18:42:00 84 mm[Hg] Deysi acevedo - External Heart rate 2023-10-05 18:42:00 80 /min Suha Woodall - External Body temperature 2023-10-05 18:42:00 36.56 Reyna Deysi Woodall - External Respiratory rate 2023-10-05 18:42:00 16 /min Deysi Woodall - External Body height 2023-10-05 18:42:00 177.8 cm Mariluz Woodall - External Body weight 2023-10-05 18:42:00 93.895 kg Mariluz johnson Seybold - External BMI 2023-10-05 18:42:00 29.70 kg/m2 Mariluz johnson Seybold - External Encounters Start Date/Time End Date/Time Encounter Type Admission Type Attending [facility] Care Department Encounter ID Source 2023-11-30 14:30:00 2023-11-30 14:30:00 Outpatient ZORAIDA MCCAULEY DEYSI [id number] Deysi Woodall 2023-10-19 16:30:00 2023-10-19 16:30:00 Outpatient ZORAIDA MCCAULEY DEYSI GORDON [id number] Deysi Woodall 2023-10-16 00:00:00 2023-10-16 00:00:00 Outpatient DEYSI GORDON [id number] Deysi Woodall 2023-10-10 00:00:00 2023-10-10 00:00:00 Outpatient ZORAIDA MCCAULEY [facility]SI [facility]ORD[facility] [id number] [facility] 2023-10-09 00:00:00 2023-10-09 00:00:00 Outpatient ERINMAYELINAN DEYSI GORDON [id number] Deysi Molinaleroy 2023-10-09 00:00:00 2023-10-09 00:00:00 Outpatient ZORAIDA MCCAULEY DEYSI GORDON [id number] [facility] 2023-10-05 15:15:00 2023-10-05 15:15:00 Outpatient LABReyna DEYSI GORDON [id number] [facility] 2023-10-05 14:30:00 2023-10-05 14:30:00 Outpatient ERIN, ROBERT DEYSI GORDON [id number] [facility] 2023-10-05 00:00:00 2023-10-05 00:00:00 Outpatient DEYSI GORDON [id number] Deysi [facility] 2023-08-28 09:44:03 2023-08-28 09:44:03 Outpatient SFA SFA 20 Brandon Aguero 2023-08-21 15:16:10 2023-08-21 15:16:10 Outpatient SFA SFA [id number] Brandon Aguero 2023-07-11 13:48:31 2023-07-11 13:48:31 Outpatient SFA SFA [id number] Brandon Aguero 2023-06-29 15:34:47 2023-06-29 15:34:47 Outpatient SFA SFA [id number] Brandon Aguero 2023-06-18 07:47:00 2023-06-22 16:15:[address] Lai [facility] [id number] [facility] 2022-10-24 15:07:16 2022-10-24 15:07:16 Outpatient SFA SFA [id number] Brandon Aguero 2022-04-07 15:20:52 2022-04-07 15:20:52 Outpatient SFA SFA [id number] Brandon Aguero Results Test Description Test Time Test Comments Results Result Co mments Source LIPID PROFILE (CORONARY RISK)2023-06-21 13:17:00* Test Item Value Reference Range Interpretation Comme nts TRIGLYCERIDES (test code = TRIG) 131 mg/dL 20-150 N CHOLESTEROL (test code = CHOL) 113 mg/dL 0-200 N CHOLESTEROL/HDL RATIO (test code = CHOLHDL) 3.0 RATIO 0-4.9 N RISK ASSOC IATED WITH CHOL/HDL RATIOS: Risk Male Female1/2 AVERAGE 3.43 3.27AVERAGE 4.97 4.442X AVERAGE 9.55 7.053X AVERAGE 23.39 11.04 REFERENCE VALUE IS RELATED TO RISK LEVELS ASRECOMMENDED BY THE KEISHA. HEART, LUNG, AND BLOOD INST. HDL CHOLESTEROL (test code = HDL) 34 mg/dL 40-60 L LIPOPROTEIN LDL (test code = LDL) 63 mg/dL 0-99 N ====== Referen ce Interval: mg/dL mmol/L O ptimal <100 <2.6Near/above optimal 100-129 2.6-3.3Borderline High 130-159 3.4-4.1High 160-189 4.1-4.9Very High >=190 >=4.9========= This LDL result is a direct measurement.========= BASIC METABOLIC [id number] 06:33:00* Test Item Value Reference Range Interpretation Comme nts SODIUM (test code = NA) 139 mmol/L 136-145 N POTASSIUM (test code = K) 3.9 mmol/L 3.5-5.1 N CHLORIDE (test code = CL) 104.0 mmol/L 98-107 N CARBON DIOXIDE (test code = CO2) 30.0 mmol/L 21-32 N ANION GAP (test code = GAP) 8.9 10-20 L GLUCOSE (test code = GLU) 183 mg/dL 74-106 H BLOOD UREA NITROGEN (test code = BUN) 11 mg/dL 7-18 N GLOMERULAR FILTRATION RATE (test code = GFR) > 60 mL/min >=60 The Glomerular Filtration Rate is a calculated parameterbased on serum Creatinine, patient age and sex. GFR valuesless than 60 mL/min/1.73 square meters are indicative ofChronic Kidney Disease. Values less than 15 mL/min/1.73square meters indicate Kidney failure. The calculation forGFR is based on the CKD-EPI (2020) calculation. This formulais race indifferent and is the recommended formula for GFRby the National Kidney Foundation for Adults.The GFR will not calculate if the sex is unknown or if thepatient's age is <18 years. CREATININE (test code = CREAT) 1.00 mg/dL 0.7-1.3 N BUN/CREATININE RATIO (test code = BUN/CREA) 10.6 10-20 N CALCIUM (test code = CA) 8.5 mg/dL 8.5-10.1 N CBC W/AUTO [id number] 05:57:00* Test Item Value Reference Range Interpretation Comme nts WHITE BLOOD CELL (test code = WBC) 8.3 K/mm3 4.5-12.5 N RED BLOOD CELL (test code = RBC) 5.26 mill/mm3 4.0-5.8 N HEMOGLOBIN (test code = HGB) 15.4 gram/dL 13.0-17.5 N HEMATOCRIT (test code = HCT) 45.6 % 42.0-52.0 N MEAN CELL VOLUME (test code = MCV) 86.7 fL 80-98 N MEAN CELL HGB (test code = MCH) 29.3 picogram 27.0-33.0 N MEAN CELL HGB CONCETRATION (test code = MCHC) 33.8 gram/dL 33.0-36.0 N RED CELL DISTRIBUTION WIDTH (test code = RDW) 12.3 % 11.6-16.2 N RED CELL DISTRIBUTION WIDTH SD (test code = RDW-SD) 38.7 fL 37.0-51.0 N PLATELET COUNT (test code = PLT) 209 K/mm3 150-450 N MEAN PLATELET VOLUME (test c ode = MPV) 10.0 fL 6.7-11.0 N NEUTROPHIL % (test code = NT%) 50.4 % 39.0-69.0 N IMMATURE GRANULOCYTE % (test code = IG%) 0.6 % 0.0-5.0 N LYMPHOCYTE % (test code = LY%) 34.1 % 25.0-55.0 N MONOCYTE % (test code = MO%) 8.9 % 0.0-10.0 N EOSINOPHIL % (test code = EO%) 5.3 % 0.0-5.0 H BASOPHIL % (test code = BA%) 0.7 % 0.0-1.0 N NUCLEATED RBC % (test code = NRBC%) 0.0 % 0-0 N NEUTROPHIL # (test code = NT#) 4.21 K/mm3 1.8-7.7 N IMMATURE GRANULOCYTE # (test code = IG#) 0.05 x10 3/uL 0-0.03 H LYMPHOCYTE # (test code = LY#) 2.84 K/mm3 1.0-5.0 N MONOCYTE # (test code = MO#) 0.74 K/mm3 0-0.8 N EOSINOPHIL # (test code = EO#) 0.44 K/mm3 0.0-0.5 N BASOPHIL # (test code = BA#) 0.06 K/mm3 0.0-0.2 N NUCLEATED RBC # (test code = NRBC#) 0.00 K/mm3 0.0-0.1 N AB THYROID [id number] 04:08:00* Test Item Value Reference Range Interpretation Comme nts AB THYROID PEROXIDASE (test code = THYPAB) 196 IU/mL 0-34 A Performed A t: HD [facility] [address] [place], [place] [id number] Blake Dougherty MD Ph:[phone] T4 [id number] 16:05:00* Test Item Value Reference Range Interpretation Comme nts T4 FREE (test code = T4F) 0.80 ng/dL 0.76-1.46 N THYROID STIMULATING [id number] 16:05:00* Test Item Value Reference Range Interpretation Comme nts THYROID STIMULATING HORMONE (test code = TSH) 8.023 uIU/mL 0.550-4.780 H - MRI BRAIN W/O [id number] 11:27:00 [facility] 1970 Sex: M FAX: Tarsha Jackson MD [phone] [place]: [address]: ADM Name: MINA HUGHES [facility] : 1970 Age/S:53/M [address] Unit #: [id number] Loc: [address] [place] [address] Phys: Tarsha Jackson MD Acct: [id number] Dis Date: Status: ADM IN PHONE #: [phone] Exam Date: 06/19/20231108 FAX #: [phone] Reason: RULE OUT CVA EXAMS: CPT CODE: [id number] MRI BRAIN W/O CONTRAST 04017 REASON FOR EXAM: RULE OUT CVA Exam Order Date: 06/19/2023 9:55 AM Ordering: Tarsha Jackson MD Attending:Tarsha Jackson MD Location:[facility] Procedure: - MRI BRAIN W/O CONTRAST Comparison: None FINDINGS: Axial, sagittal, andcoronal images of the head were obtained using T1, T2 weighted, inversion recovery, and gradient echo sequences. No IV gadolinium was given. The sagittal images show normal pituitary, cerebellum, andbrain stem. No evidence of suprasellar mass. The axial T2, inversion recovery, and gradient echo images show no evidence of intra or extra axial mass. The ventricles, cisterns, and sulci are unremarkable. No evidence of hemorrhage. The cerebellar pontine angle area is within normal limits. There isno evidence of mass noted. The axial T1 images show no evidence of mass. No evidence of old infarct. Acute infarct of the left thalamus. The coronal images show normal optic chiasm. IMPRESSION: Acuteinfarct of the left thalamus. at 1127 Reported and signed by: Herman Mccarthy M.D. CC: Tarsha Jackson MD Technologist: Navi Stafford RT(R)(MR) Trnscrd Date/Time/By: 06/19/2023 (1127) : By: [email or web address] Orig Print D/T: S: 06/19/2023 (1131) PAGE 1 Signed ReportBASIC METABOLIC [id number] 10:18:00* Test Item Value Reference Range Interpretation Comme nts SODIUM (test code = NA) 139 mmol/L 136-145 N POTASSIUM (test code = K) 4.3 mmol/L 3.5-5.1 N CHLORIDE (test code = CL) 104.0 mmol/L 98-107 N CARBON DIOXIDE (test code = CO2) 29.0 mmol/L 21-32 N ANION GAP (test code = GAP) 10.3 10-20 N GLUCOSE (test code = GLU) 216 mg/dL 74-106 H BLOOD UREA NITROGEN (test code = BUN) 12 mg/dL 7-18 N GLOMERULAR FILTRATION RATE (test code = GFR) > 60 mL/min >=60 The Glomerular Filtration Rate is a calculated parameterbased on serum Creatinine, patient age and sex. GFR valuesless than 60 mL/min/1.73 square meters are indicative ofChronic Kidney Disease. Values less than 15 mL/min/1.73square meters indicate Kidney failure. The calculation forGFR is based on the CKD-EPI (2020) calculation. This formulais race indifferent and is the recommended formula for GFRby the National Kidney Foundation for Adults.The GFR will not calculate if the sex is unknown or if thepatient's age is <18 years. CREATININE (test code = CREAT) 0.90 mg/dL 0.7-1.3 N BUN/CREATININE RATIO (test code = BUN/CREA) 12.8 10-20 N CALCIUM (test code = CA) 8.6 mg/dL 8.5-10.1 N THYROID PROFILE [id number] 07:48:00* Test Item Value Reference Range Interpretation Comme nts T3 UPTAKE (test code = T3UP) 35.0 % 30.0-40.0 N T4 (THYROXINE) (test code = T4) 4.4 ug/dL 4.5-13.9 L T7 (FREE THYROXINE INDEX) (t est code = T7) 1.54 FTI 1.3-5.1 N THYROID STIMULATING HORMONE (test code = TSH) 18.593 uIU/mL 0.550-4.780 H - CTA HEAD STROKE VIZ [id number] 07:06:00 [facility])Name: MINA HUGHES : 1970 Sex: M Name: MINA HUGHES [facility] : 1970 Age/S: 53 / M [address] [facility] Unit #: [id number] Loc: [place] [address] Phys: Margaret Rahman MD Acct: [id number] Dis Date: Status: REG ER PHONE #: [phone] Exam Date: 06/18/2023 0640 FAX #: [phone] Reason: paresthesia EXAMS: CPT CODE: [id number] CT[place] [address] LOCATION: H48 HISTORY: Male, 53 years of age with paresthesia EXAM: CT ANGIOGRAPHY OF THE NECK AND FOND DU LAC OF CHERY COMPARISON: CT brain without contrast performed immediately prior TECHNIQUE: Helical axial images were obtained from aortic arch totop of calvarium with nonionic IV contrast using the CT angiography protocol. Image post processing with MIP and/or 3-D volume rendering and multiplanar reconstruction were done at the advanced workstation. One or more of the following dose reduction techniques were used: Automated exposure control; adjustment of the mA and/or kV according to the patient size; and/or use of iterative reconstruction technique. STATEMENT: Exam quality is acceptable. FINDINGS: [place] of the aortic arch is unremarkable. No significant plaque or stenosis in right brachiocephalic artery, right subclavian artery or left subclavian artery. Vertebral arteries: Vertebral arteries are codominant. No dissection, plaquing, or stenosis in right or left vertebral artery. Extracranial Right carotid system: Mild noncalcified plaque seen in the right carotid bulb. No significant plaque in CCA, ECA, or ICA. No hemodynamically significant stenosis, thrombosis or dissection in the CCA, bulb, ICA, or ECA. Extracranial Left carotid system: No significant plaquing, stenosis, thrombosis or dissection in the CCA, bulb, ICA, orECA. Intracranial arterial circulation: No large vessel occlusion, critical stenosis or aneurysm. No AVM is seen. Dural veins enhance appropriately. Other: Images through the lung apices show mild diffuse interstitial opacities. Thyroid is unremarkable. IMPRESSION: 1. Unremarkable CTA of neck and [place] of Cher[place]. Extracranially there is no significant carotid or vertebral artery stenosis. Intracranially no critical stenosis, large vessel occlusion, or aneurysm. 2. Interstitial opacities in the lung apices. Edema versus pneumonia. PAGE 1 Signed Report (CONTINUED) Name: MINA HUGHES [facility] : 1970 Age/S: 53 / M [address] [facility] Unit #: [id number] Loc: [place] [address] Phys: Margaret Rahman MD Acct: [id number] Dis Date: Status: REG ER PHONE #: [phone] Exam Date: 06/18/2023 0640 FAX #: [phone] Reason: paresthesia EXAMS: CPT CODE: [id number] CT[place] [address] (Continued) NOTE: Stenosis if present was derived by comparing the narrowest segment with the distal luminal diameter as related to the reported measure of arterial narrowing (criteria similar to NASCET). at 0706 Reported and signed by: Rosy Ragland MD CC: Margaret Rahman MD Technologist:Christopher Leonard CTDI: DLP: Trnscb Date/Time: 06/18/2023 (705) Estrellita Orig Print D/T: S: 06/18/2023 (09) PAGE 2 Signed Report- CTA NECK STROKE VIZ [id number] 07:06:00 [facility] ([facility])Name: MINA HUGHES : 1970 Sex: M Name: MINA HUGHES [facility] : 1970 Age/S: 53 / M [address] Unit #: [id number] Loc: [place] [address] Phys: Margaret Rahman MD Acct: [id number] Dis Date: Status:REG ER PHONE #: [phone] Exam Date: 06/18/2023 0640 FAX #: [phone] Reason: paresthesia EXAMS: CPT CODE: [id number] CTA NECK STROKE VIZ AI 68325 LOCATION: H48 HISTORY: Male, 53 years of age with paresthesia EXAM: CT ANGIOGRAPHY OF THE NECK AND FOND DU LAC OF CHERY COMPARISON: CT brain without contrast performed immediately prior TECHNIQUE: Helical axial images were obtained from aortic arch to top of calvarium with nonionic IV contrast using the CT angiography protocol. Image post processing with MIP and/or 3-D volume rendering and multiplanar reconstruction were done at the advanced workstation. One or more of the following dose reduction techniques were used: Automated exposure control; adjustment of the mA and/or kV according to the patient size; and/or use of iterative reconstruction technique. STATEMENT: Exam quality is acceptable. FINDINGS: [place] of the aortic arch is unremarkable. No significant plaque or stenosis in right brachiocephalic artery, right subclavian artery orleft subclavian artery. Vertebral arteries: Vertebral arteries are codominant. No dissection, plaquing, or stenosis in right or left vertebral artery. Extracranial Right carotid system: Mild noncalcified plaque seen in the right carotid bulb. No significant plaque in CCA, ECA, or ICA. No hemodynamically significant stenosis, thrombosis or dissection in the CCA, bulb, ICA, or ECA. Extracranial Left carotid system: No significant plaquing, stenosis, thrombosis or dissection in the CCA, bulb, ICA, or ECA. Intracranial arterial circulation: No large vessel occlusion, critical stenosis or aneurysm. No AVM is seen. Dural veins enhance appropriately. Other: Images through the lung apices show mild diffuse interstitial opacities. Thyroid is unremarkable. IMPRESSION: 1. Unremarkable CTA of neck and [place] of [place]. Extracranially there is no significant carotid or vertebral artery stenosis. Intracranially no critical stenosis, large vessel occlusion, or aneurysm. 2. Interstitial opacities inthe lung apices. Edema versus pneumonia. PAGE 1 Signed Report (CONTINUED) Name: MINA HUGHES [facility] : 1970 Age/S: 53 / M [address] Unit #: [id number] Loc: [place] [address] Phys: Margaret Rahman MD Acct: [id number] Dis Date: Status: REG ER PHONE #: [phone] Exam Da te: 06/18/2023 0640 FAX #: [phone] Reason: paresthesia EXAMS: CPT CODE: [id number] CTA NECK STROKE VIZ AI [address] (Continued) NOTE: Stenosis if present was derived by comparing the narrowest segment with the distal luminal diameter as related to the reported measure of arterial narrowing (criteria similar to NASCET). at 0706 Reported and signed by: Rosy Ragland MD CC: Margaret Rahman MD Technologist:Christopher Leonard CTDI: DLP: Trnscb Date/Time: 06/18/2023 (705) [email or web address] Orig Print D/T: S: 06/18/2023 (09) PAGE 2 Signed Report- XR CHEST 1 [id number] 06:59:00 [facility] ([facility])Name: MINA HUGHES : 1970 Sex: M FAX: Margaret Rahman MD [phone] [place]: [address] St: REG Name: MINA HUGHES [facility] : 1970 Age/S: 53/M [address] [facility] Unit #: [id number] Loc: [place] [address] Phys: Margaret Rahman MD Acct: [id number] Dis Date: Status: REG ER PHONE #: [phone] Exam Date: 06/18/2023 06 FAX #: [phone] Reason: CODE STROKE EXAMS: CPT CODE: [id number] XR CHEST 1 V 84470 LOCATION: H48 HISTORY: Male, 53 years of age with CODE STROKE, right tightness and tingling EXAM: CHEST X-RAY, ONE VIEW COMPARISON: None at this time. COMMENT: Frontal view of the chest is provided. There is mild perihilar interstitial prominence bilaterally. No focal consolidation, mass lesion, or effusion. Cardiac silhouette is within normal limits. No acute bony abnormalities. IMPRESSION: Mild perihilar interstitial opacities. Edema versus pneumonia. at 0659 Reported and signed by: Rosy Ragland MD CC: Margaret Rahman MD Technologist: Kulwinder Mccormack RT(R); MARCELLE BRYSON RT(R) Trnarrd Date/Time/By: 06/18/2023 (0659) : By: [email or web address] Orig Print D/T: S: 06/18/2023 (0702) PAGE 1 Signed ReportBASIC METABOLIC [id number] 06:52:00* Test Item Value Reference Range Interpretation Comme nts SODIUM (test code = NA) 139 mmol/L 136-145 N POTASSIUM (test code = K) 3.0 mmol/L 3.5-5.1 L CHLORIDE (test code = CL) 102.0 mmol/L 98-107 N CARBON DIOXIDE (test code = CO2) 29.0 mmol/L 21-32 N ANION GAP (test code = GAP) 11.0 10-20 N GLUCOSE (test code = GLU) 142 mg/dL 74-106 H BLOOD UREA NITROGEN (test code = BUN) 9 mg/dL 7-18 N GLOMERULAR FILTRATION RATE (test code = GFR) > 60 mL/min >=60 The Glomerular Filtration Rate is a calculated parameterbased on serum Creatinine, patient age and sex. GFR valuesless than 60 mL/min/1.73 square meters are indicative ofChronic Kidney Disease. Values less than 15 mL/min/1.73square meters indicate Kidney failure. The calculation forGFR is based on the CKD-EPI (2020) calculation. This formulais race indifferent and is the recommended formula for GFRby the National Kidney Foundation for Adults.The GFR will not calculate if the sex is unknown or if thepatient's age is <18 years. CREATININE (test code = CREAT) 1.00 mg/dL 0.7-1.3 N BUN/CREATININE RATIO (test code = BUN/CREA) 9.0 10-20 L CALCIUM (test code = CA) 8.7 mg/dL 8.5-10.1 N [id number] 06:52:00* Test Item Value Reference Range Interpretation Comme nts TROPONIN-HS (test code = TROPI) 7.400 pg/mL 0-54 N 99th Percentile Upper Reference Limit (URL):Females: 34 pg/mLMales: 54 pg/mL In order to distinguish acute elevations of high sensitivitytroponin from other clinical conditions, the FourthUniversal Definition of Myocardial Infarction stressesclinical assessment and the demonstration of a rise and/orfall in serial troponin results above the URL. These results were obtained using Histros IM TnIHreagent. Results from different methodologies should not becompared to one another as quantitative results and URLs mayvary by method. NOTE: A Positive Bias may occur for patients taking Biotin Supplements.NOTE: Current test methodology (pg/mL) units differ from prior test methodology (ng/mL) by a factor of 1000. - CT HEAD/BRAIN W/O [id number] 06:47:00 [facility] ([facility])Name: MINA HUGHES : 1970 Sex: M Name: MINA HUGHES [facility] : 1970 Age/S: 53 / M [address] [facility] Unit #: [id number] Loc: [place] [address] Phys: Margaret Rahman MD Acct: [id number] Dis Date: Status: REG ER PHONE #: [phone] Exam Date: 06/18/2023 0640 FAX #: [phone] Reason: paresthesia EXAMS: CPT CODE: [id number] CT HEAD/BRAIN W/O CONT 18857 EXAM: - CT HEAD/BRAIN W/O CONT LOCATION: H57 HISTORY: 53 years-year old Male with paresthesia TECHNIQUE: Computerized tomography images from the skull base to the vertex were obtained. Coronal and sagittal reformatted images are provided. This exam was performed according to our departmental dose-optimization program, which includes automated exposure control, adjustment of the mA and/or kV according to patient size and/or use of iterative reconstruction technique COMPARISON: None FINDINGS: Brain: The brain parenchyma is unremarkable. There is no evidence of an acute territorial infarct. There is no mass effect, midline shift, or parenchymal edema. Ventricles/Extra-axial spaces: There is no acute intracranial hemorrhage or extra-axial fluid collection. The ventricles are unremarkable. No basal cistern effacement. Bones: There is no evidence of acute displaced calvarial fracture. Sinuses: The visualized paranasal sinuses and mastoid air cells are clear. Soft Tissues: Unremarkable. Other: None. IMPRESSION: 1. No CT evidence of acute intracranial abnormality. Findings were communicated to Margaret Rahman MD by telephone on 06/18/2023 6:46 AM. PAGE 1 Signed Report (CONTINUED) Name: MINA HUGHES [facility] : 1970 Age/S: 53 / M [address] [facility] Unit #: [id number] Loc: [place] [address] Phys: Margaret Rahman MD Acct: [id number] Dis Date: Status: REG ER PHONE #: [phone] Exam Date: 06/18/2023 0640 FAX #: [phone] Reason: paresthesia EXAMS: CPT CODE: [id number] CT HEAD/BRAIN W/O CONT 64221 (Continued) at 0647 Reported andsigned by: Vince Glez M.D. CC: Margaret Rahman MD Technologist:Christopher Leonard CTDI: DLP: Trnscb Date/Time: 06/18/2023 (0647) [email or web address] Orig Print D/T: S: 06/18/2023 (0651) PAGE 2 Signed ReportPROTHROMBIN [id number] 06:29:00* Test Item Value Reference Range Interpretation Comme nts PROTHROMBIN TIME PATIENT (test code = PTP) 12.6 seconds 10.0-14.0 N INTERNATIONAL NORMAL RATIO (test code = INR) 1.1 0.8-1.2 N The therapeutic range for oral anticoagulant therapy formost indications is an international normalized ratio (INR)of between 2.0 and 3.0. The recommended therapeutic INRrange for various clinical situations is listed below: Clinical Situation INR range Pulmonary embolism treatment (2.0-3.0)Venous thrombosis treatmentVenous thrombosis prophylaxis (high risk surgery)Prevention of systemic embolism from: Acute myocardial infarction Valvular heart disease Atrial fibrillation Mechanical prosthetic heart valves (2.5-3.5) IS PATIENT ON ANTICOAGULANTS? NTHROMBOPLASTIN TIME [id number] 06:29:00* Test Item Value Reference Range Interpretation Comme nts THROMBOPLASTIN TIME PARTIAL (test code = PTT) 35.0 seconds 26.6-37.3 N IS PATIENT ON ANTICOAGULANTS? NCBC W/O [id number] 06:22:00* Test Item Value Reference Range Interpretation Comme nts WHITE BLOOD CELL (test code = WBC) 10.1 K/mm3 4.5-12.5 N RED BLOOD CELL (test code = RBC) 5.19 mill/mm3 4.0-5.8 N HEMOGLOBIN (test code = HGB) 15.4 gram/dL 13.0-17.5 N HEMATOCRIT (test code = HCT) 43.6 % 42.0-52.0 N MEAN CELL VOLUME (test code = MCV) 84.0 fL 80-98 N MEAN CELL HGB (test code = MCH) 29.7 picogram 27.0-33.0 N MEAN CELL HGB CONCETRATION (test code = MCHC) 35.3 gram/dL 33.0-36.0 N RED CELL DISTRIBUTION WIDTH (test code = RDW) 12.2 % 11.6-16.2 N PLATELET COUNT (test code = PLT) 229 K/mm3 150-450 N MEAN PLATELET VOLUME (test c ode = MPV) 9.5 fL 6.7-11.0 N COMPREHENSIVE METABOLIC [id number] 06:06:17* Test Item Value Reference Range Interpretation Comme nts GLUCOSE (test code = 2217) 178 MG/DL 70-99 H BUN (test code = 2208) 11 MG/DL 6-20 CREATININE (test code = 2214) 0.97 MG/DL 0.80-1.40 eGFR (2020 CKD-EPI) (test code = 07772) 95 ML/MIN/1.73 >60 CALC BUN/CREAT (test code = 2235) 11 RATIO 6-28 SODIUM (test code = 2231) 138 MEQ/L 133-146 POTASSIUM (test code = 2228) 4.1 MEQ/L 3.5-5.4 CHLORIDE (test code = 2215) 101 MEQ/L 95-107 CARBON DIOXIDE (test code = 2205) 27 MEQ/L 19-31 CALCIUM (test code = 2208) 9.2 MG/DL 8.5-10.5 PROTEIN, TOTAL (test code = 2228) 7.1 G/DL 6.1-8.3 ALBUMIN (test code = 1) 4.4 G/DL 3.5-5.2 CALC GLOBULIN (test code = 0) 2.7 G/DL 1.9-3.7 CALC A/G RATIO (test code = 2233) 1.6 RATIO 1.0-2.6 BILIRUBIN, TOTAL (test code = 2206) 0.2 MG/DL See_Comment [Automated me ssage] The system which generated this result transmitted reference range: <=1.2. The reference range was not used to interpret this result as normal/abnormal. ALKALINE PHOSPHATASE (test code = 2203) 99 U/L 40-121 AST (test code = 2217) 20 U/L 9-50 ALT (test code = 2218) 54 U/L 5-50 H LIPID [id number] 06:06:17* Test Item Value Reference Range Interpretation Comme nts CHOLESTEROL (test code = 0) 179 MG/DL <200 TRIGLYCERIDES (test code = 2232) 165 MG/DL <150 H HDL CHOLESTEROL (test code = 0) 43 MG/DL >39 CALC LDL CHOL (test code = 2236) 108 MG/DL <100 H NOTE: CALCULATED LDL IS BASED ON TOD-BULL METHOD WHICHINCLUDES ADJUSTABLE TRIGLYCERIDE:VLDL CHOLESTEROL RATIO.THIS FACTOR VARIES BY MEASURED TRIGLYCERIDE AND NON-HDLCHOLESTEROL CONCENTRATIONS WITH INCREASED CALCULATED LDL SEENIN HIGHER TRIGLYCERIDE OR LOWER NON-HDL SPECIMENS. FOR MOREINFORMATION, SEE CLIENT ANNOUNCEMENT AT [email or web address] RISK RATIO LDL/HDL (test code = 8) 2.51 RATIO <3.55 ALBUMIN/CREATININE RATIO, URINE, [id number] 04:48:02* Test Item Value Reference Range Interpretation Comme nts CREATININE, URINE, CONC. (test code = 2072) 129.4 MG/DL NOT ESTAB ALBUMIN, URINE, RANDOM (test code = 04795) 0.5 MG/DL NOT ESTAB CALC ALBUMIN/CREAT, RND (test code = 75545) 4 MG/G <30 Note: Albumin/Cr eatinine ratio reference interval reflects ADA and NKF guidelines. UNLESS OTHERWISE INDICATED, ALL TESTING PERFORMED AT [facility] [address] [place] [address] PLATFORM SUPERVISOR: BEAR CORRIGAN M.D. [place] NUMBER [id number] [facility] [place]. [id number] HEMOGLOBIN [id number] 04:24:16* Test Item Value Reference Range Interpretation Comme [facility] HEMOGLOBIN A1c (test code = 88117) 7.6 % 4.2-5.6 H [employer] GUIDELINES FOR HGB A1C: [...] CONSULTATION. RPR REFLEX TO T. PALLIDUM - [id number] 03:31:10* Test Item Value Reference Range Interpretation Comme [facility] RPR (test code = 21030) NON-REACTIVE NON-REACTIVE RPR TITER (test code = 3500) NOT INDIC. TITER NOT INDIC. VITAMIN [id number] 03:27:47* Test Item Value Reference Range Interpretation Comme [facility] VITAMIN B-12 (test code = 2840) 289 PG/ML 200-950 FOLIC [id number] 03:27:47* Test Item Value Reference Range Interpretation Comme [facility] FOLIC ACID (test code = 2695) [...] . . . . . UG/L >=6.0 CBC W/AUTO DIFF WITH [id number] 02:32:06* Test Item Value Reference Range Interpretation Comme [facility] WBC (test code = 1001) 9.0 K/UL [...] 0.00-0.10 ABS NUCLEATED RBCS (test code = 18420) 0.00 K/UL 0.00-0.11 VITAMIN D, 25 [id number] 06:37:05* Test Item Value Reference Range Interpretation Comme nts VITAMIN D, 25 OH (test code = [...] 30-100 UNLESS OTHERWISE INDICATED, ALL [facility]ING [facility]MED [facility] [address] [place] [address] PLATFORM SUPERVISOR: RENETTA VILLALTA M.D. CLIA NUMBER [id number] [facility] [place]. [id number] TSH, THIRD [id number] 06:20:20* Test Item Value Reference Range Interpretation Comme nts TSH, THIRD GENERATION (test code = 2821) 7.910 UIU/ML 0.400-4.100 H COMPREHENSIVE METABOLIC [id number] 05:16:23* Test Item Value Reference Range Interpretation Comme nts GLUCOSE (test code = 2217) 153 MG/DL 70-99 H BUN (test code = 2207) 14 MG/DL 6-20 CREATININE (test code = 2214) 0.95 MG/DL 0.80-1.40 eGFR (2020 CKD-EPI) (test code = 00896) 98 ML/MIN/1.73 >60 CALC BUN/CREAT (test code [...] G/DL 3.5-5.2 CALC GLOBULIN (test code = 2240) 2.7 G/DL 1.9-3.7 CALC A/G RATIO (test code = 2234) 1.7 RATIO 1.0-2.6 BILIRUBIN, TOTAL (test code = 2207) 0.3 MG/DL See_Comment [Automated me ssage] The system which generated this result transmitted reference range: <=1.2. The reference range was not used to interpret this result as normal/abnormal. ALKALINE PHOSPHATASE (test code = 220) 89 U/L 40-118 AST (test code = 2218) 28 U/L 9-50 ALT (test code = 2219) 45 U/L 5-50 LIPID [id number] 05:16:23* Test Item Value Reference Range Interpretation [...] SPECIMENS. FOR MOREINFORMATION, SEE CLIENT ANNOUNCEMENT AT [email or web address] RISK RATIO LDL/HDL (test code = 2238) 2.39 RATIO <3.55 ALBUMIN/CREATININE RATIO, URINE, [id number] 04:08:03* Test Item Value Reference Range Interpretation Comme nts CREATININE, URINE, RANDOM (test code = 2072) 172.9 MG/DL NOT ESTAB ALBUMIN, URINE, RANDOM (test code = 23401) 1.0 MG/DL NOT ESTAB CALC ALBUMIN/CREAT, RND (test code = 13178) 6 MG/G <30 Note: Albumin/Creatinine ratio reference interval reflects ADA and NKF guidelines. HEMOGLOBIN [id number] 03:38:25* Test Item Value Reference Range Interpretation Comme nts HEMOGLOBIN A1c (test code = 64743) 6.8 % 4.2-5.6 H [employer] GUIDELINES FOR HGB A1C: [...] ETC.). CONSIDER ALTERNATE TESTING OR LABORATORY CONSULTATION. Notes Date/Time Note Provider Source 2023-10-05 13:51:22 Chief Complaint Patient presents with Establish Care Changing PCP's due to insurance. Angelina Mendiola MA II [facility] 2023-06-22 13:55:00 [facility] ([facility]) Brief Discharge Note w/Med Rec REPORT#:[id number] REPORT STATUS: Signed REPORT INITIALIZATION DATE:06/22/23 TIME: 1355 PATIENT: MINA HUGHES UNIT #: [id number] ROOM/BED: [facility] : 71 AGE: 53 SEX: M ATTEND: Mona Yip MD ADM AUTHOR: Mona Yip MD REPT SERVICE DT/TIME: 06/22/23 1355 * ALL edits or amendments must be made on the electronic/computer document * Med Rec PCP PCP: PCP: No Primary or Family Physician Med Rec Discharge meds: Start taking the following new medications: CLOPIDOGREL (PLAVIX) 75 MG TAB 75 MILLIGRAM ORAL DAILY. Qty = 30 No Refills ATORVASTATIN (LIPITOR) 40 MG TAB 80 MILLIGRAM ORAL BEDTIME. Qty = 30 No Refills LOSARTAN (COZAAR) 25 MG TAB 25 MILLIGRAM ORAL DAILY. Qty = 30 No Refills ASPIRIN EC (ECOTRIN) 81 MG TAB.EC 81 MILLIGRAM ORAL DAILY. Qty = 30 No Refills LEVOTHYROXINE (SYNTHROID) 75 MCG TAB 75 MICROGRAM ORAL 0600. Qty = 30 No Refills Objective Results Results: labs reviewed, vital signs reviewed, echo personally reviewed VS/I O Last Documented: Result Date Time Pulse Ox 96 06/21 1049 B/P 153/91 06/21 1049 B/P Mean 111.3 06/21 1049 Temp 98.2 06/21 1049 Pulse 55 06/21 1049 Resp 16 06/21 1049 O2 Delivery Room air 06/18 0403 Free Text Obj Notes Free Text Obj Notes: General appearance: alert, awake, oriented, no acute distress, pleasant, conversational, mental status normal, no respiratory distress Head/Eyes: atraumatic, clear cornea, EOMI ENT: moist mucosal membranes, normal dentition, normal ear left, normal ear right, normal nose Neck: full range of motion Cardiovascular: normal capillary refill, normal heart sounds, regular rate rhythm, no ectopy, no gallop, no heave Respiratory: aerating well, clear to auscultation, symmetric expansion, no distress Abdomen: non-tender, normal bowel sounds, soft Musculoskeletal: normal inspection, painless range of motion, no CVA tenderness 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, oriented X 3, CNII-XII intact Skin: dry, intact, normal color Psychiatry: normal affect Brief Discharge Note w/Med Rec Free Text A P: Acute left thalamic stroke, new onset hypothyroidism, hyperlipidemia, hypertension Discharge diagnosis: Acute left thalamic stroke, new onset hypothyroidism, hyperlipidemia, hypertension Hospital course: Patient is a 53-year-old male with PMH HTN and hypothyroidism (no meds x 1 month ) who presents with right-sided paresthesia. Patient states paresthesia started on the fourth and fifth digits of his right hand and open his right forearm 2 days ago. Yesterday the paresthesia moved to his right upper arm and right shoulder. About 0500 this morning, the paresthesia moved to his face, right chest, right lateral torso, right hip and lateral right leg. Patient with 5/5 strength but states sensation is significantly diminished. Patient ambulatory without difficulty but states he feels like he is limping because of the paresthesia in his leg. Patient denies similar symptoms previously. Patient states he is visiting here from out of town. Initially he was just ignoring the symptoms but when the paresthesias started in his chest and torso, he knew he needed to [place] to the emergency department. Patient has not had fever or chills. No nausea or vomiting. No cough or shortness of breath. Patient denies neck pain. No recent falls or traumas. Patient reports he used to take lisinopril but it would sometimes drop his blood pressure too low so they took him off that and put him on something else. He does not remember what the new blood pressure medication is. He has not taken any blood pressure medication in 1 month. 06/21/23-patient was admitted on June 18, 2023 with 3 days of right hand weakness but then at 5 AM on the day of admission started having full right- sided face arm leg weakness no speech abnormality or weakness. He has been medication noncompliant. Patient was placed on telemetry started on aspirin and statins PT OT and speech therapy work started. And neurology was consulted. Patient had CT of the head without contrast that was negative had a CT of the head and neck that was negative but on the CTAs they did notice some interstitial opacities at the lung apices which was either edema versus pneumonia. He had no respiratory symptoms. MRI of the brain was done that showed acute infarct of the left thalamus this was on June 19, 2023. Echo was done this morning and it shows mild left ventricular wall thickness with normal EF of 55 to 60% grade 1 diastolic dysfunction. Mild left atrial dilatation no shunts noted. With the acute CVA will go ahead and consult cardiology as patient will need to have paroxysmal atrial fibrillation ruled out will possibly need a Holter versus event monitor versus loop recorder. Plan is for discharge in a.m. no new labs today. 06/22/23-cardiology saw patient no further inpatient workup patient will be followed up in 2 weeks for possible loop recorder placement in office. Have discussed with patient and patient will be discharged today Pt. 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 2023-06-22 13:34:00 [facility] ([facility] Endocrinology Progress Note REPORT#:[id number] REPORT STATUS: Signed REPORT INITIALIZATION DATE:06/22/23 TIME: 1334 PATIENT: MINA HUGHES UNIT #: [id number] ROOM/BED: 9 : 72 AGE: 53 SEX: M ATTEND: Mona Yip MD ADM AUTHOR: Brett Murphy MD REPT SERVICE DT/TIME: 06/22/23 1334 * ALL edits or amendments must be made on the electronic/computer document * Subjective Patient reports: no complaints Objective General VS: Last Documented: Result Date Time Pulse Ox 96 06/21 1049 B/P 153/91 06/21 1049 B/P Mean 111.3 06/21 1049 Temp 36.8 06/21 1049 Pulse 55 06/21 1049 Resp 16 06/21 1049 O2 Delivery Room air 06/18 0403 PATIENT WEIGHT: Weight (lb): 148 Weight (oz): 4.99 Weight (kg): 67.132 Medications: Active Meds + DC'd Last 24 Hrs Clopidogrel Bisulfate (PLAVIX 75MG TAB) 75 MG DAILY PO Clopidogrel Bisulfate (PLAVIX 75MG TAB) 75 MG NOW ONE PO (DC) Losartan Potassium (COZAAR 25MG TABLET) 25 MG DAILY PO Aspirin (ECOTRIN) 81 MG DAILY PO Levothyroxine Sodium (Levothyroxine Sodium) 75 MCG 0600 PO Atorvastatin Calcium (LIPITOR 40MG TAB) 80 MG BEDTIME PO Sodium Chloride (SODIUM CHLORIDE 0.9%) 250 ML ASDIR PRN IV Physical Exam General appearance: alert, awake Diagnosis, Assessment Plan Hospital course to date: Laboratory Tests: 06/20 06/20 1224 1224 Chemistry Hemoglobin A1c (% HbA1) 7.6 Estim Average Glucose (MG/DL) 171 Triglycerides (20 - 150 mg/dL) 131 Cholesterol (0 - 200 mg/dL) 113 LDL Cholesterol Measurd (0 - 99 mg/dL) 63 HDL Cholesterol (40 - 60 mg/dL) 34 L Cholesterol/HDL Ratio (0 - 4.9 RATIO) 3.0 Laboratory Tests: 06/19 0502 Chemistry Sodium (136 - 145 mmol/L) 139 Potassium (3.5 - 5.1 mmol/L) 3.9 Chloride (98 - 107 mmol/L) 104.0 Carbon Dioxide (21 - 32 mmol/L) 30.0 Anion Gap (10 - 20) 8.9 L BUN (7 - 18 mg/dL) 11 Creatinine (0.7 - 1.3 mg/dL) 1.00 Glomerular Filtr Rate (>=60 mL/min) > 60 BUN/Creatinine Ratio (10 - 20) 10.6 Glucose (74 - 106 mg/dL) 183 H Calcium (8.5 - 10.1 mg/dL) 8.5 Hematology WBC (4.5 - 12.5 K/mm3) 8.3 RBC (4.0 - 5.8 mill/mm3) 5.26 Hgb (13.0 - 17.5 gram/dL) 15.4 Hct (42.0 - 52.0 %) 45.6 MCV (80 - 98 fL) 86.7 MCH (27.0 - 33.0 picogram) 29.3 MCHC (33.0 - 36.0 gram/dL) 33.8 RDW (11.6 - 16.2 %) 12.3 RDW Std Deviation (37.0 - 51.0 fL) 38.7 Plt Count (150 - 450 K/mm3) 209 MPV (6.7 - 11.0 fL) 10.0 Neut % (Auto) (39.0 - 69.0 %) 50.4 Lymph % (Auto) (25.0 - 55.0 %) 34.1 Andrew % (Auto) (0.0 - 10.0 %) 8.9 Eos % (Auto) (0.0 - 5.0 %) 5.3 H Baso % (Auto) (0.0 - 1.0 %) 0.7 Neut # (Auto) (1.8 - 7.7 K/mm3) 4.21 Lymph # (Auto) (1.0 - 5.0 K/mm3) 2.84 Andrew # (Auto) (0 - 0.8 K/mm3) 0.74 Eos # (Auto) (0.0 - 0.5 K/mm3) 0.44 Baso # (Auto) (0.0 - 0.2 K/mm3) 0.06 Nucleated RBC % (0 - 0 %) 0.0 Nucleated RBCs # (Man) (0.0 - 0.1 K/mm3) 0.00 Laboratory Tests: 06/18 0930 Chemistry Sodium (136 - 145 mmol/L) 139 Potassium (3.5 - 5.1 mmol/L) 4.3 Chloride (98 - 107 mmol/L) 104.0 Carbon Dioxide (21 - 32 mmol/L) 29.0 Anion Gap (10 - 20) 10.3 BUN (7 - 18 mg/dL) 12 Creatinine (0.7 - 1.3 mg/dL) 0.90 Glomerular Filtr Rate (>=60 mL/min) > 60 BUN/Creatinine Ratio (10 - 20) 12.8 Glucose (74 - 106 mg/dL) 216 H Calcium (8.5 - 10.1 mg/dL) 8.6 Recent Impressions: MAGNETIC RESONANCE IMAGING - MRI BRAIN W/O CONTRAST 06/18 1044 Report Impression - Status: SIGNED Entered: 06/19/2023 1131 IMPRESSION: Acute infarct of the left thalamus. Impression By: [email or web address] - Herman Mccarthy M.D. 1. Hypothyroidism, noncompliance with taking medications. 2. Right-sided paresthesias rule out CVA 3. Hypertension TSH 18.5 and T4 4.4. Adjust Synthyroid dose. As per neuro. at 1334 RPT #:[id number] [facility] 2023-06-22 10:53:00 [facility] Cardiology Progress Note REPORT#:[id number] REPORT STATUS: Signed REPORT INITIALIZATION DATE:06/22/23 TIME: 105 PATIENT: MINA HUGHES UNIT #: [id number] ROOM/BED: 9- : 72 AGE: 53 SEX: M ATTEND: Mona Yip MD ADM AUTHOR: Latesha Hilario NP REPT SERVICE DT/TIME: 06/22/23 1053 * ALL edits or amendments must be made on the electronic/computer document * Subjective HPI: Cardiology progress note Date of service: 06/22/2023 Chief complaint/reason for consult: Possible A-fib Patient seen and examined, chart reviewed, questions/concerns addressed with RN. Current medication and vitals reviewed. HPI and interval Hx: 53-year-old male with past medical history of hypertension, hypothyroidism noncompliance who was admitted for right upper extremity paresthesia. Patient denies any alocohol, smoking, or recreational drugs. Per patient blood pressure normally runs in the 140s. At time of admission patient was found to have SBP in the 190s. Stroke workup found patient patient was found to have ischemic stroke acute infarct in the left thalamus. Cardiology was consulted for possible paroxysmal A-fib. Patient is awake alert in bed denies any chest pain shortness of breath headache dizziness nausea vomiting numbness or tingling. Patient's only complaint is numbness on the right side of her chest to the back and right upper extremity. Patient reports ambulation and moving right lower extremity has improved. Telemetry was reviewed did not see atrial fibrillation or any other arrhythmia. 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 Discussed with patient medication compliance, aggressive risk factor modifications, clinic follow-up for event monitor. at bedside all questions answered at this time. 06/22/2023 No overnight events. Patient is awake alert eating lunch. Patient reports chest numbness and right upper extremity numbness. Patient reports IV is painful on right AC. Discussed with patient to follow-up in clinic in 1 week for Holter monitor. Discharge on aspirin Plavix statin and losartan. Subjective: Tingling numbness right chest right upper extremity, pain /edema right AC denies any chest pain shortness of breath Vital Signs: Date Time Temp Pulse Resp B/P B/P Pulse O2 O2 Flow FiO2 Mean Ox Delivery Rate 06/21 1049 98.2 55 16 153/91 111.3 96 06/21 0747 98.2 59 16 156/89 111.2 96 06/21 0345 97.5 53 18 160/80 106.4 96 06/21 0029 98.1 54 18 122/71 88.1 95 PHYSICAL EXAM GEN: Alert and cooperative, no acute distress. HEENT: NC/AT, EOMI CARD: RRR, normal S1/S2, no added sounds LUNGS: CTA w/o added sounds, GBAE. moves all extremities against gravity neuro awake alert oriented RSC edema, Laboratory data: Reviewed independently. Radiology images and report: Reviewed. EKG: Normal sinus rhythm Echo: Normal systolic function EF 55 to 60% grade 1 diastolic dysfunction Lexiscan stress testing: Assessment: Hypertension PMH hypotension d/t antihypertensives Non compliance CVA New onset DM PMH hypothyridism Plan: - Telemetry monitoring - Clinic follow-up in 1 week for Holter monitor - Discharge on aspirin Plavix losartan and atorvastatin - Cardiac/ADA diet - Risk modification education education lifestyle - BP log at home - No further cardiac work up at this time Diagnosis, Assessment Plan Consultants: cardiology, neurology at 1151 at 1857 RPT #:[id number] [facility] 2023-06-21 14:14:00 [facility]) Endocrinology Progress Note REPORT#:[id number] REPORT STATUS: Signed REPORT INITIALIZATION DATE:06/21/23 TIME: 1413 PATIENT: MINA HUGHES UNIT #: [id number] ROOM/BED: [facility] : 71 AGE: 53 SEX: M ATTEND: Tarsha Jackson MD ADM AUTHOR: Brett Murphy MD REPT SERVICE DT/TIME: 06/21/23 1414 * ALL edits or amendments must be made on the electronic/computer document * Subjective Patient reports: no complaints Objective General VS: Last Documented: Result Date Time Pulse Ox 95 06/20 713 B/P 146/83 06/20 713 B/P Mean 104.1 06/20 713 Pulse 59 06/20 07 Resp 16 06/20 713 Temp 36.8 06/20 0356 O2 Delivery Room air 06/18 0403 PATIENT WEIGHT: Weight (lb): 148 Weight (oz): 4.99 Weight (kg): 67.132 Medications: Active Meds + DC'd Last 24 Hrs Losartan Potassium (COZAAR 25MG TABLET) 25 MG DAILY PO Aspirin (ECOTRIN) 81 MG DAILY PO Levothyroxine Sodium (Levothyroxine Sodium) 75 MCG 0600 PO Atorvastatin Calcium (LIPITOR 40MG TAB) 80 MG BEDTIME PO Sodium Chloride (SODIUM CHLORIDE 0.9%) 250 ML ASDIR PRN IV Physical Exam General appearance: alert, awake Diagnosis, Assessment Plan Hospital course to date: Laboratory Tests: 06/20 06/20 1224 1224 Chemistry Hemoglobin A1c (% HbA1) 7.6 Estim Average Glucose (MG/DL) 171 Triglycerides (20 - 150 mg/dL) 131 Cholesterol (0 - 200 mg/dL) 113 LDL Cholesterol Measurd (0 - 99 mg/dL) 63 HDL Cholesterol (40 - 60 mg/dL) 34 L Cholesterol/HDL Ratio (0 - 4.9 RATIO) 3.0 Laboratory Tests: 06/19 0502 Chemistry Sodium (136 - 145 mmol/L) 139 Potassium (3.5 - 5.1 mmol/L) 3.9 Chloride (98 - 107 mmol/L) 104.0 Carbon Dioxide (21 - 32 mmol/L) 30.0 Anion Gap (10 - 20) 8.9 L BUN (7 - 18 mg/dL) 11 Creatinine (0.7 - 1.3 mg/dL) 1.00 Glomerular Filtr Rate (>=60 mL/min) > 60 BUN/Creatinine Ratio (10 - 20) 10.6 Glucose (74 - 106 mg/dL) 183 H Calcium (8.5 - 10.1 mg/dL) 8.5 Hematology WBC (4.5 - 12.5 K/mm3) 8.3 RBC (4.0 - 5.8 mill/mm3) 5.26 Hgb (13.0 - 17.5 gram/dL) 15.4 Hct (42.0 - 52.0 %) 45.6 MCV (80 - 98 fL) 86.7 MCH (27.0 - 33.0 picogram) 29.3 MCHC (33.0 - 36.0 gram/dL) 33.8 RDW (11.6 - 16.2 %) 12.3 RDW Std Deviation (37.0 - 51.0 fL) 38.7 Plt Count (150 - 450 K/mm3) 209 MPV (6.7 - 11.0 fL) 10.0 Neut % (Auto) (39.0 - 69.0 %) 50.4 Lymph % (Auto) (25.0 - 55.0 %) 34.1 Andrew % (Auto) (0.0 - 10.0 %) 8.9 Eos % (Auto) (0.0 - 5.0 %) 5.3 H Baso % (Auto) (0.0 - 1.0 %) 0.7 Neut # (Auto) (1.8 - 7.7 K/mm3) 4.21 Lymph # (Auto) (1.0 - 5.0 K/mm3) 2.84 Andrew # (Auto) (0 - 0.8 K/mm3) 0.74 Eos # (Auto) (0.0 - 0.5 K/mm3) 0.44 Baso # (Auto) (0.0 - 0.2 K/mm3) 0.06 Nucleated RBC % (0 - 0 %) 0.0 Nucleated RBCs # (Man) (0.0 - 0.1 K/mm3) 0.00 Laboratory Tests: 06/18 0930 Chemistry Sodium (136 - 145 mmol/L) 139 Potassium (3.5 - 5.1 mmol/L) 4.3 Chloride (98 - 107 mmol/L) 104.0 Carbon Dioxide (21 - 32 mmol/L) 29.0 Anion Gap (10 - 20) 10.3 BUN (7 - 18 mg/dL) 12 Creatinine (0.7 - 1.3 mg/dL) 0.90 Glomerular Filtr Rate (>=60 mL/min) > 60 BUN/Creatinine Ratio (10 - 20) 12.8 Glucose (74 - 106 mg/dL) 216 H Calcium (8.5 - 10.1 mg/dL) 8.6 Recent Impressions: MAGNETIC RESONANCE IMAGING - MRI BRAIN W/O CONTRAST 06/18 1044 Report Impression - Status: SIGNED Entered: 06/19/2023 1131 IMPRESSION: Acute infarct of the left thalamus. Impression By: [email or web address] - Herman Mccarthy M.D. 1. Hypothyroidism, noncompliance with taking medications. 2. Right-sided paresthesias rule out CVA 3. Hypertension TSH 18.5 and T4 4.4. Adjust Synthyroid dose. As per neuro. at 1414 RPT #:[id number] REPORT [facility] 2023-06-21 12:31:00 [facility] ([facility]) Cardiology Consultation REPORT#:[id number] REPORT STATUS: Signed REPORT INITIALIZATION DATE:06/21/23 TIME: 1231 PATIENT: MINA HUGHES UNIT #: [id number] ROOM/BED: [address] : 71 AGE: 53 SEX: M ATTEND: Mona Yip MD ADM AUTHOR: Latesha Hilario NP REPT SERVICE DT/TIME: 06/21/23 1231 * ALL edits or amendments must be made on the electronic/computer document * History of Present Illness HPI HPI: Cardiology progress note Date of service: 06/21/2023 Chief complaint/reason for consult: Possible A-fib Patient seen and examined, chart reviewed, questions/concerns addressed with RN. Current medication and vitals reviewed. HPI and interval Hx: 53-year-old male with past medical history of hypertension, hypothyroidism noncompliance who was admitted for right upper extremity paresthesia. Patient denies any alocohol, smoking, or recreational drugs. Per patient blood pressure normally runs in the 140s. At time of admission patient was found to have SBP in the 190s. Stroke workup found patient patient was found to have ischemic stroke acute infarct in the left thalamus. Cardiology was consulted for possible paroxysmal A-fib. Patient is awake alert in bed denies any chest pain shortness of breath headache dizziness nausea vomiting numbness or tingling. Patient's only complaint is numbness on the right side of her chest to the back and right upper extremity. Patient reports ambulation and moving right lower extremity has improved. Telemetry was reviewed did not see atrial fibrillation or any other arrhythmia. 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 Discussed with patient medication compliance, aggressive risk factor modifications, clinic follow-up for event monitor. at bedside all questions answered at this time. Subjective: Tingling numbness right chest denies any chest pain shortness of breath Objective:Vital Signs: Date Time Temp Pulse Resp B/P B/P Pulse O2 O2 Flow FiO2 Mean Ox Delivery Rate 06/20 713 59 16 146/83 104.1 95 06/20 0356 98.2 56 18 143/86 105.3 99 Vital Signs Vital Signs: Date Time Temp Pulse Resp B/P B/P Pulse O2 O2 Flow FiO2 Mean Ox Delivery Rate 06/20 713 59 16 146/83 104.1 95 06/20 0356 98.2 56 18 143/86 105.3 99 PHYSICAL EXAM GEN: Alert and cooperative, no acute distress. HEENT: NC/AT, EOMI CARD: RRR, normal S1/S2, no added sounds LUNGS: CTA w/o added sounds, GBAE. moves all extremities against gravity neuro awake alert oriented Laboratory data: Reviewed independently. Radiology images and report: Reviewed. EKG: Normal sinus rhythm Echo: Normal systolic function EF 55 to 60% grade 1 diastolic dysfunction Lexiscan stress testing: Assessment: Hypertension PMH hypotension d/t antihypertensives Non compliance CVA New onset DM PMH hypothyridism Plan: - Telemetry monitoring - Telemetry reviewed no paroxysmal atrial fibrilation noted - Hemodynamic monitoring - Echo reviewed no shunt - Cardiac/ADA diet - Endocrinoogy following for hypothyroidism and newly diagnosed diabetes CVA - BP log at home - TSH Lipid Panel Hga1c reviewed - Clinic follow up in 1 - 2 weeks for event monitor - C/w ASA, Statin, and Losartan - No further cardiac work up at this time History - Adult longitudinal Past medical history: Reports: Hypertension, Thyroid disorder. Alcohol use: Alcohol use (occasional) Drug use: Denies recreational drugs Smoking status for patients 13 years old or older: Never Smoker Allergies: Coded Allergies: No Known Allergies (06/18/23) Objective Physical Exam General appearance: alert, awake, oriented, no acute distress, pleasant, conversational, mental status normal, no respiratory distress Diagnosis, Assessment Plan Consultants: cardiology, neurology at 1456 at 0848 RPT #:[id number] [facility] 2023-06-21 12:12:00 [id number] [facility] PATIENT NAME: MINA HUGHES ADMIT DATE: 06/18/23 ACCOUNT NO: [id number] ROOM NO: V.2043 AGE: 53 REPORT TYPE: eEKG REPORT SEX: M DATE OF : 72 ADMITTING PHYSICIAN:Mona Yip MD ATTENDING PHYSICIAN:Mona Yip MD Order: [id number] Test Reason : CVA ?paroxsimal a fib needs work up Test Date/Time Stamp: MonJun 21 2023 12:12:21 Blood Pressure : / mmHG Vent. Rate : 070 BPM Atrial Rate : 070 BPM P-R Int : 138 ms QRS Dur : 076 ms QT Int : 400 ms P-R-T Axes : 044 -05 024 degrees QTc Int : 432 ms Normal sinus rhythm Minimal voltage criteria for LVH, may be normal variant Borderline ECG When compared with ECG of 18-JUN-2023 06:11, Nonspecific T wave abnormality no longer evident in Lateral leads Confirmed by Theresa Basilio ([id number]) on 06/21/2023 5:15:12 PM Referred By: Tarsha Jackson Confirmed by:Theresa Basilio at 1715 PATIENT NAME: MINA HUGHES [facility] 2023-06-21 11:41:00 [facility] Hospitalist Progress Note REPORT#:[id number] REPORT STATUS: Signed REPORT INITIALIZATION DATE:06/21/23 TIME: 1141 PATIENT: MINA HUGHES UNIT #: [id number] ROOM/BED: [address] : 72 AGE: 53 SEX: M ATTEND: Tarsha Jackson MD ADM AUTHOR: Mona Yip MD REPT SERVICE DT/TIME: 06/21/23 1141 * ALL edits or amendments must be made on the electronic/computer document * Subjective Chief complaint: Patient seen and examined he has no motor weakness. He states that he has right -sided slight blurred vision which has been present for the past 2 days but slowly improving no other complaint HPI: Patient is a 53-year-old male with PMH HTN and hypothyroidism (no meds x 1 month ) who presents with right-sided paresthesia. Patient states paresthesia started on the fourth and fifth digits of his right hand and open his right forearm 2 days ago. Yesterday the paresthesia moved to his right upper arm and right shoulder. About 0500 this morning, the paresthesia moved to his face, right chest, right lateral torso, right hip and lateral right leg. Patient with 5/5 strength but states sensation is significantly diminished. Patient ambulatory without difficulty but states he feels like he is limping because of the paresthesia in his leg. Patient denies similar symptoms previously. Patient states he is visiting here from out of town. Initially he was just ignoring the symptoms but when the paresthesias started in his chest and torso, he knew he needed to [place] to the emergency department. Patient has not had fever or chills. No nausea or vomiting. No cough or shortness of breath. Patient denies neck pain. No recent falls or traumas. Patient reports he used to take lisinopril but it would sometimes drop his blood pressure too low so they took him off that and put him on something else. He does not remember what the new blood pressure medication is. He has not taken any blood pressure medication in 1 month. 06/21/23-patient was admitted on June 18, 2023 with 3 days of right hand weakness but then at 5 AM on the day of admission started having full right- sided face arm leg weakness no speech abnormality or weakness. He has been medication noncompliant. Patient was placed on telemetry started on aspirin and statins PT OT and speech therapy work started. And neurology was consulted. Patient had CT of the head without contrast that was negative had a CT of the head and neck that was negative but on the CTAs they did notice some interstitial opacities at the lung apices which was either edema versus pneumonia. He had no respiratory symptoms. MRI of the brain was done that showed acute infarct of the left thalamus this was on June 19, 2023. Echo was done this morning and it shows mild left ventricular wall thickness with normal EF of 55 to 60% grade 1 diastolic dysfunction. Mild left atrial dilatation no shunts noted. With the acute CVA will go ahead and consult cardiology as patient will need to have paroxysmal atrial fibrillation ruled out will possibly need a Holter versus event monitor versus loop recorder. Plan is for discharge in a.m. no new labs today. Comments: Patient reports no new complaints actual improvement of his right eye vision. Review of Systems Constitutional: Denies: chills, fatigue, fever, generalized weakness, lethargy, malaise, recent wt loss, other. Skin: Denies: abrasion, bruising, contusion, diaphoresis, ecchymosis, itching, laceration, rash, swelling, other. Allergy/Immun: Denies: allergic reaction, anaphylaxis, hives, itching, rhinorrhea, sneezing, other. Eyes: Reports: visual loss/blurred. Denies: redness, discharge, itching, diplopia, eye pain, photophobia, swelling, other. ENT: Denies: ear drainage, ear ringing, earache, hearing loss, mouth pain, nasal congestion, nose bleeding, sinus problem, sore throat, throat pain, throat swelling, tongue pain, tongue swelling, toothache, voice change, other. Respiratory: Denies: COSBY (dyspnea on exertion), hemoptysis, non productive cough, parox nocturnal dyspnea, pleurisy, pleuritic pain, pneumonia, productive cough (sputum ), SOB, wheezing, other. Cardiovascular: Denies: chest pain, COSBY (dyspnea on exertion), edema, orthopnea, palpitations, parox nocturnal dyspnea, other. GI: Denies: abdominal pain, anorexia, constipation, diarrhea, dysphagia, GERD, hematemesis, hematochezia, hiatal hernia, melena, nausea, rectal pain, vomiting, other. : Denies: dysuria, flank pain, frequency, hematuria, nocturia, penile discharge, penile lesion, testicular pain, testicular swelling, urgency, urinary retention, other. Neuro: Reports: vision change. Denies: bladder dysfunction, bowel dysfunction, change in LOC, confusion, dizziness, focal weakness, gait problem, headache, lightheaded, numbness, seizure, slurred speech, spinning sensation, syncope, unable to speak, weakness, other. Psych: Denies: agitation, anxiety, auditory hallucination, change in mental status, confusion, delusional, depression, homicidal ideation, hostile, insomnia, stress , suicidal ideation, visual hallucination, other. All systems rev neg: except as noted Objective General VS/I O: Vital Signs: Date Time Temp Pulse Resp B/P B/P Pulse O2 O2 Flow FiO2 Mean Ox Delivery Rate 06/20 0714 59 16 146/83 104.1 95 06/20 0356 98.2 56 18 143/86 105.3 99 06/19 2359 98.2 55 18 138/75 95.7 99 06/19 2005 98.4 61 18 135/85 101.5 98 06/19 1547 98.2 64 17 163/85 110.9 97 24 hour I O ending at 0700: 06/20 0700 06/19 1900 Intake Total 240 Output Total Balance 240 Intake, Oral 240 PATIENT WEIGHT: Weight (lb): 148 Weight (oz): 4.99 Weight (kg): 67.132 Medications: Active Meds + DC'd Last 24 Hrs Aspirin (ECOTRIN) 81 MG DAILY PO Levothyroxine Sodium (Levothyroxine Sodium) 75 MCG 0600 PO Atorvastatin Calcium (LIPITOR 40MG TAB) 80 MG BEDTIME PO Sodium Chloride (SODIUM CHLORIDE 0.9%) 250 ML ASDIR PRN IV Physical Exam General appearance: alert, awake, oriented, no acute distress, pleasant, conversational, mental status normal, no respiratory distress Head/Eyes: atraumatic, clear cornea, EOMI ENT: moist mucosal membranes, normal dentition, normal ear left, normal ear right, normal nose Neck: full range of motion Cardiovascular: normal capillary refill, normal heart sounds, regular rate rhythm, no ectopy, no gallop, no heave Respiratory: aerating well, clear to auscultation, symmetric expansion, no distress Abdomen: non-tender, normal bowel sounds, soft Musculoskeletal: normal inspection, painless range of motion, no CVA tenderness 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, oriented X 3, CNII-XII intact Skin: dry, intact, normal color Psychiatry: normal affect Diagnosis, Assessment Plan Hospital course to date: Patient is a 53-year-old male with PMH HTN and hypothyroidism (no meds x 1 month ) who presents with right-sided paresthesia. Patient states paresthesia started on the fourth and fifth digits of his right hand and open his right forearm 2 days ago. Yesterday the paresthesia moved to his right upper arm and right shoulder. About 0500 this morning, the paresthesia moved to his face, right chest, right lateral torso, right hip and lateral right leg. Patient with 5/5 strength but states sensation is significantly diminished. Patient ambulatory without difficulty but states he feels like he is limping because of the paresthesia in his leg. Patient denies similar symptoms previously. Patient states he is visiting here from out of town. Initially he was just ignoring the symptoms but when the paresthesias started in his chest and torso, he knew he needed to [place] to the emergency department. Patient has not had fever or chills. No nausea or vomiting. No cough or shortness of breath. Patient denies neck pain. No recent falls or traumas. Patient reports he used to take lisinopril but it would sometimes drop his blood pressure too low so they took him off that and put him on something else. He does not remember what the new blood pressure medication is. He has not taken any blood pressure medication in 1 month. 06/21/23-patient was admitted on June 18, 2023 with 3 days of right hand weakness but then at 5 AM on the day of admission started having full right- sided face arm leg weakness no speech abnormality or weakness. He has been medication noncompliant. Patient was placed on telemetry started on aspirin and statins PT OT and speech therapy work started. And neurology was consulted. Patient had CT of the head without contrast that was negative had a CT of the head and neck that was negative but on the CTAs they did notice some interstitial opacities at the lung apices which was either edema versus pneumonia. He had no respiratory symptoms. MRI of the brain was done that showed acute infarct of the left thalamus this was on June 19, 2023. Echo was done this morning and it shows mild left ventricular wall thickness with normal EF of 55 to 60% grade 1 diastolic dysfunction. Mild left atrial dilatation no shunts noted. With the acute CVA will go ahead and consult cardiology as patient will need to have paroxysmal atrial fibrillation ruled out will possibly need a Holter versus event monitor versus loop recorder. Plan is for discharge in a.m. no new labs today. Consultants: cardiology, neurology Plan discussed with: patient, spouse/partner, nurse Time spent: Time spent on patient care (minutes): 45 Free Text DxA P Notes Free text DxA P notes: 1) acute left thalamic stroke- Patient was admitted on June 17 with right-sided head arms legs numbness with blurred vision. CT of the head without contrast was negative as well as CTA of the head and neck. Patient was on telemetry ruled out for NH. Had echo that showed no septal defect. Has been receiving PT OT and speech therapy he will be able to go home from this hospitalization. Most likely even though there was no atrial fibrillation found on telemetry monitoring patient will need cardiology consult to get outpatient evaluation for paroxysmal A-fib. Patient is on aspirin 81 mg daily, Lipitor 80 mg at bedtime. Neurology has been following 2) hypothyroidism-patient's TSH on admission was 18.59 patient was started on levothyroxine 75 mcg daily repeat level on the was 8.023. 3) hyperlipidemia-patient is on Lipitor 80 mg at bedtime. No lipid profile has been drawn. Will also check hemoglobin A1c. 4) hypertension-blood pressure starting to go up we will start patient on losartan 25 mg daily 5) DVT prophylaxis-use pneumatic compression device Quality: Gen [facility] VTE Prophylaxis VTE prophylaxis initiated: yes Current Medications Current medication review: I attest that the foregoing medication list in the medical record is true, accurate, and complete to the best of my knowledge. BMI Screening > 25 or < 18.5 BMI status/follow-up: nml BMI,no general counselor needed at 1200 RPT #:[id number] END [address]PORT [facility] 2023-06-21 08:41:00 [facility] Neurology Progress Note REPORT#:[id number] REPORT STATUS: Signed REPORT INITIALIZATION DATE:06/21/23 TIME: 840 PATIENT: MINA HUGHES UNIT #: [id number] ROOM[facility]BED: [facility] : 71 AGE: 53 SEX: M ATTEND: Mona Yip MD ADM AUTHOR: Sammy Carlisle MD REPT SERVICE DT/TIME: 06/21/23 0841 * ALL edits or amendments must be made on the electronic/computer document * Objective General VS: Last Documented: Result Date Time Pulse Ox 95 06/20 713 B/P 146/83 06/20 713 B/P Mean 104.1 06/20 713 Pulse 59 06/20 713 Resp 16 06/20 713 Temp 36.8 06/20 0356 O2 Delivery Room air 06/18 0403 PATIENT WEIGHT: Weight (lb): 148 Weight (oz): 4.99 Weight (kg): 67.132 Medications Active Meds + DC'd Last 24 Hrs Aspirin (ECOTRIN) 81 MG DAILY PO Levothyroxine Sodium (Levothyroxine Sodium) 75 MCG 0600 PO Atorvastatin Calcium (LIPITOR 40MG TAB) 80 MG BEDTIME PO Sodium Chloride (SODIUM CHLORIDE 0.9%) 250 ML ASDIR PRN IV Results Results: labs reviewed, vital signs reviewed, current med profile rev'd Diagnosis, Assessment Plan Free Text A P: 1. Right hemibody numbness - rule out left subcortical ischemic infarct 2. Hypothyroidism 3. Accelerated hypertension 4. Hyperlipidemia Plan: Telemetry. Check MRI brain without contrast, 2D echo for further evaluation. Aspirin, statin. Check fasting lipid profile. Further recommendations will be based on workup results. Discussed with the patient and his . Neurology to follow. Thank you for the consult 06/18 mri scan revealed small thalamic stroke. Await result of the Echocardiogram . Discussed the need for lifestyle change to reduce stress, do cardiovascular exercise get proper sleep and have proper diet. His neurologic examination is improving and has better use of his right hand 06/19 continues to improve neurologically. Echocardiogram is still outstanding. 06/20 echocardiogram does show slight enlargement of left atrium. Would recommend treatment with dual antiplatelet therapy and follow up as an outpatient with the Holter monitor at 2237 RPT #:[id number]PORT [facility] 2023-06-20 21:55:00 [id number] [facility] PATIENT NAME: MINA HUGHES ADMIT DATE: 06/18/23 ACCOUNT NO: [id number] ROOM NO: V.2043 AGE: 53 REPORT TYPE: eECHOCARDIOGRAM REPORT SEX: M DATE OF : 72 ADMITTING PHYSICIAN:Tarsha Jackson MD ATTENDING PHYSICIAN:Tarsha Jackson MD *[facility]* [address] [place] [id number] Transthoracic Echocardiogram Patient: Mina Hughes Study Date: 06/20/2023 BP: 151 / 76 URN: [id number] Location: : 1970 Age: 53 Gender: M Height: 70 in / 177.8 cm Weight: 148 lb / 67.1 kg BMI/BSA: 21.2 kg/m 2 / 1.82 m 2 *Ordering Physician: * Tarsha Jackson *Interpreting Physician: * Theresa Nunez MD *Community Health Education Coordinator: * Dorothea Sparrow RDCS Indications: Stroke. Study data: Transthoracic echocardiogram. Procedure: A transthoracic echocardiogram was performed. Image quality was adequate. Intravenous contrast (agitated saline) was administered. Complete 2D, complete spectral Doppler, and color Doppler. Location: Bedside. Patient status: Inpatient. Patient room number: 2043A. Study status: Routine. Rhythm: Normal sinus rhythm. Findings Left ventricle: The cavity size is normal. Wall thickness is mildly to moderately increased. Systolic function is normal. The estimated ejection fraction is 55-60%. Grade I diastolic dysfunction. Right ventricle: The cavity size is normal. Systolic function is normal. Left atrium: The atrium is mildly dilated. PATIENT NAME: MNIA HUGHES Right atrium: The atrium is normal in size. Atrial septum: Echo contrast study shows no shunt. Aorta: Aortic root: The root is normal-sized. Aortic valve: The valve is structurally normal. The valve is trileaflet. There is no evidence of stenosis. There is no regurgitation. Mitral valve: The valve is structurally normal. There is no evidence of stenosis. There is no regurgitation. Tricuspid valve: The valve is structurally normal. There is trace regurgitation. RVSP is estimated <35mmHg. Pulmonic valve: The valve is structurally normal. There is no regurgitation. Pericardium: There is no pericardial effusion. Systemic veins: Inferior vena cava: The IVC is normal-sized. Measurements Left ventricle Value Ref JARED, LAX 3.3 cm 4.2 - 5.8 ESD, LAX 2.4 cm 2.5 - 4.0 FS, LAX 29 % 25 - 43 IVS, ED 1.3 cm 0.6 - 1.0 PW, ED 1.3 cm 0.6 - 1.0 IVS/PW, ED 1.04 --------- EF 57 % 52 - 72 E', lat jessie, TDI 13.9 cm/sec >=10.0 E/e', lat jessie, TDI 7 <=13 E', med jessie, TDI 7.9 cm/sec >=7.0 E/e', med jsesie, TDI 13 --------- E', avg, TDI 10.9 cm/sec --------- E/e', avg, TDI 9 <=14 LVOT Value Ref Diam, S 2.05 cm --------- Area 3.3 cm 2 --------- Peak rosie, S 1.59 m/sec --------- Mean rosie, S 1.14 m/sec --------- VTI, S 32.8 cm --------- Peak grad, S 10 mm Hg --------- Mean grad, S 6 mm Hg --------- SV 108 ml --------- Qs 22.4 L/min --------- Qs/bsa 12.3 L/(min-m 2) --------- SV/bsa 59 ml/m 2 --------- Right ventricle Value Ref JARED, LAX 2.7 cm --------- ESD, SAX 2.7 cm --------- Pressure, S 37 mm Hg --------- Left atrium Value Ref AP dim, ES 2.8 cm 3.0 - 4.0 PATIENT NAME: MINA HUGHES Aortic valve Value Ref Peak v, S 2.6 m/sec --------- Mean v, S 1.86 m/sec --------- VTI, S 42.6 cm --------- Mean grad, S 16 mm Hg --------- Peak grad, S 26.9 mm Hg --------- LVOT/AV, VTI ratio 0.77 --------- HUMBERTO, VTI 2.54 cm 2 --------- LVOT/AV, Vpeak ratio 0.61 --------- HUMBERTO, Vmax 2.01 cm 2 --------- Mitral valve Value Ref Peak E 1.01 m/sec --------- Peak A 0.84 m/sec --------- Decel time 250 ms --------- PHT 72 ms --------- Mean grad, D 2 mm Hg --------- Peak grad, D 9.7 mm Hg --------- Peak E/A ratio 1.2 --------- MVA, PHT 3.1 cm 2 --------- Tricuspid valve Value Ref TR peak v 2.7 m/sec <=2.8 Peak RV-RA grad, S 29 mm Hg --------- Ascending aorta Value Ref AAo AP diam, S 3.2 cm --------- Pulmonary artery Value Ref Pressure, S 26.5 mm Hg --------- Systemic veins Value Ref Estimated CVP 8 mm Hg --------- Inferior vena cava Value Ref Diam 2.2 cm <=2.1 Conclusions Summary: 1. Left ventricle: The cavity size is normal. Wall thickness is mildly to moderately increased. Systolic function is normal. The estimated ejection fraction is 55-60%. Grade I diastolic dysfunction. 2. Left atrium: The atrium is mildly dilated. 3. Atrial septum: Echo contrast study shows no shunt. 4. Tricuspid valve: There is trace regurgitation. RVSP is estimated <35mmHg. Electronically signed by Theresa Nunez MD 06/20/2023 21:55 PATIENT NAME: MINA HUGHES at 2155 PATIENT NAME: MINA HUGHES [facility] 2023-06-20 14:23:00 [facility] ([facility] Endocrinology Progress Note REPORT#:[id number] REPORT STATUS: Signed REPORT INITIALIZATION DATE:06/20/23 TIME: 1422 PATIENT: MINA HUGHES UNIT #: [id number] ROOM/BED: [address] : 71 AGE: 53 SEX: M ATTEND: Tarsha Jackson MD ADM AUTHOR: Brett Mruphy MD REPT SERVICE DT/TIME: 06/20/23 142 * ALL edits or amendments must be made on the electronic/computer document * Subjective Patient reports: no complaints Objective General VS: Last Documented: Result Date Time Pulse Ox 98 06/19 1146 B/P 153/94 06/19 1146 B/P Mean 113.4 06/19 1146 Temp 37.0 06/19 1146 Pulse 65 06/19 1146 Resp 17 06/19 1146 O2 Delivery Room air 06/18 0403 PATIENT WEIGHT: Weight (lb): 148 Weight (oz): 4.99 Weight (kg): 67.132 Medications: Active Meds + DC'd Last 24 Hrs Aspirin (ECOTRIN) 81 MG DAILY PO Levothyroxine Sodium (Levothyroxine Sodium) 75 MCG 0600 PO Atorvastatin Calcium (LIPITOR 40MG TAB) 80 MG BEDTIME PO Sodium Chloride (SODIUM CHLORIDE 0.9%) 250 ML ASDIR PRN IV Physical Exam General appearance: alert, awake Diagnosis, Assessment Plan Hospital course to date: Laboratory Tests: 06/19 0502 Chemistry Sodium (136 - 145 mmol/L) 139 Potassium (3.5 - 5.1 mmol/L) 3.9 Chloride (98 - 107 mmol/L) 104.0 Carbon Dioxide (21 - 32 mmol/L) 30.0 Anion Gap (10 - 20) 8.9 L BUN (7 - 18 mg/dL) 11 Creatinine (0.7 - 1.3 mg/dL) 1.00 Glomerular Filtr Rate (>=60 mL/min) > 60 BUN/Creatinine Ratio (10 - 20) 10.6 Glucose (74 - 106 mg/dL) 183 H Calcium (8.5 - 10.1 mg/dL) 8.5 Hematology WBC (4.5 - 12.5 K/mm3) 8.3 RBC (4.0 - 5.8 mill/mm3) 5.26 Hgb (13.0 - 17.5 gram/dL) 15.4 Hct (42.0 - 52.0 %) 45.6 MCV (80 - 98 fL) 86.7 MCH (27.0 - 33.0 picogram) 29.3 MCHC (33.0 - 36.0 gram/dL) 33.8 RDW (11.6 - 16.2 %) 12.3 RDW Std Deviation (37.0 - 51.0 fL) 38.7 Plt Count (150 - 450 K/mm3) 209 MPV (6.7 - 11.0 fL) 10.0 Neut % (Auto) (39.0 - 69.0 %) 50.4 Lymph % (Auto) (25.0 - 55.0 %) 34.1 Andrew % (Auto) (0.0 - 10.0 %) 8.9 Eos % (Auto) (0.0 - 5.0 %) 5.3 H Baso % (Auto) (0.0 - 1.0 %) 0.7 Neut # (Auto) (1.8 - 7.7 K/mm3) 4.21 Lymph # (Auto) (1.0 - 5.0 K/mm3) 2.84 Andrew # (Auto) (0 - 0.8 K/mm3) 0.74 Eos # (Auto) (0.0 - 0.5 K/mm3) 0.44 Baso # (Auto) (0.0 - 0.2 K/mm3) 0.06 Nucleated RBC % (0 - 0 %) 0.0 Nucleated RBCs # (Man) (0.0 - 0.1 K/mm3) 0.00 Laboratory Tests: 06/18 0930 Chemistry Sodium (136 - 145 mmol/L) 139 Potassium (3.5 - 5.1 mmol/L) 4.3 Chloride (98 - 107 mmol/L) 104.0 Carbon Dioxide (21 - 32 mmol/L) 29.0 Anion Gap (10 - 20) 10.3 BUN (7 - 18 mg/dL) 12 Creatinine (0.7 - 1.3 mg/dL) 0.90 Glomerular Filtr Rate (>=60 mL/min) > 60 BUN/Creatinine Ratio (10 - 20) 12.8 Glucose (74 - 106 mg/dL) 216 H Calcium (8.5 - 10.1 mg/dL) 8.6 Recent Impressions: MAGNETIC RESONANCE IMAGING - MRI BRAIN W/O CONTRAST 06/18 1044 Report Impression - Status: SIGNED Entered: 06/19/2023 1131 IMPRESSION: Acute infarct of the left thalamus. Impression By: [email or web address] - Herman Mccarthy M.D. 1. Hypothyroidism, noncompliance with taking medications. 2. Right-sided paresthesias rule out CVA 3. Hypertension TSH 18.5 and T4 4.4. Adjust Synthyroid dose. As per neuro. at 1424 RPT #:[id number] END OF REPORT [facility] 2023-06-20 13:19:00 [facility] ([facility]) Hospitalist Progress Note REPORT#:[id number] REPORT STATUS: Signed REPORT INITIALIZATION DATE:06/20/23 TIME: 1319 PATIENT: MINA HUGHES UNIT #: [id number] ROOM[facility]BED: [facility]-A : 71 AGE: 53 SEX: M ATTEND: Tarsha Jackson MD ADM AUTHOR: Tarsha Jackson MD REPT SERVICE DT/TIME: 06/20/23 1319 * ALL edits or amendments must be made on the electronic/computer document * Subjective Chief complaint: Pt seen and examined . Patient reported he still feels numbness on his right side of his face . MRI shows small ischemic stroke. HPI: Patient is a 53-year-old male with PMH HTN and hypothyroidism (no meds x 1 month ) who presents with right-sided paresthesia. Patient states paresthesia started on the fourth and fifth digits of his right hand and open his right forearm 2 days ago. Yesterday the paresthesia moved to his right upper arm and right shoulder. About 0500 this morning, the paresthesia moved to his face, right chest, right lateral torso, right hip and lateral right leg. Patient with 5/5 strength but states sensation is significantly diminished. Patient ambulatory without difficulty but states he feels like he is limping because of the paresthesia in his leg. Patient denies similar symptoms previously. Patient states he is visiting here from out of town. Initially he was just ignoring the symptoms but when the paresthesias started in his chest and torso, he knew he needed to [place] to the emergency department. Patient has not had fever or chills. No nausea or vomiting. No cough or shortness of breath. Patient denies neck pain. No recent falls or traumas. Patient reports he used to take lisinopril but it would sometimes drop his blood pressure too low so they took him off that and put him on something else. He does not remember what the new blood pressure medication is. He has not taken any blood pressure medication in 1 month. Objective General VS/I O: Vital Signs: Date Time Temp Pulse Resp B/P B/P Pulse O2 O2 Flow FiO2 Mean Ox Delivery Rate 06/19 1146 98.6 65 17 153/94 113.4 98 06/19 0810 97.7 50 16 146/81 103.0 97 06/19 0400 98.2 53 18 151/76 101.2 96 06/18 2344 98.2 54 18 136/70 92.4 98 06/18 1941 98.6 67 18 152/89 109.9 97 06/18 1603 98.2 71 14 137/79 98.2 97 24 hour I O ending at 0700: 06/19 0700 06/18 1900 Intake Total 120 Output Total Balance 120 Intake, Oral 120 Patient 67.132 kg Weight Weight Estimated Measurement Method PATIENT WEIGHT: Weight (lb): 148 Weight (oz): 4.99 Weight (kg): 67.132 Medications: Active Meds + DC'd Last 24 Hrs Levothyroxine Sodium (Levothyroxine Sodium) 75 MCG 0600 PO Atorvastatin Calcium (LIPITOR 40MG TAB) 80 MG BEDTIME PO Sodium Chloride (SODIUM CHLORIDE 0.9%) 250 ML ASDIR PRN IV Physical Exam Head/Eyes: atraumatic, clear cornea, EOMI ENT: moist mucosal membranes Neck: full range of motion Cardiovascular: normal capillary refill, normal heart sounds, regular rate rhythm Respiratory: aerating well, clear to auscultation, symmetric expansion Abdomen: non-tender, normal bowel sounds, soft Musculoskeletal: normal inspection, painless range of motion, no CVA tenderness 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, oriented X 3, CNII-XII intact Skin: dry, intact, normal color Psychiatry: normal affect Diagnosis, Assessment Plan Free Text DxA P Notes Free text DxA P notes: # Small thalamic stroke CT brain noted Order CTA head and neck PT OT ordered Consulted neurology neuro q4y 4 checks Telemetry Daily aspirin 81 mg Statins Hydralazine as needed MRI 311 showed small thalamic stroke Aspirin statin Will check fasting lipid profile Pending echo # Community-acquired pneumonia Chest x-ray noted Satting well at room Will start with IV ceftriaxone and azithromycin Continue to monitor # Hypothyroidism Resume home medication once verified Elevated TSH With thyroxine level 4.4 Will consult endocrinology # Hyperlipidemia Resume home medication once verified # Hypertension Resume home medication once verified # Hypokalemia Replaced in ER Will continue to monitor Quality: Gen Med Crit Care VTE Prophylaxis VTE prophylaxis initiated: yes BMI Screening > 25 or < 18.5 BMI status/follow-up: nml BMI,no general counselor needed at 1321 RPT #:[id number] END OF REPORT [facility] 2023-06-20 10:25:00 [facility] Neurology Progress Note REPORT#:[id number] REPORT STATUS: Signed REPORT INITIALIZATION DATE:06/20/23 TIME: 1024 PATIENT: MINA HUGHES UNIT #: [id number] ROOM/BED: 2043-A : 72 AGE: 53 SEX: M ATTEND: Tarsha Jackson MD ADM AUTHOR: Sammy Carlisle MD REPT SERVICE DT/TIME: 06/20/23 1025 * ALL edits or amendments must be made on the electronic/computer document * Objective General VS: Last Documented: Result Date Time Pulse Ox 97 06/19 08 B/P 146/81 06/19 08 B/P Mean 103.0 06/19 08 Temp 36.5 06/19 08 Pulse 50 06/19 0810 Resp 16 06/19 0810 O2 Delivery Room air 06/18 0403 PATIENT WEIGHT: Weight (lb): 148 Weight (oz): 4.99 Weight (kg): 67.132 Medications Active Meds + DC'd Last 24 Hrs Levothyroxine Sodium (Levothyroxine Sodium) 75 MCG 0600 PO Atorvastatin Calcium (LIPITOR 40MG TAB) 80 MG BEDTIME PO Sodium Chloride (SODIUM CHLORIDE 0.9%) 250 ML ASDIR PRN IV Results Findings/Data: Laboratory Tests 06/19 501 Chemistry Sodium (136 - 145 mmol/L) 139 Potassium (3.5 - 5.1 mmol/L) 3.9 Chloride (98 - 107 mmol/L) 104.0 Carbon Dioxide (21 - 32 mmol/L) 30.0 Anion Gap (10 - 20) 8.9 L BUN (7 - 18 mg/dL) 11 Creatinine (0.7 - 1.3 mg/dL) 1.00 Glomerular Filtr Rate (>=60 mL/min) > 60 BUN/Creatinine Ratio (10 - 20) 10.6 Glucose (74 - 106 mg/dL) 183 H Calcium (8.5 - 10.1 mg/dL) 8.5 Laboratory Tests 06/19 050 Hematology WBC (4.5 - 12.5 K/mm3) 8.3 RBC (4.0 - 5.8 mill/mm3) 5.26 Hgb (13.0 - 17.5 gram/dL) 15.4 Hct (42.0 - 52.0 %) 45.6 MCV (80 - 98 fL) 86.7 MCH (27.0 - 33.0 picogram) 29.3 MCHC (33.0 - 36.0 gram/dL) 33.8 RDW (11.6 - 16.2 %) 12.3 RDW Std Deviation (37.0 - 51.0 fL) 38.7 Plt Count (150 - 450 K/mm3) 209 MPV (6.7 - 11.0 fL) 10.0 Neut % (Auto) (39.0 - 69.0 %) 50.4 Lymph % (Auto) (25.0 - 55.0 %) 34.1 Andrew % (Auto) (0.0 - 10.0 %) 8.9 Eos % (Auto) (0.0 - 5.0 %) 5.3 H Baso % (Auto) (0.0 - 1.0 %) 0.7 Neut # (Auto) (1.8 - 7.7 K/mm3) 4.21 Lymph # (Auto) (1.0 - 5.0 K/mm3) 2.84 Andrew # (Auto) (0 - 0.8 K/mm3) 0.74 Eos # (Auto) (0.0 - 0.5 K/mm3) 0.44 Baso # (Auto) (0.0 - 0.2 K/mm3) 0.06 Nucleated RBC % (0 - 0 %) 0.0 Nucleated RBCs # (Man) (0.0 - 0.1 K/mm3) 0.00 Radiology Data: Recent Impressions: MAGNETIC RESONANCE IMAGING - MRI BRAIN W/O CONTRAST 06/19 1043 Report Impression - Status: SIGNED Entered: 06/19/2023 1131 IMPRESSION: Acute infarct of the left thalamus. Impression By: [email or web address] - Herman Mccarthy M.D. Results: labs reviewed, vital signs reviewed, MRI results reviewed, current med profile rev'd Diagnosis, Assessment Plan Free Text A P: 1. Right hemibody numbness - rule out left subcortical ischemic infarct 2. Hypothyroidism 3. Accelerated hypertension 4. Hyperlipidemia Plan: Telemetry. Check MRI brain without contrast, 2D echo for further evaluation. Aspirin, statin. Check fasting lipid profile. Further recommendations will be based on workup results. Discussed with the patient and his . Neurology to follow. Thank you for the consult 06/18 mri scan revealed small thalamic stroke. Await result of the Echocardiogram . Discussed the need for lifestyle change to reduce stress, do cardiovascular exercise get proper sleep and have proper diet. His neurologic examination is improving and has better use of his right hand 06/19 continues to improve neurologically. Echocardiogram is still outstanding. at 2113 RPT #:[id number] END OF REPORT [facility] 2023-06-19 16:25:00 [facility] ([facility] Neurology Progress Note REPORT#:[id number] REPORT STATUS: Signed REPORT INITIALIZATION DATE:06/19/23 TIME: 1624 PATIENT: MINA HUGHES UNIT #: [id number] ROOM/BED: [facility] : 72 AGE: 53 SEX: M ATTEND: Tarsha Jackson MD ADM AUTHOR: Sammy Carlisle MD REPT SERVICE DT/TIME: 06/19/231624 * ALL edits or amendments must be made on the electronic/computer document * Objective General VS: Last Documented: Result Date Time Pulse Ox 97 06/18 1603 B/P 137/79 06/18 1603 B/P Mean 98.2 06/18 1603 Temp 36.8 06/18 1603 Pulse 71 06/18 1603 Resp 14 06/18 1603 O2 Delivery Room air 06/18 0403 PATIENT WEIGHT: Weight (lb): 148 Weight (oz): 4.99 Weight (kg): 67.132 Medications Active Meds + DC'd Last 24 Hrs Levothyroxine Sodium (Levothyroxine Sodium) 75 MCG 0600 PO Atorvastatin Calcium (LIPITOR 40MG TAB) 80 MG BEDTIME PO Sodium Chloride (SODIUM CHLORIDE 0.9%) 250 ML ASDIR PRN IV Ondansetron HCl (ondansetron HCL) 4 MG Q6H PRN PRN IV (DC) Results Findings/Data: Laboratory Tests 06/18 06/18 0930 0927 Chemistry Sodium (136 - 145 mmol/L) 139 Potassium (3.5 - 5.1 mmol/L) 4.3 Chloride (98 - 107 mmol/L) 104.0 Carbon Dioxide (21 - 32 mmol/L) 29.0 Anion Gap (10 - 20) 10.3 BUN (7 - 18 mg/dL) 12 Creatinine (0.7 - 1.3 mg/dL) 0.90 Glomerular Filtr Rate (>=60 mL/min) > 60 BUN/Creatinine Ratio (10 - 20) 12.8 Glucose (74 - 106 mg/dL) 216 H Calcium (8.5 - 10.1 mg/dL) 8.6 TSH (0.550 - 4.780 uIU/mL) 8.023 H Free T4 (0.76 - 1.46 ng/dL) 0.80 Radiology Data: Recent Impressions: MAGNETIC RESONANCE IMAGING - MRI BRAIN W/O CONTRAST 06/18 1044 Report Impression - Status: SIGNED Entered: 06/19/2023 1131 IMPRESSION: Acute infarct of the left thalamus. Impression By: [email or web address] - Herman Mccarthy M.D. Diagnosis, Assessment Plan Free Text A P: 1. Right hemibody numbness - rule out left subcortical ischemic infarct 2. Hypothyroidism 3. Accelerated hypertension 4. Hyperlipidemia Plan: Telemetry. Check MRI brain without contrast, 2D echo for further evaluation. Aspirin, statin. Check fasting lipid profile. Further recommendations will be based on workup results. Discussed with the patient and his . Neurology to follow. Thank you for the consult 06/18 mri scan revealed small thalamic stroke. Await result of the Echocardiogram . Discussed the need for lifestyle change to reduce stress, do cardiovascular exercise get proper sleep and have proper diet. His neurologic examination is improving and has better use of his right hand . at 2207 RPT #:[id number] [facility] 2023-06-19 15:17:00 [facility] ([facility]) Endocrinology Progress Note REPORT#:[id number] REPORT STATUS: Signed REPORT INITIALIZATION DATE:06/19/23 TIME: 1517 PATIENT: MINA HUGHES UNIT #: [id number] ROOM/BED: [facility] : 72 AGE: 53 SEX: M ATTEND: Tarsha Jackson MD ADM AUTHOR: Brett Murphy MD REPT SERVICE DT/TIME: 06/19/23 2197 * ALL edits or amendments must be made on the electronic/computer document * Subjective Patient reports: no complaints Objective General VS: Last Documented: Result Date Time Pulse Ox 97 06/18 1206 B/P 139/78 06/18 1206 B/P Mean 98.5 06/18 1206 Temp 37.2 06/18 1206 Pulse 77 06/18 1206 Resp 14 06/18 1206 O2 Delivery Room air 06/18 0403 PATIENT WEIGHT: Weight (lb): 148 Weight (oz): 4.99 Weight (kg): 67.132 Medications: Active Meds + DC'd Last 24 Hrs Atorvastatin Calcium (LIPITOR 40MG TAB) 80 MG BEDTIME PO Sodium Chloride (SODIUM CHLORIDE 0.9%) 250 ML ASDIR PRN IV Ondansetron HCl (ondansetron HCL) 4 MG Q6H PRN PRN IV (DC) Physical Exam General appearance: alert, awake Diagnosis, Assessment Plan Hospital course to date: Laboratory Tests: 06/18 929 Chemistry Sodium (136 - 145 mmol/L) 139 Potassium (3.5 - 5.1 mmol/L) 4.3 Chloride (98 - 107 mmol/L) 104.0 Carbon Dioxide (21 - 32 mmol/L) 29.0 Anion Gap (10 - 20) 10.3 BUN (7 - 18 mg/dL) 12 Creatinine (0.7 - 1.3 mg/dL) 0.90 Glomerular Filtr Rate (>=60 mL/min) > 60 BUN/Creatinine Ratio (10 - 20) 12.8 Glucose (74 - 106 mg/dL) 216 H Calcium (8.5 - 10.1 mg/dL) 8.6 Recent Impressions: MAGNETIC RESONANCE IMAGING - MRI BRAIN W/O CONTRAST 06/18 1044 Report Impression - Status: SIGNED Entered: 06/19/2023 1131 IMPRESSION: Acute infarct of the left thalamus. Impression By: [email or web address] - Herman Mccarthy M.D. 1. Hypothyroidism, noncompliance with taking medications. 2. Right-sided paresthesias rule out CVA 3. Hypertension TSH 18.5 and T4 4.4. Adjust Synthyroid dose. at 1518 [facility] #:[id number]PORT [facility] 2023-06-19 15:17:00 [id number] [facility] PATIENT NAME: MINA HUGHES ADMIT DATE: 06/18/23 ACCOUNT NO: [id number] ROOM NO: AGE: 53 REPORT TYPE: CONSULTATION REPORT SEX: M DATE OF : 72 ADMITTING PHYSICIAN:Mona Yip MD ATTENDING PHYSICIAN:Mona Yip MD CONSULTATION DATE: 06/19/2023 ENDOCRINE CONSULTATION This is a patient of Dr. Renetta Willingham. Thank you very much for referring this patient. HISTORY OF PRESENT ILLNESS: This is a 53-year-old gentleman who is referred to me for evaluation of hypothyroidism. The patient has history of hypothyroidism in the past and he has been very noncompliant about taking his thyroid medications. The patient came to the hospital with history of right-sided paresthesias and weakness and is being further evaluated. The patient also has history of hypertension and has been very noncompliant about taking his blood pressure medicines as well. PHYSICAL EXAMINATION: GENERAL: Today, the patient is alert, awake, a little bit apprehensive. VITAL SIGNS: His heart rate is around 78, blood pressure is 149/87 mmHg. HEENT: Essentially unremarkable. NECK: Thyroid is palpable. Clinically, he looks hypothyroid. CHEST: Diminished bilateral vesicular breathing, has mild bronchospasm. CARDIAC: Both first and second heart sounds. There is no third or fourth heart sounds. Ejection systolic murmur grade II/. NEUROLOGICAL: There is no gross neurological deficit except some weakness on the right side. CLINICAL IMPRESSION: Hypothyroidism, TSH is 18.59; pneumonia, rule out transient ischemic attack; right-sided weakness or paresthesias; hyperlipidemia; hypertension. PLAN: At this time is to do a thyroid peroxidase antibody. Repeat the TSH and adjust her thyroid medications. Thanks for referring this patient. I will follow this patient with you. Dictated By: Brett Murphy MD Date Dictated: 06/19/2023 15:17:21 Date Transcribed: 06/19/2023 17:48:43 MIRA/KYUNG/GHO PATIENT NAME: MINA HUGHES Receipt ID: [id number] Authenticated by Jasmyn Murphy MD On 07/14/2023 01:49:20 PM at 0149 PATIENT NAME: MINA HUGHES [facility] 2023-06-19 09:25:00 [facility] ([facility] Hospitalist Progress Note REPORT#:[id number] REPORT STATUS: Signed REPORT INITIALIZATION DATE:06/19/23 TIME: 924 PATIENT: MINA HUGHES UNIT #: [id number] ROOM/BED: 3- : 72 AGE: 53 SEX: M ATTEND: Tarsha Jackson MD ADM AUTHOR: Tarsha Jackson MD REPT SERVICE DT/TIME: 06/19/23924 * ALL edits or amendments must be made on the electronic/computer document * Subjective Chief complaint: Pt seen and examined . same comaplints HPI: Patient is a 53-year-old male with PMH HTN and hypothyroidism (no meds x 1 month ) who presents with right-sided paresthesia. Patient states paresthesia started on the fourth and fifth digits of his right hand and open his right forearm 2 days ago. Yesterday the paresthesia moved to his right upper arm and right shoulder. About 0500 this morning, the paresthesia moved to his face, right chest, right lateral torso, right hip and lateral right leg. Patient with 5/5 strength but states sensation is significantly diminished. Patient ambulatory without difficulty but states he feels like he is limping because of the paresthesia in his leg. Patient denies similar symptoms previously. Patient states he is visiting here from out of town. Initially he was just ignoring the symptoms but when the paresthesias started in his chest and torso, he knew he needed to [place] to the emergency department. Patient has not had fever or chills. No nausea or vomiting. No cough or shortness of breath. Patient denies neck pain. No recent falls or traumas. Patient reports he used to take lisinopril but it would sometimes drop his blood pressure too low so they took him off that and put him on something else. He does not remember what the new blood pressure medication is. He has not taken any blood pressure medication in 1 month. Objective General VS/I O: Vital Signs: Date Time Temp Pulse Resp B/P B/P Pulse O2 O2 Flow FiO2 Mean Ox Delivery Rate 06/18 0753 98.1 64 14 149/87 107.8 98 06/18 0403 98.2 51 19 129/73 91.4 99 Room air 06/18 0014 97.9 53 17 122/70 87.2 98 Room air 06/17 1954 98.4 64 18 153/81 104.9 98 Room air 06/17 1546 98.1 61 16 138/77 97.6 98 06/17 1133 98.1 60 16 132/83 99.5 98 24 hour I O ending at 0700: 06/18 0700 06/17 1900 Intake Total 240 Output Total Balance 240 Intake, Oral 240 PATIENT WEIGHT: Weight (lb): Weight (oz): Weight (kg): 67.273 Medications: Active Meds + DC'd Last 24 Hrs Atorvastatin Calcium (LIPITOR 40MG TAB) 80 MG BEDTIME PO Sodium Chloride (SODIUM CHLORIDE 0.9%) 250 ML ASDIR PRN IV Ondansetron HCl (ondansetron HCL) 4 MG Q6H PRN PRN IV (DC) Physical Exam Head/Eyes: atraumatic, clear cornea, EOMI ENT: moist mucosal membranes Neck: full range of motion Cardiovascular: normal capillary refill, normal heart sounds, regular rate rhythm Respiratory: aerating well, clear to auscultation, symmetric expansion Abdomen: non-tender, normal bowel sounds, soft Musculoskeletal: normal inspection, painless range of motion, no CVA tenderness 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, oriented X 3, CNII-XII intact Skin: dry, intact, normal color Psychiatry: normal affect Diagnosis, Assessment Plan Free Text DxA P Notes Free text DxA P notes: # Stroke rule out/TIA CT brain noted Order CTA head and neck PT OT ordered Consulted neurology neuro q4y 4 checks Telemetry Daily aspirin 81 mg Statins Hydralazine as needed Ordered MRI Aspirin statin Will check fasting lipid profile Ordered echo # Community-acquired pneumonia Chest x-ray noted Satting well at room Will start with IV ceftriaxone and azithromycin Continue to monitor # Hypothyroidism Resume home medication once verified Elevated TSH With thyroxine level 4.4 Will consult endocrinology # Hyperlipidemia Resume home medication once verified # Hypertension Resume home medication once verified # Hypokalemia Replaced in ER Will continue to monitor Quality: Gen Med Crit Care VTE Prophylaxis VTE prophylaxis initiated: yes BMI Screening > 25 or < 18.5 BMI status/follow-up: nml BMI,no general counselor needed at 0927 RPT #:[id number] END OF [address]PORT [facility] 2023-06-18 11:09:00 [facility]) Neurology Consultation Note REPORT#:[id number] REPORT STATUS: Signed REPORT INITIALIZATION DATE:06/18/23 TIME: 110 PATIENT: MINA HUGHES UNIT #: [id number] ROOM/BED: [address] : 72 AGE: 53 SEX: M ATTEND: Tarsha Jackson MD ADM AUTHOR: Kamron Barclay MD REPT SERVICE DT/TIME: 06/18/23 1109 * ALL edits or amendments must be made on the electronic/computer document * History of Present Illness Stroke Alert Considered stroke alert: no HPI Requesting clinician: Dr Renetta Bach Reason for consult: Right-sided numbness Chief complaint: Right-sided numbness HPI: The patient Mr. Hughes is a 53 years old right-handed male with a past medical history of hypertension, hypothyroidism, medical noncompliance reported having numbness of right hand for past 2 to 3 days. This morning at 5 AM, he started having numbness involving right face, arm and leg. No speech abnormality. No weakness. Patient has not been taking his blood pressure medication or thyroid medications for past 1 month. was present at the bedside. Denies any neck pain. No bowel or bladder incontinence. History - Adult longitudinal Past medical history: Reports: Hypertension, Thyroid disorder. Alcohol use: Alcohol use (occasional) Drug use: Denies recreational drugs Smoking status for patients 13 years old or older: Never Smoker Allergies: Coded Allergies: No Known Allergies (06/18/23) Review of Systems All systems rev neg: except as marked Objective General VS: Last Documented: Result Date Time Pulse Ox 98 06/17 113 B/P 132/83 06/17 1132 B/P Mean 99.5 06/17 1132 Temp 36.7 06/17 1132 Pulse 60 06/17 1132 Resp 16 06/17 113 O2 Delivery Room air 06/17 0647 PATIENT WEIGHT: Weight (lb): Weight (oz): Weight (kg): 67.273 Medications Active Meds + DC'd Last 24 Hrs Atorvastatin Calcium (LIPITOR 40MG TAB) 80 MG BEDTIME PO Sodium Chloride (SODIUM CHLORIDE 0.9%) 250 ML ASDIR PRN IV Ondansetron HCl (ondansetron HCL) 4 MG Q6H PRN PRN IV Potassium Chloride (K-DUR) 40 MEQ X1ED STA PO (DCr) Lisinopril (lisinopriL) 20 MG X1ED STA PO (DC) Iopamidol (ISOVUE-370) 0 .STK-MED ONE .ROUTE (DC) Physical Exam General appearance: alert, awake, no acute distress Head/Eyes: atraumatic, clear cornea ENT: moist mucosal membranes Neck: full range of motion Cardiovascular: regular rate and rhythm Respiratory: aerating well Extremities: moves all, pulses present, no edema Musculoskeletal: full range of motion 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, oriented X 4, normal speech, EOMI, PERRL, CN II-XII intact, reflexes equal bilat, normal reflexes, no motor deficits, no cerebellar deficits , normal gait Neuro comment: Decreased pinprick in right hemibody. Results Findings/Data: Laboratory Tests 06/17 06/17 0613 0613 Chemistry Sodium (136 - 145 mmol/L) 139 Potassium (3.5 - 5.1 mmol/L) 3.0 L Chloride (98 - 107 mmol/L) 102.0 Carbon Dioxide (21 - 32 mmol/L) 29.0 Anion Gap (10 - 20) 11.0 BUN (7 - 18 mg/dL) 9 Creatinine (0.7 - 1.3 mg/dL) 1.00 Glomerular Filtr Rate (>=60 mL/min) > 60 BUN/Creatinine Ratio (10 - 20) 9.0 L Glucose (74 - 106 mg/dL) 142 H Calcium (8.5 - 10.1 mg/dL) 8.7 Troponin I (0 - 54 pg/mL) 7.400 TSH (0.550 - 4.780 uIU/mL) 18.593 H Free T4 Index (1.3 - 5.1 FTI) 1.54 Thyroxine (T4) (4.5 - 13.9 ug/dL) 4.4 L T3 Uptake (30.0 - 40.0 %) 35.0 Laboratory Tests 06/17 612 Coagulation INR (0.8 - 1.2) 1.1 PTT (Jonathan) (26.6 - 37.3 seconds) 35.0 PT Patient/Control Mix (10.0 - 14.0 seconds) 12.6 Laboratory Tests 06/17 612 Hematology WBC (4.5 - 12.5 K/mm3) 10.1 RBC (4.0 - 5.8 mill/mm3) 5.19 Hgb (13.0 - 17.5 gram/dL) 15.4 Hct (42.0 - 52.0 %) 43.6 MCV (80 - 98 fL) 84.0 MCH (27.0 - 33.0 picogram) 29.7 MCHC (33.0 - 36.0 gram/dL) 35.3 RDW (11.6 - 16.2 %) 12.2 Plt Count (150 - 450 K/mm3) 229 MPV (6.7 - 11.0 fL) 9.5 Radiology Data: Recent Impressions: CAT SCAN - CTA NECK STROKE VIZ 06/17 624 Report Impression - Status: SIGNED Entered: 06/18/2023708 IMPRESSION: 1. Unremarkable CTA of neck and Chinik of Chery. Extracranially there is no significant carotid or vertebral artery stenosis. Intracranially no critical stenosis, large vessel occlusion, or aneurysm. 2. Interstitial opacities in the lung apices. Edema versus pneumonia. NOTE: Stenosis if present was derived by comparing the narrowest segment with the distal luminal diameter as related to the reported measure of arterial narrowing (criteria similar to NASCET). Impression By: Chidi.ROSEANN - Rosy Ragland MD CAT SCAN - CTA HEAD STROKE VIZ 06/17 624 Report Impression - Status: SIGNED Entered: 06/18/2023708 IMPRESSION: 1. Unremarkable CTA of neck and Chinik of Chery. Extracranially there is no significant carotid or vertebral artery stenosis. Intracranially no critical stenosis, large vessel occlusion, or aneurysm. 2. Interstitial opacities in the lung apices. Edema versus pneumonia. NOTE: Stenosis if present was derived by comparing the narrowest segment with the distal luminal diameter as related to the reported measure of arterial narrowing (criteria similar to NASCET). Impression By: Estrellita Ragland MD CAT SCAN - CT HEAD/BRAIN W/O CONT 06/17 624 Report Impression - Status: SIGNED Entered: 06/18/2023 0651 IMPRESSION: 1. No CT evidence of acute intracranial abnormality. Findings were communicated to Margaret Rahman MD by telephone on 06/18/2023 6:46 AM. Impression By: [email or web address] - Vince Glez M.D. RADIOLOGY - XR CHEST 1 V 06/17 629 Report Impression - Status: SIGNED Entered: 06/18/2023 0702 IMPRESSION: Mild perihilar interstitial opacities. Edema versus pneumonia. Impression By: Estrellita Ragland MD Results: labs reviewed, CT results reviewed, current med profile rev'd Diagnosis, Assessment Plan Free Text DxA P Notes: 1. Right hemibody numbness - rule out left subcortical ischemic infarct 2. Hypothyroidism 3. Accelerated hypertension 4. Hyperlipidemia Plan: Telemetry. Check MRI brain without contrast, 2D echo for further evaluation. Aspirin, statin. Check fasting lipid profile. Further recommendations will be based on workup results. Discussed with the patient and his . Neurology to follow. Thank you for the consult. at 1344 RPT #:[id number] [facility] 2023-06-18 10:45:00 [facility] ([facility]) Hospitalist History Physical REPORT#:[id number] REPORT STATUS: Signed REPORT INITIALIZATION DATE:06/18/23 TIME: 1044 PATIENT: MINA HUGHES UNIT #: [id number] ROOM/BED: : 71 AGE: 53 SEX: M ATTEND: Tarsha Jackson MD ADM AUTHOR: Tarsha Jackson MD REPT SERVICE DT/TIME: 06/18/23 1045 * ALL edits or amendments must be made on the electronic/computer document * History of Present Illness HPI Chief complaint: numbness of right hand and arm PCP: PCP: No Primary or Family Physician HPI: Patient is a 53-year-old male with PMH HTN and hypothyroidism (no meds x 1 month ) who presents with right-sided paresthesia. Patient states paresthesia started on the fourth and fifth digits of his right hand and open his right forearm 2 days ago. Yesterday the paresthesia moved to his right upper arm and right shoulder. About 0500 this morning, the paresthesia moved to his face, right chest, right lateral torso, right hip and lateral right leg. Patient with 5/5 strength but states sensation is significantly diminished. Patient ambulatory without difficulty but states he feels like he is limping because of the paresthesia in his leg. Patient denies similar symptoms previously. Patient states he is visiting here from out of town. Initially he was just ignoring the symptoms but when the paresthesias started in his chest and torso, he knew he needed to [place] to the emergency department. Patient has not had fever or chills. No nausea or vomiting. No cough or shortness of breath. Patient denies neck pain. No recent falls or traumas. Patient reports he used to take lisinopril but it would sometimes drop his blood pressure too low so they took him off that and put him on something else. He does not remember what the new blood pressure medication is. He has not taken any blood pressure medication in 1 month. History Past medical history: Reports: Hypertension, Thyroid disorder. Alcohol use: Alcohol use (occasional) Drug use: Denies recreational drugs Smoking status for patients 13 years old or older: Never Smoker Medication/Allergy-Vaccine Hx Allergies: Coded Allergies: No Known Allergies (06/18/23) Review of Systems Constitutional: generalized weakness. Denies: chills, fatigue, fever, lethargy, malaise, recent wt loss, other. Skin: Denies: abrasion, bruising, contusion, diaphoresis, ecchymosis, itching, laceration, rash, swelling, other. Allergy/Immun: Denies: allergic reaction, anaphylaxis, hives, itching, rhinorrhea, sneezing, other. Eyes: Denies: redness, discharge, visual loss/blurred, itching, diplopia, eye pain, photophobia, swelling, other. ENT: Denies: ear drainage, ear ringing, earache, hearing loss, mouth pain, nasal congestion, nose bleeding, sinus problem, sore throat, throat pain, throat swelling, tongue pain, tongue swelling, toothache, voice change, other. Respiratory: Denies: COSBY (dyspnea on exertion), hemoptysis, non productive cough, parox nocturnal dyspnea, pleurisy, pleuritic pain, pneumonia, productive cough (sputum ), SOB, wheezing, other. Cardiovascular: Denies: chest pain, COSBY (dyspnea on exertion), edema, orthopnea, palpitations, parox nocturnal dyspnea, other. GI: Denies: abdominal pain, anorexia, constipation, diarrhea, dysphagia, GERD, hematemesis, hematochezia, hiatal hernia, melena, nausea, rectal pain, vomiting, other. : Denies: dysuria, flank pain, frequency, hematuria, nocturia, penile discharge, penile lesion, testicular pain, testicular swelling, urgency, urinary retention, other. Heme: Denies: adenopathy, bleeding, bruising, petechiae, other. Endocrine: Denies: cold intolerance, heat intolerance, polydipsia, polyphagia, polyuria, weight gain, weight loss, other. Neuro: Denies: bladder dysfunction, bowel dysfunction, change in LOC, confusion, dizziness, focal weakness, gait problem, headache, lightheaded, numbness, seizure, slurred speech, spinning sensation, syncope, unable to speak, vision change, weakness, other. Psych: Denies: agitation, anxiety, auditory hallucination, change in mental status, confusion, delusional, depression, homicidal ideation, hostile, insomnia, stress , suicidal ideation, visual hallucination, other. Objective General VS/I O: Vital Signs: Date Time Temp Pulse Resp B/P B/P Pulse O2 O2 Flow FiO2 Mean Ox Delivery Rate 06/18 0753 98.1 64 14 149/87 107.8 98 06/18 0403 98.2 51 19 129/73 91.4 99 Room air 06/18 0014 97.9 53 17 122/70 87.2 98 Room air 06/17 1953 98.4 64 18 153/81 104.9 98 Room air 06/17 1546 98.1 61 16 138/77 97.6 98 06/17 1133 98.1 60 16 132/83 99.5 98 24 hour I O ending at 0700: 06/18 0700 06/17 1900 Intake Total 240 Output Total Balance 240 Intake, Oral 240 PATIENT WEIGHT: Weight (lb): Weight (oz): Weight (kg): 67.273 Medications: Active Meds + DC'd Last 24 Hrs Atorvastatin Calcium (LIPITOR 40MG TAB) 80 MG BEDTIME PO Sodium Chloride (SODIUM CHLORIDE 0.9%) 250 ML ASDIR PRN IV Ondansetron HCl (ondansetron HCL) 4 MG Q6H PRN PRN IV (DC) Physical Exam General appearance: alert, awake, oriented Head/Eyes: atraumatic, clear cornea, EOMI ENT: moist mucosal membranes Neck: full range of motion Cardiovascular: normal capillary refill, normal heart sounds, regular rate rhythm Respiratory: aerating well, clear to auscultation, symmetric expansion Abdomen: non-tender, normal bowel sounds, soft Musculoskeletal: normal inspection, painless range of motion, no CVA tenderness 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, oriented X 3, CNII-XII intact Skin: dry, intact, normal color Psychiatry: normal affect Diagnosis, Assessment Plan Critical care time: Minutes: 32 Free Text DxA P Notes Free Text DxA P Notes: # Stroke rule out/TIA CT brain noted Order CTA head and neck PT OT ordered Consulted neurology neuro q4y 4 checks Telemetry Daily aspirin 81 mg Statins Hydralazine as needed Ordered MRI Aspirin statin Will check fasting lipid profile Ordered echo # Community-acquired pneumonia Chest x-ray noted Satting well at room Will start with IV ceftriaxone and azithromycin Continue to monitor # Hypothyroidism Resume home medication once verified Elevated TSH With thyroxine level 4.4 Will consult endocrinology # Hyperlipidemia Resume home medication once verified # Hypertension Resume home medication once verified # Hypokalemia Replaced in ER Will continue to monitor Quality: Gen Med Crit Care VTE Prophylaxis VTE prophylaxis initiated: yes BMI Screening > 25 or < 18.5 Patient's BMI: Current BMI: 21.3 BMI status/follow-up: nml BMI,no general counselor needed at 0919 RPT #:[id number] [facility] 2023-06-18 07:47:00 [facility] ([facility]) EMERGENCY PROVIDER REPORT REPORT#:[id number] REPORT STATUS: Signed DATE:06/18/23 TIME: 07 PATIENT: MINA HUGHES UNIT #: [id number] ROOM/BED: 9-A AGE: 53 SEX: M PCP PHYS: No Primary or Family Physician SERVICE AUTHOR: Margaret Rahman MD * ALL edits or amendments must be made on the electronic/computer document * HPI-Neurologic Deficit General Initial Greet Date/Time 06/18/23 0604 Presentation Chief Complaint Numbness arm, Numbness leg, Numbness hand )( Last Known Well )( Time 1400 Date 06/15/23 Hx Obtained From Patient, Spouse )( Symptom Duration Since onset Free Text HPI Notes Free Text HPI Notes Patient is a 53-year-old male with PMH HTN and hypothyroidism (no meds x 1 month ) who presents with right-sided paresthesia. Patient states paresthesia started on the fourth and fifth digits of his right hand and went up into his right forearm 2 days ago. Yesterday the paresthesia moved to his right upper arm and right shoulder. About 0500 this morning, the paresthesia moved to his face, right chest, right lateral torso, right hip and lateral right leg. Patient with 5/5 strength but states sensation is significantly diminished. Patient ambulatory without difficulty but states he feels like he is limping because of the paresthesia in his leg. Patient denies similar symptoms previously. Patient states he is visiting here from out of town. Initially he was just ignoring the symptoms but when the paresthesias started in his chest and torso, he knew he needed to [place] to the emergency department. Patient has not had fever or chills. No nausea or vomiting. No cough or shortness of breath. Patient denies neck pain. No recent falls or traumas. Patient reports he used to take lisinopril but it would sometimes drop his blood pressure too low so they took him off that and put him on something else. He does not remember what the new blood pressure medication is. He has not taken any blood pressure medication in 1 month. Risk-Neurologic Deficit Risk Stratification )( NIH Stroke Scale )( NIH Stroke Scale Response Value NIHSS Applicable? Yes 0 Level of Consciousness Alert and responsive (0) 0 Ask Month Age Both questions right (0) 0 Blink Eyes/Squeeze Hands Performs both tasks (0) 0 Horizontal EOM NL side/side eye mvmt (0) 0 Visual Overton No visual loss (0) 0 Facial Palsy Normal symmetry (0) 0 Right Arm Motor Drift (10s) No drift 10 sec (0) 0 Left Arm Motor Drift (10s) No drift 10 sec (0) 0 Right Leg Motor Drift (5s) No drift 5 sec (0) 0 Left Leg Motor Drift (5s) No drift 5 sec (0) 0 Limb Ataxia FNF/Heel-Lomeli No ataxia (0) 0 Sensation (Arms/Legs/Face) P-prick dull but felt (1) 1 Language Aphasia No aphasia, normal (0) 0 Dysarthria No dysarthria (0) 0 Extinction/Inattention No extinct/inattent (0) 0 Total 1 NIH Stroke Score Timing Time 0610 Date 06/18/23 Review of Systems ROS Statements All systems rev neg except as marked. Free Text ROS Notes Free Text ROS Notes Constitutional: No fever or chills Respiratory: No cough or shortness of breath Cardiovascular: No chest pain or palpitations Neurologic: No headache, focal deficits or weakness Chronic conditions/symptoms are considered negative if unchanged from baseline Additional positives and negatives may be present in the HPI Past Medical History - Adult Stated Complaint RIGHT SIDED TIGHTNESS ANDTINGLING Allergies Coded Allergies: No Known Allergies (06/18/23) Calculated Suicide Risk (nurs) No risk Past Medical History: Reports: Hypertension, Thyroid disorder. Alcohol Use Alcohol use (occasional) Drug Use Denies recreational drugs Smoking status for patients 13 years old or older: Never Smoker Physical Exam Vital Signs Vital Signs First Documented: Result Date Time Pulse Ox 98 06/17 0503 B/P 166/110 06/17 0503 B/P Mean 128 06/17 0503 O2 Delivery Room air 06/17 602 Temp 36.5 06/17 602 Pulse 93 06/17 0503 Resp 16 06/17 602 Last Documented: Result Date Time Pulse Ox 94 06/17 0700 B/P 148/91 06/17 0600 B/P Mean 113 06/17 07 Pulse 73 06/17 0700 Resp 18 03/10 0700 O2 Delivery Room air 06/17 646 Temp 36.7 06/17 646 Review of Vital Signs Reviewed Focused PE Neurologic Text/Dict Notes Slightly diminished sensation on right lateral leg, right arm and right face. 5 /5 strength. No skin changes. FROM. Free Text PE Notes Free Text PE Notes GEN: Awake, alert. No acute distress. Well-appearing. Cooperative. HEAD: Atraumatic. Normocephalic. EYES: PERRL. EOMI. No nystagmus. No photophobia. ENT: Airway patent. MMM. Normal pharynx. NECK: Atraumatic. No meningismus. FROM. Nontender. RESP/CHEST: Breath sounds normal. No respiratory distress. No chest tenderness. CV: RRR. Heart sounds normal. Normal cap refill. ABD/GI: Soft, nontender. BS normoactive. No palpable mass. SKIN: WDI. Normal color. No rash. NEURO: Oriented x3. Clear speech. CN II - XII grossly intact. BACK: Atraumatic. Nontender. PSYCH: Mood and affect normal. Interpretation Diagnostics Lab Results Interpretation Results Laboratory Tests 06/18/23612: [Embedded Image Not Available] Laboratory Tests: 06/17 0613 Chemistry Sodium (136 - 145 mmol/L) 139 Potassium (3.5 - 5.1 mmol/L) 3.0 L Chloride (98 - 107 mmol/L) 102.0 Carbon Dioxide (21 - 32 mmol/L) 29.0 Anion Gap (10 - 20) 11.0 BUN (7 - 18 mg/dL) 9 Creatinine (0.7 - 1.3 mg/dL) 1.00 Glomerular Filtr Rate (>=60 mL/min) > 60 BUN/Creatinine Ratio (10 - 20) 9.0 L Glucose (74 - 106 mg/dL) 142 H Calcium (8.5 - 10.1 mg/dL) 8.7 Troponin I (0 - 54 pg/mL) 7.400 TSH (0.550 - 4.780 uIU/mL) 18.593 H Free T4 Index (1.3 - 5.1 FTI) 1.54 Thyroxine (T4) (4.5 - 13.9 ug/dL) 4.4 L T3 Uptake (30.0 - 40.0 %) 35.0 Coagulation INR (0.8 - 1.2) 1.1 PTT (Jonathan) (26.6 - 37.3 seconds) 35.0 PT Patient/Control Mix (10.0 - 14.0 seconds) 12.6 Hematology WBC (4.5 - 12.5 K/mm3) 10.1 RBC (4.0 - 5.8 mill/mm3) 5.19 Hgb (13.0 - 17.5 gram/dL) 15.4 Hct (42.0 - 52.0 %) 43.6 MCV (80 - 98 fL) 84.0 MCH (27.0 - 33.0 picogram) 29.7 MCHC (33.0 - 36.0 gram/dL) 35.3 RDW (11.6 - 16.2 %) 12.2 Plt Count (150 - 450 K/mm3) 229 MPV (6.7 - 11.0 fL) 9.5 Recent Impressions: CAT SCAN - CTA NECK STROKE VIZ AI 06/17 624 Report Impression - Status: SIGNED Entered: 06/18/2023708 IMPRESSION: 1. Unremarkable CTA of neck and Chinik of Chery. Extracranially there is no significant carotid or vertebral artery stenosis. Intracranially no critical stenosis, large vessel occlusion, or aneurysm. 2. Interstitial opacities in the lung apices. Edema versus pneumonia. NOTE: Stenosis if present was derived by comparing the narrowest segment with the distal luminal diameter as related to the reported measure of arterial narrowing (criteria similar to NASCET). Impression By: Estrellita Ragland MD CAT SCAN - CTA HEAD STROKE VIZ AI 06/17 624 Report Impression - Status: SIGNED Entered: 06/18/2023708 IMPRESSION: 1. Unremarkable CTA of neck and Chinik of Chery. Extracranially there is no significant carotid or vertebral artery stenosis. Intracranially no critical stenosis, large vessel occlusion, or aneurysm. 2. Interstitial opacities in the lung apices. Edema versus pneumonia. NOTE: Stenosis if present was derived by comparing the narrowest segment with the distal luminal diameter as related to the reported measure of arterial narrowing (criteria similar to NASCET). Impression By: Estrellita Ragland MD CAT SCAN - CT HEAD/BRAIN W/O CONT 06/17 624 Report Impression - Status: SIGNED Entered: 06/18/2023 0651 IMPRESSION: 1. No CT evidence of acute intracranial abnormality. Findings were communicated to Margaret Rahman MD by telephone on 06/18/2023 6:46 AM. Impression By: [email or web address] - Vince Glez M.D. RADIOLOGY - XR CHEST 1 V 06/17 0630 Report Impression - Status: SIGNED Entered: 06/18/2023 0702 IMPRESSION: Mild perihilar interstitial opacities. Edema versus pneumonia. Impression By: Estrellita - Rosy Ragland MD Lab Imaging Statement Laboratory radiographic studies reviewed and considered in the medical decision-making. Point of Care Testing Pulse Oximetry Pulse Ox % 98 On: Room air Interpretation Interpreted by me, Pulse oximetry normal ECG #1 Interpretation Date 06/18/23 Time 06 Interpreted by and reviewed by me, Independently interpreted NL ECG Interpretation Normal rate (75), Normal sinus rhythm, No acute ischemic changes, No STEMI Re-Evaluation MDM Re-Evaluation/Progress #1 Text/Dict Note Patient resting comfortably. No distress. No change. Discussed results and plan for admission for further evaluation of possible CVA. Patient and voiced understanding and agreement. Time of Re-Eval 0745 ED Course Medication(s) Ordered Medication(s) Ordered: Cardiovascular Drugs Sig/Baljeet Start time Last Medication Dose Route Stop Time Status Admin Lisinopril 20 MG X1ED STA 06/17 0618 DC 06/17 PO 06/17 0619 0620 Diagnostic Agents Sig/Baljeet Start time Last Medication Dose Route Stop Time Status Admin Iopamidol 0 .STK-MED ONE 06/17 0614 DC 06/17 .ROUTE 0654 Electrolytic, Caloric, And Steven Sig/Baljeet Start time Last Medication Dose Route Stop Time Status Admin Potassium Chloride 40 MEQ X1ED STA 06/17 0741 DC PO 06/17 0742 Gastrointestinal Drugs Sig/Baljeet Start time Last Medication Dose Route Stop Time Status Admin Ondansetron HCl 4 MG Q6H PRN PRN 06/17 744 AC IV 06/17 194 Differential Diagnosis )( Differential Diagnosis Air embolism, Aortic stenosis, Ateritis, Atrial fibrillation, Atrial flutter, Basilar skull fracture, Novak's palsy, Cervical spine injury, Closed head injury, CVA, hemorrhagic, CVA, ischemic, Delirium tremens, Diabetic ketoacidosis, Drug overdose, Electrolyte disorder, Encephalitis, Epidural hemorrhage, Facial fracture, Guillain-Kwethluk syndrome, Head trauma, Hepatic encephalopathy, Hyperglycemia, Hypoglycemia, Intoxication, alcohol, Intoxication, other drug, Intracranial hemorrhage, Malignancy, Mass lesion, Meningitis, Migraine, atypical, Migraine, complex, Multiple sclerosis, Peripheral neuropathy, Personality disorder, Post-ictal, Skull fracture, Subarachnoid hemorrhage, Subdural hemorrhage, Thoracic aortic dissect, Harley's paralysis, Transient ischemic attack, Vasculitis Patient Discharge Departure Vital Signs/Condition Vital Signs First Documented: Result Date Time Pulse Ox 98 06/17 602 B/P 166/110 06/17 602 B/P Mean 128 06/17 602 O2 Delivery Room air 06/17 602 Temp 36.5 06/17 602 Pulse 93 06/17 602 Resp 16 06/17 602 Last Documented: Result Date Time Pulse Ox 94 06/17 07 B/P 148/91 06/17 699 B/P Mean 113 06/17 0700 Pulse 73 06/17 0700 Resp 18 06/17 07 O2 Delivery Room air 06/17 646 Temp 36.7 06/17 0547 All vital signs available at the time of this entry have been reviewed. Clinical Impression Clinical Impression Primary Impression: Paresthesia of right upper and lower extremity Secondary Impressions: Hypokalemia, Noncompliance with medication regimen Disposition Decision Hospitalize Hosp Physician Name Tarsha Jackson MD [facility] Physician Hospitalist Request Time 0748 Request Date 06/18/23 )( Accepts Hospitalization Yes )( Reason for Hospitalization RIGHT SIDED PARESTHESIA )( Accepted Time 0748 )( Accepted Date 06/18/23 Call Information will see patient, agrees with eval, agrees with plan Discharge/Care Plan (Auto) Prescriptions Current Visit Scripts CLOPIDOGREL (PLAVIX) 75 MG PO DAILY CLOPIDOGREL (PLAVIX) 75 MG PO DAILY #30 TAB ATORVASTATIN (LIPITOR) 80 MG PO BEDTIME ATORVASTATIN (LIPITOR) 80 MG PO BEDTIME #30 TAB LOSARTAN (COZAAR) 25 MG PO DAILY LOSARTAN (COZAAR) 25 MG PO DAILY #30 TAB ASPIRIN EC (ECOTRIN) 81 MG PO DAILY ASPIRIN EC (ECOTRIN) 81 MG PO DAILY #30 TAB LEVOTHYROXINE (SYNTHROID) 75 MCG PO 0600 LEVOTHYROXINE (SYNTHROID) 75 MCG PO 0600 #30 TAB Critical Care Time Spent (minutes): 40 Services Performed Patient management by me, Time spent at bedside, Reviewing test results, Reviewing imaging, Discussing patient care, Documentation in record, Time with fam/surrogate Separately billable procedures excluded from time. at 2035 [facility] #:[id number]PORT [facility] 2023-06-18 06:11:00 [id number] [facility] PATIENT NAME: MINA HUGHES ADMIT DATE: 06/18/23 ACCOUNT NO: [id number] ROOM NO: V.[id number] AGE: 53 REPORT TYPE: eEKG REPORT SEX: M DATE OF : 72 ADMITTING PHYSICIAN:Tarsha Jackson MD ATTENDING PHYSICIAN:Tarsha Jackson MD Order: [id number] Test Reason : Test Date/Time Stamp: MonJun 18 2023 06:11:55 Blood Pressure : 190/096 mmHG Vent. Rate : 075 BPM Atrial Rate : 075 BPM P-R Int : 146 ms QRS Dur : 078 ms QT Int : 412 ms P-R-T Axes : 039 -12 003 degrees QTc Int : 460 ms Normal sinus rhythm Voltage criteria for left ventricular hypertrophy Abnormal ECG Confirmed by THERESA NUNEZ MD ([id number]) on 06/18/2023 11:06:27 PM Referred By: Self Referred Confirmed by:THERESA NUNEZ MD at 2306 PATIENT NAME: MINA HUGHES [facility]
--- NOTE | 2023-11-28 14:13 | RAD REPORT ---
EXAM DESCRIPTION: CT - Head Brain Wo Cont - 11/26/2023 1:39 am CLINICAL HISTORY: Numbness COMPARISON: CT Head/Brain Without Contrast 04/10/2021 MR Head/Brain Without Contrast 04/12/2021 TECHNIQUE: Head/brain axial images acquired without contrast. Coronal and sagittal reformats created . Exam performed according to departmental dose-optimization program which includes automated exposur e control, adjustment of mA and/or kV according to patient size, and/or use of iterative reconstructi on technique. FINDINGS: No midline shift, mass effect, intracranial hemorrhage, or hydrocephalus. Left thalamus old lacunar infarct has developed since 04/10/2021. Brain parenchyma unremarkable. Paranasal sinuses clear. Right frontal sinus very small (normal variant). No skull fracture or significant skull lesion. IMPRESSION: 1. No CT evidence of acute intracranial abnormality. 2. Old left thalamic lacunar infarct. If there remains strong clinical suspicion of acute ischemic infarct, then MR brain/head recommended (if there are no contraindications). Electronically signed by: Corbin Neal MD 11/26/2023 02:55 AM CDT Due to temporary technical issues with the PACS/Fluency reporting system, reports are being signed by the in house radiologists without review as a courtesy to insure prompt reporting. The interpreting radiologist is fully responsible for the content of the report.
== END 2023-11-26 03:35 | disposition home or self-care (01) ==
LOC: ER 00:14
DX: R20.0 Anesthesia of skin (principal); Z86.73 Personal history of transient ischemic attack (TIA), and cerebral infarction without residual deficits; Z79.01 Long term (current) use of anticoagulants
CPT/HCPCS: 36415; 70450; 71045; 80048; 84484; 85025; 93005; 96374; 96375; 99285; J2405

== ENCOUNTER 2024-03-02 18:08 | Inpatient (IN) | payer OTHER ==
--- OUTSIDE RECORDS SUMMARY | 2024-03-02 18:12 | XMS REPORT | Continuity of Care Document ---
Author Name Unknown Address [address] [facility] [address] [place] [address] [facility] Address [address] [facility] [place] [address] Care Team Providers Care Lead Military Analyst Name Role Phone ZORAIDA MCCAULEY Attending Clinician Unavailable LAB90 Attending Clinician Unavailable ROBERT KHAN Attending Clinician Mona Clark Attending Clinician Mona Carter Admitting Clinician Chanelli fátimale Payers Payer Name Policy Type Policy Number Effective Date Expirati on Date Source ZACH FRANKLIN CHADWICK S O SPRING BENDER 94 ON 9 [id number] 2023 00:00:00 Problems Condition Name Condition Details Condition Category Status Onset Date Resolution Date Last Treatment Date Treating Clinician Comments Source DM type 2 with diabetic mixed hyperlipid emia (multi HCC) DM type 2 with diabetic mixed hyperlipid emia (multi HCC) Disease Active 2023-04 0-10 00:00: 00 Deysi dougherty Current mild episode of major depressive disorder without prior episode Current mild episode of major depressive disorder without prior episode Disease Active 2023-04 00:00: 00 Deysi Molinajackelynleroy - Externa l HTN (hypertens ion) HTN (hypertens ion) Disease Active Deysi Philold - Externa l Hypothyroi dism Hypothyroi dism Disease Active Deysi Philold - Externa l Depression Depression Disease Active Anne peralta Sejackelynold - Externa l DM (diabetes mellitus) (multi HCC) DM (diabetes mellitus) (multi HCC) Disease Active Deysikarma Villarrealold - Externa l Allergies, Adverse Reactions, Alerts Allergy Name Allergy Type Status Severity Reaction(s) Onset Date Inactive Date Treating Clinician Comments Source No Known Allergie s DA Active U 06-17 00:00: 00 [facility] Social History Social Habit Start Date Stop Date Quantity Comments Source Sexual orientation Anne Woodall - External Tobacco use and exposure 2024-01-18 00:00:00 2024-01-18 00:00:00 Smokeless tobacco non-user Deysi Molinajackelynleroy - External Alcoholic beverage intake 2024-01-18 00:00:00 2024-01-18 00:00:00 Lifetime non-drinker (finding) Deysi Molinajackelynleroy - External History of Social function 2024-01-18 00:00:00 2024-01-18 00:00:00 Deysi Woodall - External Sex 2022-11-17 11:19:37 2022-11-17 11:19:37 Male (finding) Deysi Woodall - External Sex assigned at 1970 00:00:00 1970 00:00:00 Deysi Woodall - External Smoking Status Start Date Stop Date Source Tobacco smoking consumption unknown Deysi Woodall - External Never smoked tobacco Deysi Woodall - External Medications Ordered Medication Name Filled Medication Name Start Date Stop Date Current Medication? Ordering Clinician Indication Dosage Frequency Signature (SIG) Comments Components Source ASPIRIN 81 OR 2023-04 11:30: 31 Yes Take by mouth. Deysi Woodall - Joseea farhat Atorvastati n Calcium 40 MG oral Tablet 2023-04 00:00: 00 Yes [id number] 40mg QD Take 1 tablet (40 mg total) by mouth nightly. Deysi Woodall - Externa farhat Gabapentin 100 MG oral Capsule 2023-04 00:00: 00 Yes [id number] 100mg Q.5D Take 1 capsule (100 mg total) by mouth 2 times daily as needed (pain). Deysi dougherty Blood Glucose Monitoring Suppl (Blood Glucose Monitor System) w/Device does not apply Kit 2023-04 00:00: 00 Yes [id number] Check BS twice daily. Deysi dougherty Glucose Blood in vitro Strip 2023-04 00:00: 00 Yes [id number] 1{each} Q.5D 1 each by other route 2 times daily. Deysi dougherty Lancets 30G does not apply Misc 2023-04 00:00: 00 Yes [id number] Check BS twice daily. Deysi dougherty glipiZIDE 5 MG oral Tablet 10-09 00:00: 00 Yes [id number] 9106 5mg Take 1 tablet (5 mg total) by mouth daily (before a meal). Deysi dougherty Tizanidine HCl 4 MG oral Capsule 10-04 14:48: 04 10-04 00:00 :00 No 4mg Q.[id number] 3D Take 1 capsule (4 mg total) [...] 49 Yes Take by mouth. Deysi dougherty Dapaglifloz in Propanediol (Farxiga) 5 MG oral Tablet 10-04 00:00: 00 Yes [id number] 5mg QD Take 5 mg by mouth daily. Deysi dougherty Levothyroxi ne Sodium 75 MCG oral Tablet 10-04 00:00: 00 Yes [id number] 75ug QD Take 1 tablet (75 mcg total) by mouth daily. Deysi dougherty Tizanidine HCl 4 MG oral Capsule 10-04 00:00: 00 Yes [id number] 4mg Q.[id number] 3D Take 1 capsule (4 mg total) by mouth 3 times daily as needed for muscle spasms. Deysi dougherty Clopidogrel Bisulfate (PLAVIX) 75 MG oral Tablet 10-04 00:00: 00 Yes [id number] 75mg QD Take 1 tablet (75 mg total) by mouth daily. Deysi dougherty Losartan Potassium (COZAAR) 100 MG oral Tablet 10-04 00:00: 00 Yes [id number] 100mg QD Take 1 tablet (100 mg total) by mouth daily. Deysi dougherty Escitalopra m Oxalate 10 MG oral Tablet 10-04 00:00: 00 Yes [id number] 10mg QD Take 1 tablet (10 mg total) by mouth daily. Deysi dougherty Atorvastati n Calcium 80 MG oral Tablet 10-04 00:00: 00 01-17 00:00 :00 No [id number] 80mg QD Take 1 tablet (80 mg [...] Deysi dougherty Gabapentin 300 MG oral Capsule 23 00:00: 00 01-17 00:00 :00 No 300mg Q.[id number] 3D Take 1 capsule (300 mg total) by mouth 3 times daily. Deysi Villarrealold - Externa l Levothyroxi ne Sodium 75 MCG oral Tablet 4-13 00:00: 00 10-04 00:00 :00 No 75ug QD Take 1 tablet (75 mcg total) by mouth daily. Deysi Woodall - Externa l Vital Signs Vital Name Observation Time Observation Value Comments S ource Systolic blood pressure 2024-01-18 16:27:00 135 mm[Hg] Deysi Seybo ld - External Diastolic blood pressure 2024-01-18 16:27:00 87 mm[Hg] Deysi Seybo ld - External Heart rate 2024-01-18 16:27:00 61 /min Gauravse y Seybold - External Body temperature 2024-01-18 16:27:00 36.67 Reyna Deysi Seybold - External Respiratory rate 2024-01-18 16:27:00 18 /min Deysi Seybold - External Body height 2024-01-18 16:27:00 177.8 cm Mariluz ey Seybold - External Body weight 2024-01-18 16:27:00 97.523 kg Mariluz ey Seybold - External BMI 2024-01-18 16:27:00 30.85 kg/m2 Mariluz ey Seybold - External Oxygen saturation in Arterial blood by Pulse oximetry 2024-01-18 16:27:00 97 /min Deysi Molinaybo ld - External Systolic blood pressure 2023-10-05 18:42:00 158 mm[Hg] Deysi Seybo ld - External Diastolic blood pressure 2023-10-05 18:42:00 84 mm[Hg] Deysi Seybo ld - External Heart rate 2023-10-05 18:42:00 80 /min Kelse y Seybold - External Body temperature 2023-10-05 18:42:00 36.56 Reyna Deysi Seybold - External Respiratory rate 2023-10-05 18:42:00 16 /min Deysi Seybold - External Body height 2023-10-05 18:42:00 177.8 cm Mariluz ey Seybold - External Body weight 2023-10-05 18:42:00 93.895 kg Mariluz ey Seybold - External BMI 2023-10-05 18:42:00 29.70 kg/m2 Mariluz ey Seybold - External Encounters Start Date/Time End Date/Time Encounter Type Admission Type Attending [facility] Care Department Encounter ID Source 2024-03-06 11:00:00 2024-03-06 11:00:00 Outpatient ZORAIDA MCCAULEYKARMA GORDON [id number] Deysi Woodall 2024-02-16 00:00:00 2024-02-16 00:00:00 Outpatient DEYSI GORDON [id number] Deysi Woodall 2024-01-22 00:00:00 2024-01-22 00:00:00 Outpatient PARISA ZORAIDA DEYSI GORDON [id number] Deysi Woodall 2024-01-20 00:00:00 2024-01-20 00:00:00 Outpatient DEYSI GORDON [id number] Deysi Woodall 2024-01-19 00:00:00 2024-01-19 00:00:00 Outpatient ZORAIDA MCCAULEY DEYSI GORDON [id number] Deysi Woodall 2024-01-19 00:00:00 2024-01-19 00:00:00 Outpatient DEYSI GORDON [id number] Deysi Woodall 2024-01-18 11:55:00 2024-01-18 11:55:00 Outpatient LAB90 DEYSI GORDON [id number] Deysi Woodall 2024-01-18 11:15:00 2024-01-18 11:15:00 Outpatient ZORAIDA MCCAULEY DEYSI GORODN [id number] Deysi Woodall 2023-12-15 00:00:00 2023-12-15 00:00:00 Outpatient DEYSI GORDON [id number] Deysi Woodall 2023-11-30 14:30:00 2023-11-30 14:30:00 Outpatient PARISA ZORAIDA GORDON [id number] Deysi Woodall 2023-10-19 16:30:00 2023-10-19 16:30:00 Outpatient PARISA ZORAIDA GORDON [id number] Deysi Woodall 2023-10-16 00:00:00 2023-10-16 00:00:00 Outpatient DEYSI GORDON [id number] Deysi [facility] 2023-10-10 00:00:00 2023-10-10 00:00:00 Outpatient ZORAIDA MCCAULEY DEYSI [id number] [facility] 2023-10-09 00:00:00 2023-10-09 00:00:00 Outpatient ROBERT KHAN DEYSI [id number] [facility] 2023-10-09 00:00:00 2023-10-09 00:00:00 Outpatient ZORAIDA MCCAULEY [id number] Deysi [facility] 2023-10-05 15:15:00 2023-10-05 15:15:00 Outpatient J CARLOS GORDON DEYSI [id number] [facility] 2023-10-05 14:30:00 2023-10-05 14:30:00 Outpatient ROBERT KHAN DEYSI [id number] [facility] 2023-10-05 00:00:00 2023-10-05 00:00:00 Outpatient DEYSI GORDON [id number] Deysi [facility] 2023-08-28 09:44:03 2023-08-28 09:44:03 Outpatient SFA SFA [id number] Brandon Johnson Laci 2023-08-21 15:16:10 2023-08-21 15:16:10 Outpatient SFA SFA [id number] Brandon Johnson Laci 2023-07-11 13:48:31 2023-07-11 13:48:31 Outpatient SFA SFA [id number] Brandon Johnson Laci 2023-06-29 15:34:47 2023-06-29 15:34:47 Outpatient SFA SFA [id number] Brandon F Laci 2023-06-18 07:47:00 2023-06-22 16:15:00 Inpatient KAYLEN Mona Yip [facility] [id number] 73 [facility] 2022-10-24 15:07:16 2022-10-24 15:07:16 Outpatient SFA SFA [id number] Brandon F Laci 2022-04-07 15:20:52 2022-04-07 15:20:52 Outpatient SFA SFA [...] result is a direct measurement.========= BASIC METABOLIC [id number] 06:33:00* Test Item Value Reference Range Interpretation [...] CA) 8.5 mg/dL 8.5-10.1 N CBC W/AUTO [id number] 05:57:00* Test Item Value Reference Range Interpretation [...] NRBC#) 0.00 K/mm3 0.0-0.1 N AB THYROID [id number] 04:08:00* Test Item Value Reference Range Interpretation Comme nts AB THYROID PEROXIDASE (test code = THYPAB) 196 IU/mL 0-34 A Performed A t: [facility] [address] [place], [place] [id number] Kyle L MD Ph:[phone] T4 [id number] 16:05:00* Test Item Value Reference Range Interpretation Comme nts T4 FREE (test code = T4F) 0.80 ng/dL 0.76-1.46 N THYROID STIMULATING [id number] 16:05:00* Test Item Value Reference Range Interpretation Comme nts THYROID STIMULATING HORMONE (test code = TSH) 8.023 uIU/mL 0.550-4.780 H - MRI BRAIN W/O [id number] 11:27:00 [facility])Name: MINA HUGHES : 1970 Sex: M FAX: Tarsha Jackson MD [phone] [place]: B St: ADM Name: MINA HUGHES [facility] : 1970 Age/S: 53/M [address] [facility] Unit #: [id number] Loc: [address] [place] [address] Phys: Tarsha Jackson MD Acct: [id number] Dis Date: Status: ADM IN PHONE #: [phone] Exam Date: 06/19/2023 1105 FAX #: [phone] Reason: RULE OUT CVA EXAMS: CPT CODE: [id number] MRI BRAIN W/O CONTRAST 02846 REASON FOR EXAM: RULE OUT CVA Exam Order Date: 06/19/2023 9:55 AM Ordering: Tarsha Jackson MD Attending:Tarsha Jackson MD [facility] Procedure: - MRI BRAIN W/O CONTRAST Comparison: [...] By: [email or web address] Orig Print D/T: S: 06/19/2023 (1134) PAGE 1 Signed ReportBASIC METABOLIC [id number] 10:18:00* Test Item Value Reference Range Interpretation [...] CA) 8.6 mg/dL 8.5-10.1 N THYROID PROFILE [id number] 07:48:00* Test Item Value Reference Range Interpretation Comme nts T3 UPTAKE (test code = T3UP) 35.0 % 30.0-40.0 N T4 (THYROXINE) (test code = T4) 4.4 ug/dL 4.5-13.9 L T7 (FREE THYROXINE INDEX) (t est code = T7) 1.54 FTI 1.3-5.1 N THYROID STIMULATING HORMONE (test code = TSH) 18.593 uIU/mL 0.550-4.780 H - CTA HEAD STROKE VIZ [id number] 07:06:00 [facility])Name: MINA HUGHES : 1970 Sex: M Name: MINA HUGHES [facility] : 1970 Age/S: 53 / M [address] Unit #: [id number] Loc: [place] [address] Phys: Margaret Rahman MD Acct: [id number] Dis Date: Status: REG ER PHONE #: [phone] Exam Date: 06/18/2023 06 FAX #: [phone] Reason: paresthesia EXAMS: CPT CODE: [id number] [place] [address] LOCATION: H48 HISTORY: Male, 53 years of age with paresthesia EXAM: CT ANGIOGRAPHY OF THE NECK AND KNIK OF CHERY COMPARISON: CT brain without contrast [...] technique. STATEMENT: Exam quality is acceptable. FINDINGS: [place] of the aortic arch is unremarkable. No [...] the CCA, bulb, ICA, or ECA. Extracranial Leftcarotid system: No significant plaquing, stenosis, thrombosis or dissection in the CCA, bulb, ICA, or ECA. Intracranial arterial circulation: No large vessel occlusion, critical stenosis or aneurysm.No AVM is seen. Dural veins enhance appropriately. Other: Images through the lung apices show mild diffuse interstitial opacities. Thyroid is unremarkable. IMPRESSION: 1. Unremarkable CTA of neck andCircle of [place]. Extracranially there is no significant carotid or vertebral artery stenosis. Intracranially no critical stenosis, large vessel occlusion, or aneurysm. 2. Interstitial opacities in the lung apices. Edema versus pneumonia. PAGE 1 Signed Report (CONTINUED) Name: [facility] 1970 Age/S: 53 / M [address] Unit #: [id number] Loc: [place] [address]Ghst: Margaret Rahman MD Acct: [id number] Dis Date: Status: REG ER PHONE #: [phone] Exam Date: 06/18/2023639 FAX #: [phone] Reason: paresthesia EXAMS: CPT CODE: [id number] [place] [address] (Continued) NOTE: Stenosis if present was derived by comparing the narrowest segment with the distal luminal diameter as related to the reported measure of arterial narrowing (criteria similar to NASCET). at 0706 Reported and signed by: Rosy Ragland MD CC: Margaret Rahman MD Technologist:Christopher Leonard CTDI: DLP: Trnscb Date/Time: 06/18/2023 (705) tWALE Orig Print D/T: S: 06/18/2023 (708) PAGE 2 Signed Report- CTA NECK STROKE VIZ [id number] 07:06:00 [facility]Name: MINA HUGHES : 1970 Sex: M Name: MINA HUGHES [facility] : 1970 Age/S: 53 / M [address] [facility] Unit #: [id number] Loc: [place] [address] Phys: Margaret Rahman MD Acct: [id number] Dis Date: Status:REG ER PHONE #: [phone] Exam Date: 06/18/2023639 FAX #: [phone] Reason: paresthesia EXAMS: CPT CODE: [id number] [place] [address] LOCATION: H48 HISTORY: Male, 53 years of age with paresthesia EXAM: CT ANGIOGRAPHY OF THE NECK AND KNIK OF CHERY COMPARISON: CT brain without contrast [...] technique. STATEMENT: Exam quality is acceptable. FINDINGS: [place] of the aortic arch is unremarkable. No [...] thrombosis or dissection in the CCA, bulb, ICA,or ECA. Intracranial arterial circulation: No large vessel occlusion, critical stenosis or aneurysm. No AVM is seen. Dural veins enhance appropriately. Other: Images through the lung apices show milddiffuse interstitial opacities. Thyroid is unremarkable. IMPRESSION: 1. Unremarkable CTA of neck and [place] of [place]. Extracranially there is no significant carotid or vertebral artery stenosis. Int racranially no critical stenosis, large vessel occlusion, or aneurysm. 2. Interstitial opacities inthe lung apices. Edema versus pneumonia. PAGE 1 Signed Report (CONTINUED) Name: MINA HUGHES [facility] : 1970 Age/S: 53 / M [address] [facility] Unit #: [id number] Loc: [place] [address] Phys: Margaret Rahman MD Acct: [id number] Dis Date: Status: REG ER PHONE #: [phone] Exam Date: 06/18/2023 0640 FAX #: [phone] Reason: paresthesia EXAMS: CPT CODE: [id number] [place] [address] (Continued) NOTE: Stenosis if present was derived by comparing the narrowest segment with the distal luminal diameter as related to the reported measure of arterial narrowing (criteria similar to NASCET). at 0706 Reported and signed by: Rosy Ragland MD CC: Margaret Rahman MD Technologist:Christopher Leonard CTDI: DLP: Trnscb Date/Time: 06/18/2023 (705) ShannenW Orig Print D/T: S: 06/18/2023 (708) PAGE 2 Signed Report- XR CHEST 1 [id number] 06:59:00 [facility])Name: KEY HUGHESNarcisa : 1970 Sex: M FAX: Margaret Rahman MD [phone] [place]: B St: REG Name: CAYLA HUGHESDANIELE [facility] : 1970 [facility]S: 53[facility] [id number] Loc: [place] [address] Phys: Margaret Rahman MD Acct: [id number] Dis Date: Status: REG ER PHONE #: [phone] Exam Date: 06/18/2023634 FAX #: [phone] Reason: CODE STROKE EXAMS: CPT CODE: [id number] XR CHEST 1 V 65878 LOCATION: H48 HISTORY: Male, 53 years of age with CODE STROKE, right tightness and tingling EXAM: CHEST X-RAY, ONE VIEW COMPARISON: None at this time. COMMENT: Frontal view of the chest is provided. There is mild perihilar interstitial prominence bilaterally. No focal consolidation, mass lesion, or effusion. Cardiacsilhouette is within normal limits. No acute bony abnormalities. IMPRESSION: Mild perihilar interstitial opacities. Edema versus pneumonia. at 0659 Reported and signed by: Rosy Ragland MD CC: Margaret Rahman MD Technologist: Kulwinder Mccromack RT(R); MARCELLE BRYSON RT(R) Trnscrd Date/Time/By: 06/18/2023 (0659) : By: Estrellita Orig Print D/T: S: 06/18/2023 (0702) PAGE 1 Signed ReportBASIC METABOLIC [id number] 06:52:00* Test Item Value Reference Range Interpretation [...] code = CA) 8.7 mg/dL 8.5-10.1 N [id number] 06:52:00* Test Item Value Reference Range Interpretation [...] the URL. These results were obtained using [employer] IM TnIHreagent. Results from different methodologies should not becompared to one another as quantitative results and URLs mayvary by method. NOTE: A Positive Bias may occur for patients taking Biotin Supplements.NOTE: Current test methodology (pg/mL) units differ from prior test methodology (ng/mL) by a factor of 1000. - CT HEAD/BRAIN W/O [id number] 06:47:00 [facility]Name: MINA HUGHES : 1970 Sex: M Name: KEY HUGHESNarcisa [facility] : 1970 Age/S: 53 / M [address] Unit #: [id number] Loc: [place] [address] Phys: Margaret Rahman MD Acct: [id number] Dis Date: Status:REG ER PHONE #: [phone] Exam Date: 06/18/2023639 FAX #: [phone] Reason: paresthesia EXAMS: CPT CODE: [id number] CT HEAD/BRAIN W/O CONT 91396 EXAM: - CT HEAD/BRAIN W/O CONT LOCATION: [...] fracture. Sinuses: The visualized paranasal sinuses and mastoidair cells are clear. Soft Tissues: Unremarkable. Other: None. IMPRESSION: 1. No CT evidence of acute intracranial abnormality. Findings were communicated to Margaret Rahman MD by telephone on 06/18/2023 6:46 AM. PAGE 1 Signed Report (CONTINUED) Name: MINA HUGHES [facility] : 1970 [facility]S: 53 / M [address] [facility]: [id number] Loc: [place] [address] Phys: Margaret Rahman MD Acct: [id number] Dis Date: Status: REG ER PHONE #: [phone] Exam Date: 06/18/2023639 FAX #: [phone] Reason: paresthesia EXAMS: CPT CODE: [id number] CT HEAD/BRAIN W/O CONT 85469 (Continued) at 0647 Reported and signed by: Vince Glez M.D. CC: Margaret Rahman MD Technologist:Christopher Leonard CTDI: DLP: Trnscb Date/Time: 06/18/2023 (0647) [email or web address] Orig Print D/T: S: 06/18/2023 (6708) PAGE 2 Signed ReportPROTHROMBIN [id number] 06:29:00* Test Item Value Reference Range Interpretation [...] (2.5-3.5) IS PATIENT ON ANTICOAGULANTS? NTHROMBOPLASTIN TIME [id number] 06:29:00* Test Item Value Reference Range Interpretation Comme nts THROMBOPLASTIN TIME PARTIAL (test code = PTT) 35.0 seconds 26.6-37.3 N IS PATIENT ON ANTICOAGULANTS? NCBC W/O [id number] 06:22:00* Test Item Value Reference Range Interpretation [...] MPV) 9.5 fL 6.7-11.0 N COMPREHENSIVE METABOLIC [id number] 06:06:17* Test Item Value Reference Range Interpretation Comme nts GLUCOSE (test code = 2217) 178 MG/DL 70-99 H BUN (test code = 2207) 11 MG/DL 6-20 CREATININE (test code = 2214) 0.97 MG/DL 0.80-1.40 eGFR (2020 CKD-EPI) (test code = 11410) 95 ML/MIN/1.73 >60 CALC BUN/CREAT (test code = 2235) 11 RATIO 6-28 SODIUM (test code = 2231) 138 MEQ/L 133-146 POTASSIUM (test code = 2228) 4.1 MEQ/L 3.5-5.4 CHLORIDE (test code = 2215) 101 MEQ/L 95-107 CARBON DIOXIDE (test code = 2206) 27 MEQ/L 19-31 CALCIUM (test code = 2209) 9.2 MG/DL 8.5-10.5 PROTEIN, TOTAL (test code = 222) 7.1 G/DL 6.1-8.3 ALBUMIN (test code = 2201) 4.4 G/DL 3.5-5.2 CALC GLOBULIN (test code = 2240) 2.7 G/DL 1.9-3.7 CALC A/G RATIO (test code = 2234) 1.6 RATIO 1.0-2.6 BILIRUBIN, TOTAL (test code = 2206) 0.2 MG/DL See_Comment [Automated me ssage] The system which generated this result transmitted reference range: <=1.2. The reference range was not used to interpret this result as normal/abnormal. ALKALINE PHOSPHATASE (test code = 2204) 99 U/L 40-121 AST (test code = 2218) 20 U/L 9-50 ALT (test code = 2219) 54 U/L 5-50 H LIPID [id number] 06:06:17* Test Item Value Reference Range Interpretation [...] SPECIMENS. FOR MOREINFORMATION, SEE CLIENT ANNOUNCEMENT AT [email or web address] RISK RATIO LDL/HDL (test code = 2238) 2.51 RATIO <3.55 ALBUMIN/CREATININE RATIO, URINE, [id number] 04:48:02* Test Item Value Reference Range Interpretation Comme nts CREATININE, URINE, CONC. (test code = 2072) 129.4 MG/DL NOT ESTAB ALBUMIN, URINE, RANDOM (test code = 19283) 0.5 MG/DL NOT ESTAB CALC ALBUMIN/CREAT, RND (test code = 10823) 4 MG/G <30 Note: Albumin/Cr eatinine ratio reference interval reflects ADA and NKF guidelines. UNLESS OTHERWISE INDICATED, ALL TESTING PERFORMED AT [facility] [address] [place] [address] BALANCE ENGINEER: BEAR CORRIGAN M.D. CLIA NUMBER [id number] [facility] [place]. [id number] HEMOGLOBIN [id number] 04:24:16* Test Item Value Reference Range Interpretation Comme nts HEMOGLOBIN A1c (test code = 78504) 7.6 % 4.2-5.6 H [employer] GUIDELINES FOR HGB A1C: [...] CONSULTATION. RPR REFLEX TO T. PALLIDUM - [id number] 03:31:10* Test Item Value Reference Range Interpretation Comme nts RPR (test code = 99802) NON-REACTIVE NON-REACTIVE RPR TITER (test code = 3500) NOT INDIC. TITER NOT INDIC. FOLIC [id number] 03:27:47* Test Item Value Reference Range Interpretation Comme [facility] FOLIC ACID (test code = 2695) [...] . . . . UG/L >=6.0 VITAMIN [id number] 03:27:47* Test Item Value Reference Range Interpretation Comme [facility] VITAMIN B-12 (test code = 2840) 289 PG/ML 200-950 CBC W/AUTO DIFF WITH [id number] 02:32:06* Test Item Value Reference Range Interpretation Comme [facility] WBC (test code = 1001) 9.0 [...] = 1065) 0.0 /100 WBC'S See_Comment [Automated [employer] ge] The system which generated this result [...] 0.00-0.10 ABS NUCLEATED RBCS (test code = 65002) 0.00 K/UL 0.00-0.11 VITAMIN D, 25 [id number] 06:37:05* Test Item Value Reference Range Interpretation [...] 30-100 UNLESS OTHERWISE INDICATED, ALL [facility]ING [facility]MED [facility] [address] [place] [address] BALANCE ENGINEER: RENETTA VILLALTA M.D. CLIA NUMBER [id number] [facility] [place]. [id number] TSH, THIRD [id number] 06:20:20* Test Item Value Reference Range Interpretation Comme nts TSH, THIRD GENERATION (test code = 2821) 7.910 UIU/ML 0.400-4.100 H COMPREHENSIVE METABOLIC [id number] 05:16:23* Test Item Value Reference Range Interpretation Comme nts GLUCOSE (test code = 7) 153 MG/DL 70-99 H BUN (test code = 2207) 14 MG/DL 6-20 CREATININE (test code = 2214) 0.95 MG/DL 0.80-1.40 eGFR (2020 CKD-EPI) (test code = 54230) 98 ML/MIN/1.73 >60 CALC BUN/CREAT (test code = 2235) 15 RATIO 6-28 SODIUM (test code = 223) 141 MEQ/L 133-146 POTASSIUM (test code = 2228) 3.8 MEQ/L 3.5-5.4 CHLORIDE (test code = 5) 102 MEQ/L 95-107 CARBON DIOXIDE (test code = 2206) 27 MEQ/L 19-31 CALCIUM (test code = 2209) 9.1 MG/DL 8.5-10.5 PROTEIN, TOTAL (test code = 222) 7.2 G/DL 6.1-8.3 ALBUMIN (test code = 2201) 4.5 G/DL 3.5-5.2 CALC GLOBULIN (test code = 2240) 2.7 G/DL 1.9-3.7 CALC A/G RATIO (test code = 223) 1.7 RATIO 1.0-2.6 BILIRUBIN, TOTAL (test code = 220) 0.3 MG/DL See_Comment [Automated me ssage] The system which generated this result transmitted reference range: <=1.2. The reference range was not used to interpret this result as normal/abnormal. ALKALINE PHOSPHATASE (test code = 2204) 89 U/L 40-118 AST (test code = 2218) 28 U/L 9-50 ALT (test code = 2219) 45 U/L 5-50 LIPID [id number] 05:16:23* Test Item Value Reference Range Interpretation Comme nts CHOLESTEROL (test code = 2210) 177 MG/DL <200 TRIGLYCERIDES (test code = 2232) 162 MG/DL <150 H HDL CHOLESTEROL (test code = 2220) 44 MG/DL >39 CALC LDL CHOL (test code = 2237) 105 MG/DL <100 H NOTE: CALCULATED LDL IS BASED ON TOD-BULL METHOD WHICHINCLUDES ADJUSTABLE TRIGLYCERIDE:VLDL CHOLESTEROL RATIO.THIS FACTOR VARIES BY MEASURED TRIGLYCERIDE AND NON-HDLCHOLESTEROL CONCENTRATIONS WITH INCREASED CALCULATED LDL SEENIN HIGHER TRIGLYCERIDE OR LOWER NON-HDL SPECIMENS. FOR MOREINFORMATION, SEE CLIENT ANNOUNCEMENT AT [email or web address] RISK RATIO LDL/HDL (test code = 2238) 2.39 RATIO <3.55 ALBUMIN/CREATININE RATIO, URINE, [id number] 04:08:03* Test Item Value Reference Range Interpretation Comme nts CREATININE, URINE, RANDOM (test code = 2072) 172.9 MG/DL NOT ESTAB ALBUMIN, URINE, RANDOM (test code = 53739) 1.0 MG/DL NOT ESTAB CALC ALBUMIN/CREAT, RND (test code = 20251) 6 MG/G <30 Note: Albumin/Creatinine ratio reference interval reflects ADA and NKF guidelines. HEMOGLOBIN [id number] 03:38:25* Test Item Value Reference Range Interpretation Comme nts HEMOGLOBIN A1c (test code = 46889) 6.8 % 4.2-5.6 H [employer] GUIDELINES FOR HGB A1C: [...] due to insurance. Angelina Mendiola MA II [facility] 2023-06-22 13:55:00 [facility] ([facility]) Brief Discharge Note w/Med Rec REPORT#:[id number] REPORT STATUS: Signed REPORT INITIALIZATION DATE:06/22/23 TIME: 135 PATIENT: MINA HUGHES UNIT #: [id number] ROOM/BED: 2049-A : 71 AGE: 53 SEX: M ATTEND: [...] painless range of motion, no CVA tenderness Neuro/MEASUREMENT SUPERVISOR: alert, oriented X 3, CNII-XII intact Skin: [...] condition on discharge: improved Additional Discharge Routines: Multi Site Leasing Consultant Follow-Up Diet: Cardiac Activity: As Tolerated Time spent: Time spent on patient care (minutes): 64 Follow-up Appointments Consulting provider 1: Provider 1: Theresa Basilio MD at 1409 RPT #:[id number] END OF REPORT [facility] 2023-06-22 13:34:00 [facility] ([facility]) Endocrinology Progress Note REPORT#:[id number] REPORT STATUS: Signed REPORT INITIALIZATION DATE:06/22/23 TIME: 1333 PATIENT: MINA HUGHES UNIT #: [id number] ROOM/BED: [address] : 71 AGE: 53 SEX: M [...] % (Auto) (25.0 - 55.0 %) 34.1 Petroleum % (Auto) (0.0 - 10.0 %) 8.9 Eos % (Auto) (0.0 - 5.0 %) 5.3 H Baso % (Auto) (0.0 - 1.0 %) 0.7 Neut # (Auto) (1.8 - 7.7 K/mm3) 4.21 Lymph # (Auto) (1.0 - 5.0 K/mm3) 2.84 Petroleum # (Auto) (0 - 0.8 K/mm3) 0.74 [...] left thalamus. Impression By: GamaDKNica - Herman K. Hu M.D. 1. Hypothyroidism, noncompliance with taking medications. 2. Right-sided paresthesias rule out CVA 3. Hypertension TSH 18.5 and T4 4.4. Adjust Synthyroid dose. As per neuro. at 1334 RPT #:[id number] END OF REPORT [facility] 2023-06-22 10:53:00 [facility] ([facility]) Cardiology Progress Note REPORT#:[id number] REPORT STATUS: Signed REPORT INITIALIZATION DATE:06/22/23 TIME: 1053 PATIENT: MINA HUGHES UNIT #: [id number] ROOM/BED: : 71 AGE: 53 SEX: M [...] dysfunction EF 55 to 60% and no WEB SYSTEMS DEVELOPER shunt. Discussed with patient medication compliance, aggressive [...] Plan Consultants: cardiology, neurology at 1151 at 4222 RPT #:[id number] END OF REPORT [facility] 2023-06-21 14:14:00 [facility] Endocrinology Progress Note REPORT#:[id number] REPORT STATUS: Signed REPORT INITIALIZATION DATE:06/21/23 TIME: 1414 PATIENT: MINA HUGHES UNIT #: [id number] ROOM/BED: [address] : 71 AGE: 53 SEX: M [...] % (Auto) (25.0 - 55.0 %) 34.1 Petroleum % (Auto) (0.0 - 10.0 %) 8.9 Eos % (Auto) (0.0 - 5.0 %) 5.3 H Baso % (Auto) (0.0 - 1.0 %) 0.7 Neut # (Auto) (1.8 - 7.7 K/mm3) 4.21 Lymph # (Auto) (1.0 - 5.0 K/mm3) 2.84 Petroleum # (Auto) (0 - 0.8 K/mm3) 0.74 [...] dose. As per neuro. at 1414 RPT #:[id number] END OF REPORT [facility] 2023-06-21 12:31:00 [facility] ([facility]) Cardiology Consultation REPORT#:[id number] REPORT STATUS: Signed REPORT INITIALIZATION DATE:06/21/23 TIME: 123 PATIENT: MINA HUGHES UNIT #: [id number] ROOM/BED: 9-A : 71 AGE: 53 SEX: M ATTEND: [...] dysfunction EF 55 to 60% and no WEB SYSTEMS DEVELOPER shunt. Discussed with patient medication compliance, aggressive [...] 06/20 0714 59 16 146/83 104.1 95 / 0356 98.2 56 18 143/86 105.3 99 [...] cardiology, neurology at 1456 at 0848 RPT #:[id number] END OF REPORT [facility] 2023-06-21 12:12:00 [id number] [facility] PATIENT NAME: MINA HUGHES ADMIT DATE: 06/18/23 ACCOUNT NO: [id number] ROOM NO: AGE: 53 REPORT TYPE: eEKG REPORT SEX: M DATE OF : 72 ADMITTING PHYSICIAN:Mona Yip MD ATTENDING PHYSICIAN:Mona Yip MD Order: [id number] Test Reason : CVA ?paroxsimal a fib [...] By: Tarsha Jackson Confirmed by:Theresa Basilio at 0176 PATIENT NAME: MINA HUGHES [facility] 2023-06-21 11:41:00 [facility] ([facility]) Hospitalist Progress Note REPORT#:[id number] REPORT STATUS: Signed REPORT INITIALIZATION DATE:06/21/23 TIME: 1141 PATIENT: MINA HUGHES UNIT #: [id number] ROOM/BED: : 71 AGE: 53 SEX: M [...] 98.2 55 18 138/75 95.7 99 06/19 2004 98.4 61 18 135/85 101.5 98 06/19 [...] painless range of motion, no CVA tenderness Neuro/MEASUREMENT SUPERVISOR: alert, oriented X 3, CNII-XII intact Skin: [...] Patient was on telemetry ruled out for CT. Had echo that showed no septal defect. [...] 5) DVT prophylaxis-use pneumatic compression device [facility] Prophylaxis VTE prophylaxis initiated: yes Current Medications Current medication review: I attest that the foregoing medication list in the medical record is true, accurate, and complete to the best of my knowledge. BMI Screening > 25 or < 18.5 BMI status/follow-up: nml BMI,no vocational rehabilitation counselor needed at 1200 RPT #:[id number] END OF REPORT [facility] 2023-06-21 08:41:00 [facility] ([facility] Neurology Progress Note REPORT#:[id number] REPORT STATUS: Signed REPORT INITIALIZATION DATE:06/21/23 TIME: 840 PATIENT: MINA HUGHES UNIT #: [id number] ROOM/BED: 9-A : 71 AGE: 53 SEX: M ATTEND: [...] with the Holter monitor at 2237 RPT #:[id number] END OF REPORT [facility] 2023-06-20 21:55:00 [id number] [facility] PATIENT NAME: MINA HUGHES ADMIT DATE: 06/18/23 ACCOUNT NO: [id number] ROOM NO: V.2043 AGE: 53 REPORT TYPE: eECHOCARDIOGRAM REPORT SEX: M DATE OF : 72 ADMITTING PHYSICIAN:Tarsha Jackson MD ATTENDING PHYSICIAN:Tarsha Jackson MD *[facility]* [address] [place], [place] [address] Transthoracic Echocardiogram Patient: Mina Hughes Study Date: 06/20/2023 BP: 151 / 76 URN: [id number] Location: : 1970 Age: 53 Gender: M Height: 70 in / 177.8 cm Weight: 148 lb / 67.1 kg BMI/BSA: 21.2 kg/m 2 / 1.82 m 2 *Ordering Physician: * Tarsha Jackson *Interpreting Physician: * Theresa Nunez MD *Dictating Machine Typist: Dorothea Morrison [facility] Indications: Stroke. Study data: Transthoracic echocardiogram. Procedure: [...] The atrium is mildly dilated. PATIENT NAME: MINA HUGHES Right atrium: The atrium is normal [...] jessie, TDI 7.9 cm/sec >=7.0 E/e', med jessie, TDI 13 --------- E', avg, TDI 10.9 [...] HUGHES at 2155 PATIENT NAME: MINA HUGHES [facility] 2023-06-20 14:23:00 [facility]) Endocrinology Progress Note REPORT#:[id number] REPORT STATUS: Signed REPORT INITIALIZATION DATE:06/20/23 TIME: 1422 PATIENT: MINA HUGHES UNIT #: [id number] ROOM/BED: : 71 AGE: 53 SEX: M ATTEND: Tarsha Jackson MD ADM AUTHOR: Brett Murphy MD REPT SERVICE DT/TIME: 06/20/23 1423 * ALL edits or amendments must be [...] % (Auto) (25.0 - 55.0 %) 34.1 Petroleum % (Auto) (0.0 - 10.0 %) 8.9 Eos % (Auto) (0.0 - 5.0 %) 5.3 H Baso % (Auto) (0.0 - 1.0 %) 0.7 Neut # (Auto) (1.8 - 7.7 K/mm3) 4.21 Lymph # (Auto) (1.0 - 5.0 K/mm3) 2.84 Petroleum # (Auto) (0 - 0.8 K/mm3) 0.74 [...] dose. As per neuro. at 1424 RPT #:[id number] END OF REPORT [facility] 2023-06-20 13:19:00 [facility] Hospitalist Progress Note REPORT#:[id number] REPORT STATUS: Signed REPORT INITIALIZATION DATE:06/20/23 TIME: 1318 PATIENT: MINA HUGHES UNIT #: [id number] ROOM/BED: [address] : 71 AGE: 53 SEX: M [...] painless range of motion, no CVA tenderness Neuro/MEASUREMENT SUPERVISOR: alert, oriented X 3, CNII-XII intact Skin: [...] or < 18.5 BMI status/follow-up: nml BMI,no vocational rehabilitation counselor needed at 1321 RPT #:[id number] END OF REPORT [facility] 2023-06-20 10:25:00 [facility] ([facility] Neurology Progress Note REPORT#:[id number] REPORT STATUS: Signed REPORT INITIALIZATION DATE:06/20/23 TIME: 1025 PATIENT: MINA HUGHES UNIT #: [id number] ROOM/BED: : 71 AGE: 53 SEX: M ATTEND: Tarsha Jackson MD ADM AUTHOR: Sammy Carlisle MD REPT SERVICE DT/TIME: 06/20/23 1025 * ALL edits or amendments must be made on the electronic/computer document * Objective General VS: Last Documented: Result Date Time Pulse Ox 97 06/19 809 B/P 146/81 06/19 809 B/P Mean 103.0 06/19 809 Temp 36.5 06/19 809 Pulse 50 06/19 809 Resp 16 06/19 809 O2 Delivery Room air 06/18 402 PATIENT WEIGHT: Weight (lb): 148 Weight (oz): [...] - 10.1 mg/dL) 8.5 Laboratory Tests 06/19 501 Hematology WBC (4.5 - 12.5 K/mm3) 8.3 [...] % (Auto) (25.0 - 55.0 %) 34.1 Petroleum % (Auto) (0.0 - 10.0 %) 8.9 Eos % (Auto) (0.0 - 5.0 %) 5.3 H Baso % (Auto) (0.0 - 1.0 %) 0.7 Neut # (Auto) (1.8 - 7.7 K/mm3) 4.21 Lymph # (Auto) (1.0 - 5.0 K/mm3) 2.84 Petroleum # (Auto) (0 - 0.8 K/mm3) 0.74 [...] Impression By: [email or web address] - Herman Mccarthy M.D. Results: labs reviewed, [...] Echocardiogram is still outstanding. at 2113 RPT #:[id number] END OF REPORT [facility] 2023-06-19 16:25:00 [facility] ([facility]) Neurology Progress Note REPORT#:[id number] REPORT STATUS: Signed REPORT INITIALIZATION DATE:06/19/23 TIME: 1624 PATIENT: MINA HUGHES UNIT #: [id number] ROOM/BED: : 71 AGE: 53 SEX: M ATTEND: Tarsha Jackson MD ADM AUTHOR: Sammy Carlisle MD REPT SERVICE DT/TIME: 06/19/231624 * ALL edits or amendments must be made on the electronic/computer document * Objective General VS: Last Documented: Result Date Time Pulse Ox 97 06/18 160 B/P 137/79 06/18 1603 B/P Mean 98.2 [...] his right hand . at 2207 RPT #:[id number] END OF REPORT [facility] 2023-06-19 15:17:00 [facility] ([facility]) Endocrinology Progress Note REPORT#:[id number] REPORT STATUS: Signed REPORT INITIALIZATION DATE:06/19/23 TIME: 1516 PATIENT: MINA HUGHES UNIT #: [id number] ROOM/BED: [address] : 71 AGE: 53 SEX: M ATTEND: Tarsha Jackson MD ADM AUTHOR: Brett Murphy MD REPT SERVICE DT/TIME: 06/19/23 151 * ALL edits or amendments must be [...] Hospital course to date: Laboratory Tests: 06/18 0930 Chemistry Sodium (136 [...] T4 4.4. Adjust Synthyroid dose. at 1518 RPT #:[id number] END OF REPORT [facility] 2023-06-19 15:17:00 [id number] [facility] PATIENT NAME: MINA HUGHES ADMIT DATE: 06/18/23 ACCOUNT NO: [id number] ROOM NO: V.2049 AGE: 53 REPORT TYPE: CONSULTATION REPORT SEX: [...] Dictated: 06/19/2023 15:17:21 Date Transcribed: 06/19/2023 17:48:43 MIRA/KYUNG/MARK PATIENT NAME: MINA HUGHES Receipt ID: [id number] Authenticated by Jasmyn Murphy MD On 07/14/2023 01:49:20 PM at 0149 PATIENT NAME: CAYLA HUGHESABELNarcisa [facility] 2023-06-19 09:25:00 [facility] ([facility]) Hospitalist Progress Note REPORT#:[id number] REPORT STATUS: Signed REPORT INITIALIZATION DATE:06/19/23 TIME: 924 PATIENT: MINA HUGHES UNIT #: [id number] ROOM/BED: 2042A : 71 AGE: 53 SEX: M ATTEND: [...] Flow FiO2 Mean Ox Delivery Rate 06/18 752 98.1 64 14 149/87 107.8 98 06/18 0403 98.2 51 19 129/73 91.4 99 Room air 06/184 97.9 53 17 122/70 87.2 98 Room air 03/10 1954 98.4 64 18 153/81 104.9 98 [...] painless range of motion, no CVA tenderness Neuro/MEASUREMENT SUPERVISOR: alert, oriented X 3, CNII-XII intact Skin: [...] or < 18.5 BMI status/follow-up: nml BMI,no vocational rehabilitation counselor needed at 0927 RPT #:[id number] END OF REPORT [facility] 2023-06-18 11:09:00 [facility] ([facility]) Neurology Consultation Note REPORT#:[id number] REPORT STATUS: Signed REPORT INITIALIZATION DATE:06/18/23 TIME: 110 PATIENT: MINA HUGHES UNIT #: [id number] ROOM/BED: 2043-A : 71 AGE: 53 SEX: M ATTEND: Tarsha Jackson MD ADM AUTHOR: Kamron Barclay MD REPT SERVICE DT/TIME: 06/18/23 110 * ALL edits or amendments must be [...] Ox 98 06/17 113 B/P 132/83 06/17 1133 B/P Mean 99.5 06/17 1133 Temp 36.7 06/17 1133 Pulse 60 06/17 1133 Resp 16 06/17 1133 O2 Delivery Room air 06/17 0647 PATIENT [...] no edema Musculoskeletal: full range of motion Neuro/MEASUREMENT SUPERVISOR: alert, oriented X 4, normal speech, EOMI, PERRL, CN II-XII intact, reflexes equal bilat, normal reflexes, no motor deficits, no cerebellar deficits , normal gait Neuro comment: Decreased pinprick in right hemibody. Results Findings/Data: Laboratory Tests 06/17 0613 Chemistry Sodium (136 - 145 [...] IMPRESSION: 1. Unremarkable CTA of neck and [place]. Extracranially there is no significant [...] IMPRESSION: 1. Unremarkable CTA of neck and [place]. Extracranially there is no significant [...] 624 Report Impression - Status: SIGNED Entered: 06/18/2023650 IMPRESSION: 1. No CT evidence of acute intracranial abnormality. Findings were communicated to Margaret Rahman MD by telephone on 06/18/2023 6:46 AM. Impression By: [email or web address] - Vince Glez M.D. RADIOLOGY - XR CHEST 1 V 06/17 0630 Report Impression - Status: SIGNED Entered: 06/18/2023 0702 IMPRESSION: Mild perihilar interstitial opacities. Edema versus pneumonia. Impression By: [email or web address].ROSEANN - Rosy Raglnad MD Results: labs reviewed, CT results reviewed, [...] you for the consult. at 1344 RPT #:[id number] END OF REPORT [facility] 2023-06-18 10:45:00 [facility] ([facility]) Hospitalist History Physical REPORT#:[id number] REPORT STATUS: Signed REPORT INITIALIZATION DATE:06/18/23 TIME: 1044 PATIENT: MINA HUGHES UNIT #: [id number] ROOM/BED: [address] : 71 AGE: 53 SEX: M [...] painless range of motion, no CVA tenderness Neuro/MEASUREMENT SUPERVISOR: alert, oriented X 3, CNII-XII intact Skin: [...] Current BMI: 21.3 BMI status/follow-up: nml BMI,no vocational rehabilitation counselor needed at 0919 RPT #:[id number] END OF REPORT [facility] 2023-06-18 07:47:00 [facility] ([facility]) EMERGENCY PROVIDER REPORT REPORT#:[id number] REPORT STATUS: Signed DATE:06/18/23 TIME: 0747 PATIENT: MINA HUGHES UNIT #: [id number] ROOM/BED: AGE: 53 SEX: M PCP PHYS: No [...] Documented: Result Date Time Pulse Ox 98 / 0603 B/P 166/110 / 0603 B/P Mean 128 / 0603 O2 Delivery Room air 06/17 0503 Temp 36.5 06/17 0603 Pulse 93 06/17 0603 Resp 16 06/17 0603 Last Documented: Result Date Time Pulse Ox 94 / 0700 B/P 148/91 / 0700 B/P Mean 113 06/17 0700 Pulse 73 06/17 0700 Resp 18 / 0700 O2 Delivery Room air 06/17 0647 Temp 36.7 06/17 0647 Review of Vital Signs Reviewed Focused PE [...] IMPRESSION: 1. Unremarkable CTA of neck and [place]. Extracranially there is no significant [...] IMPRESSION: 1. Unremarkable CTA of neck and [place]. Extracranially there is no significant [...] 624 Report Impression - Status: SIGNED Entered: 06/18/2023650 IMPRESSION: 1. No CT evidence of acute intracranial abnormality. Findings were communicated to Margaret Rahman MD by telephone on 06/18/2023 6:46 AM. Impression By: [email or web address] - Vince Glez M.D. RADIOLOGY - XR CHEST 1 V 06/17 629 Report Impression - Status: SIGNED Entered: 06/18/2023701 IMPRESSION: Mild perihilar interstitial opacities. Edema versus pneumonia. Impression By: Estrellita Ragland MD Lab Imaging Statement Laboratory radiographic [...] Admin Lisinopril 20 MG X1ED STA 06/17 617 DC 06/17 PO 06/17 618 0620 Diagnostic Agents Sig/Baljeet Start time Last Medication Dose Route Stop Time Status Admin Iopamidol 0 .STK-MED ONE 06/17 06 DC 06/17 .ROUTE 0654 Electrolytic, Caloric, And [...] Electrolyte disorder, Encephalitis, Epidural hemorrhage, Facial fracture, Guillain-Oglala syndrome, Head trauma, Hepatic encephalopathy, Hyperglycemia, Hypoglycemia, [...] Temp 36.5 06/17 602 Pulse 93 06/17 0603 Resp 16 06/17 602 Last Documented: Result Date Time Pulse Ox 94 06/17 699 B/P 148/91 06/17 699 B/P Mean 113 06/17 07 Pulse 73 06/17 0700 Resp 18 06/17 07 O2 Delivery Room air 06/17 646 Temp 36.7 06/17 0547 All vital signs available at the time of this entry have been reviewed. Clinical Impression Clinical Impression Primary Impression: Paresthesia of right upper and lower extremity Secondary Impressions: Hypokalemia, Noncompliance with medication regimen Disposition Decision Hospitalize Hosp Physician Name Tarsha Jackson MD Hosp Physician Hospitalist Request Time 747 Request Date 06/18/23 )( Accepts Hospitalization Yes )( Reason for Hospitalization RIGHT SIDED PARESTHESIA )( Accepted Time 747 )( Accepted Date 06/18/23 Call Information will [...] billable procedures excluded from time. at 2035 RPT #:[id number] END OF REPORT [facility] 2023-06-18 06:11:00 [id number] [facility] PATIENT NAME: MINA HUGHES ADMIT DATE: 06/18/23 ACCOUNT NO: [id number] ROOM NO: AGE: 53 REPORT TYPE: eEKG REPORT SEX: M DATE OF : [birth year] ADMITTING PHYSICIAN:Tarsha Jackson MD ATTENDING PHYSICIAN:Tarsha Jackson MD Order: [id number] Test Reason : Test Date/Time Stamp: MonJun [...] Self Referred Confirmed by:THERESA NUNEZ MD at 6261 PATIENT NAME: MINA HUGHES [facility]
--- NOTE | 2024-03-02 18:36 | RAD REPORT ---
EXAM: CT Ct Stroke Brain Wo Cont HISTORY: STROKE ALERT COMPARISON: 12/27/2023 TECHNIQUE: Multiple contiguous axial images were obtained for a CT of the brain without contrast. Sag ittal and coronal reformats were performed. One or more of the following dose reduction techniques were used: Automated exposure control, adjus tment of the mA and kV according to patient size, and iterative reconstruction. Unless otherwise specified, incidental findings do not require dedicated imaging follow-up. FINDINGS: No evidence of hydrocephalus, intracranial hemorrhage, or extra-axial fluid collection. The brain is normal in morphology. Subtle linear hyperdensity along the midline just superior to the corpus callosum, for example as see n on series 203 image 33. The calvarium is intact. The visualized paranasal sinuses and mastoid air cells are essentially clear . IMPRESSION: Sagittal midline linear hyperdensity just above the corpus callosum, may relate to an acute branch AC A thrombus in the appropriate clinical setting. CT angiography for further would be helpful. No other evidence of acute intracranial abnormality. THIS REPORT CONTAINS FINDINGS THAT MAY BE CRITICAL TO PATIENT CARE. The findings were verbally commun icated via telephone to Chris Juárez MD on 03/02/2024 6:29 PM.
[2024-03-02 18:42] LABS: Absolute Basophils 0.1 K/uL (0-0.5); Absolute Eosinophils 0.2 K/uL (0-0.5); Absolute Lymphocytes (CBC) 2.6 K/uL (0.7-4.9); Absolute Monocytes 0.7 K/uL (0.1-1.3); Absolute Neutrophil 5.4 K/uL (1.8-8.0); Basophils % 1.2 % (0-1.3); Eosinophils % 2.8 % (0-4.4); Hemoglobin 15.4 g/dL (13.6-17.9); Lymphocytes % 28.6 % (15.3-44.8); MCH 29.8 pg (27.0-35.0); MCHC 34.2 g/dL (32.0-36.0); MCV 86.9 fL (80-100); MPV 8.4 fL (7.6-11.3); Monocytes % 7.7 % (3.3-12.3); Neutrophils % 59.7 % (41.7-73.7); Platelets 215 thou/uL (152-406); RBC Red Blood Cell Count 5.18 M/uL (4.33-5.43); Red Cell Distribution Width 12.6 % (12.1-15.2)
[2024-03-02 18:49] LABS: PT Prothrombin Time 12.8 SECONDS (9.4-12.5); PTT, Activated Partial Thromb 36.2 SECONDS (24.3-36.9); Protime INR 1.15
--- NOTE | 2024-03-02 19:00 | RAD REPORT ---
EXAMINATION: CTA HEAD CLINICAL INDICATION: Male, 54 years old. STROKE ALERT TECHNIQUE: Axial CT images were obtained through the head after intravenous contrast utilizing angiog raphic protocol with 3D post-processing (maximum intensity projection images, volume rendered images and/or shaded surface rendered images). One or more of the following dose reduction technique s were used: Automated exposure control, adjustment of the mA and/or kV according to patient size, and/or iterative reconstruction. Unless otherwise specified, incidental findings do not require dedic ated imaging follow-up. COMPARISON: No prior exam. FINDINGS: Venous contamination somewhat limits evaluation. ICA: The petrous, cavernous, and supraclinoid segments of the bilateral internal carotid arteries are normal. LAURA: Anterior cerebral arteries are normal bilaterally. The anterior communicating artery is patent. MCA: Middle cerebral arteries are normal bilaterally. ELEMENTARY SCHOOL READING TEACHER: Posterior cerebral arteries are normal bilaterally. Vertebrobasilar: The vertebral arteries are patent. The basilar artery is normal in appearance. 3D images confirm these findings. IMPRESSION: Normal head CTA. No evidence of large vessel occlusion or hemodynamically significant stenosis.
[2024-03-02 19:01] LABS: Anion Gap 8.9 mEq/L (5.0-15.0); Potassium 3.9 mEq/L (3.5-5.1); Troponin High Sensitivity 8.8 pg/mL (<58.9)
--- NOTE | 2024-03-02 19:02 | RAD REPORT ---
EXAMINATION: CT Neck Angio CLINICAL INDICATION: Male, 54 years old. [facility] MAIN code stroke Bed Name: 5 TECHNIQUE: Axial CT images were obtained from the aortic arch to the skull base after intravenous con trast utilizing angiographic protocol. Multiplanar reformats, as well as 3D post-processing (maximum intensity projection images, volume rendered images and/or shaded surface rendered images) w ere generated and reviewed. One or more of the following dose reduction techniques were used: Automated exposure control, adjustment of the mA and/or kV according to patient size, and/or iterativ e reconstruction. Unless otherwise specified, incidental findings do not require dedicated imaging follow-up. COMPARISON: No prior exam. FINDINGS: AORTA: The imaged aortic arch is normal. Normal three-vessel configuration of the arch. CCA: No artifact The common carotid arteries are patent and normal in caliber. ICA/ECA: Bilateral internal and external carotid arteries are patent. There is no significant interna l carotid artery stenosis. VERTEBRAL: The cervical vertebral arteries are patent to the skull base. Vertebral arteries are codom inant. SOFT TISSUE: No significant neck soft tissue abnormalities. Reticular opacities with interlobular sep federica thickening in the included upper lungs. 3D images confirm these findings. IMPRESSION: No significant flow abnormality of the neck vessels is identified. Reticular opacities or interlobular thickening in the included upper lungs, may relate to nonspecific interstitial edema or atypical pneumonitis. NASCET criteria used to quantify ICA stenosis, with the following grading scheme: Mild 0-49% stenosis Moderate 50-69% stenosis Severe 70-99% stenosis Reference: [place] Symptomatic Carotid Endarterectomy Trial Collaborators; Noel TAVARES, Laisha DW, Madeline RB, et al. Beneficial effect of carotid endarterectomy in symptomatic patients with high-grade carotid stenosis. N Engl J Med. 1990Nov 22;325(7):445-53.
--- NOTE | 2024-03-02 19:03 | RAD REPORT ---
EXAMINATION: ONE VIEW CHEST XR CLINICAL INDICATION: Male, 54 years old.,stroke TECHNIQUE: Frontal chest projection is submitted. Examination is limited by patient positioning and t echnique. COMPARISON: 12/27/2023 FINDINGS: The lungs are hypoinflated but clear, apart from left central interstitial coarsening, which may refl ect chronic interstitial changes or mild edema. No pneumothorax or sizable effusion. The heart is normal in size. Mediastinal contours are unremarkable. IMPRESSION: No acute intrathoracic abnormalities. Stable findings as above.
[2024-03-02] MEDS ORDERED: ONDANSETRON 4 MG/2 ML VIAL ONE (19:09)
[2024-03-02] MEDS ORDERED: ASPIRIN 81 MG CHEWABLE TABLET ONE (20:06)
[2024-03-02] MEDS ORDERED: ONDANSETRON 4 MG/2 ML VIAL IV PRN (20:25)
--- NOTE | 2024-03-02 20:38 | EDPHYS ---
Physician Documentation [facility] Name: Mireya Knight Jr Age: 54 yrs Sex: Male : 1970 Arrival Date: 03/02/2024 Time: 18:08 Bed 5 Private MD: ED Physician Kilo Suggs HPI: 03/02 21:13 This 54 yrs old Male presents to ER via Wheelchair with complaints of Numbness rt Of Hand, S/S of Possible Stroke. 21:13 Patient with previous CVA earlier this year with residual right-sided deficits presents rt to the ED with a left-sided numbness, weakness starting 30 minutes prior to arrival. Patient reports significant improvement of symptoms since then. Denies other acute complaints at this time, symptoms are moderate in severity, no other aggravating or alleviating factors.. Historical: - Allergies: 18:41 No Known Allergies; iw - Home Meds: 18:55 losartan 100 mg oral tablet daily [Active]; aspirin 81 mg Oral capsule daily [Active]; iw glipizide 5 mg Oral tablet 2 times per day [Active]; clopidogrel 75 mg oral tablet daily [Active]; gabapentin 100 mg oral capsule 2 times per day [Active]; atorvastatin 40 mg oral tablet every evening [Active]; - PMHx: 18:41 Hypertension; Hypothyroidism; ischemic stroke (June 17); Diabetes mellitus; iw 18:27 RIght sided numbness from previous CVA; aa5 - Immunization history:: Adult Immunizations up to date. - Infectious Disease History:: Denies. - Social history:: Smoking status: Patient denies any tobacco usage or history of. - Family history:: not pertinent. ROS: 21:13 Constitutional: Negative for fever, chills, and weight loss, Cardiovascular: Negative rt for chest pain, palpitations, and edema, Respiratory: Negative for shortness of breath, cough, wheezing, and pleuritic chest pain, Abdomen/GI: Negative for abdominal pain, nausea, vomiting, diarrhea, and constipation, MS/Extremity: Negative for injury and deformity, Skin: Negative for injury, rash, and discoloration, 21:13 Neuro: Positive for numbness, weakness, Exam: 21:13 Constitutional: This is a well developed, well nourished patient who is awake, alert, rt and in no acute distress. Head/Face: Normocephalic, atraumatic. Chest/axilla: Normal chest wall appearance and motion. Nontender with no deformity. No lesions are appreciated. Cardiovascular: Regular rate and rhythm with a normal S1 and S2. No gallops, murmurs, or rubs. Normal PMI, no JVD. No pulse deficits. Respiratory: Lungs have equal breath sounds bilaterally, clear to auscultation and percussion. No rales, rhonchi or wheezes noted. No increased work of breathing, no retractions or nasal flaring. Abdomen/GI: Soft, non-tender, with normal bowel sounds. No distension or tympany. No guarding or rebound. No evidence of tenderness throughout. Skin: Warm, dry with normal turgor. Normal color with no rashes, no lesions, and no evidence of cellulitis. MS/ Extremity: Pulses equal, no cyanosis. Neurovascular intact. Full, normal range of motion. 21:13 Neuro: Sensory deficits on the right side of the face, cranial nerves II through XII otherwise intact, speech normal, sensory deficits on the right arm, right leg, strength 5/5 on all 4 extremities., Vital Signs: 18:14 BP 143 / 100; Pulse 88; Resp 16; Pulse Ox 95% on R/A; iw 19:00 BP 147 / 98; Pulse 72; Resp 13; Temp 97.8; Pulse Ox 99% on R/A; al5 19:30 BP 130 / 87; Pulse 62; Resp 21; Pulse Ox 99% on R/A; al5 20:09 BP 145 / 95; Pulse 62; Resp 15; Pulse Ox 98% on R/A; al5 20:30 BP 142 / 93; Pulse 62; Resp 17; Pulse Ox 97% on R/A; al5 21:00 BP 133 / 77; Pulse 57; Resp 15; Pulse Ox 97% ; al5 21:30 BP 137 / 84; Pulse 59; Resp 19; Pulse Ox 96% on R/A; al5 NIH Stroke Scale Scores: 18:27 NIHSS Score: 1 aa5 MDM: 19:02 Medical Screening Exam initiated rt 21:21 Differential diagnosis: CVA, TIA, LVO. Data reviewed: vital signs, nurses notes, rt radiologic studies. Consideration of Admission/Observation Patient was admitted/placed on observation. Management of patient was discussed with the following: Hospitalist: Agrees to admit. I considered the following discharge prescriptions or medication management in the emergency department Medications were administered in the Emergency Department. See MAR. Independent interpretation of the following test(s) in the Emergency Department CT Scan: My interpretation is No intracranial hemorrhage syndrome interpretation of CT scan images. Care significantly affected by the following chronic conditions: Diabetes. Counseling: I had a detailed discussion with the patient and/or guardian regarding the historical points, exam findings, and any diagnostic results supporting the discharge/admit diagnosis, lab results, radiology results, the need for further work-up and treatment in the hospital. Response to treatment: the patient's symptoms have markedly improved after treatment. ED course: Patient arrived within the window of getting thrombolytics, I discussed risks and benefits at length with the patient. States that as the symptoms are significantly improving, states that he does not wish to have thrombolytics be administered. Throughout his stay, the patient had return to baseline neurologic status, CT angiogram negative for large vessel occlusion, will admit for further care. Patient did take 81 mg of aspirin just prior to arrival, will give 243 mg to get him up to the full dose of aspirin.. 03/02 18:14 Order name: Basic Metabolic Panel; Complete Time: 19:10 [facility] 03/02 18:14 Order name: CBC with Diff; Complete Time: 19:10 [facility] 03/02 18:14 Order name: High Sensitivity Troponin; Complete Time: 19:10 [facility] 03/02 18:14 Order name: Protime (+inr); Complete Time: 19:10 [facility] 03/02 18:14 Order name: Ptt, Activated; Complete Time: 19:10 [facility] 03/02 18:46 Order name: Glucose, Ancillary Testing; Complete Time: 19:10 [facility] 03/02 20:29 Order name: Anti-Thrombin III Activity [facility] 03/02 20:29 Order name: C-ANCA Anti-Proteinase 3 [facility] 03/02 20:30 Order name: Cardiolipin Antibodies G,M [facility] 03/02 20:30 Order name: Factor V Leiden Mutation [facility] 03/02 20:30 Order name: Homocysteine [facility] 03/02 20:30 Order name: Magnesium [facility] 03/02 20:30 Order name: Miscellaneous Test Lab [facility] 03/02 20:30 Order name: P-ANCA Anti-Myeloperoxidase Ab [facility] 03/02 20:30 Order name: Phosphorus [facility] 03/02 20:30 Order name: Protein C Antigen [facility] 03/02 20:30 Order name: Protein Electo w/M Sachin Serum [facility] 03/02 20:30 Order name: Protein S (Total [facility] 03/02 20:30 Order name: PROTHROMBIN GENE ANALYSIS (F2) [facility] 03/02 20:30 Order name: RPR [facility] 03/02 20:30 Order name: Vitamin B12 Level [facility] 03/02 20:30 Order name: Vitamin D, 25 ([place]), TOTAL [facility] 03/02 20:30 Order name: Basic Metabolic Panel [facility] 03/02 20:30 Order name: Basic Metabolic Panel [facility] 03/02 20:30 Order name: CBC with Automated Diff [facility] 03/02 20:30 Order name: CBC with Automated Diff [facility] 03/02 20:30 Order name: Lipid Profile [facility] 03/02 20:30 Order name: Lipid Profile [facility] 03/02 20:31 Order name: Hemoglobin A1c [facility] 03/02 18:14 Order name: CT Stroke Brain w/o Contrast; Complete Time: 19:10 [facility] 03/02 18:14 Order name: Stroke CXR 1 View; Complete Time: 19:10 [facility] 03/02 18:34 Order name: CT Head Angio; Complete Time: 19:10 [facility] 03/02 18:34 Order name: CT Neck Angio; Complete Time: 19:10 [facility] 03/02 20:29 Order name: Echo with Doppler [facility] 03/02 20:30 Order name: Stroke Protocol [facility] 03/02 18:14 Order name: EKG; Complete Time: 18:15 [facility] 03/02 20:29 Order name: Physical Therapy Consult [facility] 03/02 20:29 Order name: Speech Therapy Consult [facility] 03/02 18:14 Order name: Accucheck; Complete Time: 18:41 [facility] 03/02 18:14 Order name: Cardiac monitoring; Complete Time: 18:41 [facility] 03/02 18:14 Order name: EKG - Nurse/Tech; Complete Time: 18:41 [facility] 03/02 18:14 Order name: IV Saline Lock; Complete Time: 18:41 [facility] 03/02 18:14 Order name: Labs collected and sent; Complete Time: 18:41 [facility] 03/02 18:14 Order name: NPO; Complete Time: 18:41 [facility] 03/02 18:14 Order name: O2 Per Protocol; Complete Time: 18:41 [facility] 03/02 18:14 Order name: O2 Sat Monitoring; Complete Time: 18:41 bo1 03/02 18:14 Order name: Stroke Swallow Screen; Complete Time: 20:10 bo1 Administered Medications: 19:38 Drug: Ondansetron IVP 4 mg IVP once; over 2 minutes Route: IVP; Site: right antecubital;al5 20:10 Follow up: Response: No adverse reaction; Nausea is decreased al5 20:09 Drug: Aspirin PO Chewable Tablet 243 mg PO once; 81 mg tablets x 3 Route: PO; al5 20:32 Follow up: Response: No adverse reaction al5 Point of Care Testing: Blood Glucose: 19:00 Blood Glucose: 343 mg/dL; al5 19:00 done prior to shift change with previous nurse al5 Ranges: Critical Glucose Levels:Adult <50 mg/dl or >400 mg/dl <40 mg/dl or >180 mg/dl Disposition Summary: 03/02/24 20:38 Hospitalization Ordered Notes: Hospitalization Status: Observation rt Provider: Prince Deven rt Location: Telemetry/MedSurg (observation) rt Condition: Stable rt Problem: new rt Symptoms: have improved rt Bed/Room Type: Standard rt Room Assignment: 223(03/02/24 21:15) cg Diagnosis - Transient ischemic attack rt Forms: - Medication Reconciliation Form rt - SBAR form rt - Leadership Thank You Letter rt NIH Stroke Scale - NIH Stroke Score Date: 03/02/2024 Time: 18:27 Total Score = 1 10. Dysarthria (speech clarity - read or repeat words) - 0(Normal) 11. Extinction and Inattention (visual/tactile/auditory/spatial/personal) - 0(No abnormality) 1a. Level of Consciousness (LOC) - 0(Alert) 1b. Level of Consciousness (LOC) (Month \T\ Age) - 0(Both) 1c. LOC Commands (Open \T\ Closes Eyes/News Assignment Editor) - 0(Both) 2. Best Gaze (Lateral Gaze Paresis) - 0(Normal) 3. Visual Field Loss - 0(No visual loss) 4. Facial Palsy - 0(Normal) 5a. Left Arm: Motor (10-second hold) - 0(No drift) 5b. Right Arm: Motor (10-second hold) - 0(No drift) 6a. Left Leg: Motor (5-second hold - always test supine) - 0(No drift) 6b. Right Leg: Motor (5-second hold - always test supine) - 0(No drift) 7. Limb Ataxia (finger/nose \T\ heel/alcantara - test with eyes open) - 0(Absent) 8. Sensory Loss (pinprick arms/legs/face) - 1(Mild to moderate loss) 9. Best Language: Aphasia (description/naming/reading) - 0(No aphasia) Initials: aa5 Signatures: Dispatcher [employer] EDKallie Brumfield, RN RN iw Jennifer Houston RN RN aa5 Meghan Linton, KWASI RN cg Kilo Suggs MD MD rt Chris Juárez MD MD bo1 Loren Brenner RN RN al5 Corrections: (The following items were deleted from the chart) 18:15 18:15 BASIC METABOLIC PANEL+C.LAB.BRZ ordered. EDMS EDMS 18:15 18:15 CBC+H.LAB.BRZ ordered. EDMS EDMS 18:15 18:15 Troponin High Sensitivity+C.LAB.BRZ ordered. EDMS EDMS 18:15 18:15 PROTIME (+INR)+COAG.LAB.BRZ ordered. EDMS EDMS 18:15 18:15 PTT, ACTIVATED+COAG.LAB.BRZ ordered. EDMS EDMS 21:15 20:38 rt cg
--- NOTE | 2024-03-02 20:38 | ER ---
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 Coronavirus screen: At this time, the client does not indicate any symptoms associated with coronavirus-19. Ebola Screen: No symptoms or risks identified at this time. Initial Sepsis Screen: Does the patient meet any 2 criteria? No. Patient's initial sepsis screen is negative. Does the patient have a suspected source of infection? No. Patient's initial sepsis screen is negative. Risk Assessment: Do you want to hurt yourself or someone else? Patient reports no desire to harm self or others. 18:14 Method Of Arrival: Wheelchair iw 18:14 No acute neurological deficit is noted. Pre-hospital glucose is not applicable to this iw patient. 18:14 Onset of symptoms was March 02, 2024 at 18:00. iw Triage Assessment: 18:14 The onset of the patients symptoms was March 02, 2024 at 18:00. General: Appears in iw no apparent distress. Behavior is calm, cooperative. Pain: Complains of pain in left hand. Neuro: Reports paresthesias in left hand and left arm. Respiratory: Respiratory effort is even, unlabored, Respiratory pattern is regular. Stroke Activation: Symptom onset < 3 hours Physician: ED Attending; Name: Dr. Juárez; Notified At: 18:14; Arrived At: 18:38 Physician: Mid-Level Provider; Name: ; Notified At: 18:14; Arrived At: Physician: [not used]; Name: ; Notified At: ; Arrived At: Physician: [not used]; Name: ; Notified At: ; Arrived At: Physician: [not used]; Name: ; Notified At: ; Arrived At: Historical: - Allergies: 18:41 No Known Allergies; iw - Home Meds: 18:55 losartan 100 mg oral tablet daily [Active]; aspirin 81 mg Oral capsule daily [Active]; iw glipizide 5 mg Oral tablet 2 times per day [Active]; clopidogrel 75 mg oral tablet daily [Active]; gabapentin 100 mg oral capsule 2 times per day [Active]; atorvastatin 40 mg oral tablet every evening [Active]; - PMHx: 18:41 Hypertension; Hypothyroidism; ischemic stroke (June 17); Diabetes mellitus; iw 18:27 RIght sided numbness from previous CVA; aa5 - Immunization history:: Adult Immunizations up to date. - Infectious Disease History:: Denies. - Social history:: Smoking status: Patient denies any tobacco usage or history of. - Family history:: not pertinent. Screenin:[facility] ED Fall Risk Assessment (Adult) History of falling in the last 3 months, al5 including since admission No falls in past 3 months (0 pts) Confusion or Disorientation No (0 pts) Intoxicated or Sedated No (0 pts) Impaired Gait No (0 pts) Mobility Assist Device Used No (0 pt) Altered Elimination No (0 pt) Score/Fall Risk Level 0 - 2 = Low Risk Oriented to surroundings, Maintained a safe environment, Hourly rounding (assess needs \T\ fall precautionary measures) done. Abuse screen: Denies threats or abuse. Denies injuries from another. Nutritional screening: No deficits noted. Tuberculosis screening: No symptoms or risk factors identified. Assessment: 18:14 Reassessment: Code Stroke called, Dr. Juárez notified of symptoms. iw 18:25 Reassessment: pt brought back to ER room 5. iw 18:27 VAN Scoring: Arm Drift: Patients demonstrates NO arm weakness. Patient is VAN Negative. aa5 Visual Disturbance: No visual disturbance noted. Aphasia: No aphasia noted. Neglect: No neglect noted. 18:27 General: Appears comfortable, Behavior is calm, cooperative. Pain: Complains of pain in aa5 left hand Pain radiates to up left arm Quality of pain is described as numb, Is continuous. Neuro: Level of Consciousness is awake, alert, obeys commands, Oriented to person, place, time, situation, Book Store Associate are weak on left Moves all extremities. Full function Speech is normal, Facial symmetry appears normal, Reports numbness in left arm right sided numbness from previous CVA. . Cardiovascular: Heart tones S1 S2 present Rhythm is sinus rhythm. Respiratory: Airway is patent Respiratory effort is even, unlabored, Respiratory pattern is regular, symmetrical. GI: Abdomen is round non-distended, Bowel sounds present X 4 quads. Abd is soft and non tender X 4 quads. : No signs and/or symptoms were reported regarding the genitourinary system. EENT: No signs and/or symptoms were reported regarding the EENT system. Derm: Skin is pink, warm \T\ dry. Musculoskeletal: Range of motion: intact in all extremities. 18:38 Reassessment: bedside assessment done by Dr. Juárez. iw 18:40 Reassessment: Pt to CT . aa5 18:52 Reassessment: pt back from angio, placed on monitor by demonstrator sewing techniques. iw 19:08 General: Appears in no apparent distress. comfortable, Behavior is calm, cooperative. al5 Pain: Denies pain. Neuro: Level of Consciousness is awake, alert, obeys commands, Oriented to person, place, time, situation, Moves all extremities. Full function Speech is normal, Facial symmetry appears normal, Pupils are PERRLA, intact, previous hx of stroke and has some deficit to R side. states as of right now feels normal. Cardiovascular: Capillary refill < 3 seconds Patient's skin is warm and dry. Rhythm is sinus rhythm. Respiratory: Airway is patent Respiratory effort is even, unlabored, Respiratory pattern is regular, symmetrical. GI: Abdomen is non-distended, Reports nausea. : No signs and/or symptoms were reported regarding the genitourinary system. EENT: No signs and/or symptoms were reported regarding the EENT system. Derm: Skin is intact, is healthy with good turgor, Skin is pink, warm \T\ dry. normal. Musculoskeletal: No signs and/or symptoms reported regarding the musculoskeletal system. 19:49 [place] Swallow Protocol Exclusion Criteria: Unable to remain alert for testing: No NPO al5 for medical/surgical reason by provider order No Tracheostomy tube present No No thin liquids due to preexisting dysphagia/baseline modified diet thickened liquids No Exclusion Criteria Result: Proceed Brief Cognitive Screen What is your name? Normal, Where are you right now? Normal, What year is it? Normal. Oral Mechanism Examination Facial Symmetry: Normal, Motion: Normal, Lip Closure: Normal, Oral Mechanism Result: Normal. 3 oz Water Swallow Challenge: Pt able to drink all water without stopping, coughing, choking or throat clearing: Yes Result: PASS MD Notified: Kilo Suggs MD. 19:49 TNKase (Tenecteplase) Screening: Not Applicable. al5 20:48 Reassessment: Patient appears in no apparent distress at this time. No changes from al5 previously documented assessment. Patient and/or family updated on plan of care and expected duration. Pain level reassessed. Patient is alert, oriented x 3, equal unlabored respirations, skin warm/dry/pink. 21:55 Reassessment: Patient appears in no apparent distress at this time. No changes from al5 previously documented assessment. Patient and/or family updated on plan of care and expected duration. Pain level reassessed. Patient is alert, oriented x 3, equal unlabored respirations, skin warm/dry/pink. Vital Signs: 18:14 BP 143 / 100; Pulse 88; Resp 16; Pulse Ox 95% on R/A; iw 19:00 BP 147 / 98; Pulse 72; Resp 13; Temp 97.8; Pulse Ox 99% on R/A; al5 19:30 BP 130 / 87; Pulse 62; Resp 21; Pulse Ox 99% on R/A; al5 20:09 BP 145 / 95; Pulse 62; Resp 15; Pulse Ox 98% on R/A; al5 20:30 BP 142 / 93; Pulse 62; Resp 17; Pulse Ox 97% on R/A; al5 21:00 BP 133 / 77; Pulse 57; Resp 15; Pulse Ox 97% ; al5 21:30 BP 137 / 84; Pulse 59; Resp 19; Pulse Ox 96% on R/A; al5 NIH Stroke Scale Scores: 18:27 NIHSS Score: 1 aa5 ED Course: 18:10 Patient arrived in ED. mg5 18:24 CT Stroke Brain w/o Contrast In Process Unspecified. EDMS 18:27 Arm band placed on. aa5 18:27 Patient has correct armband on for positive identification. Bed in low position. Call aa5 light in reach. Side rails up X2. Adult w/ patient. Client placed on continuous cardiac and pulse oximetry monitoring. NIBP monitoring applied. community marketing manager on. Pulse ox on. NIBP on. 18:28 Initial lab(s) drawn, by ED staff, sent to lab. Inserted saline lock: 20 gauge in right aa5 antecubital area, using aseptic technique. Blood collected. Flushed with 10 mL NS. 18:28 EKG done, by ED staff, reviewed by Chris Juárez MD. aa5 18:36 Jennifer Houston, RN is Primary Nurse. aa5 18:36 Triage completed. iw 18:48 Stroke CXR 1 View In Process Unspecified. EDMS 18:49 CT Head Angio In Process Unspecified. EDMS 18:49 CT Neck Angio In Process Unspecified. EDMS 18:51 Chris Juárez MD is Attending Physician. rv1 19:00 Report given to KWASI Pimentel. aa5 19:02 Attending Physician role handed off by Chris Juárez MD rt 19:02 Kilo Suggs MD is Attending Physician. rt 19:06 Primary Nurse role handed off by Jennifer Houston, KWASI al5 19:06 Loren Brenner RN is Primary Nurse. al5 19:51 No provider procedures requiring assistance completed. al5 20:37 Prince Carvalho MD is Hospitalizing Provider. rt 21:53 Patient admitted, IV remains in place. al5 21:54 Provided Education on: admission. al5 Administered Medications: 19:38 Drug: Ondansetron IVP 4 mg IVP once; over 2 minutes Route: IVP; Site: right antecubital;al5 20:10 Follow up: Response: No adverse reaction; Nausea is decreased al5 20:09 Drug: Aspirin PO Chewable Tablet 243 mg PO once; 81 mg tablets x 3 Route: PO; al5 20:32 Follow up: Response: No adverse reaction al5 Medication: 19:51 VIS not applicable for this client. al5 Point of Care Testing: Blood Glucose: 19:00 Blood Glucose: 343 mg/dL; al5 19:00 done prior to shift change with previous nurse al5 Ranges: Outcome: 20:38 Decision to Hospitalize by Provider. rt 22:52 Patient left the ED. iw NIH Stroke Scale - NIH Stroke Score Date: 03/02/2024 Time: 18:27 Total Score = 1 10. Dysarthria (speech clarity - read or repeat words) - 0(Normal) 11. Extinction and Inattention (visual/tactile/auditory/spatial/personal) - 0(No abnormality) 1a. Level of Consciousness (LOC) - 0(Alert) 1b. Level of Consciousness (LOC) (Month \T\ Age) - 0(Both) 1c. LOC Commands (Open \T\ Closes Eyes/Transplant Surgeon) - 0(Both) 2. Best Gaze (Lateral Gaze Paresis) - 0(Normal) 3. Visual Field Loss - 0(No visual loss) 4. Facial Palsy - 0(Normal) 5a. Left Arm: Motor (10-second hold) - 0(No drift) 5b. Right Arm: Motor (10-second hold) - 0(No drift) 6a. Left Leg: Motor (5-second hold - always test supine) - 0(No drift) 6b. Right Leg: Motor (5-second hold - always test supine) - 0(No drift) 7. Limb Ataxia (finger/nose \T\ heel/alcantara - test with eyes open) - 0(Absent) 8. Sensory Loss (pinprick arms/legs/face) - 1(Mild to moderate loss) 9. Best Language: Aphasia (description/naming/reading) - 0(No aphasia) Initials: aa5 Signatures: Dispatcher [employer] EDMS Kallie Muller RN RN Jennifer Houston RN RN aa5 Kilo Suggs MD MD Maura Cooney rv1 Ginna Koenig mg5 Loren Brenner RN RN al5 Corrections: (The following items were deleted from the chart) 18:53 18:42 Arm band placed on iw aa5 19:53 19:49 General: Appears in no apparent distress. comfortable, Behavior is calm, al5 cooperative, al5 19:53 19:49 Pain: Denies pain. al5 al5 19:53 19:49 Neuro: Level of Consciousness is awake, alert, obeys commands, Oriented al5 to person, place, time, situation, Moves all extremities. Full function Speech is normal, Facial symmetry appears normal, Pupils are PERRLA, intact, previous hx of stroke and has some deficit to R side. states as of right now feels normal. al5 19:53 19:49 Cardiovascular: Capillary refill < 3 seconds Patient's skin is warm and al5 dry. Rhythm is sinus rhythm al5 19:53 19:49 Respiratory: Airway is patent Respiratory effort is even, unlabored, al5 Respiratory pattern is regular, symmetrical, al5 19:49 GI: No signs and/or symptoms were reported involving the gastrointestinal al5 system. al5 19:49 : No signs and/or symptoms were reported regarding the genitourinary al5 system. al5 19:49 EENT: No signs and/or symptoms were reported regarding the EENT system. al5 al5 53 19:49 Derm: Skin is intact, is healthy with good turgor, Skin is pink, warm \T\ al5 dry. normal, al5 19:49 Musculoskeletal: No signs and/or symptoms reported regarding the al5 musculoskeletal system. al5 20:32 19:08 GI: No signs and/or symptoms were reported involving the gastrointestinal al5 system. al5
--- NOTE | 2024-03-02 20:50 | P.HP ---
Certification for Inpatient Patient admitted to: Observation With expected LOS: <2 Midnights Practitioner: I am a practitioner with admitting privileges, knowledge of patient current condition, hospital course, and medical plan of care. Services: Services provided to patient in accordance with Admission requirements found in Title 42 Section 412.3 of the Code of Federal Regulations Patient History Date of Service: 03/02/24 Reason for admission: LUE weakness/paresthesia History of Present Illness: Patient is a 54-year-old male with a past medical history of hyperten lori, type 2 diabetes mellitus, hypothyroidism and CVA. He is currently on dual antiplatelet therapy and high intensity statin. He presented to the ER complaining of an acute onset of left upper extremity paresthesia that started a few hours [employer]AC[employer]ARD C[employer]ACER. He is describing a sudden onset of left hand clenching and paresthesia radiating proximally from his left wrist to his shoulder. Patient is in the ER accompanied by and daughter. CT head, CTA head and neck were unremarkable. He is staying to have a formal brain MRI. During my evaluation, patient was just seen returning from the bathroom. He is ambulating without assistance. His physical exam is nonfocal. His labs were reviewed as well and they are unremarkable. Allergies No Known Allergies Allergy (Verified 04/11/21 05:05) Home Medications: Levothyroxine [Synthroid*] 0.075 mg PO DAILYAC #30 tab 04/11/21 - Past Medical/Surgical History Diabetic: No -: HTN -: Hypothyriodism -: DM -: ear surgery Psychosocial/ Personal History: for 32 years, 5 children, 9 grandchildren - Family History Mother -: Hypertension, Diabetes, Other (see notes) (Hypothyriodism ) Notes: ESRD on HD, DM Father -: Hypertension, Diabetes, Other (see notes) (Hypothyriodism ) Notes: MA at 45 yo Sister -: Diabetes, Stroke Notes: ESRD on HD, in assisted - Social History Alcohol use: Yes CD- Drugs: No Caffeine use: No Physical Examination - Physical Exam General: In no apparent distress HEENT: Atraumatic, Normocephalic Neck: Supple Respiratory: Clear to auscultation bilaterally, Normal air movement Cardiovascular: No edema, Normal pulses, Regular rate/rhythm, Normal S1 S2 Musculoskeletal: No clubbing, No swelling, No contractures, No erythema, No tenderness, No warmth Neurological: Normal speech, Normal tone, Cranial nerves 3-12 intact - Studies Laboratory Data (last 24 hrs) 03/02/24 03/02/24 03/02/24 18:30 18:30 18:30 WBC 9.00 Hgb 15.4 Hct 45.0 Plt Count 215 PT 12.8 H INR 1.15 APTT 36.2 Sodium 132 L Potassium 3.9 BUN 14 Creatinine 1.14 Glucose 379 H Assessment and Plan - Problems (Diagnosis) (1) TIA (transient ischemic attack) Current Visit: Yes Status: Acute (2) HTN (hypertension) Current Visit: No Status: Chronic Qualifiers: (3) Hypothyroid Current Visit: No Status: Chronic Qualifiers: (4) T2DM (type 2 diabetes mellitus) Current Visit: No Status: Chronic Qualifiers: - Plan Assessment This is a 54-year-old male with a past medical history of CVA who is being admitted for CVA workup after he presented with sudden onset of left upper extremity paresthesia. Workup so far including CT head, CTA head and neck are unremarkable. Patient's physical exam is nonfocal. TIA/CVA Hypertension Type 2 diabetes mellitus Hyperlipidemia Hypothyroidism Plan: Will admit under observation with telemetry Follow brain MRI and 2D echo Follow lipid panel and hemoglobin A1c PT/OT before discharge DVT prophylaxis - Advance Directives Does patient have a Living Will: No Does patient have a Durable POA for Healthcare: No
[2024-03-02] MEDS ORDERED: ATORVASTATIN 20 MG TAB PO SCH (21:00)
[2024-03-02] MEDS: NA CHLORIDE 0.9% 1,000 ML IV SCH (23:59)
[2024-03-03 00:02] LABS: RPR (Rapid Plasma Reagin) NON-REACT (NON-REACT)
[2024-03-03 00:18] LABS: Magnesium 1.8 mg/dL (1.6-2.4); Phosphorus 2.8 mg/dL (2.5-4.9)
[2024-03-03 00:44] VITALS: BMI 28.3
[2024-03-03 05:28] LABS: Absolute Basophils 0.1 K/uL (0-0.5); Absolute Eosinophils 0.4 K/uL (0-0.5); Absolute Lymphocytes (CBC) 3.6 K/uL (0.7-4.9); Absolute Monocytes 0.7 K/uL (0.1-1.3); Absolute Neutrophil 4.4 K/uL (1.8-8.0); Basophils % 0.9 % (0-1.3); Eosinophils % 4.3 % (0-4.4); Hematocrit 41.5 % (39.6-49.0); Hemoglobin 14.5 g/dL (13.6-17.9); MCH 30.2 pg (27.0-35.0); MCV 86.3 fL (80-100); MPV 8.2 fL (7.6-11.3); Neutrophils % 47.8 % (41.7-73.7); Nucleated Red Blood Cells % 0.1 % (0-0); Platelets 213 thou/uL (152-406); RBC Red Blood Cell Count 4.81 M/uL (4.33-5.43); Red Cell Distribution Width 12.6 % (12.1-15.2)
[2024-03-03 05:45] LABS: Anion Gap 8.5 mEq/L (5.0-15.0); Potassium 3.5 mEq/L (3.5-5.1)
[2024-03-03] MEDS: LEVOTHYROXINE SOD 0.075 MG TAB PO SCH (06:27)
[2024-03-03 07:40] LABS: T3 Free 2.6 pg/mL (2.18-3.98)
[2024-03-03 07:51] LABS: Thyroid Stimulating Hormone 11.2 uIU/mL (0.358-3.740)
[2024-03-03] MEDS: GABAPENTIN 100 MG CAP PO SCH (08:31)
[2024-03-03] MEDS: ASPIRIN EC 81 MG TAB PO SCH (08:31)
[2024-03-03] MEDS: ESCITALOPRAM 20 MG TAB PO SCH (08:31)
[2024-03-03] MEDS: LOSARTAN POTASSIUM 50 MG TABLET PO SCH (08:31)
[2024-03-03] MEDS: CLOPIDOGREL 75 MG TABLET PO SCH (08:31)
--- NOTE | 2024-03-03 10:56 | P.PN ---
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 Hypertension Type 2 diabetes mellitus Hyperlipidemia Hypothyroidism Plan TIA/CVA-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 Had a stroke in June 2023-left thalamus Had significant right-sided deficits, has been working with PT and regained most function Still has residual decreased sensation to right face, right arm, some weakness to right leg, right arm from previous stroke Left-sided symptoms reported prior to arrival with left fingers drawing in and pain up the left arm which lasted a few hours CT/CTA negative for acute findings Plan to obtain MRI tomorrow NIH-1 from previous CVA Patient already on aspirin, Plavix, statin at home, continue Hypertension Type 2 diabetes mellitus Hyperlipidemia Hypothyroidism Continue home medications VTE: Lovenox Code: Full Dispo: 1 day Time Spent Managing Pts Care (In Minutes): 35
[2024-03-03] MEDS: FLU (Fluarix Triv) TS24-25(6MOS UP)/PF 45 MCG/0.5 ML Syringe IM ONE (11:07)
[2024-03-03] MEDS: INSULIN REGULAR (HUMAN) 100 UNIT/ML SQ SCH (12:38)
[2024-03-03] MEDS ORDERED: INSULIN REGULAR (HUMAN) 100 UNIT/ML SQ SCH (16:30)
[2024-03-03] MEDS: ATORVASTATIN 40 MG TAB PO SCH (21:02)
[2024-03-04 07:55] VITALS: O2SAT 97
[2024-03-04] MEDS: ENOXAPARIN 40 MG/0.4 ML SQ SCH (09:17)
--- NOTE | 2024-03-04 12:01 | EKG ---
Test Date: 2024-03-02 Test Time: 18:30:43 Instructional Design Technologist: SHIRLEY MEASUREMENT RESULTS: Intervals: Rate: 75 MO: 148 QRSD: 80 QT: 370 QTc: 413 [place]: P: 52 MO: 148 QRS: -4 T: 43 INTERPRETIVE STATEMENTS: Normal sinus rhythm Normal ECG Compared to ECG 12/27/2023 18:22:48 No significant changes Electronically Signed On 03-04-24 11:59:29 BLEND TECHNICIAN by Andrea Dong
--- NOTE | 2024-03-04 12:50 | RAD REPORT ---
EXAMINATION: MRI BRAIN WITHOUT CONTRAST CLINICAL INDICATION: Male, 54 years old. R/O CVA TECHNIQUE: Multiplanar multisequence MR images of the brain were obtained without intravenous contras t. Unless otherwise specified, incidental findings do not require dedicated imaging follow-up. [id number]. COMPARISON: 04/12/2021 FINDINGS: INTRACRANIAL: Diffusion-weighted images show no acute or early subacute infarction. No abnormal brain parenchymal signal. The ventricles are normal in size and morphology. No augmented susceptibility. There is no mass effect or midline shift. No abnormal extraaxial fluid collection. Minimal T2/FLAIR h yperintense signal foci within the subcortical and deep white matter. VASCULATURE: Normal signal voids in the larger intracranial arteries and dural venous sinuses. SINUSES: The paranasal sinuses and mastoid air cells are predominantly clear. BONE: The marrow signal pattern is within normal limits. IMPRESSION: No significant intracranial abnormalities. Specifically, no evidence of acute infarct. Mild chronic s mall vessel ischemic changes.
[2024-03-04 13:09] VITALS: BP 113/76; TEMP 98.2
--- NOTE | 2024-03-04 13:10 | ECHO ---
HEIGHT: 5 ft 11 in WEIGHT: 203 lb 0 oz DATE OF STUDY: 03/04/[address]: Prince Tari Carvalho MD 2-DIMENSIONAL: YES M.MODE: YES DOPPLER: YES COLOR FLOW: YES TDS: NO PORTABLE: YES DEFINITY: NO BUBBLE STUDY: NO DIAGNOSIS: HAND NUMBNESS WITH SHOOTING PAIN CARDIAC HISTORY: CATHERIZATION: SURGERY: PROSTHETIC VALVE: PACEMAKER: MEASUREMENTS (cm) DIASTOLIC (NORMALS) SYSTOLIC (NORMALS) IVSd 1.1 (0.6-1.2) LA Diam 3.5 (1.9-4.0) LVEF 74% LVIDd 3.5 (3.5-5.7) LVIDs 2.0 (2.0-3.5) %FS 42% LVPWd 1.2 (0.6-1.2) Ao Diam 2.8 (2.0-3.7) 2 DIMENSIONAL ASSESSMENT: RIGHT ATRIUM: NORMAL LEFT ATRIUM: NORMAL RIGHT VENTRICLE: NORMAL LEFT VENTRICLE: NORMAL TRICUSPID VALVE: TRACE OF TRICUSPID REGURGITATION MITRAL VALVE: NORMAL PULMONIC VALVE: NORMAL AORTIC VALVE: NORMAL PERICARDIAL EFFUSION: NONE AORTIC ROOT: NORMAL LEFT VENTRICULAR WALL MOTION: NORMAL. DOPPLER/COLOR FLOW: NORMAL. COMMENTS: 1. NORMAL LEFT VENTRICULAR SYSTOLIC FUNCTION, EJECTION FRACTION 60-65%, NORMAL WALL MOTION. 2. NORMAL DIASTOLIC FUNCTION. TECHNOLOGIST: JUNAID MALLORY
--- NOTE | 2024-03-04 13:30 | P.DS ---
Admission Date: 03/02/24 Discharge Date: 03/04/24 Disposition: ROUTINE DISCHARGE Discharge Condition: GOOD Reason for Admission: LUE weakness/paresthesia Brief History of Present Illness: Patient is a 54-year-old male with a past medical history of hypertension, type 2 diabetes mellitus, hypothyroidism and CVA. He is currently on dual antiplatelet therapy and high intensity statin. He presented to the ER complaining of an acute onset of left upper extremity paresthesia that started a few hours [employer]BB[employer]UTTER [employer] SHAPE [employer]VER. He is describing a sudden onset of left hand clenching and paresthesia radiating proximally from his left wrist to his shoulder. Patient is in the ER accompanied by and daughter. CT head, CTA head and neck were unremarkable. He is staying to have a formal brain MRI. During my evaluation, patient was just seen returning from the bathroom. He is ambulating without assistance. His physical exam is nonfocal. His labs were reviewed as well and they are unremarkable. 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 He had a stroke in June of this year in the left thalmic area and has been compliant with dual antiplatelet therapy since then. He has residual mild right-sided deficits, he experienced a few hours of left upper extremity paresthesias including a hand cramp/clenching of his left hand. His symptoms have improved/resolved, only remaining mild right-sided deficits from previous CVA are present currently. CT head without contrast showed a sagittal midline linear hyperdensity just above the corpus callosum which may relate to an acute branch LAURA thrombus in the appropriate clinical setting. CT angiography would further be helpful- subsequent CTA head and neck were performed which were negative for any occlusive findings/LVO MRI brain without contrast was also performed which was negative for acute findings specifically no signs of acute CVA/stroke. Echocardiogram was also obtained which showed normal LVEF, normal diastolic function, trace tricuspid regurg Patient was counseled to continue his on medications including his dual antiplatelet therapy and to follow-up with his primary care doctor Symptoms were rather than TIA/CVA likely related to muscle spasm/cramp. Continue home medications as previously prescribed Vital Signs/Physical Exam: Temp Pulse Resp BP Pulse Ox 98.2 F 55 16 113/76 96 03/04/24 12:00 03/04/24 12:00 03/04/24 12:00 03/04/24 12:00 03/04/24 12:00 General: Alert, In no apparent distress HEENT: Atraumatic, PERRLA, EOMI Neck: Supple, JVD not distended Respiratory: Clear to auscultation bilaterally, Normal air movement Cardiovascular: Regular rate/rhythm, Normal S1 S2 Gastrointestinal: Normal bowel sounds, No tenderness Musculoskeletal: No tenderness Integumentary: No rashes Neurological: Normal speech, Normal tone, Sensation intact (Decreased sensation RUE, RLE from previous CVA), Normal affect Laboratory Data at Discharge: WBC 9.20 thou/uL (4.3-10.9) 03/03/24 04:27 Hgb 14.5 g/dL (13.6-17.9) 03/03/24 04:27 Hct 41.5 % (39.6-49.0) 03/03/24 04:27 Plt Count 213 thou/uL (152-406) 03/03/24 04:27 PT 12.8 SECONDS (9.4-12.5) H 03/02/24 18:30 INR 1.15 03/02/24 18:30 APTT 36.2 SECONDS (24.3-36.9) 03/02/24 18:30 Sodium 135 mEq/L (136-145) L 03/03/24 04:27 Potassium 3.5 mEq/L (3.5-5.1) 03/03/24 04:27 BUN 15 mg/dL (7-18) 03/03/24 04:27 Creatinine 1.03 mg/dL (0.70-1.30) 03/03/24 04:27 Glucose 251 mg/dL (74-106) H 03/03/24 04:27 Phosphorus 2.8 mg/dL (2.5-4.9) 03/02/24 21:41 Magnesium 1.8 mg/dL (1.6-2.4) 03/02/24 21:41 Triglycerides 84 mg/dL (<150) 03/03/24 04:27 Cholesterol 124 mg/dL (<200) 03/03/24 04:27 HDL Cholesterol 35 mg/dL (40-60) L 03/03/24 04:27 Cholesterol/HDL Ratio 3.54 03/03/24 04:27 Home Medications: Levothyroxine [Synthroid*] 0.075 mg PO DAILYAC #30 tab 04/11/21 Aspirin [Low Dose Aspirin EC] 81 mg PO DAILY 03/02/24 Atorvastatin Calcium 40 mg PO BEDTIME 03/02/24 Clopidogrel Bisulfate [Plavix] 75 mg PO DAILY 03/02/24 Escitalopram Oxalate 10 mg PO DAILY 03/02/24 Gabapentin 100 mg PO BID 03/02/24 Losartan Potassium 100 mg PO DAILY 03/02/24 glipiZIDE [Glipizide] 5 mg PO SEECOM 03/02/24 Physician Discharge Instructions: Patient was admitted to the hospital for left upper extremity paresthesias/weakness. He had a stroke in June of this year in the left thalmic area and has been compliant with dual antiplatelet therapy since then. He has residual mild right-sided deficits, he experienced a few hours of left upper extremity paresthesias including a hand cramp/clenching of his left hand. His symptoms have improved/resolved, only remaining mild right-sided deficits from previous CVA are present currently. CT head without contrast showed a sagittal midline linear hyperdensity just above the corpus callosum which may relate to an acute branch LAURA thrombus in the appropriate clinical setting. CT angiography would further be helpful- subsequent CTA head and neck were performed which were negative for any occlusive findings/LVO MRI brain without contrast was also performed which was negative for acute findings specifically no signs of acute CVA/stroke. Echocardiogram was also obtained which showed normal LVEF, normal diastolic function, trace tricuspid regurg Patient was counseled to continue his on medications including his dual antiplatelet therapy and to follow-up with his primary care doctor Symptoms were rather than TIA/CVA likely related to muscle spasm/cramp. Continue home medications as previously prescribed Diet: ADA Activity: Ad maroln Followup: Jaime Pineda MD [ASSOCIATE-ACTIVE - CAN ADMIT] - 1-2 Weeks Loki Brooke DO [Primary Care Provider] - 1-2 Weeks Time spent managing pt's care (in minutes): 35
[2024-03-05 14:01] LABS: Abnormal Protein Band 1 REPORT; Albumin, (SPE) 4.3 g/dL (3.8-4.8); Alpha-1-Globulins 0.2 g/dL (0.2-0.3); Alpha-2-Globulins 0.8 g/dL (0.5-0.9); Beta 1 Globulin 0.4 g/dL (0.4-0.6); Gamma Globulins 1.2 g/dL (0.8-1.7); INTERPRETATION REPORT; Total Protein 7.4 g/dL (6.1-8.1)
[2024-03-05 20:22] LABS: Homocysteine 9.6 umol/L (<11.4)
[2024-03-06 05:13] LABS: Anti-Thrombin III Activity 104 % normal (80-135)
[2024-03-06 18:49] LABS: C-ANCA Anti-Proteinase 3 <1.0 AI (<1.0); P-ANCA Anti-Myeloperoxidase Ab <1.0 AI (<1.0)
[2024-03-06 20:12] LABS: Anti-Cardiolipin IgG Antibody <2.0 GPL-U/mL (<20.0); Anti-Cardiolipin IgM Antibody <2.0 MPL-U/mL (<20.0); Beta-2-Glycoprotein I IgA <2.0 U/mL (<20.0); Beta-2-Glycoprotein I IgG <2.0 U/mL (<20.0); Beta-2-Glycoprotein I IgM <2.0 U/mL (<20.0); Phosphatidylser & Prothrom IgG 13 U (<=30); Phosphatidylser & Prothrom IgM <9 U (<=30)
[2024-03-08 12:39] LABS: Factor V (Leiden) Interp REPORT; Factor V (Leiden) Result NEGATIVE; Protein C Antigen 100 % normal (70-140)
[2024-03-08 13:03] LABS: PGA INTERPRETATION REPORT; Prothrombin Gene Analysis Test NEGATIVE
== END 2024-03-04 13:53 | disposition home or self-care (01) | DRG 92 ==
LOC: ER 18:08 → ERHOLD 20:25 → 2ND 21:15
PROVIDERS: ADMIT Internal Medicine; ATTEND Hospitalist
DX: R25.2 Cramp and spasm (principal); I69.351 Hemiplegia and hemiparesis following cerebral infarction affecting right dominant side; I10 Essential (primary) hypertension; E03.9 Hypothyroidism, unspecified; E78.5 Hyperlipidemia, unspecified; E11.9 Type 2 diabetes mellitus without complications; Z79.82 Long term (current) use of aspirin; Z79.84 Long term (current) use of oral hypoglycemic drugs; Z79.02 Long term (current) use of antithrombotics/antiplatelets; Z79.899 Other long term (current) drug therapy; Z79.890 Hormone replacement therapy
CPT/HCPCS: 36415; 70450; 70496; 70498; 70551; 71045; 80048; 80061; 81240; 81241; 82306; 82607; 82947; 83036; 83090; 83735; 84100; 84165; 84439; 84443; 84481; 84484; 85025; 85300; 85302; 85305; 85306; 85610; 85730; 86021; 86592; 86593; 93005; 93306; 96374; 97161; 99285; J1650; J2405; J7030; Q9967